=== PATIENT | male | born 1940 | race Caucasian/White ===

== ENCOUNTER → 2017-03-17 | Outpatient (CLI) | payer MEDICARE ==
[~2017-03-17] MED LIST: ALFU10TA11 PO; ASP325TEC PO; ASPI-808 PO; AVODART 0.5 MG PO; DOCU100C37 PO; FRS325T; GABA300C PO; GBPN100C PO; HYDR-3820 PO; IBP800T PO; POLY17PO23 GT; SENN-20 PO; SIMV10TA3 PO; TRAM50TA2 PO
--- NOTE | 2017-03-17 13:38 | Diagnostic Imaging Report ---
INDICATION: Right arm numbness of 2 months duration. FINDINGS: There are severe degenerative changes to the mid to lower cervical spine with profound spondylosis, most advanced at the C4-5 and C5-C6 levels, where there is central disc obliteration, bulky endplate osteophytes, and hypertrophic facet arthrosis. Less severe degenerative change involves the remaining discs. The alignment is within normal limits. The prevertebral space is unremarkable. There is no identifiable fracture. IMPRESSION: Severe mid to lower cervical spondylosis. The extent of posterior endplate osteophytes and facet arthrosis would likely result in underlying canal and/or foraminal stenoses. In the setting of right arm numbness, consider an MRI of the cervical spine as further evaluation. Dictated by: Dictated on workstation # [id number]
== END ==
LOC: RAD 11:16
PROVIDERS: ATTEND Nurse Practitioner Family
DX: M47.812 Spondylosis without myelopathy or radiculopathy, cervical region (principal)
CPT/HCPCS: 72040

== ENCOUNTER → 2017-04-27 | Outpatient (CLI) | payer MEDICARE ==
--- NOTE | 2017-04-27 17:12 | Diagnostic Imaging Report ---
PROCEDURE: MR imaging cervical spine without contrast. TECHNIQUE: Multiplanar, multisequence MR imaging of the cervical spine was performed without contrast. INDICATION: Neck pain. FINDINGS: There is slight straightening of the lordotic curvature of the cervical spine. There is mild anterior translation of C4 over C5 and minimal posterior translation of C5 over C6. This appears to be degenerative related and associated with severe disc height loss at C4/5 and C5/6. There is also moderate disc height loss at C4/5. There is disc desiccation at all levels. There is mild marrow edema around the mid cervical spine discs. No focal suspicious marrow lesion is seen. The foramen magnum and upper cervical canal are patent. C2/3: There is disc space complex with associated mild to moderate spinal canal stenosis reducing the AP dimension of the canal to 7.8 mm. No cord compression or cord signal abnormality. There is facet hypertrophy prominent on the left side associated with mild to moderate left foraminal stenosis. The right foramen is patent. C3/4: There is disc space complex associated with moderate spinal canal stenosis reducing the AP dimension of the canal to 7.4 mm. There is minimal impression upon the anterior margin of the spinal cord. No cord signal abnormality. The foramina demonstrate mild narrowing bilaterally. C4/5: There is a prominent disc spur complex associated with severe spinal canal stenosis reducing the AP dimension of the canal to 5.7 mm and associated with moderate cord compression. There is no cord signal abnormality. The foramina demonstrate bilateral moderate to severe stenosis worse on the right side. C5/6: There is a disc spur complex associated with severe spinal canal stenosis reducing the AP dimension of the canal to 5.6 mm and associated with moderate cord compression. No cord signal abnormality is seen. The foramina demonstrates severe stenosis bilaterally. C6-7: There is a spur disc complex associated with mild to moderate spinal canal stenosis reducing the AP dimension of the canal to 7.9 mm. No cord compression or cord signal abnormality. The foramina demonstrate bilateral severe stenosis. C7/T1: There is mild disc spur complex with no spinal canal stenosis. No cord compression. The foramina demonstrate moderate stenosis on the right and severe stenosis on the left. IMPRESSION: Advanced degenerative changes resulting in alignment abnormalities and multilevel severe spinal canal stenosis and cord compression as described. There is also multilevel significant foraminal stenosis. Dictated by: Dictated on workstation # [id number]
== END ==
LOC: RAD 11:11
PROVIDERS: ATTEND Nurse Practitioner Family
DX: M50.921 Unspecified cervical disc disorder at C4-C5 level (principal); M50.922 Unspecified cervical disc disorder at C5-C6 level
CPT/HCPCS: 72141

== ENCOUNTER 2017-11-26 18:45 | Observation (INO) | payer MEDICARE ==
[~2017-11-26] VITALS: Ht 182.9 cm; Wt 112.7 kg
[2017-11-26 19:10] LABS: BASOPHILS % (AUTO) 0 % (0-10); EOSINOPHILS # (AUTO) 0.2 10^3/uL (0.0-0.3); EOSINOPHILS % (AUTO) 2 % (0-10); HEMATOCRIT 41 % (40-54); HEMOGLOBIN 14.1 G/DL (13.3-17.7); LYMPHOCYTES # (AUTO) 1.9 X 10^3 (1.0-4.0); LYMPHOCYTES % (AUTO) 31 % (12-44); MEAN CORPUSCULAR HEMOGLOBIN 31 PG (25-34); MEAN CORPUSCULAR HGB CONC 34 G/DL (32-36); MEAN CORPUSCULAR VOLUME 90 FL (80-99); MEAN PLATELET VOLUME 11.6 FL (7.4-10.4); MONOCYTES # (AUTO) 0.7 X 10^3 (0.0-1.0); MONOCYTES % (AUTO) 11 % (0-12); NEUTROPHILS # (AUTO) 3.4 X 10^3 (1.8-7.8); NEUTROPHILS % (AUTO) 56 % (42-75); PLATELET COUNT 125 10^3/uL (130-400); RED BLOOD COUNT 4.57 10^6/uL (4.35-5.85); RED CELL DISTRIBUTION WIDTH 14.3 % (10.0-14.5); WHITE BLOOD COUNT 6.2 10^3/uL (4.3-11.0)
[2017-11-26 19:19] LABS: BILIRUBIN,URINE NEGATIVE (NEGATIVE); CLARITY,URINE CLEAR; COLOR,URINE YELLOW; GLUCOSE, URINE (UA) NEGATIVE (NEGATIVE); KETONES,URINE NEGATIVE (NEGATIVE); LEUKOCYTE ESTERASE ,URINE NEGATIVE (NEGATIVE); NITRITE,URINE NEGATIVE (NEGATIVE); PH,URINE 6.5 (5-9); PROTEIN,URINE NEGATIVE (NEGATIVE); UROBILINOGEN,URINE NORMAL (NORMAL)
[2017-11-26 19:27] LABS: RBC,URINE RARE /HPF; SQUAMOUS EPITHELIAL CELL,UR RARE /HPF; WBC,URINE RARE /HPF
[2017-11-26 19:27] LABS: ALANINE AMINOTRANSFERASE 17 U/L (0-55); ALBUMIN 3.8 GM/DL (3.2-4.5); ALKALINE PHOSPHATASE 61 U/L (40-136); BILIRUBIN,TOTAL 0.7 MG/DL (0.1-1.0); BUN/CREATININE RATIO 16; CALCIUM 8.8 MG/DL (8.5-10.1); CARBON DIOXIDE 23 MMOL/L (21-32); CHLORIDE 106 MMOL/L (98-107); CREATININE SERUM 1.23 MG/DL (0.60-1.30); GFR ESTIMATED 57; GLUCOSE 101 MG/DL (70-105); LIPASE 54 U/L (8-78); MAGNESIUM 2.3 MG/DL (1.8-2.4); POTASSIUM 4.2 MMOL/L (3.6-5.0); SODIUM 138 MMOL/L (135-145); TOTAL PROTEIN 7.1 GM/DL (6.4-8.2)
--- NOTE | 2017-11-26 19:33 | ED General ---
General Chief Complaint: General Problems/Pain Stated Complaint: NUMBNESS Nursing Triage Note: PT BROUGHT IN BY [facility] WITH C/O ABD PAIN WITHOUT N/V AND BILAT HAND NUMBNESS. HE DOES REPORT NECK PAIN. HE DENIES ANY INJURY. PT IS A&O X 4 UPON ARRIVAL TO ED. Nursing Sepsis Screen: No Definite Risk Source of Information: Patient Exam Limitations: No Limitations History of Present Illness Time Seen by Provider: 18:48 Initial Comments This 77 gentleman presents to the emergency room via [facility] with complaints of abdominal pain 3 days, diarrhea this morning, and generalized weakness 3 days, and numbness in the extremities. He normally walks with a walker but has not been able to ambulate today. He could not ambulate for EMS. He has had some mild cough as well. He also reports some neck discomfort. His abdomen is exquisitely tender and he guards even with placement of a stethoscope. He is afebrile and vital signs are stable. He is a patient of Sha Painter at [facility] in [place]. Allergies and Home Medications Allergies Coded Allergies: BECCAANo Known Allergies (Verified Allergy, Unknown, 10/18/16) Home Medications Alfuzosin HCl 10 Mg Tab.er.24h, 10 MG PO DAILY@1800, #30 Prescribed by: JAIRO ESPARZA on 01/09/16 0808 Aspirin 325 Mg Tablet, 325 MG PO BID, (Reported) Gabapentin 300 Mg Capsule, 300 MG PO HS, (Reported) Sennosides/Docusate Sodium 1 Each Tablet, 2 EA PO BID, #60 Prescribed by: JAIRO ESPARZA on 01/09/16 0808 Constitutional: see HPI EENTM: no symptoms reported Respiratory: see HPI Cardiovascular: no symptoms reported Gastrointestinal: see HPI Genitourinary: no symptoms reported Musculoskeletal: see HPI Skin: no symptoms reported Psychiatric/Neurological: See HPI Hematologic/Lymphatic: No Symptoms Reported Immunological/Allergic: no symptoms reported Past Zrxiftw-Ubftaa-Dsywos Hx Patient Social History Alcohol Use: Denies Use Recreational Drug Use: No Smoking Status: Former Smoker Type Used: Cigarettes 2nd Hand Smoke Exposure: No Recent Foreign Travel: No Contact w/Someone Who Travel: No Recent Infectious Disease Expo: No Recent Hopitalizations: No Immunizations Up To Date Tetanus Booster (TDap): Unknown PED Vaccines UTD: Yes Date of Pneumonia Vaccine: Aug 16, 2015 Date of Influenza Vaccine: Aug 16, 2016 Seasonal Allergies Seasonal Allergies: No Surgeries History of Surgeries: Yes Surgeries: Appendectomy, Orthopedic (right hip and left knee) Respiratory History of Respiratory Disorde: No Cardiovascular History of Cardiac Disorders: No Neurological History of Neurological Disord: Yes (restless leg syndrome, cervical spinal stenosis) Neurological Disorders: Neuropathy Reproductive System Hx Reproductive Disorders: No Genitourinary History of Genitourinary Disor: Yes Genitourinary Disorders: Benign Prostatic Hyperpl Gastrointestinal History of Gastrointestinal Di: No Musculoskeletal History of Musculoskeletal Dis: Yes (FREQ.BACK PAIN, cervical spinal stenosis) Musculoskeletal Disorders: Chronic Back Pain Endocrine History of Endocrine Disorders: No HEENT History of HEENT Disorders: No Cancer History of Cancer: No Psychosocial History of Psychiatric Problem: No Integumentary History of Skin or Integumenta: No Blood Transfusions History of Blood Disorders: No Adverse Reaction to a Blood Tr: No Family Medical History Significant Family History: No Pertinent Family Hx Family Medial History: Respiratory disorder 19 MOTHER (EMPHYZEMA) Physical Exam Vital Signs Vital Sign - Last 12Hours 11/26/17 18:57 Temp 99.2 Pulse 73 Resp 11 B/P (MAP) 128/101 (110) Pulse Ox 96 O2 Delivery Room Air Capillary Refill : Less Than 3 Seconds General Appearance: No Apparent Distress, WD/WN, Other (generalized weakness) HEENT: PERRL/EOMI, Normal ENT Inspection, Other (oropharynx somewhat dry) Neck: Normal Inspection Respiratory: Lungs Clear, Normal Breath Sounds, No Accessory Muscle Use, No Respiratory Distress Cardiovascular: Regular Rate, Rhythm, No Murmur, Other (mild to moderate pitting lower extremity edema equal bilaterally) Gastrointestinal: Soft, Abnormal Bowel Sounds (bowel sounds present but some are tympanic), Tenderness (exquisite diffuse tenderness even with auscultation) Extremity: Swelling (mild to moderate pitting edema equal bilaterally in the lower extremities) Neurologic/Psychiatric: Alert, Oriented x3, Normal Mood/Affect, patient service rep II-XII Norm as Tested, Motor Weakness (global, worse in the lower extremities), Sensory Deficit (numbness in the distal extremities throughout) Skin: Normal Color, Warm/Dry Progress/Results/Core Measures Suspected Sepsis Recent Fever Within 48 Hours: No Infection Criteria Present: None New/Unexplained Altered Menta: No Sepsis Screen: No Definite Risk Sepsis Diagnosis: SIRS Temperature:99.2 Pulse: 73 Respiratory Rate: 11 Laboratory Tests 11/26/17 19:00: White Blood Count 6.2 Blood Pressure 128 /101 Mean: 110 Laboratory Tests 11/26/17 19:00: Creatinine 1.23, Platelet Count 125L, Total Bilirubin 0.7 Results/Orders Lab Results Laboratory Tests Test 11/26/17 19:00 11/26/17 19:07 Range/Units White Blood Count 6.2 4.3-11.0 10^3/uL Red Blood Count 4.57 4.35-5.85 10^6/uL Hemoglobin 14.1 13.3-17.7 G/DL Hematocrit 41 40-54 % Mean Corpuscular Volume 90 80-99 FL Mean Corpuscular Hemoglobin 31 25-34 PG Mean Corpuscular Hemoglobin Concent 34 32-36 G/DL Red Cell Distribution Width 14.3 10.0-14.5 % Platelet Count 125 L 130-400 10^3/uL Mean Platelet Volume 11.6 H 7.4-10.4 FL Neutrophils (%) (Auto) 56 42-75 % Lymphocytes (%) (Auto) 31 12-44 % Monocytes (%) (Auto) 11 0-12 % Eosinophils (%) (Auto) 2 0-10 % Basophils (%) (Auto) 0 0-10 % Neutrophils # (Auto) 3.4 1.8-7.8 X 10^3 Lymphocytes # (Auto) 1.9 1.0-4.0 X 10^3 Monocytes # (Auto) 0.7 0.0-1.0 X 10^3 Eosinophils # (Auto) 0.2 0.0-0.3 10^3/uL Basophils # (Auto) 0.0 0.0-0.1 10^3/uL Sodium Level 138 135-145 MMOL/L Potassium Level 4.2 3.6-5.0 MMOL/L Chloride Level 106 98-107 MMOL/L Carbon Dioxide Level 23 21-32 MMOL/L Anion Gap 9 5-14 MMOL/L Blood Urea Nitrogen 20 H 7-18 MG/DL Creatinine 1.23 0.60-1.30 MG/DL Estimat Glomerular Filtration Rate 57 BUN/Creatinine Ratio 16 Glucose Level 101 70-105 MG/DL Calcium Level 8.8 8.5-10.1 MG/DL Magnesium Level 2.3 1.8-2.4 MG/DL Total Bilirubin 0.7 0.1-1.0 MG/DL Aspartate Amino Transf (AST/SGOT) 22 5-34 U/L Alanine Aminotransferase (ALT/SGPT) 17 0-55 U/L Alkaline Phosphatase 61 40-136 U/L Troponin I < 0.30 <0.30 NG/ML Total Protein 7.1 6.4-8.2 GM/DL Albumin 3.8 3.2-4.5 GM/DL Lipase 54 8-78 U/L TSH [place] Testing 1.99 0.35-4.94 UIU/ML Urine Color YELLOW Urine Clarity CLEAR Urine pH 6.5 5-9 Urine Specific [place] 1.015 L 1.016-1.022 Urine Protein NEGATIVE NEGATIVE Urine Glucose (UA) NEGATIVE NEGATIVE Urine Ketones NEGATIVE NEGATIVE Urine Nitrite NEGATIVE NEGATIVE Urine Bilirubin NEGATIVE NEGATIVE Urine Urobilinogen NORMAL NORMAL MG/DL Urine Leukocyte Esterase NEGATIVE NEGATIVE Urine RBC (Auto) NEGATIVE NEGATIVE Urine RBC RARE /HPF Urine WBC RARE /HPF Urine Squamous Epithelial Cells RARE /HPF Urine Crystals NONE /LPF Urine Bacteria NONE /HPF Urine Casts NONE /LPF Urine Mucus NEGATIVE /LPF Urine Culture Indicated NO Micro Results Microbiology 11/26/17 Influenza Types A,B Antigen (FLORA) - Final, Complete My Orders Orders - KINGSLEY LICEA MD Cbc With Automated Diff (11/26/17 18:59) Comprehensive Metabolic Panel (11/26/17 18:59) Lipase (11/26/17 18:59) Magnesium (11/26/17 18:59) Thyroid Analyzer (11/26/17 18:59) Troponin I (11/26/17 18:59) Ua Culture If Indicated (11/26/17 18:59) Influenza A And B Antigens (11/26/17 18:59) Chest 1 View, Ap/Pa Only (11/26/17 18:59) Ct Head/Cervical Spine Wo (11/26/17 18:59) Saline Lock/Iv-Start (11/26/17 18:59) Ekg Tracing (11/26/17 18:59) Monitor-Rhythm Ecg Trace Only (11/26/17 18:59) Ct Abdomen/Pelvis W (11/26/17 19:37) Ns Iv 1000 Ml (Sodium Chloride 0.9%) (11/26/17 19:37) Iohexol Injection (Omnipaque 350 Mg/Ml 1 (11/26/17 20:00) Fentanyl Injection (Sublimaze Injection (11/26/17 20:45) Gabapentin Capsule/Tablet (Neurontin Cap (11/26/17 20:45) Dexamethasone Injection (Decadron Inject (11/26/17 21:45) Medications Given in ED Current Medications Medications Dose Ordered Sig/Sussy Route Start Time Stop Time Status Last Admin Dose Admin Fentanyl Citrate 50 mcg ONCE ONCE IVP 11/26/17 20:45 11/26/17 20:46 DC 11/26/17 20:50 50 MCG Gabapentin 300 mg ONCE ONCE PO 11/26/17 20:45 11/26/17 20:46 DC 11/26/17 20:50 300 MG Iohexol 100 ml ONCE ONCE IV 11/26/17 20:00 11/26/17 20:01 DC 11/26/17 20:01 100 ML Sodium Chloride 1,000 ml @ 0 mls/hr Q0M ONCE IV 11/26/17 19:37 11/26/17 19:38 DC 11/26/17 20:23 0 MLS/HR Vital Signs/I&O Vital Sign - Last 12Hours 11/26/17 18:57 Temp 99.2 Pulse 73 Resp 11 B/P (MAP) 128/101 (110) Pulse Ox 96 O2 Delivery Room Air Capillary Refill : Less Than 3 Seconds Blood Pressure Mean: 110 Progress Note #1: Time: 19:58 Progress Note Review of labs demonstrated no major abnormalities. Patient is presently in CT for CT of the head and cervical spine. He will also receive a CT of the abdomen and pelvis with contrast for evaluation of the abdominal pain. A liter of IV normal saline will be administered after the IV contrast. Review of his chart notes and MRI of the cervical spine from April 2016 demonstrating severe cervical spine stenosis. Progress Note #2: Time: 21:[address] of the cervical spine revealed severe spinal stenosis similar to that of the findings on MRI from this past summer. In the absence of other causes of weakness, it is presumed that this is the cause of his weakness. Patient also has generalized back pain and paresthesias/numbness. He was treated with fentanyl and gabapentin in the ER. No cause of his abdominal pain could be determined in the ER. I suspect his abdominal pain is related either to obstipation or neuropathic pain. Case was reviewed with Dr. Ortega after assessment of patient's functionality. Patient was barely able to bear weight and required assistance to transfer from bed to wheelchair and back. He does not feel comfortable returning home as he has minimal support from his who is also older and in poor health. She also works during the day and will not be available in the home. Since patient cannot be safely return home, we will admit him to the hospital and start steroid therapy. A complete MRI of the spine will be performed in the morning to further assess his stenosis. Dr. Ortega then can assess him for surgical candidacy and determine best plan of action from there. Patient is agreeable to this plan as is Dr. Sandra Batres. ECG Initial ECG Impression Date: Nov 26, 2017 Initial ECG Impression Time: 19:10 Initial ECG Rate: 69 Initial ECG Rhythm: Normal Sinus Initial ECG Impression: Normal Comment Normal sinus rhythm with no ST elevation or depression. No axis deviation. Nonspecific intraventricular conduction delay per automated read. Diagnostic Imaging Diagonstic Imaging: Xray Plain Films/CT/US/NM/MRI: chest Comments Chest x-ray viewed by me and report reviewed. See report below: NAME: LAUREL HOLLEY Arline [facility] REC#: [id number] PT STATUS: REG ER : 1940 PHYSICIAN: KINGSLEY LICEA MD ADMIT DATE: 11/26/17/ER Draft Date of Exam:11/26/17 CHEST 1 VIEW, AP/PA ONLY INDICATION: Hand numbness, abdominal pain with cough. TECHNIQUE: Single view chest 7:34 PM. CORRELATION STUDY: 11/07/2016 FINDINGS: Heart size remains enlarged. Vasculature overall stable. Likely chronic change about the lung parenchyma. No suggestion for acute infiltrate. Minimal atelectasis or perhaps scarring left mid lung. IMPRESSION: 1. Stable cardiac enlargement without evidence for failure. Dictated on workstation # [id number] Dict: 11/26/171944 Trans: 11/26/171947 [place] [id number] Interpreted by: ESTRELLA FERNANDES DO Diagonstic Imaging: CT Plain Films/CT/US/NM/MRI: c-spine, head Comments CT head and cervical spine viewed by me and report reviewed. See report below: NAME: KISHANLAUREL Arline [facility] REC#: [id number] PT STATUS: REG ER : 1940 PHYSICIAN: KINGSLEY LICEA MD ADMIT DATE: 11/26/17/ER Draft Date of Exam:11/26/17 CT HEAD/CERVICAL SPINE WO PROCEDURE: CT head and CT cervical spine without contrast. TECHNIQUE: Multiple contiguous axial images were obtained through the brain and cervical spine without the use of intravenous contrast. Sagittal and coronal reformations through the cervical spine were then performed. INDICATION: Bilateral hand numbness and neck pain. No known injury. Comparison is made with a previous MRI examination from 04/27/2017. FINDINGS: CT of the head demonstrates no evidence of an acute intracranial abnormality. There is no evidence of intracranial hemorrhage. There Is no mass effect or shift. There is no hydrocephalus. There is no evidence of loss of costello-white differentiation. Basilar cisterns patent. Posterior fossa unremarkable. Mastoids appear clear. Paranasal sinuses are clear. Orbital contents unremarkable. CT cervical spine: When compared to the prior examination, there has not been evidence of interval change in alignment. There is maintenance of normal alignment of the craniocervical junction. The facets are normally aligned. There is no abnormal facet joint or disc space widening. There is a normal relationship of lateral masses of C1 and C2. Advanced multilevel cervical degenerative disc disease is again demonstrated most severe at the C4-C5 and C5-C6 levels. Vertebral body heights are maintained. There is no acute fracture. At the C2-C3 level, there is left greater than right facet arthropathy with [id number] narrowing of the left neural foramen. At C3-C4, uncovertebral spurring and facet arthropathy is present. There is moderate narrowing of both neural foramina. There appear to be mild narrowing of the central canal. At the C4-C5 level, there is posterior disc osteophyte complex that results in severe central canal stenosis. Uncovertebral spurring and facet arthropathy also result in severe bilateral neural foraminal stenosis. C5-C6 level demonstrates an additional level of severe central canal stenosis due to posterior disc osteophyte complex and additional level of severe bilateral neural foraminal stenosis. At C6-C7, there is endplate spurring with moderate narrowing of the central canal. There is severe bilateral neural foraminal stenosis. At C7-T1, there is mild narrowing of the central canal. There is moderate narrowing of both neural foramen. Lung apices are clear. Soft tissues of the neck demonstrate no acute abnormality. IMPRESSION: 1. Advanced multilevel cervical degenerative disc disease and facet arthropathy with severe canal stenosis at the C4-C5 and C5-C6 levels. There is also multiple levels of high-grade and severe bilateral neural foraminal stenosis due to facet arthropathy and uncovertebral spurring. The findings are not significantly changed from the prior MRI. Alignment appears stable. There is no acute osseous abnormality. 2. CT of the head demonstrates no evidence of an acute intracranial abnormality. Dictated on workstation # [id number] Dict: 11/26/172005 Trans: 11/26/172022 [id number] Interpreted by: ALIVIA GARAY MD Diagonstic Imaging: CT Plain Films/CT/US/NM/MRI: abdomen, pelvis Comments CT abdomen and pelvis viewed by me and report reviewed. See report below: NAME: LAUREL HOLLEY [facility] REC#: [id number] PT STATUS: REG ER : 1940 PHYSICIAN: KINGSLEY LICEA MD ADMIT DATE: 11/26/17/ER Draft Date of Exam:11/26/17 CT ABDOMEN/PELVIS W PROCEDURE: CT abdomen and pelvis with contrast. TECHNIQUE: Multiple contiguous axial images were obtained through the abdomen and pelvis after administration of intravenous contrast. INDICATION: Abdominal pain and urinary retention. Comparison is made with a prior CT study from 09/04/2014. FINDINGS: The visualized lung bases demonstrate some dependent atelectasis but no focal infiltrate or effusion. The liver demonstrates no evidence of a focal intrahepatic abnormality. The gallbladder is nondistended without radiodense gallstone or biliary dilatation. The pancreas unremarkable. There is some granulomas within the spleen. There is no adrenal mass. Lobulated atrophic appearance of the right kidney is unchanged from the previous exam. There is no significant interval change in the patient's left-sided parapelvic cysts. The kidneys appear nonobstructed. There is no hydronephrosis. There is a punctate nonobstructive stone within the right mid kidney. The ureters are normal in caliber. The urinary bladder is unremarkable. The prostate is enlarged. Small and large bowel normal in caliber without evidence of obstruction. There is moderate stool within the colon. Diverticulosis is present but there are no findings to suggest diverticulitis. There is no free air, free fluid or abscess. There are fat-containing inguinal hernias. There is no pathologic adenopathy. Aorta normal in caliber. There are multilevel degenerative endplate changes present within the spine with a levoscoliotic curvature but there is no acute or suspicious osseous abnormality demonstrated. There has been previous right hip arthroplasty. IMPRESSION: 1. No CT evidence of an acute inflammatory or obstructive process within the abdomen or pelvis. 2. Stable atrophic lobulated appearance of the right kidney. There is stable left parapelvic cyst. There is a punctate nonobstructive stone within the mid right kidney. Ureters are normal in caliber. Urinary bladder unremarkable. 3. Prostatic enlargement 4. Uncomplicated diverticulosis without diverticulitis. There is no bowel obstruction. 5. Fat-containing inguinal hernias. 6. Lumbar degenerative disc disease and facet arthropathy. Dictated on workstation # [id number] Dict: 11/26/172012 Trans: 11/26/[address] [place] [address] [id number] Interpreted by: ALIVIA GARAY MD Departure Communication (Admissions) Time/Spoke to Admitting Phy: 21:[address] Sandra Batres Time/Spoke to Consulting Phy: 21:20 Communication/Consulting Dr. Ortega Impression Impression: Primary Impression: Cervical stenosis of spinal canal Additional Impressions: Generalized weakness Abdominal pain of unknown cause Numbness of extremity Disposition: ADMITTED INPATIENT Condition: Stable Admissions Decision to Admit Reason: Admit from ER (General) Decision to Admit/Date: Nov 26, 2017 Time/Decision to Admit Time: 21:30 Departure-Patient Inst. Referrals: DAVID PAVON DO (PCP) Primary Care Physician SHA PAINTER (Family) Primary Care Physician KINGSLEY LICEA MD Nov 26, 2017 19:33
[2017-11-26] MEDS ORDERED: NS IV 1000 ML 1,000 ML IV ONE (19:37)
[2017-11-26 19:46] LABS: TSH (THYROID ANALYZER) 1.99 UIU/ML (0.35-4.94)
--- NOTE | 2017-11-26 19:48 | Diagnostic Imaging Report ---
INDICATION: Hand numbness, abdominal pain with cough. TECHNIQUE: Single view chest 7:34 PM. CORRELATION STUDY: 11/07/2016 FINDINGS: Heart size remains enlarged. Vasculature overall stable. Likely chronic change about the lung parenchyma. No suggestion for acute infiltrate. Minimal atelectasis or perhaps scarring left mid lung. IMPRESSION: 1. Stable cardiac enlargement without evidence for failure. Dictated by: Dictated on workstation # [id number]
[2017-11-26] MEDS ORDERED: IOHEXOL 350 MG/ML 100 ML (OMNIPAQUE 350) VIAL IV ONE (20:00)
--- NOTE | 2017-11-26 20:24 | Diagnostic Imaging Report ---
PROCEDURE: CT head and CT cervical spine without contrast. TECHNIQUE: Multiple contiguous axial images were obtained through the brain and cervical spine without the use of intravenous contrast. Sagittal and coronal reformations through the cervical spine were then performed. INDICATION: Bilateral hand numbness and neck pain. No known injury. Comparison is made with a previous MRI examination from 04/27/2017. FINDINGS: CT of the head demonstrates no evidence of an acute intracranial abnormality. There is no evidence of intracranial hemorrhage. There Is no mass effect or shift. There is no hydrocephalus. There is no evidence of loss of costello-white differentiation. Basilar cisterns patent. Posterior fossa unremarkable. Mastoids appear clear. Paranasal sinuses are clear. Orbital contents unremarkable. CT cervical spine: When compared to the prior examination, there has not been evidence of interval change in alignment. There is maintenance of normal alignment of the craniocervical junction. The facets are normally aligned. There is no abnormal facet joint or disc space widening. There is a normal relationship of lateral masses of C1 and C2. Advanced multilevel cervical degenerative disc disease is again demonstrated most severe at the C4-C5 and C5-C6 levels. Vertebral body heights are maintained. There is no acute fracture. At the C2-C3 level, there is left greater than right facet arthropathy with [id number] narrowing of the left neural foramen. At C3-C4, uncovertebral spurring and facet arthropathy is present. There is moderate narrowing of both neural foramina. There appear to be mild narrowing of the central canal. At the C4-C5 level, there is posterior disc osteophyte complex that results in severe central canal stenosis. Uncovertebral spurring and facet arthropathy also result in severe bilateral neural foraminal stenosis. C5-C6 level demonstrates an additional level of severe central canal stenosis due to posterior disc osteophyte complex and additional level of severe bilateral neural foraminal stenosis. At C6-C7, there is endplate spurring with moderate narrowing of the central canal. There is severe bilateral neural foraminal stenosis. At C7-T1, there is mild narrowing of the central canal. There is moderate narrowing of both neural foramen. Lung apices are clear. Soft tissues of the neck demonstrate no acute abnormality. IMPRESSION: 1. Advanced multilevel cervical degenerative disc disease and facet arthropathy with severe canal stenosis at the C4-C5 and C5-C6 levels. There is also multiple levels of high-grade and severe bilateral neural foraminal stenosis due to facet arthropathy and uncovertebral spurring. The findings are not significantly changed from the prior MRI. Alignment appears stable. There is no acute osseous abnormality. 2. CT of the head demonstrates no evidence of an acute intracranial abnormality. Dictated by: Dictated on workstation # [id number]
--- NOTE | 2017-11-26 20:31 | Diagnostic Imaging Report ---
PROCEDURE: CT abdomen and pelvis with contrast. TECHNIQUE: Multiple contiguous axial images were obtained through the abdomen and pelvis after administration of intravenous contrast. INDICATION: Abdominal pain and urinary retention. Comparison is made with a prior CT study from 09/04/2014. FINDINGS: The visualized lung bases demonstrate some dependent atelectasis but no focal infiltrate or effusion. The liver demonstrates no evidence of a focal intrahepatic abnormality. The gallbladder is nondistended without radiodense gallstone or biliary dilatation. The pancreas unremarkable. There is some granulomas within the spleen. There is no adrenal mass. Lobulated atrophic appearance of the right kidney is unchanged from the previous exam. There is no significant interval change in the patient's left-sided parapelvic cysts. The kidneys appear nonobstructed. There is no hydronephrosis. There is a punctate nonobstructive stone within the right mid kidney. The ureters are normal in caliber. The urinary bladder is unremarkable. The prostate is enlarged. Small and large bowel normal in caliber without evidence of obstruction. There is moderate stool within the colon. Diverticulosis is present but there are no findings to suggest diverticulitis. There is no free air, free fluid or abscess. There are fat-containing inguinal hernias. There is no pathologic adenopathy. Aorta normal in caliber. There are multilevel degenerative endplate changes present within the spine with a levoscoliotic curvature but there is no acute or suspicious osseous abnormality demonstrated. There has been previous right hip arthroplasty. IMPRESSION: 1. No CT evidence of an acute inflammatory or obstructive process within the abdomen or pelvis. 2. Stable atrophic lobulated appearance of the right kidney. There is stable left parapelvic cyst. There is a punctate nonobstructive stone within the mid right kidney. Ureters are normal in caliber. Urinary bladder unremarkable. 3. Prostatic enlargement 4. Uncomplicated diverticulosis without diverticulitis. There is no bowel obstruction. 5. Fat-containing inguinal hernias. 6. Lumbar degenerative disc disease and facet arthropathy. Dictated by: Dictated on workstation # [id number]
[2017-11-26] MEDS ORDERED: GABAPENTIN 300 MG (NEURONTIN) CAP PO ONE (20:45)
[2017-11-26] MEDS ORDERED: fentaNYL INJECTION 100 MCG/2 ML AMP IVP ONE (20:45)
[2017-11-26] MEDS ORDERED: DEXAMETHASONE 10 MG/ML (DECADRON) 1 ML VIAL IV ONE (21:45)
--- OUTSIDE RECORDS SUMMARY | 2017-11-26 22:13 | XMS REPORT | Clinical Summary ---
Author Author [facility] Organization [facility] Address Unknown Phone Unavailable Care Team Providers Care Digital Imaging Technician Name Role Phone PCP Unavailable Source Comments Some departments are not documenting in the electronic medical record. If you do not see the information that you expected, contact Release of Information in the Health Information Management department at [phone] for further assistance in locating additional records.[facility] Allergies No Known Allergies Current Medications Prescription Sig. Disp. Refills Start End Date Status Date gabapentin (NEURONTIN) Take 300 mg by mouth Active 300 mg capsule every 8 hours. celecoxib (CELEBREX) 200 Take 200 mg by mouth Active mg capsule daily. other medication 1 Dose. 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 Unclear whether he has been offered surgical options to treat this while following with Dr Holt. The patient is amenable to discussion of surgical treatment once imaging performed to diagnose stricture. Meatoplasty was discussed briefly. 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 Unclear if patient has previous RUG. No risk factors for urethral stricture other than catheter usage during previous orthopedic surgeries. He suffers from significant LUTS including urge incontinence. He was presented with likely diagnostic workup strategy including RUG to evaluate stricture as well as surgical options including urethroplasty and DVIU. The patient would like to wait until RUG performed before discussing surgical management options. - RUG - RTC after Social History Tobacco Use Types Packs/Day Years Used Date Former Smoker Cigarettes Smokeless Tobacco: Never Used Alcohol Use Drinks/Week oz/Week Comments No Sex Assigned at Date Recorded Not on file Last Filed Vital Signs Vital Sign Reading Time Taken Blood Pressure 157/84 02/23/2017 11:10 AM CDT Pulse 74 02/23/2017 11:10 AM CDT Temperature - - Respiratory Rate - - Oxygen Saturation - - Inhaled Oxygen - - Concentration Weight 115.2 kg (254 lb) 02/23/2017 11:10 AM CDT Height 182.9 cm (6') 02/23/2017 11:10 AM CDT Body Mass Index 34.45 02/23/2017 11:10 AM CDT Plan of Treatment Health Maintenance Due Date Last Done Comments PHYSICAL (COMPREHENSIVE) 1947 EXAM PERTUSSIS VACCINE 1953 TETANUS VACCINE 1959 COLORECTAL CANCER 1992 SCREENING SHINGLES VACCINE 2002 ABDOMINAL AORTIC ANEURYSM 2007 SCREENING PREVNAR/PNEUMOVAX (#1) 2007 INFLUENZA VACCINE 06/16/2017 Results Not on filefrom Last 3 Months
--- OUTSIDE RECORDS SUMMARY | 2017-11-26 22:13 | XMS REPORT ---
Author Author NEDA PAINTER [facility] eClinicalWorks Address Unknown Phone Unavailable Care Team Providers Care Alteration Hand Name Role Phone NEDA PAINTER CP Unavailable Allergies, Adverse Reactions, Alerts Substance Reaction Event Type N.K.D.A. Info Not Available Non Drug Allergy Problems Problem Type Condition ICD-9 Code Onset Dates Condition Status Problem Hematuria, unspecified 599.70 Active Problem Urinary tract infection, site not specified 599.0 Active Problem Acute prostatitis 601.0 Active Problem BPH (benign prostatic hyperplasia) 600.00 Active Problem Cellulitis and abscess of trunk 682.2 Active Problem Osteoarthritis (arthritis due to wear and tear of joints) 715.90 Active Problem Influenza with other respiratory manifestations 487.1 Active Problem Dysuria 788.1 Active Problem Screening for lipoid disorders V77.91 Active Problem 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 Assessment Hematuria, unspecified 599.70 Active Problem Effusion of ankle and foot joint 719.07 Active Assessment BPH (benign prostatic hyperplasia) 600.00 Active Assessment Osteoarthritis (arthritis due to wear and tear of joints) 715.90 Active Problem Unspecified inflammatory polyarthropathy 714.9 Active Problem Need for prophylactic vaccination and inoculation, Influenza V04.81 Active Problem 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 Problem Shortness of breath 786.05 Active Problem Fecal impaction 560.32 Active Problem Unspecified orchitis and epididymitis 604.90 Active Medications Medication Code System Code Instructions Start Date End Date Status Dosage Cipro [facility] [address]-55 500 MG Orally Twice a day Jun 27, 2015 Aug 15, 2015 1 tablet Gabapentin [facility] [address]-67 300 MG Orally Once a day Aug 17, 2014 take 1 capsule IBU NDC 0 800 MG Orally 3 times a day prn April 02, 2015 1 tablet Tramadol HCl [facility] [address]-54 50 MG Orally 2 times a day Jun 27, 2015 1 tablet as needed Hytrin NDC 0 1 MG Orally Once a day Jun 27, 2015 1 capsule Procedures Procedure Coding System Code Date [facility] Jul 25, 2015 [facility] VISIT ESTABLISHED PATIENT CPT-4 G0467 Jul 25, 2015 URINALYSIS, AUTO W/SCOPE CPT-4 03243 Jul 25, 2015 URINALYSIS, AUTO, W/O SCOPE CPT-4 86334 Jul 25, 2015 Office Visit, Est Pt., Level 3 CPT-4 76743 Jul 25, 2015 Vital Signs Date/Time: Jul 25, 2015 Temperature 97.5 F Weight 238.8 lbs Height 69 in BMI 35.26 Index Blood Pressure Diastolic 80 mmHg Blood Pressure Systolic 130 mmHg Cardiac Monitoring Heart Rate 84 bpm Results Name Result Date Reference Range Unit Abnormality Flag UA LONG DIP (IN HOUSE) Summary Purpose eClinicalWorks Submission
--- OUTSIDE RECORDS SUMMARY | 2017-11-26 22:13 | XMS REPORT ---
Author Author NEDA PAINTER Organization [employer] Address Unknown Phone Unavailable Care Team Providers Care Commercial Agent Name Role Phone NEDA PAINTER CP Unavailable Allergies, Adverse Reactions, Alerts Substance Reaction Event Type N.K.D.A. 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 Assessment Osteoarthritis of both knees, unspecified osteoarthritis type M17.0 Active Problem Screening for lipoid disorders V77.91 Active Problem BPH (benign prostatic hyperplasia) 600.00 Active Problem Cellulitis and abscess of trunk 682.2 Active Problem Benign prostatic hyperplasia with lower urinary tract symptoms, unspecified morphology N40.1 Active Problem Screening for lipoid disorders Z13.220 Active Problem Fecal impaction 560.32 Active Problem 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 Problem Osteoarthritis of both knees, unspecified osteoarthritis type M17.0 Active Problem Effusion of ankle and foot joint 719.07 Active Problem Effusion, unspecified ankle M25.473 Active Problem Osteoarthritis (arthritis due to wear and tear of joints) 715.90 Active Problem Hematuria R31.9 Active Problem 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 Active Problem Shortness of breath 786.05 Active Problem Unspecified orchitis and epididymitis 604.90 Active Problem Unspecified inflammatory polyarthropathy 714.9 Active Problem Need for prophylactic vaccination and inoculation, Influenza V04.81 Active Problem Urinary tract infection, site not specified 599.0 Active Problem Dysuria 788.1 Active Problem Hematuria, unspecified 599.70 Active Problem Acute prostatitis 601.0 Active Medications Medication Code System Code Instructions Start Date End Date Status Dosage Gabapentin [facility] [address]-69 300 MG Orally twice a day Aug 17, 2014 take 1 capsule Celebrex [facility] [address]-68 200 mg Orally Once a day Aug 28, 2016 1 capsule Hytrin NDC 0 1 MG Orally Once a day Jun 27, 2015 1 capsule Procedures Procedure Coding System Code Date Office Visit, Est Pt., Level 3 CPT-4 94568 Aug 28, 2016 [facility] VISIT ESTABLISHED PATIENT CPT-4 G0467 Aug 28, 2016 Vital Signs Date/Time: Aug 28, 2016 Cardiac Monitoring Heart Rate 77 bpm Weight 237 lbs Height 69 in BMI 34.99 Index Blood Pressure Diastolic 70 mmHg Blood Pressure Systolic 112 mmHg Results No Known Results Summary Purpose eClinicalWorks Submission
--- OUTSIDE RECORDS SUMMARY | 2017-11-26 22:13 | XMS REPORT ---
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 781289353 Problem Cervical stenosis of spinal canal M48.02 Active 55214016 Problem Cervical disc disease M50.90 Active 781720198 Problem Osteoarthritis of both knees, unspecified osteoarthritis type M17.0 Active 691213355 Problem Benign prostatic hyperplasia with lower urinary tract symptoms, unspecified morphology N40.1 Active 425668123 Problem Bilateral carpal tunnel syndrome G56.03 Active 35041776 Problem Cervicalgia M54.2 Active 50046067 ALLERGIES No Known Allergies SOCIAL HISTORY Never Assessed PLAN OF CARE Activity Details Follow Up 4 Weeks Reason:carpal tunnel VITAL SIGNS Height 69 in 2017-03-11 Weight 249.8 lbs 2017-03-11 Temperature 97.1 degrees Fahrenheit 2017-03-11 Heart Rate 72 bpm 2017-03-11 Respiratory Rate 18 2017-03-11 BMI 36.88 kg/m2 2017-03-11 Blood pressure systolic 120 mmHg 2017-03-11 Blood pressure diastolic 68 mmHg 2017-03-11 MEDICATIONS Medication Instructions Dosage Frequency Start Date End Date Duration Status Hytrin 1 MG Orally Once a day 1 capsule 24h Jun, Active Celebrex 200 mg Orally Once a day 1 capsule 24h 30 Active Gabapentin 300 MG Orally Three times a day take 1 capsule 8h Aug, 30 Active RESULTS Name Result Date Reference Range Xray : Spine, Cervical 2017-03-17 PROCEDURES Procedure Date Ordered Result Body Site [facility] VISIT ESTABLISHED PATIENT March 11, 2017 IMMUNIZATIONS No Known Immunizations MEDICAL (GENERAL) HISTORY Type Description Date Medical History Arthritis Medical History hypertension Medical History BPH (benign prostatic hyperplasia) Medical History Osteoarthritis of both knees, unspecified osteoarthritis type Medical History Bilateral carpal tunnel syndrome Medical History Cervical disc disease Medical History Cervical disc disease Surgical History tonsillectomy and adenoidectomy childhood Surgical History right hip replacement 2005 Surgical History left knee replacement by Dr. Crespo 12/25/15 Hospitalization History surgeries
--- OUTSIDE RECORDS SUMMARY | 2017-11-26 22:14 | XMS REPORT ---
Author Author NEDA PAINTER Organization [employer] Address Unknown Phone Unavailable Care Team Providers Care Light Rail Train Operator Name Role Phone NEDA PAINTER CP Unavailable Allergies, Adverse Reactions, Alerts Substance Reaction Event Type N.K.D.A. 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 Active Problem Effusion of ankle and foot joint 719.07 Active Assessment Screening for lipoid disorders Z13.220 Active Problem Screening for lipoid disorders Z13.220 Active Assessment Hematuria R31.9 Active Problem BPH (benign prostatic hyperplasia) 600.00 Active Problem Cellulitis and abscess of trunk 682.2 Active Problem Effusion, unspecified ankle M25.473 Active Problem Osteoarthritis (arthritis due to wear and tear of joints) 715.90 Active Problem Unspecified inflammatory polyarthropathy 714.9 Active Problem Need for prophylactic vaccination and inoculation, Influenza V04.81 Active Problem 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 Problem Fecal impaction 560.32 Active Problem Hematuria, unspecified 599.70 Active Problem Acute prostatitis 601.0 Active Problem Shortness of breath 786.05 Active Problem Unspecified orchitis and epididymitis 604.90 Active Medications Medication Code System Code Instructions Start Date End Date Status Dosage IBU NDC 0 800 MG Orally 3 times a day prn April 02, 2015 1 tablet Gabapentin [facility] [address]-39 300 MG Orally Once a day Aug 17, 2014 take 1 capsule Lasix [facility] [address]-24 20 MG Orally Once a day Aug 21, 2015 1 tablet Hytrin NDC 0 1 MG Orally Once a day Jun 27, 2015 1 capsule Tramadol HCl [facility] [address]-98 50 MG Orally 2 times a day Jun 27, 2015 1 tablet as needed Procedures Procedure Coding System Code Date Office Visit, Est Pt., Level 3 CPT-4 20520 Sep 18, 2015 [facility] Sep 18, 2015 [facility] VISIT ESTABLISHED PATIENT CPT-4 G0467 Sep 18, 2015 SINGLE IMMUNIZATION ADMIN CPT-4 00344 Sep 18, 2015 URINALYSIS, AUTO, W/O SCOPE CPT-4 27963 Sep 18, 2015 ASSAY OF PSA, TOTAL CPT-4 61750 Sep 18, 2015 PCV 13 CPT-4 24632 Sep 18, 2015 VENIPUNCT, ROUTINE* CPT-4 74426 Sep 18, 2015 Vital Signs Date/Time: Sep 18, 2015 Temperature 97 F Weight 244 lbs Height 69 in BMI 36.03 Index Blood Pressure Diastolic 70 mmHg Blood Pressure Systolic 130 mmHg Cardiac Monitoring Heart Rate 84 bpm Results Name Result Date Reference Range Unit Abnormality Flag ROUTINE VENIPUNCTURE UA W/ MICROSCOPY Immunizations Vaccine Administration Date PCV 13 Sep 18, 2015 Summary Purpose eClinicalWorks Submission
--- OUTSIDE RECORDS SUMMARY | 2017-11-26 22:14 | XMS REPORT ---
Author Author NEDA PAINTER Organization [employer] Address Unknown Phone Unavailable Care Team Providers Care Top Cager Name Role Phone NEDA PAINTER CP Unavailable Allergies No Known Allergies Problems Problem Type Condition Code Onset Dates Condition Status Problem Screening for lipoid disorders V77.91 Active Problem BPH (benign prostatic hyperplasia) 600.00 Active Problem Cellulitis and abscess of trunk 682.2 Active Problem Benign prostatic hyperplasia with lower urinary tract symptoms, unspecified morphology N40.1 Active Problem Fecal impaction 560.32 Active Problem Screening for lipoid disorders Z13.220 Active Problem 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 Problem Effusion of ankle and foot joint 719.07 Active Problem Osteoarthritis of both knees, unspecified osteoarthritis type M17.0 Active Problem Effusion, unspecified ankle M25.473 Active [...] Active Problem Hematuria, unspecified 599.70 Active Problem Influenza with other respiratory manifestations 487.1 Active Problem Acute prostatitis 601.0 Active Problem 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
--- OUTSIDE RECORDS SUMMARY | 2017-11-26 22:14 | XMS REPORT ---
Author Author NEDA PAINTER [facility] eClinicalWorks Address Unknown Phone Unavailable Care Team Providers Care Manager Of Construction Name Role Phone NEDA PAINTER CP Unavailable Allergies, Adverse Reactions, Alerts Substance Reaction Event Type N.K.D.A. 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 [address]-73 20 MG Orally Once a day Aug 21, 2015 1 tablet Gabapentin [facility] [address]-62 300 MG Orally Once a day Aug 17, 2014 take 1 capsule Tramadol HCl [facility] [address]-24 50 MG Orally 2 times a day Jun 27, 2015 1 tablet as needed IBU NDC 0 800 MG Orally 3 times a day prn April 02, 2015 1 tablet Hytrin NDC 0 1 MG Orally Once a day Jun 27, 2015 1 capsule Procedures Procedure Coding System Code Date Office Visit, Est Pt., Level 3 CPT-4 82784 Oct 18, 2015 [facility] VISIT ESTABLISHED PATIENT CPT-4 G0467 Oct 18, 2015 Vital Signs Date/Time: Oct 18, 2015 Temperature 97.2 F Weight 232.4 lbs Height 69 in BMI 34.32 Index Blood Pressure Diastolic 68 mmHg Blood Pressure Systolic 120 mmHg Cardiac Monitoring Heart Rate 80 bpm Results No Known Results Summary Purpose eClinicalWorks Submission
--- OUTSIDE RECORDS SUMMARY | 2017-11-26 22:14 | XMS REPORT ---
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 Active Assessment Hematuria R31.9 Active Problem Screening for lipoid disorders Z13.220 [...] Start Date End Date Status Dosage Lasix [facility] [address]-91 20 MG Orally Once a day Aug 21, 2015 1 tablet Hytrin NDC 0 1 MG Orally Once a day Jun 27, 2015 1 capsule IBU NDC 0 800 MG Orally 3 times a day prn April 02, 2015 1 tablet Tramadol HCl [facility] [address]-32 50 MG Orally 2 times a day Jun 27, 2015 1 tablet as needed Gabapentin [facility] [address]-09 300 MG Orally Once a day Aug 17, 2014 take 1 capsule Procedures Procedure Coding System Code Date Office Visit, Est Pt., Level 3 CPT-4 20509 Nov 19, 2015 URINALYSIS, AUTO, W/O SCOPE CPT-4 06189 Nov 19, 2015 [facility] VISIT ESTABLISHED PATIENT CPT-4 G0467 Nov 19, 2015 Vital Signs Date/Time: Nov 19, 2015 Temperature 98.1 F Weight 247 lbs Height 69 in BMI 36.47 Index Blood Pressure Diastolic 80 mmHg Blood Pressure Systolic 130 mmHg Cardiac Monitoring Heart Rate 65 bpm Results Name Result Date Reference Range Unit Abnormality Flag UA LONG DIP (IN HOUSE) ----SILVER neg 20151119 ----NIT neg 20151119 ----SG 1.025 20151119 ----KET neg [id number] ----VIVIANA neg 20151119 ----GLU neg 20151119 ----Odor no 20151119 ----pH 6.5 20151119 ----BLO trace 20151119 ----URO 0.2 20151119 ----Protein neg 20151119 ----Lot # [id number] ----Exp date [id number] ----Clarity clear [id number] ----Color yellow [id number] Summary Purpose [employer] Submission
--- OUTSIDE RECORDS SUMMARY | 2017-11-26 22:14 | XMS REPORT ---
Author Author NEDA PAINTER Organization [employer] Address Unknown Phone Unavailable Care Team Providers Care Cloth Finishing Range Operator Name Role Phone NEDA PAINTER CP Unavailable Allergies, Adverse Reactions, Alerts Substance Reaction Event Type N.K.D.A. Info Not Available Non Drug Allergy Problems Problem Type Condition Code Onset Dates Condition Status Assessment Benign prostatic hyperplasia with lower urinary tract symptoms, unspecified morphology N40.1 Active Problem Influenza with other respiratory manifestations [...] Start Date End Date Status Dosage Gabapentin NDC [address]-96 300 MG Orally Once a day Aug 17, 2014 take 1 capsule Hytrin NDC 0 1 MG Orally Once a day Jun 27, 2015 1 capsule Procedures Procedure Coding System Code Date Office Visit, Est Pt., Level 3 CPT-4 80592 February 21, 2016 [facility] VISIT ESTABLISHED PATIENT CPT-4 G0467 February 21, 2016 Vital Signs Date/Time: February 21, 2016 Temperature 98.1 F Weight 238.0 lbs Height 69 in BMI 35.14 Index Blood Pressure Diastolic 70 mmHg Blood Pressure Systolic 110 mmHg Cardiac Monitoring Heart Rate 80 bpm Results No Known Results Summary Purpose [employer] Submission
--- OUTSIDE RECORDS SUMMARY | 2017-11-26 22:15 | XMS REPORT ---
Author Author NEDA PAINTER Organization [employer] Address Unknown Phone Unavailable Care Team Providers Care Commission Agent Livestock Name Role Phone NEDA PAINTER CP Unavailable Allergies, Adverse Reactions, Alerts Substance Reaction Event Type N.K.D.A. 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 Assessment Benign prostatic hyperplasia with lower urinary tract symptoms, unspecified morphology N40.1 Active Problem Screening for lipoid disorders V77.91 [...] Date End Date Status Dosage Gabapentin NDC [address]-07 300 MG Orally Once a day Aug 17, 2014 take 1 capsule Hytrin NDC 0 1 MG Orally Once a day Jun 27, 2015 1 capsule Procedures Procedure Coding System Code Date Office Visit, Est Pt., Level 3 CPT-4 13456 May 22, 2016 [facility] VISIT ESTABLISHED PATIENT CPT-4 G0467 May 22, 2016 Vital Signs Date/Time: May 22, 2016 Cardiac Monitoring Heart Rate 72 bpm Weight 223.6 lbs Height 69 in Blood Pressure Diastolic 70 mmHg Blood Pressure Systolic 110 mmHg Results No Known Results Summary Purpose [employer] Submission
--- OUTSIDE RECORDS SUMMARY | 2017-11-26 22:15 | XMS REPORT ---
Author Author NEDA PAINTER [facility] [employer] Address Unknown Phone Unavailable Care Team Providers Care Service Delivery Management Consultant Name Role Phone NEDA PAINTER CP Unavailable Allergies, Adverse Reactions, Alerts Substance Reaction Event Type N.K.D.A. 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 Problem Influenza with other respiratory manifestations 487.1 Active Problem Cellulitis and abscess of trunk 682.2 Active Problem Screening for lipoid disorders V77.91 Active Problem Effusion of ankle and foot joint 719.07 Active Problem 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 Assessment Dysuria R30.0 Active Assessment Effusion, unspecified ankle M25.473 Active Problem Need for prophylactic vaccination and inoculation, Influenza V04.81 Active Problem Shortness of breath 786.05 Active Problem Fecal impaction 560.32 Active Problem Unspecified orchitis and epididymitis 604.90 Active Problem Unspecified inflammatory polyarthropathy 714.9 Active Problem Hematuria, unspecified 599.70 Active Medications Medication Code System Code Instructions Start Date End Date Status Dosage IBU NDC 0 800 MG Orally 3 times a day prn April 02, 2015 1 tablet Tramadol HCl [facility] [address]-54 50 MG Orally 2 times a day Jun 27, 2015 1 tablet as needed Hytrin NDC 0 1 MG Orally Once a day Jun 27, 2015 1 capsule Gabapentin [facility] [address]-06 300 MG Orally Once a day Aug 17, 2014 take 1 capsule Lasix [facility] [address]-25 20 MG Orally Once a day Aug 21, 2015 1 tablet Procedures Procedure Coding System Code Date Office Visit, Est Pt., Level 3 CPT-4 67887 Aug 21, 2015 URINALYSIS, AUTO, W/O SCOPE CPT-4 02557 Aug 21, 2015 [facility] VISIT ESTABLISHED PATIENT CPT-4 G0467 Aug 21, 2015 SINGLE IMMUNIZATION ADMIN CPT-4 83197 Aug 21, 2015 FLUARIX QUAD (3 & UP)-GSK-2014 CPT-4 53619 Aug 21, 2015 Vital Signs Date/Time: Aug 21, 2015 Temperature 96.9 F Weight 247 lbs Height 69 in BMI 36.47 Index Blood Pressure Diastolic 82 mmHg Blood Pressure Systolic 140 mmHg Cardiac Monitoring Heart Rate 91 bpm Results Name Result Date Reference Range Unit Abnormality Flag UA LONG DIP (IN HOUSE) Immunizations Vaccine Administration Date FLUARIX QUAD (3 & UP)-GSK-2014Aug 21, 2015 Summary Purpose [employer]Works Submission
--- OUTSIDE RECORDS SUMMARY | 2017-11-26 22:15 | XMS REPORT ---
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
--- OUTSIDE RECORDS SUMMARY | 2017-11-26 22:16 | XMS REPORT | Continuity of Care Document ---
Author Author [facility] Ctr of [facility] of [facility] Address Unknown Phone Unavailable Allergies Active Description Code Type Severity Reaction Onset Reported/Identified Relationship to Patient Clinical Status Yes NKANo Known Allergies NKA Miscellaneous Allergy Unknown N/A 10/18/2016 Medications There is no data. Problems Date Dx Coded Attending Type Code Diagnosis Diagnosed By 10/31/2010 Ot 356.9 10/31/2010 Ot 600.00 10/31/2010 Ot 786.59 10/31/2010 Ot 790.29 10/31/2010 Ot V58.66 10/31/2010 Ot V58.69 02/13/2011 Ot 276.51 02/13/2011 Ot 599.0 02/13/2011 Ot 780.2 02/13/2011 Ot 780.79 02/13/2011 Ot V15.81 02/13/2011 Ot V58.69 10/06/2011 333.94 RESTLESS LEGS SYNDROME (RLS) 10/06/2011 357.9 NEUROPATHY UNSP 10/06/2011 333.94 RESTLESS LEGS SYNDROME (RLS) 10/06/2011 357.9 NEUROPATHY UNSP 10/06/2011 NEDA PAINTER APRN 333.94 RESTLESS LEGS SYNDROME (RLS) 10/06/2011 NEDA PAINTER APRN 357.9 NEUROPATHY UNSP 10/06/2011 NEDA PAINTER APRN 333.94 RESTLESS LEGS SYNDROME (RLS) 10/06/2011 NEDA PAINTER APRN 357.9 NEUROPATHY UNSP 10/06/2011 333.94 RESTLESS LEGS SYNDROME (RLS) 10/06/2011 357.9 NEUROPATHY UNSP 10/06/2011 333.94 RESTLESS LEGS SYNDROME (RLS) 10/06/2011 357.9 NEUROPATHY UNSP 10/06/2011 333.94 RESTLESS LEGS SYNDROME (RLS) 10/06/2011 357.9 NEUROPATHY UNSP 10/06/2011 333.94 RESTLESS LEGS SYNDROME (RLS) 10/06/2011 357.9 NEUROPATHY UNSP 10/06/2011 PAVON DO, DAVID K 333.94 RESTLESS LEGS SYNDROME (RLS) 10/06/2011 PAVON DO, DAVID K 357.9 NEUROPATHY UNSP 10/06/2011 PAVON DO, DAVID K 333.94 RESTLESS LEGS SYNDROME (RLS) 10/06/2011 PAVON DO, DAVID K 357.9 NEUROPATHY UNSP 10/06/2011 PAVON DO, DAVID K 333.94 RESTLESS LEGS SYNDROME (RLS) 10/06/2011 PAVON DO, DAVID K 357.9 NEUROPATHY UNSP 10/06/2011 NEDA PAINTER APRN 333.94 RESTLESS LEGS SYNDROME (RLS) 10/06/2011 NEDA PAINTER APRN 357.9 NEUROPATHY UNSP 10/06/2011 PAVON DO, DAVID K 333.94 RESTLESS LEGS SYNDROME (RLS) 10/06/2011 APVON DO, DAVID K 357.9 NEUROPATHY UNSP 10/06/2011 PAVON DO, DAVID K 333.94 RESTLESS LEGS SYNDROME (RLS) 10/06/2011 PAVON DO, DAVID K 357.9 NEUROPATHY UNSP 10/06/2011 PAVON DO, DAVID K 333.94 RESTLESS LEGS SYNDROME (RLS) 10/06/2011 PAVON DO, DAVID K 357.9 NEUROPATHY UNSP 12/19/2011 682.2 CELLULITIS AND ABSCESS OF TRUNK 12/19/2011 V46.2 DEPENDENCE ON SUPPLEMENTAL OXYGEN 12/19/2011 682.2 CELLULITIS AND ABSCESS OF TRUNK 12/19/2011 V46.2 DEPENDENCE ON SUPPLEMENTAL OXYGEN 12/19/2011 NEDA PAINTER APRN 682.2 CELLULITIS AND ABSCESS OF TRUNK 12/19/2011 NEDA PAINTER APRN V46.2 DEPENDENCE ON SUPPLEMENTAL OXYGEN 12/19/2011 NEDA PAINTER APRN 682.2 CELLULITIS AND ABSCESS OF TRUNK 12/19/2011 NEDA PAINTER APRN V46.2 DEPENDENCE ON SUPPLEMENTAL OXYGEN 12/19/2011 682.2 CELLULITIS AND ABSCESS OF TRUNK 12/19/2011 V46.2 DEPENDENCE ON SUPPLEMENTAL OXYGEN 12/19/2011 682.2 CELLULITIS AND ABSCESS OF TRUNK 12/19/2011 V46.2 DEPENDENCE ON SUPPLEMENTAL OXYGEN 12/19/2011 682.2 CELLULITIS AND ABSCESS OF TRUNK 12/19/2011 V46.2 DEPENDENCE ON SUPPLEMENTAL OXYGEN 12/19/2011 682.2 CELLULITIS AND ABSCESS OF TRUNK 12/19/2011 V46.2 DEPENDENCE ON SUPPLEMENTAL OXYGEN 12/19/2011 PAVON DO, DAVID K 682.2 CELLULITIS AND ABSCESS OF TRUNK 12/19/2011 PAVON DO, DAVID K V46.2 DEPENDENCE ON SUPPLEMENTAL OXYGEN 12/19/2011 PAVON DO, DAVID K 682.2 CELLULITIS AND ABSCESS OF TRUNK 12/19/2011 PAVON DO, DAVID K V46.2 DEPENDENCE ON SUPPLEMENTAL OXYGEN 12/19/2011 PAVON DO, DAVID K 682.2 CELLULITIS AND ABSCESS OF TRUNK 12/19/2011 PAVON DO, DAVID K V46.2 DEPENDENCE ON SUPPLEMENTAL OXYGEN 12/19/2011 NEDA PAINTER APRN 682.2 CELLULITIS AND ABSCESS OF TRUNK 12/19/2011 NEDA PAINTER APRN V46.2 DEPENDENCE ON SUPPLEMENTAL OXYGEN 12/19/2011 PAVON DO, DAVID Basurto 682.2 CELLULITIS AND ABSCESS OF TRUNK 12/19/2011 PAVON DO, DAVID K V46.2 DEPENDENCE ON SUPPLEMENTAL OXYGEN 12/19/2011 PAVON DO, DAVID K 682.2 CELLULITIS AND ABSCESS OF TRUNK 12/19/2011 PAVON DO, DAVID K 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.2 DEPENDENCE ON SUPPLEMENTAL OXYGEN 12/19/2011 PAVON DO, DAVID K 682.2 CELLULITIS AND ABSCESS OF TRUNK 12/19/2011 PAVON DO, DAVID K V46.2 DEPENDENCE ON SUPPLEMENTAL OXYGEN 02/23/2012 V77.91 SCREENING FOR LIPOID DISORDERS 02/23/2012 V77.91 SCREENING FOR LIPOID DISORDERS 02/23/2012 NEDA PAINTER APRN V77.91 SCREENING FOR LIPOID DISORDERS 02/23/2012 NEDA PAINTER APRN V77.91 SCREENING FOR LIPOID DISORDERS 02/23/2012 V77.91 SCREENING FOR LIPOID DISORDERS 02/23/2012 V77.91 SCREENING FOR LIPOID DISORDERS 02/23/2012 V77.91 SCREENING FOR LIPOID DISORDERS 02/23/2012 V77.91 SCREENING FOR LIPOID DISORDERS 02/23/2012 DAVID PAVON DO V77.91 SCREENING FOR LIPOID DISORDERS 02/23/2012 DAVID PAVON DO V77.91 SCREENING FOR LIPOID DISORDERS 02/23/2012 DAVID PAVON DO V77.91 SCREENING FOR LIPOID DISORDERS 02/23/2012 NEDA PAINTER APRN V77.91 SCREENING FOR LIPOID DISORDERS 02/23/2012 DAVID PAVON DO V77.91 SCREENING FOR LIPOID DISORDERS 02/23/2012 DAVID PAVON DO V77.91 SCREENING FOR LIPOID DISORDERS 02/23/2012 DAVID PAVON DO V77.91 SCREENING FOR LIPOID DISORDERS 03/11/2012 560.32 FECAL IMPACTION 03/11/2012 560.32 FECAL IMPACTION 03/11/2012 NEDA PAINTER APRN 560.32 FECAL IMPACTION 03/11/2012 NEDA PAINTER APRN 560.32 FECAL IMPACTION 03/11/2012 560.32 FECAL IMPACTION 03/11/2012 560.32 FECAL IMPACTION 03/11/2012 560.32 FECAL IMPACTION 03/11/2012 560.32 FECAL IMPACTION 03/11/2012 DAVID PAVON DO 560.32 FECAL IMPACTION 03/11/2012 DAVID PAVON DO 560.32 FECAL IMPACTION 03/11/2012 DAVID PAVON DO 560.32 FECAL IMPACTION 03/11/2012 NEDA PAINTER APRN 560.32 FECAL IMPACTION 03/11/2012 DAVID PAVON DO 560.32 FECAL IMPACTION 03/11/2012 DAVID PAVON DO 560.32 FECAL IMPACTION 03/11/2012 DAVID PAVON DO 560.32 FECAL IMPACTION 03/11/2012 Ot 560.32 FECAL IMPACTION 05/10/2012 714.9 UNSPECIFIED INFLAMMATORY POLYARTHROPATHY 05/10/2012 714.9 UNSPECIFIED INFLAMMATORY POLYARTHROPATHY 05/10/2012 NEDA PAINTER APRN 714.9 UNSPECIFIED INFLAMMATORY POLYARTHROPATHY 05/10/2012 NEDA PAINTER APRN 714.9 UNSPECIFIED INFLAMMATORY POLYARTHROPATHY 05/10/2012 714.9 UNSPECIFIED INFLAMMATORY POLYARTHROPATHY 05/10/2012 714.9 UNSPECIFIED INFLAMMATORY POLYARTHROPATHY 05/10/2012 714.9 UNSPECIFIED INFLAMMATORY POLYARTHROPATHY 05/10/2012 714.9 UNSPECIFIED INFLAMMATORY POLYARTHROPATHY 05/10/2012 DAVID PAVON DO 714.9 UNSPECIFIED INFLAMMATORY POLYARTHROPATHY 05/10/2012 DVAID PAVON DO 714.9 UNSPECIFIED INFLAMMATORY POLYARTHROPATHY 05/10/2012 DAVID PAVON DO 714.9 UNSPECIFIED INFLAMMATORY POLYARTHROPATHY 05/10/2012 NEDA PAINTER APRN 714.9 UNSPECIFIED INFLAMMATORY POLYARTHROPATHY 05/10/2012 DAVID PAVON DO K 714.9 UNSPECIFIED INFLAMMATORY POLYARTHROPATHY 05/10/2012 DAVID PAVON DO K 714.9 UNSPECIFIED INFLAMMATORY POLYARTHROPATHY 05/10/2012 DAVID PAVON DO K 714.9 UNSPECIFIED INFLAMMATORY POLYARTHROPATHY 11/05/2012 604.90 ORCHITIS AND EPIDIDYMITIS UNSPECIFIED 11/05/2012 NEDA PAINTER APRN 604.90 ORCHITIS AND EPIDIDYMITIS UNSPECIFIED 11/05/2012 NEDA PAINTER APRN 604.90 ORCHITIS AND EPIDIDYMITIS UNSPECIFIED 11/05/2012 604.90 ORCHITIS AND EPIDIDYMITIS UNSPECIFIED 11/05/2012 604.90 ORCHITIS AND EPIDIDYMITIS UNSPECIFIED 11/05/2012 604.90 ORCHITIS AND EPIDIDYMITIS UNSPECIFIED 11/05/2012 604.90 ORCHITIS AND EPIDIDYMITIS UNSPECIFIED 11/05/2012 DAVID PAVON DO K 604.90 ORCHITIS AND EPIDIDYMITIS UNSPECIFIED 11/05/2012 DAVID PAVON DO K 604.90 ORCHITIS AND EPIDIDYMITIS UNSPECIFIED 11/05/2012 DAVID PAVON DO K 604.90 ORCHITIS AND EPIDIDYMITIS UNSPECIFIED 11/05/2012 NEDA PAINTER APRN 604.90 ORCHITIS AND EPIDIDYMITIS UNSPECIFIED 11/05/2012 DAVID PAVON DO K 604.90 ORCHITIS AND EPIDIDYMITIS UNSPECIFIED 11/05/2012 BENNIE PAVON DOA K 604.90 ORCHITIS AND EPIDIDYMITIS UNSPECIFIED 11/05/2012 BENNIE PAVON DOA K 604.90 ORCHITIS AND EPIDIDYMITIS UNSPECIFIED 11/24/2012 NEDA PAINTER APRN 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 11/24/2012 NEDA PAINTER APRN 487.1 INFLUENZA 11/24/2012 NEDA PAINTER APRN 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 11/24/2012 NEDA PAINTER APRN 487.1 INFLUENZA 11/24/2012 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 11/24/2012 487.1 INFLUENZA 11/24/2012 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 11/24/2012 487.1 INFLUENZA 11/24/2012 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 11/24/2012 487.1 INFLUENZA 11/24/2012 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 11/24/2012 487.1 INFLUENZA 11/24/2012 PAVON DO, DAVID K 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 11/24/2012 PAVON DO, DAVID K 487.1 INFLUENZA 11/24/2012 PAVON DO, DAVID K 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0 URINARY TRACT INFECTION 12/29/2012 599.0 URINARY TRACT INFECTION 12/29/2012 599.0 URINARY TRACT INFECTION 12/29/2012 599.0 URINARY TRACT INFECTION 12/29/2012 PAVON DO, DAVID K 599.0 URINARY TRACT INFECTION 12/29/2012 PAVON DO, DAVID K 599.0 URINARY TRACT INFECTION 12/29/2012 PAVON DO, DAVID K 599.0 URINARY TRACT INFECTION 12/29/2012 NEDA PAINTER APRN 599.0 URINARY TRACT INFECTION 12/29/2012 PAVON DO, DAVID K 599.0 URINARY TRACT INFECTION 12/29/2012 PAVON DO, DVAID K 599.0 URINARY TRACT INFECTION 12/29/2012 PAVON DO, DAVID K 599.0 URINARY TRACT INFECTION 04/29/2013 601.0 ACUTE PROSTATITIS 04/29/2013 601.0 ACUTE PROSTATITIS 04/29/2013 PAVON DO, DAVID K 601.0 ACUTE PROSTATITIS 04/29/2013 PAVON DO, DAVID K 601.0 ACUTE PROSTATITIS 04/29/2013 PAVON DO, DAVID K 601.0 ACUTE PROSTATITIS 04/29/2013 NEDA PAINTER APRN R 601.0 ACUTE PROSTATITIS 04/29/2013 PAVON DO, DAVID K 601.0 ACUTE PROSTATITIS 04/29/2013 PAVON DO, DAVID K 601.0 ACUTE PROSTATITIS 04/29/2013 PAVON DO, DAVID K 601.0 ACUTE PROSTATITIS 05/11/2013 596.51 OVERACTIVE BLADDER 05/11/2013 PAVON DO, DAVID K 596.51 OVERACTIVE BLADDER 05/11/2013 PAVON DO, DAVID K 596.51 OVERACTIVE BLADDER 05/11/2013 PAVON DO, DAVID K 596.51 OVERACTIVE BLADDER 05/11/2013 NEDA PAINTER APRN 596.51 OVERACTIVE BLADDER 05/11/2013 PAVON DO, DAVID K 596.51 OVERACTIVE BLADDER 05/11/2013 PAVON DO, DAVID K 596.51 OVERACTIVE BLADDER 05/11/2013 PAVON DO, DAVID K 596.51 OVERACTIVE BLADDER 05/25/2013 PAVON DO, DAVID K 788.1 DYSURIA 05/25/2013 PAVON DO, DAVID K 788.1 DYSURIA 05/25/2013 PAVON DO, DAVID K 788.1 DYSURIA 05/25/2013 NEDA PAINTER APRN R 788.1 DYSURIA 05/25/2013 PAVON DO, DAVID K 788.1 DYSURIA 05/25/2013 PAVON DO, DAVID K 788.1 DYSURIA 05/25/2013 PAVON DO, DAVID K 788.1 DYSURIA 09/06/2013 PAVON DO, DAVID K 786.05 SHORTNESS OF BREATH 09/06/2013 PAVON DO, DAVID K V04.81 FLU SHOT 09/06/2013 PAVON DO, DAVID K 786.05 SHORTNESS OF BREATH 09/06/2013 PAVON DO, DAVID K V04.81 FLU SHOT 09/06/2013 PAVON DO, DAVID K 786.05 SHORTNESS OF BREATH 09/06/2013 PAVON DO, DAVID K V04.81 FLU SHOT 09/06/2013 MADINA BRARNEDA R 786.05 SHORTNESS OF BREATH 09/06/2013 MADINA BRARNEDA V04.81 FLU SHOT 09/06/2013 PAVON DO, DAVID K 786.05 SHORTNESS OF BREATH 09/06/2013 PAVON DO, DAVID K V04.81 FLU SHOT 09/06/2013 PAVON DO, DAVID K 786.05 SHORTNESS OF BREATH 09/06/2013 PAVON DO, DAVID K V04.81 FLU SHOT 09/06/2013 PAVON DO, DAVID K 786.05 SHORTNESS OF BREATH 09/06/2013 PAVON DO, DAVID K V04.81 FLU SHOT 04/13/2014 MADINA BRARNEDA R 719.07 EDEMA FOOT 04/13/2014 PAVON DO, DAVID K 719.07 EDEMA FOOT 04/13/2014 PAVON DO, DAVID K 719.07 EDEMA FOOT 04/13/2014 PAVON DO, DAVID K 719.07 EDEMA FOOT 08/29/2014 PAVON DO, DAVID K 599.70 HEMATURIA 09/28/2014 JOHNNY VENTURA, LAWSON Gustafson Ot 599.70 10/11/2014 JOHNNY VENTURA, LAWSON A Ot 593.2 10/11/2014 JOHNNY VENTURA, LAWSON Gustafson Ot 598.9 12/27/2015 Ot 608.86 12/27/2015 Ot 715.96 12/27/2015 JOHNNY VENTURA, LAWSON A Ot 599.70 12/27/2015 JOHNNY VENTURA, LAWSON A Ot 593.2 12/27/2015 JOHNNY VENTURA, LAWSON A Ot 598.9 01/01/2016 Ot 608.86 01/01/2016 Ot 715.96 01/01/2016 JOHNNY VENTURA, LAWSON A Ot 599.70 01/01/2016 JOHNNY VENTURA, LAWSON Gustafson Ot 593.2 01/01/2016 JOHNNY VENTURA, LAWSON Gustafson Ot 598.9 01/03/2016 VILMA VENTURA, JAIRO E Ot G25.81 01/03/2016 VILMA VENTURA, JAIRO Bean Ot G62.9 01/03/2016 VILMA VENTURA, JAIRO E Ot M17.11 01/03/2016 VILMA VENTURA, JAIRO E Ot N35.9 01/03/2016 VILMA VENTURA, JAIRO E Ot N40.1 01/03/2016 VILMA VENTURA, JAIRO E Ot R33.8 01/03/2016 VILMA VENTURA, JAIRO E Ot Z47.1 01/03/2016 VILMA VENTURA, JAIRO E Ot Z96.652 01/03/2016 VILMA VENTURA, JAIRO E Ot G25.81 01/03/2016 VILMA VENTURA, JAIRO E Ot G62.9 01/03/2016 VILMA VENTURA, JAIRO E Ot M17.11 01/03/2016 VILMA VENTURA, JAIRO E Ot N35.9 01/03/2016 VILMA VENTURA, JAIRO E Ot N40.1 01/03/2016 VILMA VENTURA, JAIRO E Ot R33.8 01/03/2016 VILMA VENTURA, JAIRO E Ot Z47.1 01/03/2016 VILMA VENTURA, JAIRO E Ot Z96.652 01/07/2016 VILMA VENTURA, JAIRO E Ot G25.81 01/07/2016 VILMA VENTURA, JAIRO E Ot G62.9 01/07/2016 VILMA VENTURA, JAIRO E Ot M17.11 01/07/2016 VILMA VENTURA, JAIRO E Ot N35.9 01/07/2016 VILMA VENTURA, JAIRO E Ot N40.1 01/07/2016 VILMA VENTURA, JAIRO E Ot R33.8 01/07/2016 VILMA VENTURA, JAIRO E Ot Z47.1 01/07/2016 VILMA VENTURA, JAIRO E Ot Z96.652 01/09/2016 VILMA VENTURA, JAIRO E Ot D64.9 ANEMIA, UNSPECIFIED 01/09/2016 VILMA VENTURA, JAIRO E Ot E83.51 HYPOCALCEMIA 01/09/2016 VILMA VENTURA, JAIRO E Ot G25.81 RESTLESS LEGS SYNDROME 01/09/2016 VILMA VENTURA, JAIRO E Ot G62.9 POLYNEUROPATHY, UNSPECIFIED 01/09/2016 VILMA VENTURA, JAIRO E Ot M17.11 UNILATERAL PRIMARY OSTEOARTHRITIS, RIGHT 01/09/2016 VILMA VENTURA, JAIRO E Ot N35.9 URETHRAL STRICTURE, UNSPECIFIED 01/09/2016 VILMA VENTURA JAIRO E Ot N40.1 ENLARGED PROSTATE WITH LOWER URINARY TRA 01/09/2016 VILMA VENTURA, JAIRO E Ot R33.8 OTHER RETENTION OF URINE 01/09/2016 VILMA VENTURA, JAIRO E Ot 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 01/09/2016 VILMA VENTURA, JAIRO E Ot Z96.652 PRESENCE OF LEFT ARTIFICIAL KNEE JOINT 02/22/2016 REJI KAMALJIT E MANAGER ADVANCED Ot Z47.1 02/22/2016 REJI KAMALJIT E MANAGER ADVANCED Ot Z96.652 03/07/2016 REJI KAMALJIT E MANAGER ADVANCED Ot 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 03/07/2016 REJI KAMALJIT E MANAGER ADVANCED Ot Z96.652 PRESENCE OF LEFT ARTIFICIAL KNEE JOINT 04/04/2016 REJI KAMLAJIT E MANAGER ADVANCED Ot 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 04/04/2016 REJI KAMALJIT E MANAGER ADVANCED Ot Z96.652 PRESENCE OF LEFT ARTIFICIAL KNEE JOINT 10/18/2016 Ot 608.86 EDEMA, MALE GENITAL ORGN 10/18/2016 Ot 715.96 OSTEOARTHROS NOS-L/LEG 10/18/2016 JOHNNY VENTURA, LAWSON Gustafson Ot 599.70 HEMATURIA, UNSPECIFIED 10/18/2016 JOHNNY VENTURA, LAWSON Gustafson Ot 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, ACQUIRED 10/18/2016 LAWSON TURNER MD Ot 598.9 URETHRAL STRICTURE NOS 10/18/2016 KIKE PERKINS APRN Ot M19.021 PRIMARY OSTEOARTHRITIS, RIGHT ELBOW 10/18/2016 KIKE PERKINS APRN Ot R20.2 PARESTHESIA OF SKIN 10/18/2016 KIKE PERKINS APRN Ot S50.01XA CONTUSION OF RIGHT ELBOW, INITIAL ENCOUN 10/18/2016 KIKE PERKINS APRN Ot S59.901A UNSPECIFIED INJURY OF RIGHT ELBOW, INITI 10/18/2016 KIKE PERKINS APRN Ot W01.0XXA FALL SAME LEV FROM SLIP/TRIP W/O STRIKE 10/18/2016 KIKE PERKINS APRN Ot Y92.[address] [facility] [address] IN [facility] (PRIVATE 10/18/2016 KIKE PERKINS APRN Ot Y93.89 ACTIVITY, OTHER SPECIFIED 10/18/2016 KIKE PERKINS APRN Ot Y99.8 OTHER EXTERNAL CAUSE STATUS 10/18/2016 KIKE PERKINS APRN Ot Z79.82 [facility] (CURRENT) USE OF ASPIRIN 10/18/2016 KIKE PERKINS APRN Ot Z79.899 OTHER [facility] (CURRENT) DRUG THERAPY 11/07/2016 KIZZY HERNÁNDEZ MD Ot R06.00 DYSPNEA, UNSPECIFIED 11/07/2016 KIZZY HERNÁNDEZ MD Ot R06.02 SHORTNESS OF BREATH 11/07/2016 KIZZY HERNÁNDEZ MD Ot R20.2 PARESTHESIA OF SKIN 11/07/2016 KIZZY HERNÁNDEZ MD Ot R61 GENERALIZED HYPERHIDROSIS 11/07/2016 Ot 608.86 EDEMA, MALE GENITAL ORGN 11/07/2016 Ot 715.96 OSTEOARTHROS NOS-L/LEG 11/07/2016 LAWSON TURNER MD Ot 599.70 HEMATURIA, UNSPECIFIED 11/07/2016 LAWSON TURNER MD Ot 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, ACQUIRED 11/07/2016 LAWSON TURNER MD Ot 598.9 URETHRAL STRICTURE NOS 11/07/2016 KIZZY HERNÁNDEZ MD Ot R06.00 DYSPNEA, UNSPECIFIED 11/07/2016 KIZZY HERNÁNDEZ MD Ot R06.02 SHORTNESS OF BREATH 11/07/2016 KIZZY HERNÁNDEZ MD Ot R20.2 PARESTHESIA OF SKIN 11/07/2016 KIZZY HERNÁNDEZ MD Ot R61 GENERALIZED HYPERHIDROSIS 11/13/2016 KIZZY HERNÁNDEZ MD Ot R06.00 DYSPNEA, UNSPECIFIED 11/13/2016 KIZZY HERNÁNDEZ MD Ot R06.02 SHORTNESS OF BREATH 11/13/2016 KIZZY HERNÁNDEZ MD Ot R20.2 PARESTHESIA OF SKIN 11/13/2016 KIZZY HERNÁNDEZ MD Ot R61 GENERALIZED HYPERHIDROSIS 04/08/2017 NEDA PAINTER Ot M47.812 SPONDYLOSIS W/O MYELOPATHY OR RADICULOPA 05/21/2017 NEDA PAINTER Ot M50.921 UNSPECIFIED CERVICAL DISC DISORDER AT C4 05/21/2017 NEDA PAINTER Ot M50.922 UNSPECIFIED CERVICAL DISC DISORDER AT C5 Procedures Code [place] [address] UA LONG DIP 11/05/2012 32743 XRAY KNEE RIGHT 1 OR 2 VIEWS 11/05/2012 51072 US SCROTUM ULTRASOUND 11/05/2012 97019 UA W/MICROSCOPY 11/06/2012 36845 INFLUENZA A & B (IN-HOUSE) 11/24/2012 74190 STREP A (IN-HOUSE) 11/24/2012 37918 HEMOCCULT 11/24/2012 37229 ROUTINE VENIPUNCTURE 12/29/2012 Urology Lawson Turner 12/29/2012 56087 UA LONG DIP 12/29/2012 46671 PSA TOTAL 12/29/2012 01672 CULTURE URINE 12/31/2012 12918 UA LONG DIP 01/19/2013 46875 UA W/MICROSCOPY 01/19/2013 55857 UA LONG DIP 04/20/2013 80515 ROUTINE VENIPUNCTURE 04/29/2013 09112 UA LONG DIP 04/29/2013 63589 PSA FREE AND TOTAL 05/02/2013 31337 UA LONG DIP 05/11/2013 80501 UA W/MICROSCOPY 05/12/2013 23127 UA LONG DIP 08/03/2014 G0008 FLU ADMINISTRATION ( MEDICARE ONLY) 08/17/2014 82726 UA LONG DIP 08/17/2014 12526 UA W/MICROSCOPY 08/17/2014 38766 CULTURE URINE 08/18/2014 98617 UA LONG DIP 08/29/2014 Results Test Result Range Complete blood count (CBC) with automated white blood cell (WBC) differential - 11/07/16 03:10 Blood leukocytes automated count (number/volume) 6.1 10*3/uL 4.3-11.0 Blood erythrocytes automated count (number/volume) 4.24 10*6/uL 4.35-5.85 Venous blood hemoglobin measurement (mass/volume) 13.0 g/dL 13.3-17.7 Blood hematocrit (volume fraction) 40 % 40-54 Automated erythrocyte mean corpuscular volume 93 [foz_us] 80-99 Automated erythrocyte mean corpuscular hemoglobin (mass per erythrocyte) 31 pg 25-34 Automated erythrocyte mean corpuscular hemoglobin concentration measurement ( mass/volume) 33 g/dL 32-36 Automated erythrocyte distribution width ratio 14.7 % 10.0-14.5 Automated blood platelet count (count/volume) 135 10*3/uL 130-400 Automated blood platelet mean volume measurement 11.4 [foz_us] 7.4-10.4 Automated blood neutrophils/100 leukocytes 56 % 42-75 Automated blood lymphocytes/100 leukocytes 30 % 12-44 Blood monocytes/100 leukocytes 12 % 0-12 Automated blood eosinophils/100 leukocytes 2 % 0-10 Automated blood basophils/100 leukocytes 1 % 0-10 Blood neutrophils automated count (number/volume) 3.5 10*3 1.8-7.8 Blood lymphocytes automated count (number/volume) 1.8 10*3 1.0-4.0 Blood monocytes automated count (number/volume) 0.7 10*3 0.0-1.0 Automated eosinophil count 0.1 10*3/uL 0.0-0.3 Automated blood basophil count (count/volume) 0.0 10*3/uL 0.0-0.1 PT panel in platelet poor plasma by coagulation assay - 11/07/16 03:10 Prothrombin time (PT) in platelet poor plasma by coagulation assay 13.3 s 12.2-14.7 INR in platelet poor plasma or blood by coagulation assay 1.0 0.8-1.4 Activated partial thromboplastin time (aPTT) in platelet poor plasma bycoagulation assay - 11/07/16 03:10 Activated partial thromboplastin time (aPTT) in platelet poor plasma bycoagulation assay 27 s 24-35 Comprehensive metabolic panel - 11/07/16 03:10 Serum or plasma sodium measurement (moles/volume) 140 mmol/L 135-145 Serum or plasma potassium measurement (moles/volume) 4.1 mmol/L 3.6-5.0 Serum or plasma chloride measurement (moles/volume) 110 mmol/L 98-107 Carbon dioxide 23 mmol/L 21-32 Serum or plasma anion gap determination (moles/volume) 7 mmol/L 5-14 Serum or plasma urea nitrogen measurement (mass/volume) 22 mg/dL 7-18 Serum or plasma creatinine measurement (mass/volume) 1.03 mg/dL 0.60-1.30 Serum or plasma urea nitrogen/creatinine mass ratio 21 NRG Serum or plasma creatinine measurement with calculation of estimated glomerular filtration rate > NRG Serum or plasma glucose measurement (mass/volume) 121 mg/dL 70-105 Serum or plasma calcium measurement (mass/volume) 8.0 mg/dL 8.5-10.1 Serum or plasma total bilirubin measurement (mass/volume) 0.4 mg/dL 0.1-1.0 Serum or plasma alkaline phosphatase measurement (enzymatic activity/volume) 58 U/L 40-136 Serum or plasma aspartate aminotransferase measurement (enzymatic activity/ volume) 19 U/L 5-34 Serum or plasma alanine aminotransferase measurement (enzymatic activity/volume ) 13 U/L 0-55 Serum or plasma protein measurement (mass/volume) 6.3 g/dL 6.4-8.2 Serum or plasma albumin measurement (mass/volume) 3.5 g/dL 3.2-4.5 Magnesium - 11/07/16 03:10 Magnesium 2.5 mg/dL 1.8-2.4 Serum or plasma troponin i.cardiac measurement (mass/volume) - 11/07/16 03:10 Serum or plasma troponin i.cardiac measurement (mass/volume) < ng/ mL <0.30 Serum or plasma lithium measurement (moles/volume) - 11/07/16 03:10 BNP level 96.7 pg/mL <100.0 Myoglobin, serum - 11/07/16 03:10 Myoglobin, serum 43.5 ng/mL 10.0-92.0 Lipase - 11/07/16 03:10 Lipase 42 U/L 8-78 Fibrin D-dimer FEU measurement in platelet poor plasma (mass/volume) - 03:10 Fibrin D-dimer FEU measurement in platelet poor plasma (mass/volume) 0.64 ug/mL 0.00-0.49 Serum or plasma troponin i.cardiac measurement (mass/volume) - 11/07/16 06:23 Serum or plasma troponin i.cardiac measurement (mass/volume) < ng/ mL <0.30 Complete blood count (CBC) with automated white blood cell (WBC) differential - 11/26/17 19:00 Blood leukocytes automated count (number/volume) 6.2 10*3/uL 4.3-11.0 Blood erythrocytes automated count (number/volume) 4.57 10*6/uL 4.35-5.85 Venous blood hemoglobin measurement (mass/volume) 14.1 g/dL 13.3-17.7 Blood hematocrit (volume fraction) 41 % 40-54 Automated erythrocyte mean corpuscular volume 90 [foz_us] 80-99 Automated erythrocyte mean corpuscular hemoglobin (mass per erythrocyte) 31 pg 25-34 Automated erythrocyte mean corpuscular hemoglobin concentration measurement ( mass/volume) 34 g/dL 32-36 Automated erythrocyte distribution width ratio 14.3 % 10.0-14.5 Automated blood platelet count (count/volume) 125 10*3/uL 130-400 Automated blood platelet mean volume measurement 11.6 [foz_us] 7.4-10.4 Automated blood neutrophils/100 leukocytes 56 % 42-75 Automated blood lymphocytes/100 leukocytes 31 % 12-44 Blood monocytes/100 leukocytes 11 % 0-12 Automated blood eosinophils/100 leukocytes 2 % 0-10 Automated blood basophils/100 leukocytes 0 % 0-10 Blood neutrophils automated count (number/volume) 3.4 10*3 1.8-7.8 Blood lymphocytes automated count (number/volume) 1.9 10*3 1.0-4.0 Blood monocytes automated count (number/volume) 0.7 10*3 0.0-1.0 Automated eosinophil count 0.2 10*3/uL 0.0-0.3 Automated blood basophil count (count/volume) 0.0 10*3/uL 0.0-0.1 Comprehensive metabolic panel - 11/26/17 19:00 Serum or plasma sodium measurement (moles/volume) 138 mmol/L 135-145 Serum or plasma potassium measurement (moles/volume) 4.2 mmol/L 3.6-5.0 Serum or plasma chloride measurement (moles/volume) 106 mmol/L 98-107 Carbon dioxide 23 mmol/L 21-32 Serum or plasma anion gap determination (moles/volume) 9 mmol/L 5-14 Serum or plasma urea nitrogen measurement (mass/volume) 20 mg/dL 7-18 Serum or plasma creatinine measurement (mass/volume) 1.23 mg/dL 0.60-1.30 Serum or plasma urea nitrogen/creatinine mass ratio 16 NRG Serum or plasma creatinine measurement with calculation of estimated glomerular filtration rate 57 NRG Serum or plasma glucose measurement (mass/volume) 101 mg/dL 70-105 Serum or plasma calcium measurement (mass/volume) 8.8 mg/dL 8.5-10.1 Serum or plasma total bilirubin measurement (mass/volume) 0.7 mg/dL 0.1-1.0 Serum or plasma alkaline phosphatase measurement (enzymatic activity/volume) 61 U/L 40-136 Serum or plasma aspartate aminotransferase measurement (enzymatic activity/ volume) 22 U/L 5-34 Serum or plasma alanine aminotransferase measurement (enzymatic activity/volume ) 17 U/L 0-55 Serum or plasma protein measurement (mass/volume) 7.1 g/dL 6.4-8.2 Serum or plasma albumin measurement (mass/volume) 3.8 g/dL 3.2-4.5 Magnesium - 11/26/17 19:00 Magnesium 2.3 mg/dL 1.8-2.4 Lipase - 11/26/17 19:00 Lipase 54 U/L 8-78 Serum or plasma troponin i.cardiac measurement (mass/volume) - 11/26/17 19:00 Serum or plasma troponin i.cardiac measurement (mass/volume) < ng/ mL <0.30 Serum or plasma thyrotropin measurement by detection limit <=0.05 miu/l (units/ volume) - 11/26/17 19:00 Serum or plasma thyrotropin measurement by detection limit <=0.05 miu/l (units/ volume) 1.99 u[iU]/mL 0.35-4.94 Lipase - 11/26/17 19:00 Lipase 54 U/L 8-78 Serum or plasma thyrotropin measurement by detection limit <=0.05 miu/l (units/ volume) - 11/26/17 19:00 Serum or plasma thyrotropin measurement by detection limit <=0.05 miu/l (units/ volume) 1.99 u[iU]/mL 0.35-4.94 Complete urinalysis with reflex to culture - 11/26/17 19:07 Urine color determination YELLOW NRG Urine clarity determination CLEAR NRG Urine pH measurement by test strip 6.5 5-9 Specific gravity of urine by test strip 1.015 1.016- 1.022 Urine protein assay by test strip, semi-quantitative NEGATIVE NEGATIVE Urine glucose detection by automated test strip NEGATIVE NEGATIVE Erythrocytes detection in urine sediment by light microscopy NEGATIVE NEGATIVE Urine ketones detection by automated test strip NEGATIVE NEGATIVE Urine nitrite detection by test strip NEGATIVE NEGATIVE Urine total bilirubin detection by test strip NEGATIVE NEGATIVE Urine urobilinogen measurement by automated test strip (mass/volume) NORMAL NORMAL Urine leukocyte esterase detection by dipstick NEGATIVE NEGATIVE Automated urine sediment erythrocyte count by microscopy (number/high power field) RARE NRG Automated urine sediment leukocyte count by microscopy (number/high power field ) RARE NRG Bacteria detection in urine sediment by light microscopy NONE NRG Squamous epithelial cells detection in urine sediment by light microscopy RARE NRG Crystals detection in urine sediment by light microscopy NONE NRG Casts detection in urine sediment by light microscopy NONE NRG Mucus detection in urine sediment by light microscopy NEGATIVE NRG Complete urinalysis with reflex to culture NO NRG Influenza virus A and B antigen detection - 11/26/17 19:07 FLU RESULT NEGATIVE FOR INFLUENZA A AND B ANTIGENS BY IA NRG Encounters ACCT No. Visit Date/Time Discharge Status Pt. Type Provider Facility Loc./Unit Complaint [id number] 08/29/2014 09:02:00 08/29/2014 23:59:59 CLS Outpatient DAVID PAVON DO Sb [id number] 08/17/2014 09:28:00 08/17/2014 23:59:59 CLS Outpatient BENNIE PAVON DOSj Basurto [id number] 04/27/2014 09:22:00 04/27/2014 23:59:59 CLS Outpatient DAVID PAVON DO Sb [id number] 04/13/2014 08:50:00 04/13/2014 23:59:59 CLS Outpatient NEDA PAINTER APRN [id number] 01/10/2014 08:18:00 01/10/2014 23:59:59 CLS Outpatient DAVID PAVON DO Sb [id number] 10/10/2013 10:06:00 10/10/2013 23:59:59 CLS Outpatient BENNIE PAVON DOSj Basurto [id number] 09/06/2013 09:53:00 09/06/2013 23:59:59 CLS Outpatient DAVID PAVON DO [id number] 01/19/2013 09:16:00 01/19/2013 23:59:59 CLS Outpatient [id number] 12/29/2012 11:35:00 12/29/2012 23:59:59 CLS Outpatient [id number] 12/29/2012 11:35:00 12/29/2012 23:59:59 CLS Outpatient NEDA PAINTER APRN [id number] 12/01/2012 09:09:00 12/01/2012 23:59:59 CLS Outpatient NEDA PAINTER APRN [id number] 11/05/2012 08:50:00 11/05/2012 23:59:59 CLS Outpatient [id number] 05/10/2012 09:24:00 05/10/2012 23:59:59 CLS Outpatient [id number] 04/29/2013 08:10:00 Document Registration [id number] 04/29/2013 08:10:00 Document Registration [id number] 04/27/2017 11:11:00 04/27/2017 23:59:59 CLS Outpatient NEDA PAINTER CFNP [facility] RAD M50.90 CERVICAL DISC DISEASE [id number] 03/17/2017 11:16:00 03/17/2017 23:59:59 CLS Outpatient NEDA PAINTER CFNP [facility] RAD M54.2 [id number] 11/07/2016 02:55:00 11/07/2016 07:08:00 DIS Emergency KIZZY HERNÁNDEZ MD [facility] ER SOB,SEATING,ISAAC HANDS [id number] 10/18/2016 17:44:00 10/18/2016 18:34:00 DIS Emergency KIKE PERKINS MANAGER ADVANCED [facility] ER FALL/R ARM PAIN [id number] 03/19/2016 08:24:00 04/04/2016 11:50:00 DIS Outpatient KAMALJIT MENDOZA MANAGER ADVANCED [facility] REHAB S/P L TKA [id number] 12/27/2015 14:45:00 01/09/2016 13:00:00 DIS Inpatient JAIRO ESPARZA MD [facility] IRF LEFT TOTAL KNEE REPLACEMENT [id number] 09/11/2014 08:45:00 09/11/2014 23:59:59 CLS Outpatient LAWSON TURNER MD [facility] RAD STRICTURE,RENAL MASSES [id number] 09/04/2014 07:54:00 09/04/2014 23:59:59 CLS Outpatient LAWSON TURNER MD [facility] RAD HEMATURIA [id number] 11/26/2017 19:14:00 Document Registration [id number] 11/15/2012 11:39:00 Document Registration [id number] 03/11/2012 16:06:00 Document Registration [id number] 02/13/2011 15:37:00 Document Registration [id number] 10/29/2010 23:49:00 Document Registration
--- OUTSIDE RECORDS SUMMARY | 2017-11-26 23:19 | XMS REPORT | Clinical Summary ---
Author Author [facility] Organization [facility] Address Unknown Phone Unavailable Care Team Providers Care Welt Insole Channeler Name Role Phone PCP Unavailable Source Comments Some departments are not documenting in the electronic medical record. If you do not see the information that you expected, contact Release of Information in the Health Information Management department at [phone] for further assistance in locating additional records.[facility] Allergies No Known Allergies Current Medications Prescription [...]
--- OUTSIDE RECORDS SUMMARY | 2017-11-26 23:21 | XMS REPORT | Continuity of Care Document ---
Author Author [facility] Address Unknown Phone Unavailable Allergies [...] K V46.2 DEPENDENCE ON SUPPLEMENTAL OXYGEN 12/19/2011 APVON DO, DAVID K 682.2 CELLULITIS AND ABSCESS [...] VENTURA, LAWSON Gustafson Ot 593.2 01/01/2016 JOHNNY VENUTRA, LAWSON Gustafson Ot 598.9 01/03/2016 VILMA VENTURA, [...] ARTIFICIAL KNEE JOINT 02/22/2016 REJI KAMALJIT E MAID CLEANING COOKING Ot Z47.1 02/22/2016 REJI KAMALJIT E MAID CLEANING COOKING Ot Z96.652 03/07/2016 REJI KAMALJIT E MAID CLEANING COOKING Ot 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 03/07/2016 REJI KAMALJIT E MAID CLEANING COOKING Ot Z96.652 PRESENCE OF LEFT ARTIFICIAL KNEE JOINT 04/04/2016 REJI KAMALJIT E MAID CLEANING COOKING Ot 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 04/04/2016 REJI KAMALJIT E MAID CLEANING COOKING Ot Z96.652 PRESENCE OF LEFT ARTIFICIAL KNEE [...] CENTER PL[facility] IN [facility] 10/18/2016 KIKE PERKINS APRN Ot Y93.89 ACTIVITY, OTHER SPECIFIED 10/18/2016 KIKE PERKINS APRN Ot Y99.8 OTHER EXTERNAL CAUSE STATUS 10/18/2016 KIKE PERKINS APRN Ot Z79.82 JAIL (CURRENT) USE OF ASPIRIN 10/18/2016 KIKE PERKINS APRN Ot Z79.899 OTHER JAIL (CURRENT) DRUG THERAPY 11/07/2016 KIZZY HERNÁNDEZ MD [...] Procedures Code [place] [address] UA LONG DIP 11/05/2012 43337 XRAY KNEE RIGHT 1 OR 2 VIEWS 11/05/2012 60209 US SCROTUM ULTRASOUND 11/05/2012 39394 UA W/MICROSCOPY 11/06/2012 12774 INFLUENZA A & B (IN-HOUSE) 11/24/2012 23452 STREP A (IN-HOUSE) 11/24/2012 08827 HEMOCCULT 11/24/2012 65645 ROUTINE VENIPUNCTURE 12/29/2012 Urology Lawson Turner 12/29/2012 99034 UA LONG DIP 12/29/2012 94665 PSA TOTAL 12/29/2012 23470 CULTURE URINE 12/31/2012 87658 UA LONG DIP 01/19/2013 28042 UA W/MICROSCOPY 01/19/2013 20589 UA LONG DIP 04/20/2013 10889 ROUTINE VENIPUNCTURE 04/29/2013 47465 UA LONG DIP 04/29/2013 50383 PSA FREE AND TOTAL 05/02/2013 34494 UA LONG DIP 05/11/2013 14085 UA W/MICROSCOPY 05/12/2013 58437 UA LONG DIP 08/03/2014 G0008 FLU ADMINISTRATION ( MEDICARE ONLY) 08/17/2014 39111 UA LONG DIP 08/17/2014 07493 UA W/MICROSCOPY 08/17/2014 09029 CULTURE URINE 08/18/2014 46359 UA LONG DIP 08/29/2014 Results Test Result [...] Status Pt. Type Provider Facility Loc./Unit Complaint [id number] 08/29/2014 09:02:00 08/29/2014 23:59:59 CLS Outpatient DAVID PAVON DO Sb [id number] 08/17/2014 09:28:00 08/17/2014 23:59:59 CLS Outpatient BENNIE PAVON DOSj Basurto [id number] 04/27/2014 09:22:00 04/27/2014 23:59:59 CLS Outpatient DAVID PAVON DO Sb [id number] 04/13/2014 08:50:00 04/13/2014 23:59:59 CLS Outpatient NEDA PAINTER APRN [id number] 01/10/2014 08:18:00 01/10/2014 23:59:59 CLS Outpatient DAVID PAVON DO Sb [id number] 10/10/2013 10:06:00 10/10/2013 23:59:59 CLS Outpatient BENNIE PAVON DOSj Basurto [id number] 09/06/2013 09:53:00 09/06/2013 23:59:59 CLS Outpatient DAVID PAVON DO [id number] 01/19/2013 09:16:00 01/19/2013 23:59:59 CLS Outpatient [id number] 12/29/2012 11:35:00 12/29/2012 23:59:59 CLS Outpatient [id number] 12/29/2012 11:35:00 12/29/2012 23:59:59 CLS Outpatient NEDA PAINTER APRN [id number] 12/01/2012 09:09:00 12/01/2012 23:59:59 CLS Outpatient NEDA PAINTER APRN [id number] 11/05/2012 08:50:00 11/05/2012 23:59:59 CLS Outpatient [id number] 05/10/2012 09:24:00 05/10/2012 23:59:59 CLS Outpatient [id number] 04/29/2013 08:10:00 Document Registration [id number] 04/29/2013 08:10:00 Document Registration [id number] 04/27/2017 11:11:00 04/27/2017 23:59:59 CLS Outpatient NEDA PAINTER CFNP [facility] RAD M50.90 CERVICAL DISC DISEASE [id number] 03/17/2017 11:16:00 03/17/2017 23:59:59 CLS Outpatient NEDA PAINTER CFNP [facility] RAD M54.2 [id number] 11/07/2016 02:55:00 11/07/2016 07:08:00 DIS Emergency KIZZY HERNÁNDEZ MD [facility] ER SOB,SEATING,ISAAC HANDS [id number] 10/18/2016 17:44:00 10/18/2016 18:34:00 DIS Emergency KIKE PERKINS MAID CLEANING COOKING [facility] ER FALL/R ARM PAIN [id number] 03/19/2016 08:24:00 04/04/2016 11:50:00 DIS Outpatient KAMALJIT MENDOZA MAID CLEANING COOKING [facility] REHAB S/P L TKA [id number] 12/27/2015 14:45:00 01/09/2016 13:00:00 DIS Inpatient JAIRO ESPARZA MD [facility] IRF LEFT TOTAL KNEE REPLACEMENT [id number] 09/11/2014 08:45:00 09/11/2014 23:59:59 CLS Outpatient LAWSON TURNER MD [facility] RAD STRICTURE,RENAL MASSES [id number] 09/04/2014 07:54:00 09/04/2014 23:59:59 CLS Outpatient LAWSON TURNER MD [facility] RAD HEMATURIA [id number] 11/26/2017 19:14:00 Document Registration [id number] 11/15/2012 11:39:00 Document Registration [id number] 03/11/2012 16:06:00 Document Registration [id number] 02/13/2011 15:37:00 Document Registration [id number] 10/29/2010 23:49:00 Document Registration
[2017-11-27 00:28] VITALS: BP 134/79
[2017-11-27] MEDS ORDERED: DEXAMETHASONE 10 MG/ML (DECADRON) 1 ML VIAL IV SCH (00:30)
[2017-11-27] MEDS ORDERED: fentaNYL INJECTION 100 MCG/2 ML AMP IV PRN (00:30)
[2017-11-27] MEDS: HYDROcodone/APAP 5 MG/325 MG (LORTAB) TAB PO PRN ×2 (03:46→08:23)
[2017-11-27] MEDS: DEXAMETHASONE 10 MG/ML (DECADRON) 1 ML VIAL IV SCH ×2 (03:48→10:06)
[2017-11-27 04:15] VITALS: BP 123/64
[2017-11-27] MEDS: GABAPENTIN 300 MG (NEURONTIN) CAP PO SCH ×2 (08:12→13:27)
[2017-11-27] MEDS ORDERED: CELE-63 PO (08:27)
[2017-11-27] MEDS ORDERED: OXYB5TAB9 PO (08:27)
[2017-11-27] MEDS ORDERED: TERA1CAP3 PO (08:27)
[2017-11-27] MEDS ORDERED: GABA-488 PO (08:27)
[2017-11-27] MEDS ORDERED: DOCUSATE SODIUM 100 MG (COLACE) CAP PO SCH (09:00)
--- NOTE | 2017-11-27 09:30 | Physical Therapy Evaluation ---
PT Evaluation-General Medical Diagnosis Admission Date Nov 26, 2017 at 22:15 Medical Diagnosis: severe cervical spine stenosis Onset Date: Nov 23, 2017 Therapy Diagnosis Therapy Diagnosis: generalized weakness/debility Height/Weight Height (Feet): 6 Height (Inches): 0.00 Weight (Pounds): 248 Weight (Ounces): 8.0 Precautions Precautions/Isolations: Fall Prevention, Standard Precautions Weight Bear Status Right Lower Extremity: Right Full Weight Bearing Left Lower Extremity: Left Full Weight Bearing Referral Physician: Medardo Reason for Referral: Evaluation/Treatment Medical History Pertinent Medical History: Neuropathy, OA, Smoking Current History EMS with abdominal pain x 3 days, diarrhea, weakness Reviewed History: Yes Social History Home: Single Level Current Living Status: Spouse Prior/Core FIM Prior Level of Function Functional Beatrice Measure 0=Not Assessed/NA 4=Minimal Assistance 1=Total Assistance 5=Supervision or Setup 2=Maximal Assistance 6=Modified Beatrice 3=Moderate Assistance 7=Complete Beatrice Bed Mobility: 6 Transfers (B,C,W/C) (FIM): 6 Gait: 6 ambulates short distances with FWW PLOF PT Evaluation-Current Subjective Patient agrees to PT. Pain Numeric Pain Scale: 0-No Pain Location: No Pain Reported Objective Patient Orientation: Normal For Age Problem Solving: Fair ROM/Strength ROM Lower Extremities bilateral LE WNL Strength Lower Extremities right knee flexion/extension 4-/5; hip flexion 3+/5; DF/PF 4/5 left knee flexion/extension 4-/5; hip flexion 3+/5; DF/PF 4/5 Integumentary/Posture Integumentary refer to nursing notes Bowel Incontinence: No Bladder Incontinence: No Posture flexed knee and trunk posture Neuromuscular (Tone, Coordination, Reflexes) diminished coordination due to inactivity PLOF Sensory Vision: Functional Hearing: Functional Sensation Right Lower Extremit: Impaired Sensation Left Lower Extremity: Impaired Transfers Functional Beatrice Measure 0=Not Assessed/NA 4=Minimal Assistance 1=Total Assistance 5=Supervision or Setup 2=Maximal Assistance 6=Modified Beatrice 3=Moderate Assistance 7=Complete Beatrice Transfers (B, C, W/C) (FIM): 4 Scootin Rollin Supine to/from Sit: 4 Sit to/from Stand: 4 minimal assist for safety Gait Mode of Locomotion: Walk Anticipated Mode of Locomotion: Walk Gait (FIM): 4 Distance (FIM): 3=150 ft Distance: 150' Gait Level of Assist: 4 Gait Persons Needed: 1 Gait Assistive Device: FWW Comments/Gait Description flexed knee posture with shuffle gait sequence Balance Sitting Static: Normal Sitting Dynamic: Normal Standing Static: Fair Standing Dynamic: Fair Assessment/Needs 77 y.o. male, will benefit from short term skilled PT to address functional strength and mobility to improve current LOF and to safely return to home with spouse at maximum LOF. Rehab Potential: Fair Post Rehab Potential-Barriers: cervical stenosis PT Expeller Worker Goals Expeller Worker Goals PT Expeller Worker Goals Time Frame: Dec 04, 2017 Transfers (B,C,W/C) (FIM): 6 Gait (FIM): 6 Gait distance (FIM): 3=150 ft Distance: 150' Gait Level of Assist: 6 Gait Assistive Device: FWW PT Plan Problem List Problem List: Activity Tolerance, Gait, Transfer, Bed Mobility Treatment/Plan Treatment Plan: Continue Plan of Care Treatment Plan: Bed Mobility, Education, Functional Activity Naman, Functional Strength, Gait, Safety, Therapeutic Exercise, Transfers Treatment Duration: Dec 04, 2017 Frequency: 6 times per week Estimated Hrs Per Day: .25 hour per day Patient and/or Family Agrees t: Yes Safety Risks/Education Patient Education: Gait Training, Transfer Techniques Teaching Recipient: Patient Teaching Methods: Demonstration, Discussion Response to Teaching: Verbalize Understanding, Return Demonstration Discharge Recommendations Therapy D/C Recommendations: Home w/ Family Support Time/GCodes Time In: 850 Time Out: 906 Total Billed Treatment Time: 16 Total Billed Treatment 1 visit EVModC 16 min G Codes Necessary: Yes PT/OT Therapy GCodes Therapy Functional Limitation: Physical Therapy Test(s)/Tool used to determine: Level of Assistance Scale Functional Limitation-Current Charge Code: MOBCUR Modifier: CK Functional Limitation-Goal Charge Code: MOBGOAL Modifier: KIESHA COMER PT Nov 27, 2017 09:30
--- NOTE | 2017-11-27 11:53 | Consultation ---
History of Present Illness History of Present Illness Patient Consulted On(levy/time) 11/27/17 11:46 Date Seen by Provider: Nov 27, 2017 Time Seen by Provider: 11:00 History of Present Illness Mr. Dietrich is a very pleasant 77 y/o male that presents with weakness of his lower extremities and difficulty with ambulation. Pt states that he has had a gradual progression of LE weakness likely secondary to known cervical stenosis, diagnosed back in April. Pt denies other neuromuscular/musculoskeletal complaints. He denies constitutional symptoms. Orthopedics was consulted to evaluate. Allergies and Home Medications Allergies Coded Allergies: NKANo Known Allergies (Verified Allergy, Unknown, 10/18/16) Home Medications Celecoxib 200 Mg Capsule, 200 MG PO HS, (Reported) Gabapentin 300 Mg Capsule, 300 MG PO TID, (Reported) Oxybutynin Chloride 5 Mg Tablet, 5 MG PO BID, (Reported) Terazosin HCl 1 Mg Capsule, 1 MG PO HS, (Reported) Past Plqklgm-Hgkcvm-Wokgjz Hx Patient Social History Alcohol Use: Denies Use Recreational Drug Use: No Smoking Status: Former Smoker Type Used: Cigarettes 2nd Hand Smoke Exposure: No Recent Foreign Travel: No Contact w/Someone Who Travel: No Recent Infectious Disease Expo: No Recent Hopitalizations: No Immunizations Up To Date Tetanus Booster (TDap): Unknown PED Vaccines UTD: Yes Date of Pneumonia Vaccine: Aug 16, 2017 Date of Influenza Vaccine: Aug 16, 2017 Seasonal Allergies Seasonal Allergies: No Surgeries History of Surgeries: Yes (Left knee replacement, right hip steel plates placed ) Surgeries: Appendectomy, Orthopedic (right hip and left knee) Respiratory History of Respiratory Disorde: No Currently Using CPAP: No Currently Using BIPAP: No Cardiovascular History of Cardiac Disorders: No Neurological History of Neurological Disord: Yes (restless leg syndrome, cervical spinal stenosis) Neurological Disorders: Neuropathy Reproductive System Hx Reproductive Disorders: No Sexually Transmitted Disease: No HIV/AIDS: No Genitourinary History of Genitourinary Disor: Yes Genitourinary Disorders: Benign Prostatic Hyperpl Gastrointestinal History of Gastrointestinal Di: No Musculoskeletal History of Musculoskeletal Dis: Yes (FREQ.BACK PAIN, cervical spinal stenosis) Musculoskeletal Disorders: Chronic Back Pain Endocrine History of Endocrine Disorders: No HEENT History of HEENT Disorders: No Loss of Vision: Denies Hearing Impairment: Denies Cancer History of Cancer: No Psychosocial History of Psychiatric Problem: No Integumentary History of Skin or Integumenta: No Blood Transfusions History of Blood Disorders: No Adverse Reaction to a Blood Tr: No Family Medical History Significant Family History: No Pertinent Family Hx Family Medial History: Cardiovascular disease 19 FATHER FHx: cancer 19 MOTHER (unknown what kind of cancer) Respiratory disorder 19 MOTHER (EMPHYZEMA) Review of Systems-General Constitutional: no symptoms reported EENTM: no symptoms reported Respiratory: no symptoms reported Cardiovascular: no symptoms reported Gastrointestinal: no symptoms reported Genitourinary: other (urinary retention secondary to prostate hypertrophy) Musculoskeletal: muscle weakness Skin: no symptoms reported Psychiatric/Neurological: No Symptoms Reported Physical Exam-General Problems Physical Exam Vital Signs Vital Sign - Last 12Hours 11/26/17 18:57 Temp 99.2 Pulse 73 Resp 11 B/P (MAP) 128/101 (110) Pulse Ox 96 O2 Delivery Room Air Capillary Refill : Less Than 3 Seconds General Appearance: WD/WN, no apparent distress Eyes: Bilateral Eye PERRL, Bilateral Eye EOMI HEENT: PERRL/EOMI, normal ENT inspection Neck: non-tender, full range of motion, supple, normal inspection Respiratory: no respiratory distress, no accessory muscle use Cardiovascular: normal peripheral pulses, regular rate, rhythm Peripheral Pulses: 2+ Dorsalis Pedis (R), 2+ Left Dors-Pedis (L), 2+ Radial Pulses (R), 2+ Radial Pulses (L) Gastrointestinal: non tender, soft Back: normal inspection, no vertebral tenderness Extremities: normal range of motion, normal inspection, no calf tenderness Neurologic/Psychiatric: building attendant II-XII nml as tested, alert, normal mood/affect, oriented x 3, other (Bilateral UE/LE with 4-5/5 motor function per exam, sensation globally intact to light touch, hyperreflexia b/l UE/LE, positive Byrd's reflex bilaterally, no clonus or babinski) Reflexes: 4+ Bicep (R), 4+ Bicep (L), 4+ Tricep (R), 4+ Tricep (L), 4+ Knee (R) , 4+ Knee (L), 4+ Ankle (R), 4+ Ankle (L) Skin: normal color, warm/dry Lymphatic: no adenopathy Assessment/Plan Assessment/Plan Admission Diagnosis/Plan 77 y/o male with months of progressive weakness of his LEs and gait instability. MRI of the C-spine completed in April 2017 demonstrates severe multilevel central stenosis and compression of the cord, also with evidence of myelomalacia. 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 Pt would benefit from surgical decompression. Agree with proceeding with updated MRIs of his C, T, and L spine today I have recommended surgery to the patient. Due to the complexity of the patient's diagnosis and need for complex surgery I have recommended that the procedure be performed at [facility]. Pt agreed with this plan I will see him in the office as an outpatient on Thursday12/01/2017 All of his questions were answered Instructions given. Clinical Quality Measures DVT/VTE Risk/Contraindication: Risk Factor Score Per Nursin RFS Level Per Nursing on Admit: 4+=Very High KAMI EAGLE DO Nov 27, 2017 11:53
--- NOTE | 2017-11-27 12:26 | D/C HH Face to Face Order ---
D/C Face to Face Orders Instructions for Patient Patient Instructions/FollowUp: DECEMBER 03 AT 9AM WITH KANDY PAINTER Physician to follow Patient: BARNIDGE Discharge Diet for Home: No Restrictions Patient Problems: CERVICAL STENOSIS GENERALIZED WEAKNESS GAIT INSTABILITY WITH FREQUENT FALLS Goals for Patient: INCREASED ABILITY TO PERFORM ADLS ABILITY TO STAY AT HOME Patient Data-Allergies,Ht & Wt Patient Allergies: Coded Allergies: NKANo Known Allergies (Verified Allergy, Unknown, 10/18/16) Height (Feet): 6 Height (Inches): 0.00 Weight (Pounds): 248 Weight (Ounces): 8.0 Home Health Need/Face to Face Date of Face to Face: Nov 27, 2017 Clinical Findings: Generalized weakness and fatigue, Muscle weakness, Pain with ambulation, Unsteady gait I have seen Pt [id number]: Yes Discharged To: Home Diagnosis/Conditions: SEE ABOVE Problems/Diagnosis/Condition: Patient is Homebound due to: Reyna fall risk due to instabilty, Muscle weakness , Pain w/ambulation Homebound Status Due to the above stated illness, injury or surgical procedure (medical condition or diagnosis) and associated clinical findings, the patient is homebound because of his/her inability to leave home except with aid of a supportive device and/or person AND leaving the home requires a considerable and taxing effort or is medically contraindicated. Pt req the following assistanc: Walker Home Health Nursing Orders Home Health Services Order: Nursing Services, Tie Puller-Evaluate & Treat, Physical Therapy-Evaluate & Treat Home Health Infusion Therapy Line Start Date: Nov 26, 2017 Line Start Time: 1954 Line Type: Saline Lock Site Location: Hand Therapy Orders Therapy Orders: OT (must have SN or PT order), Physical Therapy Therapy Specific Orders: Eval assistive deivces, Teach enviro modifications/ safety, Gait training, Increase strength/endurance, Restore ROM Certify Stmt I certify that this patient is under my care and that I, a nurse practitioner or a physician; a clothing sales assistant working with me, had a face to face encounter that - meets the physician face to face encounter requirements with this patient as dated. Copy Copies To 1: BHUPINDER MOYA APRN, MD Nov 27, 2017 12:26
--- NOTE | 2017-11-27 12:27 | Short Stay Summary ---
History of Present Illness History of Present Illness Date of Admission Nov 26, 2017 at 22:15 Date of Discharge Attending Physician Bhupinder Art MD Admitting Physician Darcie Alcala DO Consult Allergies and Home Medications Allergies Coded Allergies: NKANo Known Allergies (Verified Allergy, Unknown, 10/18/16) Home Medications Celecoxib 200 Mg Capsule, 200 MG PO HS, (Reported) Gabapentin 300 Mg Capsule, 300 MG PO TID, (Reported) Oxybutynin Chloride 5 Mg Tablet, 5 MG PO BID, (Reported) Terazosin HCl 1 Mg Capsule, 1 MG PO HS, (Reported) Past Cwqadqi-Qkpbra-Ptkzfs Hx Patient Social History Alcohol Use: Denies Use Recreational Drug Use: No Smoking Status: Former Smoker Type Used: Cigarettes 2nd Hand Smoke Exposure: No Physical Abuse Screen: No Sexual Abuse: No Recent Foreign Travel: No Contact w/other who traveled: No Recent Hopitalizations: No Recent Infectious Disease Expo: No Immunizations Up To Date Tetanus Booster (TDap): Unknown Pediatric: Yes Date of Pneumonia Vaccine: Aug 16, 2017 Date of Influenza Vaccine: Aug 16, 2017 Seasonal Allergies Seasonal Allergies: No Surgeries Yes (Left knee replacement, right hip steel plates placed ) Appendectomy, Orthopedic (right hip and left knee) Respiratory No Currently Using CPAP: No Currently Using BIPAP: No Cardiovascular No Neurological Yes (restless leg syndrome, cervical spinal stenosis) Neuropathy Reproductive System Hx Reproductive Disorders: No Sexually Transmitted Disease: No HIV/AIDS: No Genitourinary Yes Benign Prostatic Hyperpl Gastrointestinal No Musculoskeletal Yes (FREQ.BACK PAIN, cervical spinal stenosis) Chronic Back Pain Endocrine History of Endocrine Disorders: No HEENT History of HEENT Disorders: No Loss of Vision: Denies Hearing Impairment: Denies Cancer No Psychosocial History of Psychiatric Problem: No Integumentary History of Skin or Integumenta: No Blood Transfusions History of Blood Disorders: No Adverse Reaction to a Blood Tr: No Family Medical History Significant Family History: No Pertinent Family Hx Family Hx: Cardiovascular disease 19 FATHER FHx: cancer 19 MOTHER (unknown what kind of cancer) Respiratory disorder 19 MOTHER (EMPHYZEMA) Physical Exam Vital Signs Vital Sign - Last 12Hours 11/26/17 18:57 Temp 99.2 Pulse 73 Resp 11 B/P (MAP) 128/101 (110) Pulse Ox 96 O2 Delivery Room Air Capillary Refill : Less Than 3 Seconds Clinical Quality Measures DVT/VTE Risk/Contraindication: Risk Factor Score Per Nursin RFS Level Per Nursing on Admit: 4+=Very High Short Stay Diagnosis Discharge Diagnosis-Short Stay Final Discharge Diagnosis: SEE ABOVE Conclusion Labs Laboratory Tests 11/26/17 19:00: White Blood Count 6.2, Red Blood Count 4.57, Hemoglobin 14.1, Hematocrit 41, Mean Corpuscular Volume 90, Mean Corpuscular Hemoglobin 31, Mean Corpuscular Hemoglobin Concent 34, Red Cell Distribution Width 14.3, Platelet Count 125L, Mean Platelet Volume 11.6H, Neutrophils (%) (Auto) 56, Lymphocytes (%) (Auto) 31 , Monocytes (%) (Auto) 11, Eosinophils (%) (Auto) 2, Basophils (%) (Auto) 0, Neutrophils # (Auto) 3.4, Lymphocytes # (Auto) 1.9, Monocytes # (Auto) 0.7, Eosinophils # (Auto) 0.2, Basophils # (Auto) 0.0, Sodium Level 138, Potassium Level 4.2, Chloride Level 106, Carbon Dioxide Level 23, Anion Gap 9, Blood Urea Nitrogen 20H, Creatinine 1.23, Estimat Glomerular Filtration Rate 57, BUN/ Creatinine Ratio 16, Glucose Level 101, Calcium Level 8.8, Magnesium Level 2.3, Total Bilirubin 0.7, Aspartate Amino Transf (AST/SGOT) 22, Alanine Aminotransferase (ALT/SGPT) 17, Alkaline Phosphatase 61, Troponin I < 0.30, Total Protein 7.1, Albumin 3.8, Lipase 54, TSH Christine Testing 1.99 11/26/17 19:07: Urine Color YELLOW, Urine Clarity CLEAR, Urine pH 6.5, Urine Specific [place] 1.015L, Urine Protein NEGATIVE, Urine Glucose (UA) NEGATIVE, Urine Ketones NEGATIVE, Urine Nitrite NEGATIVE, Urine Bilirubin NEGATIVE, Urine Urobilinogen NORMAL, Urine Leukocyte Esterase NEGATIVE, Urine RBC (Auto) NEGATIVE, Urine RBC RARE, Urine WBC RARE, Urine Squamous Epithelial Cells RARE, Urine Crystals NONE , Urine Bacteria NONE, Urine Casts NONE, Urine Mucus NEGATIVE, Urine Culture Indicated NO Microbiology 11/26/17 Influenza Types A,B Antigen (FLORA) - Final, Complete BHUPINDER ART MD Nov 27, 2017 12:27
--- NOTE | 2017-11-27 15:10 | Diagnostic Imaging Report ---
PROCEDURE: MR imaging cervical spine without contrast. TECHNIQUE: Multiplanar, multisequence MR imaging of the cervical spine was performed without contrast. INDICATION: Fall. Neck and back pain. Bilateral upper and lower extremity numbness, greatest in the right upper extremity. COMPARISON: CT cervical spine from 11/26/2017. MRI cervical spine without contrast from 04/27/2017. FINDINGS: Minimal retrolisthesis of C3 on C4 is stable. Alignment is otherwise unremarkable. Advanced degenerative endplate changes at C3 through C7. Modic type II changes at these levels. Bone marrow signal is otherwise unremarkable. The visualized paravertebral soft tissues are unremarkable. The cervical carotid and vertebral artery flow voids are preserved. C2-C3: No spinal canal or neuroforaminal narrowing. C3-C4: Posterior disc osteophyte complex results in moderate spinal canal narrowing. Uncovertebral facet arthropathy result in moderate right and mild left neuroforaminal narrowing. C4-C5: Posterior disc osteophyte complex results in advanced spinal canal narrowing. Advanced bilateral neuroforaminal narrowing. C5-C6: Posterior disc osteophyte complex and ligamentous hypertrophy result in advanced spinal canal narrowing. There is abnormal T2 signal within the cord at this level, similar to the prior exam. Advanced bilateral neuroforaminal narrowing. C6-C7: Posterior disc osteophyte complex and ligamentous hypertrophy result in advanced spinal canal narrowing. Advanced bilateral neuroforaminal narrowing. C7-T1: No substantial spinal canal or neuroforaminal narrowing. IMPRESSION: 1. Spondylotic changes result in multilevel czxcvkuj-gv-vjfdhghg spinal canal narrowing at C3 through C7. This is greatest at C5-C6 where there is abnormal signal within the cervical spinal cord. 2. Diffuse moderate and advanced neuroforaminal narrowing, detailed above. 3. No acute osseous findings. Dictated by: Dictated on workstation # [id number]
--- NOTE | 2017-11-27 15:11 | Diagnostic Imaging Report ---
EXAM: MRI THORACIC SPINE W/O CON INDICATION: Fall. Neck and back pain. Bilateral upper and lower extremity numbness, greatest in the right upper extremity. COMPARISON: Cervical and lumbar spine MRI was also performed today. FINDINGS: Normal alignment. Vertebral body heights are preserved. There are moderate diffuse degenerative endplate changes. Bone marrow signal is otherwise unremarkable. Small disc osteophyte complexes result in no substantial spinal canal narrowing. No neural foraminal narrowing. The visualized paravertebral soft tissues are unremarkable. IMPRESSION: Moderate spondylotic changes result in no neural impingement. No acute osseous findings. No abnormal signal in the thoracic spinal cord. Dictated by: Dictated on workstation # [id number]
--- NOTE | 2017-11-27 15:33 | Diagnostic Imaging Report ---
PROCEDURE: MRI lumbar spine. TECHNIQUE: Multiplanar, multisequence MRI of the lumbar spine was performed without contrast. INDICATION: Fall. Neck and back pain. Bilateral upper and lower extremity numbness, greatest in the right upper extremity. COMPARISON: MRI thoracic spine also performed today. FINDINGS: There is incomplete segmentation in the lumbar spine. When counting from the skull base, this would correlate to incomplete segmentation of L5 and what is being referred to as L6 for the purposes of this report. There is a normal intervertebral disc and facet joints at the designated L6-S1 level. Moderate to advanced left apex lumbar curvature centered at L3. There is mild rightward listhesis of L2 on L3. Moderate leftward listhesis of L4 on L5. Mild retrolisthesis of L2 on L3. There are Modic type II degenerative endplate changes at L3-L4. Bone marrow signal is otherwise unremarkable. No abnormal signal in the conus which terminates at L4-L5. Normal morphology of the cauda equina without evidence of tethering. Atrophic right kidney. The visualized abdominal and pelvic contents are otherwise unremarkable. L1-L2: No spinal canal, lateral recess or neuroforaminal narrowing. L2-L3: The retrolisthesis combines with posterior disc osteophyte complex, ligamentous hypertrophy and facet arthropathy to result in moderate spinal canal narrowing. Advanced bilateral neuroforaminal narrowing. L3-L4: Posterior disc osteophyte complex, ligamentous hypertrophy, facet arthropathy in the lumbar curvature result in advanced right lateral recess narrowing. There is mild spinal canal narrowing. No substantial left lateral recess narrowing. Advanced right neuroforaminal narrowing. No left neuroforaminal narrowing. L4-L5: Posterior disc osteophyte complex, ligamentous hypertrophy and facet arthropathy all result in moderate spinal canal and bilateral lateral recess narrowing. There is advanced bilateral neuroforaminal narrowing. L5-L6: This level is preserved by the incomplete segmentation with no neural impingement. L6-S1: No spinal canal or right lateral recess narrowing. Posterior disc osteophyte complex results in mild left neuroforaminal narrowing. Disc space height loss and facet arthropathy result in advanced bilateral neuroforaminal narrowing. IMPRESSION: 1. Transitional segment anatomy with incomplete segmentation. Please see the above discussion for explanation of numbering. This numbering may differ from prior radiology and surgical reports. 2. Low-lying conus at the level of L4-L5. The cauda equina is normal morphology without evidence of tethering. No abnormal signal in the conus. 3. Spondylotic changes result in multilevel spinal canal narrowing which is greatest at L2-L3 and L4-L5 where it is moderate. 4. Diffuse moderate and advanced neuroforaminal narrowing detailed above. Dictated by: Dictated on workstation # [id number]
== END 2017-11-27 12:23 | disposition home health service (06) ==
LOC: EDUNIT# 18:45 → ER 18:47 → UNDOADMOB 22:15 → 4TH 22:15 → UNDODISOB 11-27 15:29
PROVIDERS: ADMIT Pediatrics; ATTEND Pediatrics
DX: M48.02 Spinal stenosis, cervical region (principal); M47.12 Other spondylosis with myelopathy, cervical region; N40.0 Benign prostatic hyperplasia without lower urinary tract symptoms; G47.61 Periodic limb movement disorder; G62.9 Polyneuropathy, unspecified; Z96.652 Presence of left artificial knee joint; Z87.891 Personal history of nicotine dependence; Z79.899 Other long term (current) drug therapy
CPT/HCPCS: 36415; 70450; 71045; 72125; 72141; 72146; 72148; 74177; 80053; 81000; 83690; 83735; 84443; 84484; 85025; 87804; 93005; 93041; 96361; 96374; 96375; G0378

== ENCOUNTER 2017-12-10 15:27 | Inpatient (IN) | payer MEDICARE ==
[~2017-12-10] VITALS: Ht 182.9 cm; Wt 108.4 kg
[~2017-12-10 15:27] MED LIST changes: +CELE-63 PO; +GABA-488 PO; +OXYB5TAB9 PO; +TERA1CAP3 PO
[2017-12-10] MEDS ORDERED: MILK OF MAGNESIA 400 MG/5 ML 30 ML UDC PO PRN (16:00)
[2017-12-10] MEDS ORDERED: BACLOFEN 10 MG (LIORESAL) TAB PO PRN (16:00)
[2017-12-10] MEDS ORDERED: BISACODYL 5 MG (DULCOLAX) TABLET PO PRN (16:00)
[2017-12-10 17:58] VITALS: BP 134/84
--- NOTE | 2017-12-10 18:29 | PM&R Post Admission Assessment ---
Post Admission Physician Asses The preadmission screen agrees with the post admission assessment that the patient is a good candidate for inpatient rehabilitation. The patient will have a comprehensive program of inpatient rehabilitation with a goal of maximizing level of functional independence prior to discharge home with spouse. The patient will have PT/OT ninety minutes per day, each discipline, five days a week for gait, strengthening, conditioning, balance, ADLs, any patient/family/caregiver training as necessary. Speech therapy to do cognitive assessment and treat as indicated. Rehabilitation nursing to assist with bowel, bladder, skin, wound care, medication administration, pain management. Dye Colorist Dyer to assist with discharge planning, community reentry. SCD's for DVT prophylaxis. He appears to be well motivated to participate in three hours of therapy a day. He should be able to tolerate three hours of therapy a day from a medical and surgical standpoint. He should benefit from the three hours of therapy a day. He has a reasonable discharge plan, reasonable discharge rehabilitation goals and a supportive family. He has various comorbidities that need to be closely monitored with medications and treatments adjusted on a daily basis as needed. These include: Polyneuropathy BPH OA Barriers to discharge for this patient who had been independent prior to this are for him to be modified independent to supervision for ADLs and mobility skills prior to discharge home with spouse, so as to lessen the burden of the caregivers. Risks for this patient include: 1. Fall 2. Fracture 3. DVT 4. Pulmonary embolism 5. Wound infection 6. Skin breakdown 7. Contractures 8. Poorly controlled pain 9. Urinary retention 10. UTI 11. Respiratory infection 12. Aspiration Estimated Length of Stay: 14 days Prognosis: Rehab prognosis appears good for goal of discharge home with spouse modified independent to supervision for ADLs and mobility skills. JAIRO ESPARZA MD Dec 10, 2017 18:29
--- NOTE | 2017-12-10 19:18 | HISTORY AND PHYSICAL ---
DATE OF SERVICE: 12/10/2017 CHIEF COMPLAINT: Difficulty with walking. HISTORY OF PRESENT ILLNESS: The patient is a 77-year-old male who was admitted to [facility] for decompressive surgery of cervical spondylosis with myelopathy with weakness and tingling in his limbs. The patient had been modified independent with a walker prior to surgery. He is now referred to inpatient rehabilitation [facility] unit for ongoing care and therapies. He was followed by Dr. Morrison while at [facility] in lieu of Dr. Lacy from [facility]. His surgeon was Dr. Ortega ortho-spine.Currently he is mod assist for bed mobility and transfers.Min assist for gait with walker PAST MEDICAL HISTORY: Neck pain,Chronic back pain, arthritis.BPH Neuropathy PAST SURGICAL HISTORY: Left total knee replacement 12/2015 with rehab here Prior rt hip surgery ALLERGIES: No known medication allergies. FAMILY HISTORY: Diabetes mellitus. SOCIAL HISTORY: No tobacco, no alcohol. He lives with his in [place], [place]. REVIEW OF SYSTEMS: Ten point review of systems significant for neck, back pain with some tingling, improving postoperatively that have tingling in arms. MEDICATIONS: Gabapentin 300 mg p.o. t.i.d., Hytrin 1 mg p.o. at bedtime, Ditropan 5 mg p.o. b.i.d., Percocet generic 5/325 one tablet p.o. q.4 hours moderate pain, baclofen 10 mg p.o. t.i.d. p.r.n. spasms. PHYSICAL EXAMINATION: GENERAL: Significant for a pleasant male lying in bed, appearing his stated age, in no acute distress. VITAL SIGNS: He is afebrile, pulse is 76, respirations 18, blood pressure 134/84, O2 sat 97% on room air. HEENT: Vision, speech and hearing are grossly intact. No oral lesion is noted. NECK: He has a rigid cervical collar on. CARDIOVASCULAR: Regular rhythm. CHEST: Clear. ABDOMEN: Soft, nontender. Bowel sounds present. EXTREMITIES: No leg edema. No calf tenderness. MUSCULOSKELETAL: He has functional active range of motion in all 4 extremities with some guarding BUES due to recent surgery and C collar. NEUROLOGIC: Sensation is grossly intact to touch. He does report some intermittent numbness in his left arm. Cognition appears grossly intact. Strength in lower extremities 4/5, upper limbs functional with some guarding. IMPRESSION: 1. Ambulatory dysfunction secondary to cervical spine stenosis with associated myelopathy, status post C3-C7 laminectomy and fusion C3 through T2.[facility] Dr. Ortega. 2. BPH on meds. 3. Polyneuropathy on gabapentin. 4. Osteoarthritis, status post left total knee replacement. 4. Chronic back pain. 5. DVT Prophylaxis-SCDS PLAN: The patient will have a comprehensive program of inpatient rehabilitation with goal of maximizing level of functional independence prior to discharge home with spouse. The patient will have PT, OT 90 minutes per day each discipline, 5 days a week for gait, strengthening, conditioning, balance, ADLs, any patient family caregiver training necessary, adaptive equipment training necessary. Speech therapy to assess cognition and treat as indicated. Rehabilitation nursing to assist with bowel, bladder, skin, wound care, medication administration, pain management. counseling services manager to assist with discharge planning, community reentry. Follow up with a [facility] physician or Dr. English as well as Dr. Ortega ortho spine p.r.n. ESTIMATED LENGTH OF STAY: 2 weeks. PROGNOSIS: Rehab prognosis appears good for goal of discharge home with spouse, modified independent to supervision for ADLs, mobility skills. DIET: Regular. CODE STATUS: Full code. Job ID: [id number] DocumentID: [id number] Dictated Date: 12/10/2017 18:22:40 Television Newscast Director Date: 12/10/2017 19:17:04 Dictated By: JAIRO ESPARZA MD MTDD
[2017-12-10] MEDS: OXYBUTYNIN (DITROPAN) 5 MG TAB PO SCH (20:36)
[2017-12-10] MEDS: TERAZOSIN 1 MG CAP (HYTRIN) PO SCH (20:36)
[2017-12-10] MEDS: GABAPENTIN 300 MG (NEURONTIN) CAP PO SCH (20:36)
[2017-12-10] MEDS: SENNA W/DOCUSATE (SENOKOT S) TABLET PO SCH (21:25)
[2017-12-11 06:00] VITALS: BP 118/72
[2017-12-11] MEDS: GABAPENTIN 300 MG (NEURONTIN) CAP PO SCH ×3 (08:26→20:37)
[2017-12-11] MEDS: SENNA W/DOCUSATE (SENOKOT S) TABLET PO SCH ×2 (08:26→20:38)
[2017-12-11] MEDS: OXYBUTYNIN (DITROPAN) 5 MG TAB PO SCH ×2 (08:26→20:35)
--- NOTE | 2017-12-11 08:59 | Physical Therapy Evaluation ---
PT Evaluation-General Medical Diagnosis Admission Date Dec 10, 2017 at 17:40 Medical Diagnosis: s/p C3-C7 laminectomy and fusion of C3-T2 Onset Date: Dec 07, 2017 Therapy Diagnosis Therapy Diagnosis: Poor functional mobility, activity tolerance, and weakness in the UE and LE Height/Weight Height (Feet): 6 Height (Inches): 0.00 Weight (Pounds): 255 Weight (Ounces): 0.0 Precautions Precautions/Isolations: Fall Prevention, Standard Precautions Wear neck brace for 6-7 weeks per doctor orders Weight Bear Status Right Lower Extremity: Right Full Weight Bearing Left Lower Extremity: Left Full Weight Bearing Referral Physician: Omid Cuevas MD Reason for Referral: Evaluation/Treatment Medical History Pertinent Medical History: Neuropathy, OA, Smoking Additional Medical History L TKA, R RONNY, BPH, Chronic back pain, polyneuropathy, OA Current History s/p laminectomy and spinal fusion secondary to cervical spondylosis with myelopathy Reviewed History: Yes Social History Home: Single Level Current Living Status: Spouse Entry Into Home: Stairs With Railing (Both sides) PT Steps Into Home: 4 PT Steps Inside Home: 0 Pt reported 200 yard walk to mailbox and is at home independently for 16 hours per day. Prior/Core FIM Prior Level of Function Functional Conrad Measure 0=Not Assessed/NA 4=Minimal Assistance 1=Total Assistance 5=Supervision or Setup 2=Maximal Assistance 6=Modified Conrad 3=Moderate Assistance 7=Complete Conrad Bed Mobility: 7 Transfers (B,C,W/C) (FIM): 6 Gait: 6 Locomotion: 6 Pt used FWW in the home and a SPC in the community. PT Evaluation-Current Subjective Pt is sitting in recliner pre tx with neck brace on and c/o numbness in the LUE. Pt agrees to PT. Pain Numeric Pain Scale: 0-No Pain Pt/Family Goals Conrad at home Objective Patient Orientation: Normal For Age Neck brace ROM/Strength ROM Upper Extremities NT due to pain with movement ROM Lower Extremities Pt has tightness in hip IR, ankle DF, and knee extension lopez. The rest is grossly WNL. Strength Upper Extremities NT due to pain with movement Strenght Lower Extremities RLE: Grossly 4/5 LLE: Grossly 4/5 Integumentary/Posture Bowel Incontinence: No Neuromuscular (Tone, Coordination, Reflexes) Biceps reflex 2+ bilaterally Sensory Hearing: Functional Sensation Right Lower Extremit: Intact Sensation Left Lower Extremity: Impaired Sensation Lower Extremities Pt c/o intermittent numbness at beginning of tx at C7 dermatome. Transfers Functional Conrad Measure 0=Not Assessed/NA 4=Minimal Assistance 1=Total Assistance 5=Supervision or Setup 2=Maximal Assistance 6=Modified Conrad 3=Moderate Assistance 7=Complete IndependenceIRFPAI Quality Coding Scale 6 Independent with activity with or without an assistive device 5 Patient requires set up or clean up by helper. Patient completes activity by themselves 4 Supervision or touching assist (CGA). Lacrosse provide cues , steadying assist 3 The helper provides less than half the effort to complete the activity 2 The helper provides more than half the effort to complete the activity 1 Dependent. The helper does all the effort to complete an activity 7 Patient refused to complete or attempt activity 9 The patient did not perform the activity before the current illness or injury 88 Not attempted due to Medical conditions or safety concerns Transfers (B, C, W/C) (FIM): 3 Scootin Rollin Roll Left to Right (QC): 2 Supine to/from Sit: 3 Sit to/from Stand: 3 Sit to Lying (QC): 2 Lying to Sitting/Side of Bed(Q: 2 Sit to Stand (QC): 2 Chair/Sub-in-Ndwpk Xfer(QC): 2 Car Transfer (QC): 88 Patient performs bed mobility and transfers with mod assist. Gait Does the Patient Walk?: Yes Mode of Locomotion: Walk Anticipated Mode of Locomotion: Walk Gait (FIM): 4 Distance (FIM): 3=150 ft Walk 10 feet (QC): 4 Walk 50 ft with 2 Turns(QC): 4 Walk 150 ft (QC): 4 Walking 10ft/uneven surface-QC: 4 Distance: 150 feet Gait Level of Assist: 4 Gait Persons Needed: 1 Gait Assistive Device: FWW Comments/Gait Description Pt ambulates with diminished stance phase on the RLE with no report of pain or weakness. Pt has a minimal shuffling in his gait. Pt ambulates in hip and knee flexion with BLE. He can ambulate 150' with a rolling walker with CGA including 10' over an uneven surface and 50' with at least 2 turns of 90 degrees. Wheelchair Training Does the Pt Use a Wheelchair?: No Stairs Stairs (FIM): 0 1 Step (curb) (QC): 88 4 Steps (QC): 88 12 Steps (QC): 88 If not tested on admit;explain Patient is not able to negotiate one step safely. Balance Sitting Static: Good Sitting Dynamic: Good Standing Static: Good Standing Dynamic: Good Picking up an Object (QC): 88 Special Test Comments NT due to safety concerns Treatment Pt performed bed mobility, gait training, strength, sensation, and PROM. Assessment/Needs Pt requires mod A with most transfers. Pt reports numbness in the LUE intermittently and gross weakness in BLE. Pt demonstrates tightness bilaterally in hip IR. knee extension, and ankle DF. Pt is able to ambulate 150 feet with FWW with some gait abnormalities. Rehab Potential: Fair Post Rehab Potential-Barriers: Neck brace PT Short Term Goals Short Term Goals Time Frame: Dec 18, 2017 Transfers (B,C,W/C) (FIM): 4 Gait (FIM): 4 Distance (FIM): 3=150 ft Gait Distance Comment: 200 feet Gait Level of Assist: 4 Gait Assistive Device: FWW PT Intermediate Goals Electronics Inspector Goals PT Electronics Inspector Goals Time Frame: Jan 01, 2018 Transfers (B,C,W/C) (FIM): 5 Sit to Lying (QC): 4 Lying-Sitting on Side/Bed(QC): 4 Sit to Stand (QC): 4 Rollin Roll Left to Right (QC): 4 Chair/Vku-vr-Cwjxd Xfer(QC): 4 Car Transfer (QC): 4 Does the Patient Walk: Yes Gait (FIM): 5 Distance: 300 feet Walk 10 feet (QC): 4 Walk 10ft-Uneven Surface(QC): 4 Walk 50ft with 2 Turns (QC): 4 Walk 150 ft (QC): 4 Gait Level of Assist: 5 Gait Assistive Device: FWW Does the Pt use WC or Scooter?: No Stairs (FIM): 2 # of Steps: 4 1 Step (curb) (QC): 4 4 Steps (QC): 4 Stairs Level Of Assist: 4 PT Plan Problem List Problem List: Activity Tolerance, Functional Strength, Safety, Balance, Gait, Transfer, Bed Mobility, ROM Treatment/Plan Treatment Plan: Continue Plan of Care Treatment Plan: Bed Mobility, Education, Functional Activity Naman, Functional Strength, Group Therapy, Gait, Safety, Therapeutic Exercise, Transfers Treatment Duration: Jan 01, 2018 Frequency: At least 5 of 7 days/Wk (IRF) Estimated Hrs Per Day: 1.5 hours per day Patient and/or Family Agrees t: Yes Safety Risks/Education Patient Education: Gait Training, Transfer Techniques, Correct Positioning, Reviewed Don/Doff Brace, Safety Issues Teaching Recipient: Patient Teaching Methods: Demonstration, Discussion Response to Teaching: Reinforcement Needed Discharge Recommendations Therapy D/C Recommendations: Home w/ Family Support Time/GCodes Time In: 800 Time Out: 900 Total Billed Treatment Time: 60 Total Billed Treatment 1 visit 30 min EVM 15' GT 15' FA ARMANDO GOMEZ PT Dec 11, 2017 08:59
--- NOTE | 2017-12-11 10:06 | ST Cognitive Linguistic Eval ---
Speech Evaluation-General Medical Diagnosis s/p C3-C7 laminectomy and fusion of C3-T2 Onset Date: Dec 07, 2017 Therapy Diagnosis Therapy Diagnosis: Cognitive Linguistic Skills WNl Precautions Precautions/Isolations: Fall Prevention, Standard Precautions Referral Referring Physician: Dr. Omid Cuevas Reason for Referral: Evaluation/Treatment Cognitive Impairment Medical History Pertinent Medical History: Neuropathy, OA, Smoking Current History The patient was recently admitted to [facility] following a C3-C7 laminectomy. Reviewed History: Yes Social History Current Living Status: Spouse Speech PLF-Current Status Prior Level of Function The patient denied any prior challenges with speech, language, or cognition. Subjective The patient was laying in bed upon entrance. The patient greeted the clinician and was agreeable to participation in the cognitive evaluation. The patient's was present at bedside. Language Eval: Auditory Comprehends Simple Yes/No Ques: Functional Indent/Objects Multiple Zee: Functional Ident/Pics in Multiple Zee: Functional Follows 1-Step Commands: Functional Follows Complex Directions: Functional Follows General Conversations: Functional Language Eval: Verbal Language Completes Spontaneous Greeting: Functional Produces Auto, Serial Info: Functional Imitates Simple Words/Phrases: Functional Word Finding: Functional Requests Basic Needs: Functional States Basic Personal Info: Functional Expresses Complex Ideas: Functional Cognitive Patient Orientation The patient was independently oriented to self, location, city, month, day of week, and year. Objective Cognitive Domain Attention: WNL Memory: WNL Problem Solving: Functional Objective Impression The patient demonstrated cognitive linguistic skills WNL and appropriate for completion of ADL's. Communication/Social Cognition Comprehension: 6 Expression: 6 Social Interaction: 6 Problem Solvin Memory: 6 Speech Patient Assess Expression of Ideas/Wants: Exhibits (3) Understanding Vebal Content: Usually Understands (3) Brief Interview-Mental Status: Yes Repetition of Three Words: Three (3) Temporal Orientation: Year: Correct (3) Temporal Orientation: Month: Accurate within 5 days(2) Temporal Orientation: Day: Correct (1) Recall : Wear to say "Sock": Yes, no cue required (2) Recall : Color: Yes, no cue required (2) Recall : Bed: Yes, no cue required (2) Speech-Plan Treatment Plan Speech Therapy Treatment Plan: Discontinue ST Evaluation, only. Frequency: Modified Program (IRF) Estimated Hrs Per Day: Other Rehab Potential: Fair Safety Risks/Education Teaching Recipient: Patient Teaching Methods: Discussion Response to Teaching: Verbalize Understanding Education Topics Provided: Results, Recommendations, Plan of Care Time Speech Therapy Time In: 09:30 Speech Therapy Time Out: 09:45 Total Billed Time: 15 Billed Treatment Time 1, MIKE CONN Dec 11, 2017 10:06
--- NOTE | 2017-12-11 12:02 | Consultation (CHS) ---
HPI History of Present Illness: 77 year old male admitted to inpatient rehab after cervical decompression at [facility] on 12/07/17. Prior to surgery he was able to independently ambulate with a walker. He is currently in a rigid cervical collar. He has no complaints this morning, and is preparing for a bath when seen. Source: patient, old records Exam Limitations: no limitations Date seen by provider: Dec 11, 2017 Time Seen by Provider: 11:30 Attending Physician Omid Cuevas MD PCP Watson QUINTANILLA Consult Date of Admission Dec 10, 2017 at 17:40 Home Medications Home Medications Reviewed patient Home Medication Reconciliation Form Allergies Coded Allergies: NKANo Known Allergies (Verified Allergy, Unknown, 10/18/16) [id number] Hx Patient Social History Marrital Status: Living Status: Lives at home with in [place], [place] Employed/Student: retired Alcohol Use: Denies Use Recreational Drug Use: No Smoking Status: Former Smoker Type Used: Cigarettes 2nd Hand Smoke Exposure: No Recent Foreign Travel: No Contact w/other who traveled: No Recent Hopitalizations: Yes (surgery at [facility] 12/07/17) Recent Infectious Disease Expo: No Physical Abuse Screen: No Sexual Abuse: No Immunizations Up To Date Tetanus Booster (TDap): Unknown Date of Pneumonia Vaccine: Oct 09, 2017 Date of Influenza Vaccine: Oct 09, 2017 Past Medical History Osteoarthritis of bilateral knees Cervicalgia BPH Bladder Hypertonicity Carpal Tunnel Syndrome, bilateral Family Medical History Family History: Cardiovascular disease 19 FATHER FHx: cancer 19 MOTHER (unknown what kind of cancer) Respiratory disorder 19 MOTHER (EMPHYZEMA) Review of Systems ([facility]) Constitutional: no symptoms reported EENTM: no symptoms reported Respiratory: no symptoms reported Cardiovascular: no symptoms reported Gastrointestinal: no symptoms reported Genitourinary: no symptoms reported Musculoskeletal: see HPI Skin: no symptoms reported Psychiatric/Neurological: No Symptoms Reported Physical Exam-([facility]) Physical Exam Vital Signs VS - Last 72 Hours, by Label 12/10/17 12/10/17 12/11/17 12/11/17 17:33 17:58 06:00 18:19 Temp 97.7 99.0 98.3 Pulse 76 87 82 Resp 18 16 18 B/P (MAP) 134/84 (101) 118/72 (87) 124/77 (93) Pulse Ox 97 96 98 O2 Delivery Room Air Room Air Room Air Room Air Capillary Refill : General Appearance: WD/WN, no apparent distress Eyes: Bilateral Eye Normal Inspection HEENT: PERRL/EOMI, normal ENT inspection, No scleral icterus (R), No scleral icterus (L), No photophobia Neck: supple, limited range of motion Respiratory: chest non-tender, lungs clear, normal breath sounds, no respiratory distress, no accessory muscle use, No rales, No rhonchi, No wheezing Cardiovascular: normal peripheral pulses, regular rate, rhythm, no edema, no gallop, no JVD, no murmur Peripheral Pulses: 2+ Radial Pulses (R), 2+ Radial Pulses (L) Gastrointestinal: normal bowel sounds, non tender, soft, no organomegaly, no pulsatile mass Extremities: normal range of motion, non-tender, normal inspection, no pedal edema, no calf tenderness, normal capillary refill 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 He is on minimal medications. He is likely to do very well in inpatient rehab to rebuild his strength. His PCP is Watson QUINTANILLA. Given his minimal medical issues, we will sign off, but are available if any acute issues arise. Thank you for your consultation. Clinical Quality Measures DVT/VTE Risk/Contraindication: Risk Factor Score Per Nursin RFS Level Per Nursing on Admit: 4+=Very High Copy Copies To 1: [facility]/RADHA MORENO DO Dec 11, 2017 12:02
--- NOTE | 2017-12-11 12:05 | PM & R (SOAP) Progress Note ---
Subjective Time Seen by Provider: 07:55 Subjective/Events-last exam Patient was seen in his room this AM.Adjusting well to unit Patient mod assist for transfers Min assist for gait with Walker. Review of Systems Musculoskeletal: neck pain Objective Exam Last Set of Vital Signs Vital Signs Date Time Temp Pulse Resp B/P (MAP) Pulse Ox O2 Delivery O2 Flow Rate FiO2 12/11/17 06:00 99.0 87 16 118/72 (87) 96 Room Air Capillary Refill : I&O Intake and Output 12/11/17 00:00 Intake Total 480 ml Output Total 300 ml Balance 180 ml Intake Oral 480 ml Output Urine Total 300 ml # Bowel Movements 1 Daily Weight Change No General: Alert, Oriented X3, Cooperative, No Acute Distress HEENT: Atraumatic, PERRLA, EOMI, Mucous Memb Moist/[place] Neck: Other (Rigid C collar in place) Lungs: Clear to Auscultation Heart: Regular Rate Abdomen: Normal Bowel Sounds, Soft Extremities: No Edema Neuro: Other (strength Les 4/5 Functional UEs with some guarding due to pain C/ O intermittent numbness in hands Cognition intact) Assessment/Plan Assessment Cervical spondylosis with myelopathy s/p decomprssion and fusion PSI DR Ortega Chronic back pain BPH RLS UTI treated S/P LTKR for OA 2 2915 S/P Rt Hip surgery Plan Continue PT/OT ST has assessed and signed off F/U with [facility] or DR Morrison F/U with DR Ortega orthospine PRN Continue meds for BPH SCDS for DVT prophylaxis JAIRO ESPARZA MD Dec 11, 2017 12:05
--- NOTE | 2017-12-11 14:12 | Physical Therapy Daily Note ---
PT Daily Note-Current Subjective Pt is sitting in bed pre tx with no complaints of pain or numbness and agrees to PT. Pain Numeric Pain Scale: 0-No Pain Appearance Pt is laying in bed post tx with phone, nurse call, and tray within reach. Mental Status Patient Orientation: Normal For Age Transfers Functional [place] Measure 0=Not Assessed/NA 4=Minimal Assistance 1=Total Assistance 5=Supervision or Setup 2=Maximal Assistance 6=Modified [place] 3=Moderate Assistance 7=Complete IndependenceIRFPAI Quality Coding Scale 6 Independent with activity with or without an assistive device 5 Patient requires set up or clean up by helper. Patient completes activity by themselves 4 Supervision or touching assist (CGA). [place] provide cues , steadying assist 3 The helper provides less than half the effort to complete the activity 2 The helper provides more than half the effort to complete the activity 1 Dependent. The helper does all the effort to complete an activity 7 Patient refused to complete or attempt activity 9 The patient did not perform the activity before the current illness or injury 88 Not attempted due to Medical conditions or safety concerns Transfers (B, C, W/C) (FIM): 3 Scootin Rollin Supine to/from Sit: 3 Sit to/from Stand: 3 Bed to/from Chair: 3 Car Transfer (QC): 2 Pt needs cues for safety and hand placement, performed a car transfer with mod assist. Weight Bearing Right Lower Extremity: Right Full Weight Bearing Left Lower Extremity: Left Full Weight Bearing Gait Training Does the Patient Walk?: Yes Gait (FIM): 4 Distance: 300 feet x1 Gait Level of Assist: 4 Gait Assistive Device: FWW Pt demonstrates diminished stance phase on the RLE and excessively relies on the FWW to ambulate. CGA Wheelchair Training Does the Pt Use a Wheelchair?: No Treatments Pt performed bed mobility and gait training. Assessment Current Status: Fair Progress Pt is making good progress towards goal as he is walking for 300 feet with a FWW before needing a sitting break. PT Short Term Goals Short Term Goals Time Frame: Dec 18, 2017 Transfers (B,C,W/C) (FIM): 4 Gait (FIM): 4 Distance (FIM): 3=150 ft Gait Distance Comment: 200 feet Gait Level of Assist: 4 Gait Assistive Device: FWW PT Detention Goals Detention Goals PT Braille Duplicating Machine Operator Goals Time Frame: Jan 01, 2018 Transfers (B,C,W/C) (FIM): 5 Sit to Lying (QC): 4 Lying-Sitting on Side/Bed(QC): 4 Sit to Stand (QC): 4 Rollin Roll Left to Right (QC): 4 Chair/Bow-nb-Wihuz Xfer(QC): 4 Car Transfer (QC): 4 Does the Patient Walk: Yes Gait (FIM): 5 Distance: 300 feet Walk 10 feet (QC): 4 Walk 10ft-Uneven Surface(QC): 4 Walk 50ft with 2 Turns (QC): 4 Walk 150 ft (QC): 4 Gait Level of Assist: 5 Gait Assistive Device: FWW Does the Pt use WC or Scooter?: No Stairs (FIM): 2 # of Steps: 4 1 Step (curb) (QC): 4 4 Steps (QC): 4 Stairs Level Of Assist: 4 PT Plan Problem List Problem List: Activity Tolerance, Functional Strength, Safety, Balance, Gait, Transfer, Bed Mobility, ROM Treatment/Plan Treatment Plan: Continue Plan of Care Treatment Plan: Bed Mobility, Education, Functional Activity Naman, Functional Strength, Group Therapy, Gait, Safety, Therapeutic Exercise, Transfers Treatment Duration: Jan 01, 2018 Frequency: At least 5 of 7 days/Wk (IRF) Estimated Hrs Per Day: 1.5 hours per day Patient and/or Family Agrees t: Yes Safety Risks/Education Patient Education: Gait Training, Transfer Techniques, Correct Positioning, Safety Issues Teaching Recipient: Patient Teaching Methods: Demonstration, Discussion Response to Teaching: Reinforcement Needed Time/GCodes Time In: 1300 Time Out: 1320 Total Billed Treatment Time: 20 Total Billed Treatment 1 visit 20 min GT ARMANDO GOMEZ PT Dec 11, 2017 14:12
--- NOTE | 2017-12-11 14:14 | Occupational Therapy Eval ---
OT Evaluation-General/PLF Medical Diagnosis Admission Date Dec 10, 2017 at 17:40 Medical Diagnosis: s/p C3-C7 laminectomy and fusion of C3-T2 Onset Date: Dec 07, 2017 Therapy Diagnosis Therapy Diagnosis: Weakness, Decreased ADL skills Height/Weight Height (Feet): 6 Height (Inches): 0.00 Weight (Pounds): 255 Weight (Ounces): 0.0 Precautions Precautions/Isolations: Fall Prevention, Standard Precautions Safety Interventions: None Comments Neck brace to be on at all times. Spinal precautions. Weight Bear Status Weight Bearing Restriction: Weight Bearing/Tolerated Referral Physician: Omid Cuevas MD Referral Reason: Activity Tolerance, Self Care, Evaluation/Treatment, Strengthening/ROM Medical History Pertinent Medical History: Arthritis, Neuropathy, OA, Smoking Additional Medical History Left TKR, chronic back pain. Reviewed History: Yes Social History Home: Single Level Current Living Status: Spouse Entry Into Home: Stairs With Railing (Both sides) Steps Into Home: 4 Steps Inside Home: 0 ADL-Prior Level of Function ADL PLOF Comments Pt. states that prior to this surgery, pt. was independent with all ADLs with use of walker. States that his works a lot outside of the home. DME/Equipment: Shower, Tub/Shower DME/Equipment Comments Pt. has a walker, cane, and wheelchair. Drive Self: Yes OT Current Status Subjective Pt. reports being "sore" in left UE. No other pain reported. Appearance Pt. is in bed. Agrees to work with OT. Mental Status/Objective Patient Orientation: Person, Place Current Hand Dominance: Right Upper Extremity ROM Pt. is able to flex right UE WFL. Is only able to flex left UE to approximately 45 degrees. Limited due to surgery. States that the physician told him it was due to the position of his arm during surgery. Pt. also feels "numbness" in left UE and has significant swelling in left UE. Upper Extremity Coordination Decreased coordination in left UE. Upper Extremity Sensation Numbness noted in left UE. However, pt. seems to have light touch sensation. ADL-Treatment Functional [place] Measure 0=Not Assessed/NA 4=Minimal Assistance 1=Total Assistance 5=Supervision or Setup 2=Maximal Assistance 6=Modified [place] 3=Moderate Assistance 7=Complete IndependenceIRFPAI Quality Coding Scale 6 Independent with activity with or without an assistive device 5 Patient requires set up or clean up by helper. Patient completes activity by themselves 4 Supervision or touching assist (CGA). [place] provide cues , steadying assist 3 The helper provides less than half the effort to complete the activity 2 The helper provides more than half the effort to complete the activity 1 Dependent. The helper does all the effort to complete an activity 7 Patient refused to complete or attempt activity 9 The patient did not perform the activity before the current illness or injury 88 Not attempted due to Medical conditions or safety concerns Eating (FIM): 5 (Lunch comes and pt. requires assist for set up of packages.) Eating (QC): 5 Bathing (FIM): 2 (Pt. requires assist in stance to wash rear nathan area. Pt. also requires assist to wash feet and LE. Requires assist to wash under neck brace and right UE.) Shower/Bathe Self (QC): 2 Upper Body Dressing (FIM): 3 (Pt. is able to fasten and unfasten snaps on his shirt but has difficulty getting shirt off his shoulders and back on.) Upper Body Dressing (QC): 2 Lower Body Dressing (FIM): 2 Lower Body Dressing (QC): 2 On/Off Footwear (QC): 1 (Pt. is unable to get his feet up to him, or bend over to get down to his feet.) Toileting (FIM): 4 (Pt. is continent and asks for urinal. However, has urgency. Is able to hold the urinal and manage on his own with assist to empty and slightly pull down pants.) Toileting Hygiene (QC): 4 Transfers (B, C, W/C) (FIM): 3 (Mod assist for supine-sit, and sit-stand. Min assist to transfer to chair.) Other Treatments Pt. completed series of fine motor coordination and strengthening tasks at end of treatment. OT also completed gentle retrograde massage to left UE to decrease swelling. Pt. tolerated this well. All needs met in room. Education OT Patient Education: Correct positioning, Exercise program, Modified ADL techniques, Progress toward Goal/Update tx plan, Purpose of tx/functional activities, Reviewed precautions, Rehab process, Transfer techniques Teaching Recipient: Patient Teaching Methods: Demonstration, Discussion Response to Teaching: Verbalize Understanding, Return Demonstration OT Short Term Goals Short Term Goals Time Frame: Dec 18, 2017 Eating(FIM): 5 Grooming(FIM): 5 Bathing(FIM): 4 Upper Body Dressing(FIM): 4 Lower Body Dressing(FIM): 4 Toileting(FIM): 4 Transfers (B,C,W/C) (FIM): 4 Toilet/Commode Transfer(FIM): 4 Shower Transfer(FIM): 4 Additional Short Term Goals: 1-Demonstrate ADL Tasks, 2-Verbalize Understanding , 3-ImproveStrength/[place] 1=Demonstrate adherence to instructed precautions during ADL tasks. 2=Patient will verbalize/demonstrate understanding of assistive devices/ modifications for ADL. 3=Patient will improve strength/tolerance for activity to enable patient to perform ADL's. OT Penitentiary Goals Molder Inflated Ball Goals Time Frame: Dec 25, 2017 Eating (FIM): 6 Eating (QC): 6 Groomin Oral Hygiene (QC): 5 Bathing(FIM): 5 Shower/Bathe Self (QC): 5 Upper Body Dressing(FIM): 5 Upper Body Dressing (QC): 5 Lower Body Dressing(FIM): 5 Lower Body Dressing (QC): 5 On/Off Footwear (QC): 5 Toileting(FIM): 6 Toileting Hygiene (QC): 6 Transfers (B,C,W/C) (FIM): 6 Toilet/Commode Transfer(FIM): 6 Toilet/Commode Transfer (QC): 6 Shower Transfer(FIM): 5 Additional Goals: 1-Demonstrate ADL Tasks, 2-Verbalize Understanding, 3- ImproveStrength/Naman 1=Demonstrate adherence to instructed precautions during ADL tasks. 2=Patient will verbalize/demonstrate understanding of assistive devices/ modifications for ADL. 3=Patient will improve strength/tolerance for activity to enable patient to perform ADL's. OT Education/Plan Problem List/Assessment Assessment: Decreased Activ Tolerance, Decreased UE Strength, Dependent Transfers, Impaired Bed Mobility, Impaired Coordination, Impaired Funct Balance , Impaired I ADL's, Impaired Self-Care Skills, Restricted Funct UE ROM Discharge Recommendations Plan/Recommendations: Continue POC Therapy D/C Recommendations: Home w/ Family Support, Occupational Therapy Home Care Equpiment Recommendations-D/C: Extended Bath Bench, Hip Kit Treatment Plan/Plan of Care Treatment,Training & Education: Yes Patient would benefit from OT for education, treatment and training to promote independence in ADL's, mobility, safety and/or upper extremity function for ADL' s. Plan of Care: ADL Retraining, Caregiver Training, Functional Mobility, UE Funct Exercise/Act Treatment Duration: Dec 25, 2017 Frequency: At least 5 of 7 days/Wk (IRF) Estimated Hrs Per Day: 1.5 hours per day Agreement: Yes Rehab Potential: Fair Time/GCodes Start Time: 11:30 Stop Time: 13:00 Total Time Billed (hr/min): 90 Billed Treatment Time 1, EVM x 15minutes, ADL x 60minutes, FA x 15minutes EDELMIRA DURANT OT Dec 11, 2017 14:14
[2017-12-11 18:19] VITALS: BP 124/77
[2017-12-11] MEDS: TERAZOSIN 1 MG CAP (HYTRIN) PO SCH (20:35)
[2017-12-12 05:06] VITALS: BP 111/71
[2017-12-12] MEDS: GABAPENTIN 300 MG (NEURONTIN) CAP PO SCH ×3 (08:10→20:05)
[2017-12-12] MEDS: OXYBUTYNIN (DITROPAN) 5 MG TAB PO SCH ×2 (08:10→20:05)
[2017-12-12] MEDS: SENNA W/DOCUSATE (SENOKOT S) TABLET PO SCH ×2 (08:10→20:06)
--- NOTE | 2017-12-12 08:51 | Physical Therapy Daily Note ---
PT Daily Note-Current Subjective Patient is in bed and agrees to PT. Pain Numeric Pain Scale: 5-Moderate Pain Location: Left Location Body Site: Arm Pain Description: Ache Mental Status Patient Orientation: Normal For Age Transfers Functional [place] Measure 0=Not Assessed/NA 4=Minimal Assistance 1=Total Assistance 5=Supervision or Setup 2=Maximal Assistance 6=Modified [place] 3=Moderate Assistance 7=Complete IndependenceIRFPAI Quality Coding Scale 6 Independent with activity with or without an assistive device 5 Patient requires set up or clean up by helper. Patient completes activity by themselves 4 Supervision or touching assist (CGA). [place] provide cues , steadying assist 3 The helper provides less than half the effort to complete the activity 2 The helper provides more than half the effort to complete the activity 1 Dependent. The helper does all the effort to complete an activity 7 Patient refused to complete or attempt activity 9 The patient did not perform the activity before the current illness or injury 88 Not attempted due to Medical conditions or safety concerns Transfers (B, C, W/C) (FIM): 4 Scootin Rollin Roll Left to Right (QC): 4 Supine to/from Sit: 4 Sit to/from Stand: 4 Sit to Lying (QC): 4 Sit to Stand (QC): 4 Chair/Dlj-bm-Svcbl Xfer(QC): 4 Bed to/from Chair: 4 Car Transfer (QC): 3 Weight Bearing Right Lower Extremity: Right Full Weight Bearing Left Lower Extremity: Left Full Weight Bearing Gait Training Does the Patient Walk?: Yes Gait (FIM): 4 Distance (FIM): 3=150 ft Distance: 150' x 5 Walk 10 feet (QC): 4 Walk 50 ft with 2 Turns(QC): 4 Walk 150 ft (QC): 4 Gait Level of Assist: 4 Gait Assistive Device: FWW flexed knee posture, shuffle gait sequence; patient required recovery periods due to fatigue Exercises Supine Ex: Ankle pumps, Quad Set, Heel Slides Supine Reps: 15 (2 sets AAROM with HS) Seated Therapy Exercises: Ankle pumps, Long arc quads, Hip flexion Seated Reps: 15 (2 sets) NuStep Minutes: 20 NuStep Workload: 3 (to increase strength and mobility) Assessment Patient is very fatigued today, however, is improving with treatment plan. Patient returned to room and up in recliner with needs met. PT Short Term Goals Short Term Goals Time Frame: Dec 18, 2017 Transfers (B,C,W/C) (FIM): 4 Gait (FIM): 4 Distance (FIM): 3=150 ft Gait Distance Comment: 200 feet Gait Level of Assist: 4 Gait Assistive Device: FWW PT Environmental Health Safety Engineer Goals Environmental Health Safety Engineer Goals PT Environmental Health Safety Engineer Goals Time Frame: Jan 01, 2018 Transfers (B,C,W/C) (FIM): 5 Sit to Lying (QC): 4 Lying-Sitting on Side/Bed(QC): 4 Sit to Stand (QC): 4 Rollin Roll Left to Right (QC): 4 Chair/Jta-zd-Ulzca Xfer(QC): 4 Car Transfer (QC): 4 Does the Patient Walk: Yes Gait (FIM): 5 Distance: 300 feet Walk 10 feet (QC): 4 Walk 10ft-Uneven Surface(QC): 4 Walk 50ft with 2 Turns (QC): 4 Walk 150 ft (QC): 4 Gait Level of Assist: 5 Gait Assistive Device: FWW Does the Pt use WC or Scooter?: No Stairs (FIM): 2 # of Steps: 4 1 Step (curb) (QC): 4 4 Steps (QC): 4 Stairs Level Of Assist: 4 PT Plan Treatment/Plan Treatment Plan: Continue Plan of Care Treatment Plan: Bed Mobility, Education, Functional Activity [place], Functional Strength, Group Therapy, Gait, Safety, Therapeutic Exercise, Transfers Treatment Duration: Jan 01, 2018 Frequency: At least 5 of 7 days/Wk (IRF) Estimated Hrs Per Day: 1.5 hours per day Patient and/or Family Agrees t: Yes Time/GCodes Time In: 700 Time Out: 830 Total Billed Treatment Time: 90 Total Billed Treatment 1 visit GT x 3 48 min Ex x 3 42 min KIESHA ERWIN PT Dec 12, 2017 08:51
[2017-12-12] MEDS: oxyCODONE/APAP 5/325MG (PERCOCET 5) TABLET PO PRN ×2 (09:14→23:44)
--- NOTE | 2017-12-12 10:41 | Occupational Ther Daily Note ---
OT Current Status-Daily Note Subjective Pt seen in room, up in bed, agreeable to OT. Pt reported neck discomfort but not rated or described. Appearance Alert, cooperative Mental Status/Objective Functional [place] Measure 0=Not Assessed/NA 4=Minimal Assistance 1=Total Assistance 5=Supervision or Setup 2=Maximal Assistance 6=Modified [place] 3=Moderate Assistance 7=Complete [place] ADL-Treatment Min assist to get up out of bed, helping with pushing up trunk. Min assist sit to stand and walked CGA, FWW to bathroom. Nursing reported toilet transfer mod assist off tall toilet, using grab bar. Pt stood at sink with SBA, FWW to clean dentures and put them in. His hair is very short and there is none to comb. Washed face and hands. Functional [place] Measure 0=Not Assessed/NA 4=Minimal Assistance 1=Total Assistance 5=Supervision or Setup 2=Maximal Assistance 6=Modified [place] 3=Moderate Assistance 7=Complete IndependenceIRFPAI Quality Coding Scale 6 Independent with activity with or without an assistive device 5 Patient requires set up or clean up by helper. Patient completes activity by themselves 4 Supervision or touching assist (CGA). [place] provide cues , steadying assist 3 The helper provides less than half the effort to complete the activity 2 The helper provides more than half the effort to complete the activity 1 Dependent. The helper does all the effort to complete an activity 7 Patient refused to complete or attempt activity 9 The patient did not perform the activity before the current illness or injury 88 Not attempted due to Medical conditions or safety concerns Grooming (FIM): 5 Oral Hygiene (QC): 4 (SBA, FWW) Toilet/Commode Transfer (FIM): 3 (regan Rankin RN. Tall toilet and grab bar) Toilet Transfer (QC): 3 Other Treatment Pt walked to gym with CGA, FWW, very slow and shuffling gait. Once there, he did 12 minutes bilat UE exercise with arm bike, set at 20W resistance, with one recovery break where he described burning in L shoulder. Warm blanket applied while he recovered a minute or so. He also did arc activity, 2 sets with short extension and one with medium extension, as well as nuts and bolts. To strengthen arms to help with transfers and ADLs and to decrease edema. No additional resistance applied to hands and he reported arms feel heavy. Edema observed in L UD. pt educ on ways to decrease edema including elevation and active movement.At end of tx, wrinkles were observed in L forearm near elbow. Pt needed min assist to get up out of chair with arms. He walked with CGA/SBA and FWW to room (at least 50') and needed a little help to get into bed ( lifting L leg). He also needed help to pull up in bed, although he assisted. Pt left up in bed, 4 rails up, all needs met. Education OT Patient Education: Modified ADL techniques, Progress toward Goal/Update tx plan, Purpose of tx/functional activities, Transfer techniques (hand placement) Teaching Recipient: Patient Teaching Methods: Discussion Response to Teaching: Verbalize Understanding, Return Demonstration, Reinforcement Needed OT Short Term Goals Short Term Goals Time Frame: Dec 18, 2017 Eating(FIM): 5 Grooming(FIM): 5 Bathing(FIM): 4 Upper Body Dressing(FIM): 4 Lower Body Dressing(FIM): 4 Toileting(FIM): 4 Transfers (B,C,W/C) (FIM): 4 Toilet/Commode Transfer(FIM): 4 Shower Transfer(FIM): 4 Additional Short Term Goals: 1-Demonstrate ADL Tasks, 2-Verbalize Understanding , 3-ImproveStrength/[place] 1=Demonstrate adherence to instructed precautions during ADL tasks. 2=Patient will verbalize/demonstrate understanding of assistive devices/ modifications for ADL. 3=Patient will improve strength/tolerance for activity to enable patient to perform ADL's. OT Bark Tanner Goals Bark Tanner Goals Time Frame: Dec 25, 2017 Eating (FIM): 6 Eating (QC): 6 Groomin Oral Hygiene (QC): 5 Bathing(FIM): 5 Shower/Bathe Self (QC): 5 Upper Body Dressing(FIM): 5 Upper Body Dressing (QC): 5 Lower Body Dressing(FIM): 5 Lower Body Dressing (QC): 5 On/Off Footwear (QC): 5 Toileting(FIM): 6 Toileting Hygiene (QC): 6 Transfers (B,C,W/C) (FIM): 6 Toilet/Commode Transfer(FIM): 6 Toilet/Commode Transfer (QC): 6 Shower Transfer(FIM): 5 Additional Goals: 1-Demonstrate ADL Tasks, 2-Verbalize Understanding, 3- ImproveStrength/Naman 1=Demonstrate adherence to instructed precautions during ADL tasks. 2=Patient will verbalize/demonstrate understanding of assistive devices/ modifications for ADL. 3=Patient will improve strength/tolerance for activity to enable patient to perform ADL's. OT Education/Plan Discharge Recommendations Plan/Recommendations: Continue POC Treatment Plan/Plan of Care Patient would benefit from OT for education, treatment and training to promote independence in ADL's, mobility, safety and/or upper extremity function for ADL' s. Plan of Care: ADL Retraining, Caregiver Training, Functional Mobility, UE Funct Exercise/Act Treatment Duration: Dec 25, 2017 Frequency: At least 5 of 7 days/Wk (IRF) Estimated Hrs Per Day: 1.5 hours per day Agreement: Yes Rehab Potential: Fair Time/GCodes Start Time: 09:08 Stop Time: 10:13 Total Time Billed (hr/min): 65 Billed Treatment Time visit, ADL 10 minutes, functional activity 20 minutes, exercise 35 minutes CHARY BRUNSON OT Dec 12, 2017 10:41
--- NOTE | 2017-12-12 11:39 | Occupational Ther Daily Note ---
OT Current Status-Daily Note Subjective Pt seen in room, up in bed, agreeable to OT. No pain mentioned. Appearance Alert, cooperative Mental Status/Objective Functional [place] Measure 0=Not Assessed/NA 4=Minimal Assistance 1=Total Assistance 5=Supervision or Setup 2=Maximal Assistance 6=Modified [place] 3=Moderate Assistance 7=Complete [place] ADL-Treatment Functional [place] Measure 0=Not Assessed/NA 4=Minimal Assistance 1=Total Assistance 5=Supervision or Setup 2=Maximal Assistance 6=Modified [place] 3=Moderate Assistance 7=Complete IndependenceIRFPAI Quality Coding Scale 6 Independent with activity with or without an assistive device 5 Patient requires set up or clean up by helper. Patient completes activity by themselves 4 Supervision or touching assist (CGA). [place] provide cues , steadying assist 3 The helper provides less than half the effort to complete the activity 2 The helper provides more than half the effort to complete the activity 1 Dependent. The helper does all the effort to complete an activity 7 Patient refused to complete or attempt activity 9 The patient did not perform the activity before the current illness or injury 88 Not attempted due to Medical conditions or safety concerns Other Treatment Pt education on bilat UE exercises to strengthen arms to help with transfers and ADLs, to increase activity to mobilize edema and to increase comfortable AROM at shoulders and elbows. Pt did 10 reps shoulder and elbow ex with 1# exercise bar and also did similar ex with hands together. pt educ that he can do these in his room on his own and was encouraged to do (pt verbalized understanding and agreement). pt educ on exercise with yellow theraband (gentle resistance) and he did 10-15 reps bilat ex, recalling some that he had done before and learning a couple others. Pt encouraged to do these in his room as well. Pt left up in bed, 4 rails up, all needs met. OT Short Term Goals Short Term Goals Time Frame: Dec 18, 2017 Eating(FIM): 5 Grooming(FIM): 5 Bathing(FIM): 4 Upper Body Dressing(FIM): 4 Lower Body Dressing(FIM): 4 Toileting(FIM): 4 Transfers (B,C,W/C) (FIM): 4 Toilet/Commode Transfer(FIM): 4 Shower Transfer(FIM): 4 Additional Short Term Goals: 1-Demonstrate ADL Tasks, 2-Verbalize Understanding , 3-ImproveStrength/[place] 1=Demonstrate adherence to instructed precautions during ADL tasks. 2=Patient will verbalize/demonstrate understanding of assistive devices/ modifications for ADL. 3=Patient will improve strength/tolerance for activity to enable patient to perform ADL's. OT Detention Goals Legal Adviser Goals Time Frame: Dec 25, 2017 Eating (FIM): 6 Eating (QC): 6 Groomin Oral Hygiene (QC): 5 Bathing(FIM): 5 Shower/Bathe Self (QC): 5 Upper Body Dressing(FIM): 5 Upper Body Dressing (QC): 5 Lower Body Dressing(FIM): 5 Lower Body Dressing (QC): 5 On/Off Footwear (QC): 5 Toileting(FIM): 6 Toileting Hygiene (QC): 6 Transfers (B,C,W/C) (FIM): 6 Toilet/Commode Transfer(FIM): 6 Toilet/Commode Transfer (QC): 6 Shower Transfer(FIM): 5 Additional Goals: 1-Demonstrate ADL Tasks, 2-Verbalize Understanding, 3- ImproveStrength/[place] 1=Demonstrate adherence to instructed precautions during ADL tasks. 2=Patient will verbalize/demonstrate understanding of assistive devices/ modifications for ADL. 3=Patient will improve strength/tolerance for activity to enable patient to perform ADL's. OT Education/Plan Discharge Recommendations Plan/Recommendations: Continue POC Treatment Plan/Plan of Care Patient would benefit from OT for education, treatment and training to promote independence in ADL's, mobility, safety and/or upper extremity function for ADL' s. Plan of Care: ADL Retraining, Caregiver Training, Functional Mobility, UE Funct Exercise/Act Treatment Duration: Dec 25, 2017 Frequency: At least 5 of 7 days/Wk (IRF) Estimated Hrs Per Day: 1.5 hours per day Agreement: Yes Rehab Potential: Fair Time/GCodes Start Time: 11:00 Stop Time: 11:25 Total Time Billed (hr/min): 25 Billed Treatment Time visit, 25 minutes exercise CHARY BRUNSON OT Dec 12, 2017 11:39
[2017-12-12 17:39] VITALS: BP 120/73
[2017-12-12] MEDS: TERAZOSIN 1 MG CAP (HYTRIN) PO SCH (20:05)
[2017-12-13 06:00] VITALS: BP 116/69
[2017-12-13] MEDS: SENNA W/DOCUSATE (SENOKOT S) TABLET PO SCH ×2 (08:12→20:35)
[2017-12-13] MEDS: OXYBUTYNIN (DITROPAN) 5 MG TAB PO SCH ×2 (08:12→20:34)
[2017-12-13] MEDS: GABAPENTIN 300 MG (NEURONTIN) CAP PO SCH ×3 (08:12→20:34)
[2017-12-13 18:09] VITALS: BP 122/81
[2017-12-13] MEDS: MELATONIN 3 MG TABLET PO SCH (20:34)
[2017-12-13] MEDS: guaiFENesin (MUCINEX) 600 MG TAB PO SCH (20:34)
[2017-12-13] MEDS: TERAZOSIN 1 MG CAP (HYTRIN) PO SCH (20:35)
[2017-12-14 04:06] VITALS: BP 100/60
[2017-12-14 08:13] VITALS: BP 118/77
[2017-12-14] MEDS: guaiFENesin (MUCINEX) 600 MG TAB PO SCH ×2 (08:18→20:07)
[2017-12-14] MEDS: OXYBUTYNIN (DITROPAN) 5 MG TAB PO SCH ×2 (08:18→20:07)
[2017-12-14] MEDS: GABAPENTIN 300 MG (NEURONTIN) CAP PO SCH ×3 (08:18→20:07)
[2017-12-14] MEDS: SENNA W/DOCUSATE (SENOKOT S) TABLET PO SCH ×2 (08:19→20:07)
--- NOTE | 2017-12-14 10:03 | Physical Therapy Daily Note ---
PT Daily Note-Current Subjective Pt. states " I know you, you saw me for this total knee here" pointing to his knee. Agrees to Rx, states he does really have pain just fatigue Pain Numeric Pain Scale: 3 Location: Medial Location Body Site: Neck Mental Status Patient Orientation: Normal For Age Attachments: Other-See Comments (neck brace) Transfers Functional [place] Measure 0=Not Assessed/NA 4=Minimal Assistance 1=Total Assistance 5=Supervision or Setup 2=Maximal Assistance 6=Modified [place] 3=Moderate Assistance 7=Complete IndependenceIRFPAI Quality Coding Scale 6 Independent with activity with or without an assistive device 5 Patient requires set up or clean up by helper. Patient completes activity by themselves 4 Supervision or touching assist (CGA). [place] provide cues , steadying assist 3 The helper provides less than half the effort to complete the activity 2 The helper provides more than half the effort to complete the activity 1 Dependent. The helper does all the effort to complete an activity 7 Patient refused to complete or attempt activity 9 The patient did not perform the activity before the current illness or injury 88 Not attempted due to Medical conditions or safety concerns Transfers (B, C, W/C) (FIM): 4 Scootin Rollin Supine to/from Sit: 4 Sit to/from Stand: 5 Weight Bearing Right Lower Extremity: Right Full Weight Bearing Left Lower Extremity: Left Full Weight Bearing Gait Training Does the Patient Walk?: Yes Gait (FIM): 4 Distance (FIM): 3=150 ft (150,100x2) Gait Level of Assist: 4 Gait Persons Needed: 1 Gait Assistive Device: FWW Exercises Supine Ex: Ankle pumps, Quad Set, Rolling, Glut sets, Heel Slides, Short Arc Quads, Scooting, Straight leg raise (assist), Hip abd/add Supine Reps: 12 Assessment Current Status: Good Progress gives full effort PT Short Term Goals Short Term Goals Time Frame: Dec 18, 2017 Transfers (B,C,W/C) (FIM): 4 Gait (FIM): 4 Distance (FIM): 3=150 ft Gait Distance Comment: 200 feet Gait Level of Assist: 4 Gait Assistive Device: FWW PT Fci Goals Fci Goals PT Smoke Eater Goals Time Frame: Jan 01, 2018 Transfers (B,C,W/C) (FIM): 5 Sit to Lying (QC): 4 Lying-Sitting on Side/Bed(QC): 4 Sit to Stand (QC): 4 Rollin Roll Left to Right (QC): 4 Chair/Qgs-nq-Kceqo Xfer(QC): 4 Car Transfer (QC): 4 Does the Patient Walk: Yes Gait (FIM): 5 Distance: 300 feet Walk 10 feet (QC): 4 Walk 10ft-Uneven Surface(QC): 4 Walk 50ft with 2 Turns (QC): 4 Walk 150 ft (QC): 4 Gait Level of Assist: 5 Gait Assistive Device: FWW Does the Pt use WC or Scooter?: No Stairs (FIM): 2 # of Steps: 4 1 Step (curb) (QC): 4 4 Steps (QC): 4 Stairs Level Of Assist: 4 PT Plan Treatment/Plan Treatment Plan: Continue Plan of Care Treatment Plan: Bed Mobility, Education, Functional Activity [place], Functional Strength, Group Therapy, Gait, Safety, Therapeutic Exercise, Transfers Treatment Duration: Jan 01, 2018 Frequency: At least 5 of 7 days/Wk (IRF) Estimated Hrs Per Day: 1.5 hours per day Patient and/or Family Agrees t: Yes Safety Risks/Education Patient Education: Gait Training, Transfer Techniques, Correct Positioning, Safety Issues Teaching Recipient: Patient Teaching Methods: Demonstration, Discussion Response to Teaching: Verbalize Understanding, Return Demonstration, Reinforcement Needed Time/GCodes Time In: 900 Time Out: 1000 Total Billed Treatment Time: 60 Total Billed Treatment 1,FA30m,GT20m,EX10m G Codes Necessary: AUGUSTO Goodson PHYSICAL EDUCATION PROFESSOR Dec 14, 2017 10:03
--- NOTE | 2017-12-14 11:55 | Physical Therapy Daily Note ---
PT Daily Note-Current Subjective Pt. agrees to gait and stairs training. Pain Numeric Pain Scale: 0-No Pain Transfers Functional [place] Measure 0=Not Assessed/NA 4=Minimal Assistance 1=Total Assistance 5=Supervision or Setup 2=Maximal Assistance 6=Modified [place] 3=Moderate Assistance 7=Complete IndependenceIRFPAI Quality Coding Scale 6 Independent with activity with or without an assistive device 5 Patient requires set up or clean up by helper. Patient completes activity by themselves 4 Supervision or touching assist (CGA). [place] provide cues , steadying assist 3 The helper provides less than half the effort to complete the activity 2 The helper provides more than half the effort to complete the activity 1 Dependent. The helper does all the effort to complete an activity 7 Patient refused to complete or attempt activity 9 The patient did not perform the activity before the current illness or injury 88 Not attempted due to Medical conditions or safety concerns in out lift recline chair min to CGA Weight Bearing Right Lower Extremity: Right Full Weight Bearing Left Lower Extremity: Left Full Weight Bearing Gait Training Gait Assistive Device: FWW 150 ft x 2 SBA to CGA, gait shuffled small uneven step length Stair Training Stair Training: Handrails/: 2 handrails Stairs (FIM): 2 #of Steps: 4 Stairs: Pattern: Step to Level of Assist: 4 Assessment Current Status: Good Progress PT Short Term Goals Short Term Goals Time Frame: Dec 18, 2017 Transfers (B,C,W/C) (FIM): 4 Gait (FIM): 4 Distance (FIM): 3=150 ft Gait Distance Comment: 200 feet Gait Level of Assist: 4 Gait Assistive Device: FWW PT Street Engineer Goals Penitentiary Goals PT Penitentiary Goals Time Frame: Jan 01, 2018 Transfers (B,C,W/C) (FIM): 5 Sit to Lying (QC): 4 Lying-Sitting on Side/Bed(QC): 4 Sit to Stand (QC): 4 Rollin Roll Left to Right (QC): 4 Chair/Gss-gk-[place] Xfer(QC): 4 Car Transfer (QC): 4 Does the Patient Walk: Yes Gait (FIM): 5 Distance: 300 feet Walk 10 feet (QC): 4 Walk 10ft-Uneven Surface(QC): 4 Walk 50ft with 2 Turns (QC): 4 Walk 150 ft (QC): 4 Gait Level of Assist: 5 Gait Assistive Device: FWW Does the Pt use WC or Scooter?: No Stairs (FIM): 2 # of Steps: 4 1 Step (curb) (QC): 4 4 Steps (QC): 4 Stairs Level Of Assist: 4 PT Plan Treatment/Plan Treatment Plan: Continue Plan of Care Treatment Plan: Bed Mobility, Education, Functional Activity [place], Functional Strength, Group Therapy, Gait, Safety, Therapeutic Exercise, Transfers Treatment Duration: Jan 01, 2018 Frequency: At least 5 of 7 days/Wk (IRF) Estimated Hrs Per Day: 1.5 hours per day Patient and/or Family Agrees t: Yes Safety Risks/Education Patient Education: Gait Training, Transfer Techniques, Steps, Correct Positioning, Disease Process, Safety Issues Teaching Recipient: Patient Teaching Methods: Demonstration, Discussion Response to Teaching: Verbalize Understanding, Return Demonstration, Reinforcement Needed Time/GCodes Time In: 1115 Time Out: 1145 Total Billed Treatment Time: 30 Total Billed Treatment 1,GT15,FA15 G Codes Necessary: AUGUSTO Goodson SUPERVISING PRODUCER Dec 14, 2017 11:55
--- NOTE | 2017-12-14 14:56 | Occupational Ther Daily Note ---
OT Current Status-Daily Note Subjective Pt seen in room, up in bed, agreeable to OT. No pain mentioned. Appearance Alert, cooperative Mental Status/Objective Functional [place] Measure 0=Not Assessed/NA 4=Minimal Assistance 1=Total Assistance 5=Supervision or Setup 2=Maximal Assistance 6=Modified [place] 3=Moderate Assistance 7=Complete [place] ADL-Treatment incision on posterior neck was covered and also neck brace covered with plastic. pt took brace off long enough to shave and then it was reapplied. Head was steady during that time. Functional [place] Measure 0=Not Assessed/NA 4=Minimal Assistance 1=Total Assistance 5=Supervision or Setup 2=Maximal Assistance 6=Modified [place] 3=Moderate Assistance 7=Complete IndependenceIRFPAI Quality Coding Scale 6 Independent with activity with or without an assistive device 5 Patient requires set up or clean up by helper. Patient completes activity by themselves 4 Supervision or touching assist (CGA). [place] provide cues , steadying assist 3 The helper provides less than half the effort to complete the activity 2 The helper provides more than half the effort to complete the activity 1 Dependent. The helper does all the effort to complete an activity 7 Patient refused to complete or attempt activity 9 The patient did not perform the activity before the current illness or injury 88 Not attempted due to Medical conditions or safety concerns Grooming (FIM): 5 (Setup to shave with electric razor. ) Bathing (FIM): 4 (Washed and dried all parts except back and bottom. Hand held shower, shower bench, grab bars, FWW) Upper Body (FIM): 5 (setup. Able to do snaps on shirt) Lower Body Dressing (FIM): 3 (Needed a little help getting R shoe on. Pt educ use of dressing stick to take shoes and socks off and to help with putting pants on. Needed a little help to stand to pull pants up and steadying help, FWW) Transfers (B, C, W/C) (FIM): 3 (A little help to get up from recliner, cues for hand placement) Shower Transfer(FIM): 3 (Mod help to get up off shower bench, using grab bars. Min help getting in and out of shower. FWW) All ADLs took longer than usual. Pt was able to walk to and from bathroom with CGA to SBA, FWW. Pt was left up in recliner, all needs met. Education OT Patient Education: Modified ADL techniques, Purpose of tx/functional activities, Reviewed precautions, Transfer techniques Teaching Recipient: Patient Teaching Methods: Demonstration, Discussion Response to Teaching: Verbalize Understanding, Return Demonstration, Reinforcement Needed OT Short Term Goals Short Term Goals Time Frame: Dec 18, 2017 Eating(FIM): 5 Grooming(FIM): 5 Bathing(FIM): 4 Upper Body Dressing(FIM): 4 Lower Body Dressing(FIM): 4 Toileting(FIM): 4 Transfers (B,C,W/C) (FIM): 4 Toilet/Commode Transfer(FIM): 4 Shower Transfer(FIM): 4 Additional Short Term Goals: 1-Demonstrate ADL Tasks, 2-Verbalize Understanding , 3-ImproveStrength/[place] 1=Demonstrate adherence to instructed precautions during ADL tasks. 2=Patient will verbalize/demonstrate understanding of assistive devices/ modifications for ADL. 3=Patient will improve strength/tolerance for activity to enable patient to perform ADL's. OT Latexer Goals Halfway Goals Time Frame: Dec 25, 2017 Eating (FIM): 6 Eating (QC): 6 Groomin Oral Hygiene (QC): 5 Bathing(FIM): 5 Shower/Bathe Self (QC): 5 Upper Body Dressing(FIM): 5 Upper Body Dressing (QC): 5 Lower Body Dressing(FIM): 5 Lower Body Dressing (QC): 5 On/Off Footwear (QC): 5 Toileting(FIM): 6 Toileting Hygiene (QC): 6 Transfers (B,C,W/C) (FIM): 6 Toilet/Commode Transfer(FIM): 6 Toilet/Commode Transfer (QC): 6 Shower Transfer(FIM): 5 Additional Goals: 1-Demonstrate ADL Tasks, 2-Verbalize Understanding, 3- ImproveStrength/[place] 1=Demonstrate adherence to instructed precautions during ADL tasks. 2=Patient will verbalize/demonstrate understanding of assistive devices/ modifications for ADL. 3=Patient will improve strength/tolerance for activity to enable patient to perform ADL's. OT Education/Plan Discharge Recommendations Plan/Recommendations: Continue POC Treatment Plan/Plan of Care Patient would benefit from OT for education, treatment and training to promote independence in ADL's, mobility, safety and/or upper extremity function for ADL' s. Plan of Care: ADL Retraining, Caregiver Training, Functional Mobility, UE Funct Exercise/Act Treatment Duration: Dec 25, 2017 Frequency: At least 5 of 7 days/Wk (IRF) Estimated Hrs Per Day: 1.5 hours per day Agreement: Yes Rehab Potential: Fair Time/GCodes Start Time: 10:00 Stop Time: 11:00 Total Time Billed (hr/min): 60 Billed Treatment Time visit, 60 minutes ADL CHARY BRUNSON OT Dec 14, 2017 14:56
--- NOTE | 2017-12-14 15:42 | Occupational Ther Daily Note ---
OT Current Status-Daily Note Subjective Pt seen in room, up in bed, agreeable to OT. No pain mentioned except toward end of tx, when pt indicated neck was getting tired Appearance Alert, cooperative Mental Status/Objective Functional [place] Measure 0=Not Assessed/NA 4=Minimal Assistance 1=Total Assistance 5=Supervision or Setup 2=Maximal Assistance 6=Modified [place] 3=Moderate Assistance 7=Complete [place] ADL-Treatment Functional [place] Measure 0=Not Assessed/NA 4=Minimal Assistance 1=Total Assistance 5=Supervision or Setup 2=Maximal Assistance 6=Modified [place] 3=Moderate Assistance 7=Complete IndependenceIRFPAI Quality Coding Scale 6 Independent with activity with or without an assistive device 5 Patient requires set up or clean up by helper. Patient completes activity by themselves 4 Supervision or touching assist (CGA). [place] provide cues , steadying assist 3 The helper provides less than half the effort to complete the activity 2 The helper provides more than half the effort to complete the activity 1 Dependent. The helper does all the effort to complete an activity 7 Patient refused to complete or attempt activity 9 The patient did not perform the activity before the current illness or injury 88 Not attempted due to Medical conditions or safety concerns Other Treatment Pt was able to move from supine to sit EOB by himself but he struggled and had HOB elevated. He needed min assist to get up out of bed and walked CGA-SBA with FWW to gym, about 40-50 feet. Once in the gym, he did 12 minutes bilat UE exercise with arm bike set at 15-20W resistance (increased time), taking just one brief recovery break at midpoint. He needed min assist to get up out of chair with arms and walked slowly back to his room, WWW, CGA-SBA. He needed just a little help getting shoes on at the start of tx but was able to get them off by himself. He struggled but was able to get both legs into bed and lie down , HOB elevated. Pt left up in bed, 4 rails up, all needs met. Education OT Patient Education: Exercise program, Progress toward Goal/Update tx plan, Purpose of tx/functional activities Teaching Recipient: Patient Teaching Methods: Discussion Response to Teaching: Verbalize Understanding OT Short Term Goals Short Term Goals Time Frame: Dec 18, 2017 Eating(FIM): 5 Grooming(FIM): 5 Bathing(FIM): 4 Upper Body Dressing(FIM): 4 Lower Body Dressing(FIM): 4 Toileting(FIM): 4 Transfers (B,C,W/C) (FIM): 4 Toilet/Commode Transfer(FIM): 4 Shower Transfer(FIM): 4 Additional Short Term Goals: 1-Demonstrate ADL Tasks, 2-Verbalize Understanding , 3-ImproveStrength/Naman 1=Demonstrate adherence to instructed precautions during ADL tasks. 2=Patient will verbalize/demonstrate understanding of assistive devices/ modifications for ADL. 3=Patient will improve strength/tolerance for activity to enable patient to perform ADL's. OT Dry Mill Worker Goals Dry Mill Worker Goals Time Frame: Dec 25, 2017 Eating (FIM): 6 Eating (QC): 6 Groomin Oral Hygiene (QC): 5 Bathing(FIM): 5 Shower/Bathe Self (QC): 5 Upper Body Dressing(FIM): 5 Upper Body Dressing (QC): 5 Lower Body Dressing(FIM): 5 Lower Body Dressing (QC): 5 On/Off Footwear (QC): 5 Toileting(FIM): 6 Toileting Hygiene (QC): 6 Transfers (B,C,W/C) (FIM): 6 Toilet/Commode Transfer(FIM): 6 Toilet/Commode Transfer (QC): 6 Shower Transfer(FIM): 5 Additional Goals: 1-Demonstrate ADL Tasks, 2-Verbalize Understanding, 3- ImproveStrength/Naman 1=Demonstrate adherence to instructed precautions during ADL tasks. 2=Patient will verbalize/demonstrate understanding of assistive devices/ modifications for ADL. 3=Patient will improve strength/tolerance for activity to enable patient to perform ADL's. OT Education/Plan Discharge Recommendations Plan/Recommendations: Continue POC Treatment Plan/Plan of Care Patient would benefit from OT for education, treatment and training to promote independence in ADL's, mobility, safety and/or upper extremity function for ADL' s. Plan of Care: ADL Retraining, Caregiver Training, Functional Mobility, UE Funct Exercise/Act Treatment Duration: Dec 25, 2017 Frequency: At least 5 of 7 days/Wk (IRF) Estimated Hrs Per Day: 1.5 hours per day Agreement: Yes Rehab Potential: Fair Time/GCodes Start Time: 13:15 Stop Time: 13:45 Total Time Billed (hr/min): 30 Billed Treatment Time visit, 30 minutes exercise CHARY BRUNSON OT Dec 14, 2017 15:42
[2017-12-14 18:15] VITALS: BP 121/76
--- NOTE | 2017-12-14 18:33 | PM & R (SOAP) Progress Note ---
Subjective Time Seen by Provider: 18:30 Subjective/Events-last exam Patient was seen in his room this AM Eating and sleeping OK Having BMS Patient CGA for gait and transfers Objective Exam Last Set of Vital Signs Vital Signs Date Time Temp Pulse Resp B/P (MAP) Pulse Ox O2 Delivery O2 Flow Rate FiO2 12/14/17 08:13 97.9 84 18 118/77 (91) 97 Room Air Capillary Refill : I&O Intake and Output 12/14/17 00:00 Intake Total 2000 ml Output Total 1650 ml Balance 350 ml Intake Oral 2000 ml Output Urine Total 1650 ml # Bowel Movements 1 General: Alert, Oriented X3, Cooperative, No Acute Distress HEENT: Atraumatic, PERRLA, EOMI, Mucous Memb Moist/[place] Neck: Other (Rigid C collar in place) Lungs: Clear to Auscultation Heart: Regular Rate Abdomen: Normal Bowel Sounds, Soft Extremities: No Edema Neuro: Other (strength Les 4/5 Functional UEs with some guarding due to pain C/ O intermittent numbness in hands Cognition intact) Assessment/Plan Assessment Cervical spondylosis with myelopathy s/p decomprssion and fusion PSI DR Ortega Chronic back pain BPH RLS UTI treated S/P LTKR for OA 2 2916 S/P Rt Hip surgery Plan Continue PT/OT ST has assessed and signed off F/U with [facility] Appreciate her note F/U with DR Ortega orthospine PRN Continue meds for BPH SCDS for DVT prophylaxis JAIRO ESPARZA MD Dec 14, 2017 18:33
--- NOTE | 2017-12-14 18:45 | Individualized Plan of Care ---
Individualized Plan of Care Rehab Nursing IPOC Order Admission Date Dec 10, 2017 at 17:40 Current Orders Orders Admission-Acute Rehab Unit (12/10/17 15:46) Vital Signs: Routine 08,16,00 (12/10/17 15:46) Sequential Compression Device 08,20 (12/10/17 15:46) Renewals Manager-Inpt Rehab (12/10/17 15:46) Rehab Nursing Orders-Ipoc (12/10/17 15:46) Physical Therapy Rehab Orders (12/10/17 15:46) Occupational Therapy Rehab Ord (12/10/17 15:46) Speech Therapy Rehab Orders (12/10/17 15:46) General/Regular (12/10/17 Dinner) Turn And Reposition Q2HR (12/10/17 15:46) Intake & Output 06,14,22 (12/10/17 15:46) Weekly Weight (Lbs) WEEK (12/10/17 15:46) Consult Physician (12/10/17 15:50) Oxycodone/Apap 5/325mg Tablet (Percocet (12/10/17 16:00) Gabapentin Capsule/Tablet (Neurontin Cap (12/10/17 21:00) Terazosin Capsule (Hytrin Capsule) (12/10/17 21:00) Oxybutynin Tablet (Ditropan Tablet) (12/10/17 21:00) Baclofen Tablet (Lioresal Tablet) (12/10/17 16:00) Senna S Tablet (Senokot S Tablet) (12/10/17 21:00) Magnesium Hydroxide Oral Susp (Mom Oral (12/10/17 16:00) Bisacodyl Tablet (Dulcolax Tablet) (12/10/17 16:00) Nursing Communication (Patient (12/10/17 19:24) Patient Visit (12/11/17 ) Speech Sound Lang Comp (12/11/17 ) Patient Visit (12/11/17 ) Pt Eval Moderate Complexity (12/11/17 ) Gait Training, Ea 15 Min (12/11/17 ) Functional Activities, Ea 15 (12/11/17 ) Patient Visit (12/12/17 ) Gait Training, Ea 15 Min (12/12/17 ) Exercise Therap, Ea 15 Min (12/12/17 ) Guaifenesin Tablet (Mucinex Tablet) (12/13/17 21:00) Melatonin Tablet (Melatonin Tablet) (12/13/17 21:00) Patient Visit (12/14/17 ) Functional Activities, Ea 15 (12/14/17 ) Gait Training, Ea 15 Min (12/14/17 ) Exercise Therap, Ea 15 Min (12/14/17 ) Rehab Nursing Orders: Diseage Management, Edu in Press Rel Techn, Hydration Management, Nutrition Management, Pain Management Other Nursing Orders: Monitor for postop urinary retention and constipation PT IPOC Problem List: Activity Tolerance, Functional Strength, Safety, Balance, Gait, Transfer, Bed Mobility, ROM Treatment Plan: Continue Plan of Care Bed Mobility, Education, Functional Activity Naman, Functional Strength, Group Therapy, Gait, Safety, Therapeutic Exercise, Transfers Treatment Duration: Jan 01, 2018 Frequency: At least 5 of 7 days/Wk (IRF) Estimated Hrs Per Day: 1.5 hours per day OT IPOC Problems: Decreased Activ Tolerance, Decreased UE Strength, Dependent Transfers , Impaired Bed Mobility, Impaired Coordination, Impaired Funct Balance, Impaired I ADL's, Impaired Self-Care Skills, Restricted Funct UE ROM OT Treatment, Training and Edu: Yes Plan of Care: ADL Retraining, Caregiver Training, Functional Mobility, UE Funct Exercise/Act Treatment Duration: Dec 25, 2017 Frequency: At least 5 of 7 days/Wk (IRF) Estimated Hrs Per Day: 1.[address] IPOC Speech Therapy Treatment Plan: Discontinue ST Treatment Duration: Dec 14, 2017 Frequency: Modified Program (IRF) Estimated Hrs Per Day: Other Renewals Manager/Case Mgmt Renewals Manager/Case Managemen: Discharge Planning, Patient/Family Counseling Physician IPOC Medical Issues being managed closely and that require the 24 hour availability of a physician: BPH Pain management Medical Issues: Bowel/Bladder Function, DVT Prophylaxis, Falls Precautions, Fluid/Electrolyte/Nutrition Balance, Infection Protection, Pain Management, Wound Care, Other (List) (as per above) Brief Synthesis of Preadmission Screen, Post-Admission Evaluation, and Therapy Evaluations: 77 yo male s/p decompressive surgery for Cervical spondylosis with myelopathy who had been Modified Independent with a walker prior to this referred from OSH for ongoing care and therapies prior to discharge home with family and C.PMH Neuropathy and BPH on meds Medical Prognosis: Good Anticipated Length of Stay: 12-25-17 Rehab Goals Modified Independent to supervision for adls and mobility skills Anticipated discharge destinat: Home with C and Family JAIRO ESPARZA MD Dec 14, 2017 18:45
[2017-12-14] MEDS: TERAZOSIN 1 MG CAP (HYTRIN) PO SCH (20:07)
[2017-12-14] MEDS: MELATONIN 3 MG TABLET PO SCH (20:07)
[2017-12-15 05:02] VITALS: BP 113/74
--- NOTE | 2017-12-15 08:10 | PM & R (SOAP) Progress Note ---
Subjective Time Seen by Provider: 07:35 Subjective/Events-last exam Patient was seen in his room this AM Patient min assist for transfers Objective Exam Last Set of Vital Signs Vital Signs Date Time Temp Pulse Resp B/P (MAP) Pulse Ox O2 Delivery O2 Flow Rate FiO2 12/15/17 05:02 99.7 82 17 113/74 (87) 96 Room Air Capillary Refill : I&O Intake and Output 12/15/17 00:00 Intake Total 1430 ml Output Total 2300 ml Balance -870 ml Intake Oral 1430 ml Output Urine Total 2300 ml # Bowel Movements 1 General: Alert, Oriented X3, Cooperative, No Acute Distress HEENT: Atraumatic, PERRLA, EOMI, Mucous Memb Moist/[place] Neck: Other (Rigid C collar in place) Lungs: Clear to Auscultation Heart: Regular Rate Abdomen: Normal Bowel Sounds, Soft Extremities: No Edema Neuro: Other (strength Les 4/5 Functional UEs with some guarding due to pain C/ O intermittent numbness in hands Cognition intact) Assessment/Plan Assessment Cervical spondylosis with myelopathy s/p decomprssion and fusion PSI DR Ortega Chronic back pain BPH RLS UTI treated S/P LTKR for OA 2 1096 S/P Rt Hip surgery Plan Continue PT/OT ST has assessed and signed off F/U with [facility] Appreciate her note F/U with DR Ortega orthospine PRN Continue meds for BPH SCDS for DVT prophylaxis TEam Conference tomorrow 12-16-17 JAIRO ESPARZA MD Dec 15, 2017 08:10
[2017-12-15] MEDS: OXYBUTYNIN (DITROPAN) 5 MG TAB PO SCH ×2 (09:14→20:58)
[2017-12-15] MEDS: GABAPENTIN 300 MG (NEURONTIN) CAP PO SCH ×3 (09:14→20:58)
[2017-12-15] MEDS: guaiFENesin (MUCINEX) 600 MG TAB PO SCH ×2 (09:14→20:58)
[2017-12-15] MEDS: SENNA W/DOCUSATE (SENOKOT S) TABLET PO SCH ×2 (09:15→20:58)
--- NOTE | 2017-12-15 09:19 | Physical Therapy Daily Note ---
PT Daily Note-Current Subjective Pt sitting up in bed upon arrival. Pt agrees to PT. Pain Location: No Pain Reported Mental Status Patient Orientation: Person, Place, Time, Situation Attachments: Other-See Comments (Cervical Collar) Transfers Functional [place] Measure 0=Not Assessed/NA 4=Minimal Assistance 1=Total Assistance 5=Supervision or Setup 2=Maximal Assistance 6=Modified [place] 3=Moderate Assistance 7=Complete IndependenceIRFPAI Quality Coding Scale 6 Independent with activity with or without an assistive device 5 Patient requires set up or clean up by helper. Patient completes activity by themselves 4 Supervision or touching assist ([facility]). [place] provide cues , steadying assist 3 The helper provides less than half the effort to complete the activity 2 The helper provides more than half the effort to complete the activity 1 Dependent. The helper does all the effort to complete an activity 7 Patient refused to complete or attempt activity 9 The patient did not perform the activity before the current illness or injury 88 Not attempted due to Medical conditions or safety concerns Scootin Rollin Roll Left to Right (QC): 4 Supine to/from Sit: 4 Sit to/from Stand: 4 Sit to Lying (QC): 5 Sit to Stand (QC): 4 Weight Bearing Right Lower Extremity: Right Full Weight Bearing Left Lower Extremity: Left Full Weight Bearing Gait Training Does the Patient Walk?: Yes Distance (FIM): 3=150 ft Distance: 200', 150' Walk 10 feet (QC): 5 Walk 50 ft with 2 Turns(QC): 5 Walk 150 ft (QC): 5 Gait Level of Assist: 5 Gait Persons Needed: 1 Gait Assistive Device: FWW Pt shuffles/drags his feet when advancing during ambulation. Pt reports this has been ongoing for years. Pt's earnestine is very slow but steady, no LOB. Wheelchair Training Does the Pt Use a Wheelchair?: No Exercises Supine Ex: Ankle pumps, Quad Set, Heel Slides, Straight leg raise, Hip abd/add Supine Reps: 15 Seated Therapy Exercises: Long arc quads, Hip flexion, Kicking activity Seated Reps: 15 Treatments Pt uses urinal before leaving room for tx. Pt transfers from Supine to EOB and EOB to Standing at [facility] with HOB raised to assist pt. Pt ambulates in hallway using FWW at [facility]. Pt transfers from Standing to EOM to Supine at A on Therapy Mat for Supine Ex. Pt takes several rest breaks and MEDICAL AFFAIRS SPECIALIST assists with stretching tight hamstrings. Pt transfers to EOM for Seated EX. Pt ambulates in hallway using FWW at SBA back to pt's room. Pt transfers to sitting recliner at end of tx with all needs met. Assessment Current Status: Good Progress Pt reports no pain during tx. Pt's gait continues to remain slow but reports "has always been this way". Pt exhibits a lot of tightness in hamstrings during tx. PT Short Term Goals Short Term Goals Time Frame: Dec 18, 2017 Transfers (B,C,W/C) (FIM): 4 Gait (FIM): 4 Distance (FIM): 3=150 ft Gait Distance Comment: 200 feet Gait Level of Assist: 4 Gait Assistive Device: FWW PT Skilled Nursing Goals Skilled Nursing Goals PT Facilities Maintenance Worker Goals Time Frame: Jan 01, 2018 Transfers (B,C,W/C) (FIM): 5 Sit to Lying (QC): 4 Lying-Sitting on Side/Bed(QC): 4 Sit to Stand (QC): 4 Rollin Roll Left to Right (QC): 4 Chair/Jfb-ey-Evyah Xfer(QC): 4 Car Transfer (QC): 4 Does the Patient Walk: Yes Gait (FIM): 5 Distance: 300 feet Walk 10 feet (QC): 4 Walk 10ft-Uneven Surface(QC): 4 Walk 50ft with 2 Turns (QC): 4 Walk 150 ft (QC): 4 Gait Level of Assist: 5 Gait Assistive Device: FWW Does the Pt use WC or Scooter?: No Stairs (FIM): 2 # of Steps: 4 1 Step (curb) (QC): 4 4 Steps (QC): 4 Stairs Level Of Assist: 4 PT Plan Problem List Problem List: Activity Tolerance, Functional Strength, Safety, Balance, Gait, Transfer Treatment/Plan Treatment Plan: Continue Plan of Care Treatment Plan: Bed Mobility, Education, Functional Activity Naman, Functional Strength, Group Therapy, Gait, Safety, Therapeutic Exercise, Transfers Treatment Duration: Jan 01, 2018 Frequency: At least 5 of 7 days/Wk (IRF) Estimated Hrs Per Day: 1.5 hours per day Patient and/or Family Agrees t: Yes Safety Risks/Education Patient Education: Gait Training, Transfer Techniques, Correct Positioning, Safety Issues Teaching Recipient: Patient Teaching Methods: Discussion Response to Teaching: Verbalize Understanding Time/GCodes Time In: 820 Time Out: 920 Total Billed Treatment Time: 60 Total Billed Treatment 1, GT x2 (30m) & EX x2 (30m) SUKHWINDER MOSQUERA MEDICAL AFFAIRS SPECIALIST Dec 15, 2017 09:19
--- NOTE | 2017-12-15 11:12 | Occupational Ther Daily Note ---
OT Current Status-Daily Note Subjective Pt was fatigued after finishing PT and requested a break. OT rescheduled to allow break. No pain mentioned but c/o burning in L scapular region with exercise Appearance Alert, cooperative Mental Status/Objective Functional [place] Measure 0=Not Assessed/NA 4=Minimal Assistance 1=Total Assistance 5=Supervision or Setup 2=Maximal Assistance 6=Modified [place] 3=Moderate Assistance 7=Complete [place] ADL-Treatment Pt did not want to do any ADLs but did need to toilet at end of tx. Pt transferred on to tall toilet with CGA, FWW, grab bar and was able to manage clothing. He was left up in toilet, call light present, nursing notified Functional [place] Measure 0=Not Assessed/NA 4=Minimal Assistance 1=Total Assistance 5=Supervision or Setup 2=Maximal Assistance 6=Modified [place] 3=Moderate Assistance 7=Complete IndependenceIRFPAI Quality Coding Scale 6 Independent with activity with or without an assistive device 5 Patient requires set up or clean up by helper. Patient completes activity by themselves 4 Supervision or touching assist (CGA). [place] provide cues , steadying assist 3 The helper provides less than half the effort to complete the activity 2 The helper provides more than half the effort to complete the activity 1 Dependent. The helper does all the effort to complete an activity 7 Patient refused to complete or attempt activity 9 The patient did not perform the activity before the current illness or injury 88 Not attempted due to Medical conditions or safety concerns Other Treatment Pt needed head of bed up to be able to get out of bed (struggled). Min assist sit to stand, then walked with SBA, FWW to gym, slow shuffling gait. Recalled to reach backwards for arms on chair. Pt did bilat UE activities to strengthen arms to help with transfers and ADLs. !# weight on each arm. Activities included graded clothespins, arc activity, arm bike for 12 minutes set at 15- 20W resistance (with one brief recovery period). Pt needed brief recovery periods throughout when he felt muscle burning in L scapular area. Pt walked back to room and was left up in bed, all needs met. Education OT Patient Education: Exercise program, Progress toward Goal/Update tx plan, Purpose of tx/functional activities Teaching Recipient: Patient Teaching Methods: Demonstration, Discussion Response to Teaching: Return Demonstration OT Short Term Goals Short Term Goals Time Frame: Dec 18, 2017 Eating(FIM): 5 Grooming(FIM): 5 Bathing(FIM): 4 Upper Body Dressing(FIM): 4 Lower Body Dressing(FIM): 4 Toileting(FIM): 4 Transfers (B,C,W/C) (FIM): 4 Toilet/Commode Transfer(FIM): 4 Shower Transfer(FIM): 4 Additional Short Term Goals: 1-Demonstrate ADL Tasks, 2-Verbalize Understanding , 3-ImproveStrength/Naman 1=Demonstrate adherence to instructed precautions during ADL tasks. 2=Patient will verbalize/demonstrate understanding of assistive devices/ modifications for ADL. 3=Patient will improve strength/tolerance for activity to enable patient to perform ADL's. OT Patient Care Secretary Goals Patient Care Secretary Goals Time Frame: Dec 25, 2017 Eating (FIM): 6 Eating (QC): 6 Groomin Oral Hygiene (QC): 5 Bathing(FIM): 5 Shower/Bathe Self (QC): 5 Upper Body Dressing(FIM): 5 Upper Body Dressing (QC): 5 Lower Body Dressing(FIM): 5 Lower Body Dressing (QC): 5 On/Off Footwear (QC): 5 Toileting(FIM): 6 Toileting Hygiene (QC): 6 Transfers (B,C,W/C) (FIM): 6 Toilet/Commode Transfer(FIM): 6 Toilet/Commode Transfer (QC): 6 Shower Transfer(FIM): 5 Additional Goals: 1-Demonstrate ADL Tasks, 2-Verbalize Understanding, 3- ImproveStrength/Naman 1=Demonstrate adherence to instructed precautions during ADL tasks. 2=Patient will verbalize/demonstrate understanding of assistive devices/ modifications for ADL. 3=Patient will improve strength/tolerance for activity to enable patient to perform ADL's. OT Education/Plan Discharge Recommendations Plan/Recommendations: Continue POC Treatment Plan/Plan of Care Patient would benefit from OT for education, treatment and training to promote independence in ADL's, mobility, safety and/or upper extremity function for ADL' s. Plan of Care: ADL Retraining, Caregiver Training, Functional Mobility, UE Funct Exercise/Act Treatment Duration: Dec 25, 2017 Frequency: At least 5 of 7 days/Wk (IRF) Estimated Hrs Per Day: 1.5 hours per day Agreement: Yes Rehab Potential: Fair Time/GCodes Start Time: 09:30 Stop Time: 10:15 Total Time Billed (hr/min): 45 Billed Treatment Time visit, 45 minutes exercise CHARY BRUNSON OT Dec 15, 2017 11:12
--- NOTE | 2017-12-15 14:51 | Occupational Ther Daily Note ---
OT Current Status-Daily Note Subjective Pt seen in room, up in bed, agreeable to OT. No pain mentioned except burning in L scapular area. Appearance Alert, cooperative Mental Status/Objective Functional [place] Measure 0=Not Assessed/NA 4=Minimal Assistance 1=Total Assistance 5=Supervision or Setup 2=Maximal Assistance 6=Modified [place] 3=Moderate Assistance 7=Complete [place] ADL-Treatment Functional [place] Measure 0=Not Assessed/NA 4=Minimal Assistance 1=Total Assistance 5=Supervision or Setup 2=Maximal Assistance 6=Modified [place] 3=Moderate Assistance 7=Complete IndependenceIRFPAI Quality Coding Scale 6 Independent with activity with or without an assistive device 5 Patient requires set up or clean up by helper. Patient completes activity by themselves 4 Supervision or touching assist (CGA). [place] provide cues , steadying assist 3 The helper provides less than half the effort to complete the activity 2 The helper provides more than half the effort to complete the activity 1 Dependent. The helper does all the effort to complete an activity 7 Patient refused to complete or attempt activity 9 The patient did not perform the activity before the current illness or injury 88 Not attempted due to Medical conditions or safety concerns Other Treatment Pt needed head of bed elevated to sit to EOB. Min assist sit to stand, then walked SBA, FWW to gym. Once in gym, pt did bilat UE exercise with 1.5# exercise bar, then peg activity and graded clothespins with 1# weight on each arm. All to strengthen arms to help with transfers and ADLs. Pt needed min assist sit to stand then walked SBA, FWW with slow shuffling gait to room, Pt did not need cues to reach back to sit in recliner. Pt left up in recliner, legs elevated, all needs met. Education OT Patient Education: Exercise program, Progress toward Goal/Update tx plan, Purpose of tx/functional activities Teaching Recipient: Patient Teaching Methods: Discussion Response to Teaching: Verbalize Understanding, Return Demonstration OT Short Term Goals Short Term Goals Time Frame: Dec 18, 2017 Eating(FIM): 5 Grooming(FIM): 5 Bathing(FIM): 4 Upper Body Dressing(FIM): 4 Lower Body Dressing(FIM): 4 Toileting(FIM): 4 Transfers (B,C,W/C) (FIM): 4 Toilet/Commode Transfer(FIM): 4 Shower Transfer(FIM): 4 Additional Short Term Goals: 1-Demonstrate ADL Tasks, 2-Verbalize Understanding , 3-ImproveStrength/Naman 1=Demonstrate adherence to instructed precautions during ADL tasks. 2=Patient will verbalize/demonstrate understanding of assistive devices/ modifications for ADL. 3=Patient will improve strength/tolerance for activity to enable patient to perform ADL's. OT Halfway Goals Halfway Goals Time Frame: Dec 25, 2017 Eating (FIM): 6 Eating (QC): 6 Groomin Oral Hygiene (QC): 5 Bathing(FIM): 5 Shower/Bathe Self (QC): 5 Upper Body Dressing(FIM): 5 Upper Body Dressing (QC): 5 Lower Body Dressing(FIM): 5 Lower Body Dressing (QC): 5 On/Off Footwear (QC): 5 Toileting(FIM): 6 Toileting Hygiene (QC): 6 Transfers (B,C,W/C) (FIM): 6 Toilet/Commode Transfer(FIM): 6 Toilet/Commode Transfer (QC): 6 Shower Transfer(FIM): 5 Additional Goals: 1-Demonstrate ADL Tasks, 2-Verbalize Understanding, 3- ImproveStrength/Naman 1=Demonstrate adherence to instructed precautions during ADL tasks. 2=Patient will verbalize/demonstrate understanding of assistive devices/ modifications for ADL. 3=Patient will improve strength/tolerance for activity to enable patient to perform ADL's. OT Education/Plan Discharge Recommendations Plan/Recommendations: Continue POC Treatment Plan/Plan of Care Patient would benefit from OT for education, treatment and training to promote independence in ADL's, mobility, safety and/or upper extremity function for ADL' s. Plan of Care: ADL Retraining, Caregiver Training, Functional Mobility, UE Funct Exercise/Act Treatment Duration: Dec 25, 2017 Frequency: At least 5 of 7 days/Wk (IRF) Estimated Hrs Per Day: 1.5 hours per day Agreement: Yes Rehab Potential: Fair Time/GCodes Start Time: 13:00 Stop Time: 13:45 Total Time Billed (hr/min): 45 Billed Treatment Time visit, 45 minutes exercise CHARY BRUNSON OT Dec 15, 2017 14:51
--- NOTE | 2017-12-15 15:05 | Physical Therapy Daily Note ---
PT Daily Note-Current Subjective Pt sitting in recliner upon arrival. Pt agrees to PT. Pain Location: No Pain Reported Mental Status Patient Orientation: Person, Place, Time, Situation Attachments: Other-See Comments (Cervical Collar) Transfers Functional [place] Measure 0=Not Assessed/NA 4=Minimal Assistance 1=Total Assistance 5=Supervision or Setup 2=Maximal Assistance 6=Modified [place] 3=Moderate Assistance 7=Complete IndependenceIRFPAI Quality Coding Scale 6 Independent with activity with or without an assistive device 5 Patient requires set up or clean up by helper. Patient completes activity by themselves 4 Supervision or touching assist ([facility]). [place] provide cues , steadying assist 3 The helper provides less than half the effort to complete the activity 2 The helper provides more than half the effort to complete the activity 1 Dependent. The helper does all the effort to complete an activity 7 Patient refused to complete or attempt activity 9 The patient did not perform the activity before the current illness or injury 88 Not attempted due to Medical conditions or safety concerns Scootin Supine to/from Sit: 5 Sit to/from Stand: 4 Sit to Lying (QC): 5 Sit to Stand (QC): 4 Weight Bearing Right Lower Extremity: Right Full Weight Bearing Left Lower Extremity: Left Full Weight Bearing Gait Training Does the Patient Walk?: Yes Distance (FIM): 3=150 ft Distance: 150' Walk 10 feet (QC): 5 Walk 50 ft with 2 Turns(QC): 5 Walk 150 ft (QC): 5 Gait Level of Assist: 5 Gait Persons Needed: 1 Gait Assistive Device: FWW Pt's earnestine is slow but steady, no LOB. Pt continues to shuffle/drag feet as he walks. Wheelchair Training Does the Pt Use a Wheelchair?: No Exercises Seated Therapy Exercises: Ankle pumps, Long arc quads, Hip flexion, Kicking activity Seated Reps: 15 NuStep Minutes: 10 NuStep Workload: 4 Treatments Pt transfers from recliner to standing using FWW at [facility]. Pt ambulates in hallway using FWW at [facility] before transferring to [facility]. Pt uses NuStep for 10m at Workload 4. Pt completes Seated Ex then ambulates back to room to rest. Pt transfers at SBA to supine in bed to rest with all needs met at end of tx. Assessment Current Status: Good Progress Pt fatigues easy and demonstrates weakness especially with ambulation. PT Short Term Goals Short Term Goals Time Frame: Dec 18, 2017 Transfers (B,C,W/C) (FIM): 4 Gait (FIM): 4 Distance (FIM): 3=150 ft Gait Distance Comment: 200 feet Gait Level of Assist: 4 Gait Assistive Device: FWW PT Command And Control Officer Goals Command And Control Officer Goals PT Half-Way Goals Time Frame: Jan 01, 2018 Transfers (B,C,W/C) (FIM): 5 Sit to Lying (QC): 4 Lying-Sitting on Side/Bed(QC): 4 Sit to Stand (QC): 4 Rollin Roll Left to Right (QC): 4 Chair/Hhl-xb-Vzbgw Xfer(QC): 4 Car Transfer (QC): 4 Does the Patient Walk: Yes Gait (FIM): 5 Distance: 300 feet Walk 10 feet (QC): 4 Walk 10ft-Uneven Surface(QC): 4 Walk 50ft with 2 Turns (QC): 4 Walk 150 ft (QC): 4 Gait Level of Assist: 5 Gait Assistive Device: FWW Does the Pt use WC or Scooter?: No Stairs (FIM): 2 # of Steps: 4 1 Step (curb) (QC): 4 4 Steps (QC): 4 Stairs Level Of Assist: 4 PT Plan Problem List Problem List: Activity Tolerance, Functional Strength, Safety, Balance, Gait, Transfer Treatment/Plan Treatment Plan: Continue Plan of Care Treatment Plan: Bed Mobility, Education, Functional Activity Naman, Functional Strength, Group Therapy, Gait, Safety, Therapeutic Exercise, Transfers Treatment Duration: Jan 01, 2018 Frequency: At least 5 of 7 days/Wk (IRF) Estimated Hrs Per Day: 1.5 hours per day Patient and/or Family Agrees t: Yes Safety Risks/Education Patient Education: Gait Training, Transfer Techniques, Correct Positioning, Safety Issues Teaching Recipient: Patient Teaching Methods: Discussion Response to Teaching: Verbalize Understanding Time/GCodes Time In: 1400 Time Out: 1430 Total Billed Treatment Time: 30 Total Billed Treatment 1, EX (20m) & GT (10m) SUKHWINDER MOSQUERA NEWSSTAND VENDOR Dec 15, 2017 15:05
[2017-12-15 16:58] VITALS: BP 123/78
[2017-12-15] MEDS: TERAZOSIN 1 MG CAP (HYTRIN) PO SCH (20:58)
[2017-12-15] MEDS: MELATONIN 3 MG TABLET PO SCH (20:58)
[2017-12-16 05:36] VITALS: BP 117/71
[2017-12-16] MEDS: guaiFENesin (MUCINEX) 600 MG TAB PO SCH ×2 (07:44→20:11)
[2017-12-16] MEDS: OXYBUTYNIN (DITROPAN) 5 MG TAB PO SCH ×2 (07:44→20:11)
[2017-12-16] MEDS: SENNA W/DOCUSATE (SENOKOT S) TABLET PO SCH ×2 (07:44→20:11)
[2017-12-16] MEDS: GABAPENTIN 300 MG (NEURONTIN) CAP PO SCH ×3 (07:44→20:11)
--- NOTE | 2017-12-16 07:47 | PM & R (SOAP) Progress Note ---
Subjective Time Seen by Provider: 07:20 Subjective/Events-last exam Patient was seen in his room this AM Patient min assist for transfers. Objective Exam Last Set of Vital Signs Vital Signs Date Time Temp Pulse Resp B/P (MAP) Pulse Ox O2 Delivery O2 Flow Rate FiO2 12/16/17 05:36 98.3 75 18 117/71 (86) 96 Room Air Capillary Refill : I&O Intake and Output 12/16/17 00:00 Intake Total 1250 ml Output Total 1400 ml Balance -150 ml Intake Oral 1250 ml Output Urine Total 1400 ml # Voids 1 # Bowel Movements 1 General: Alert, Oriented X3, Cooperative, No Acute Distress HEENT: Atraumatic, PERRLA, EOMI, Mucous Memb Moist/[place] Neck: Other (Rigid C collar in place) Lungs: Clear to Auscultation Heart: Regular Rate Abdomen: Normal Bowel Sounds, Soft Extremities: No Edema Neuro: Other (strength Les 4/5 Functional UEs with some guarding due to pain C/ O intermittent numbness in hands Cognition intact) Assessment/Plan Assessment Cervical spondylosis with myelopathy s/p decomprssion and fusion PSI DR Ortega Chronic back pain BPH RLS UTI treated S/P LTKR for OA 2 2916 S/P Rt Hip surgery Plan Continue PT/OT ST has assessed and signed off F/U with [facility] Appreciate her note F/U with DR Ortega orthospine PRN Continue meds for BPH SCDS for DVT prophylaxis TEam Conference later today-See report for full functional update and POC and JAIRO THOMPSON MD Dec 16, 2017 07:47
--- NOTE | 2017-12-16 09:30 | Physical Therapy Daily Note ---
PT Daily Note-Current Subjective Pt. up in chair upon arrival eating breakfast. Agrees to Rx. Initially speaks that he really wants to go home but later agrees that he should stay longer to be indep. Pain Numeric Pain Scale: 0-No Pain Mental Status Patient Orientation: Normal For Age Transfers Functional [place] Measure 0=Not Assessed/NA 4=Minimal Assistance 1=Total Assistance 5=Supervision or Setup 2=Maximal Assistance 6=Modified [place] 3=Moderate Assistance 7=Complete IndependenceIRFPAI Quality Coding Scale 6 Independent with activity with or without an assistive device 5 Patient requires set up or clean up by helper. Patient completes activity by themselves 4 Supervision or touching assist (CGA). [place] provide cues , steadying assist 3 The helper provides less than half the effort to complete the activity 2 The helper provides more than half the effort to complete the activity 1 Dependent. The helper does all the effort to complete an activity 7 Patient refused to complete or attempt activity 9 The patient did not perform the activity before the current illness or injury 88 Not attempted due to Medical conditions or safety concerns Transfers (B, C, W/C) (FIM): 5 Scootin Rollin Roll Left to Right (QC): 6 Supine to/from Sit: 5 (much effort , most easily from pts right to exit bed, may need to trade sides of bed) Sit to/from Stand: 6 Sit to Lying (QC): 5 Sit to Stand (QC): 5 Chair/Yhc-aa-Xozrw Xfer(QC): 5 Bed to/from Chair: 5 Car Transfer (QC): 4 needs assist for car TRF and sup to sit requires much time and effort. Weight Bearing Right Lower Extremity: Right Full Weight Bearing Left Lower Extremity: Left Full Weight Bearing Gait Training Does the Patient Walk?: Yes Gait (FIM): 5 Distance (FIM): 3=150 ft (x3) Walk 10 feet (QC): 5 Walk 50 ft with 2 Turns(QC): 5 Walk 150 ft (QC): 5 Walking 10ft/uneven surface-QC: 4 Gait Level of Assist: 5 Gait Persons Needed: 1 Gait Assistive Device: FWW much difficulty clearing toes, shuffles Stair Training Stair Training: Handrails/: 2 handrails Stairs (FIM): 5 #of Steps: 4 1 Step (curb) (QC): 5 4 Steps (QC): 5 Stairs: Pattern: Step to Level of Assist: 5 has rails both sides at home Balance Special Test Comments unsafe to try Exercises Supine Ex: Ankle pumps, Quad Set, Rolling, Glut sets, Heel Slides, Short Arc Quads, Scooting, Hip abd/add Supine Reps: 12 Seated Therapy Exercises: Ankle pumps, Sit to stand, Long arc quads, Hip abd/ add Seated Reps: 12 Assessment Current Status: Good Progress Pt. gives full effort, states stiffness is his greatest challenge, is frustrated being in hospital but after todays rx and visit with his ( present) pt. states he realizes he needs to stay to be indep as he will be alone for long periods PT Short Term Goals Short Term Goals Time Frame: Dec 18, 2017 Transfers (B,C,W/C) (FIM): 4 Gait (FIM): 4 Distance (FIM): 3=150 ft Gait Distance Comment: 200 feet Gait Level of Assist: 4 Gait Assistive Device: FWW PT Mechanical Piping Designer Goals Correction Goals PT Mechanical Piping Designer Goals Time Frame: Jan 01, 2018 Transfers (B,C,W/C) (FIM): 5 Sit to Lying (QC): 4 Lying-Sitting on Side/Bed(QC): 4 Sit to Stand (QC): 4 Rollin Roll Left to Right (QC): 4 Chair/Jez-gh-Kterg Xfer(QC): 4 Car Transfer (QC): 4 Does the Patient Walk: Yes Gait (FIM): 5 Distance: 300 feet Walk 10 feet (QC): 4 Walk 10ft-Uneven Surface(QC): 4 Walk 50ft with 2 Turns (QC): 4 Walk 150 ft (QC): 4 Gait Level of Assist: 5 Gait Assistive Device: FWW Does the Pt use WC or Scooter?: No Stairs (FIM): 2 # of Steps: 4 1 Step (curb) (QC): 4 4 Steps (QC): 4 Stairs Level Of Assist: 4 PT Plan Treatment/Plan Treatment Plan: Continue Plan of Care Treatment Plan: Bed Mobility, Education, Functional Activity Naman, Functional Strength, Group Therapy, Gait, Safety, Therapeutic Exercise, Transfers Treatment Duration: Jan 01, 2018 Frequency: At least 5 of 7 days/Wk (IRF) Estimated Hrs Per Day: 1.5 hours per day Patient and/or Family Agrees t: Yes Safety Risks/Education Patient Education: Gait Training, Transfer Techniques, Steps, Correct Positioning, Disease Process, Safety Issues Teaching Recipient: Patient Teaching Methods: Demonstration, Discussion Response to Teaching: Verbalize Understanding, Return Demonstration, Reinforcement Needed Time/GCodes Time In: 800 Time Out: 845 Total Billed Treatment Time: 45 Total Billed Treatment 1,FA20m,EX10m,GT15m G Codes Necessary: No AUGUSTO BROWN CHECK AND TRANSFER BEADER Dec 16, 2017 09:30
--- NOTE | 2017-12-16 12:04 | Occupational Ther Daily Note ---
OT Current Status-Daily Note Subjective Pt seen in room, up in recliner, agreeable to OT. Appearance Alert, cooperative Mental Status/Objective Functional [place] Measure 0=Not Assessed/NA 4=Minimal Assistance 1=Total Assistance 5=Supervision or Setup 2=Maximal Assistance 6=Modified [place] 3=Moderate Assistance 7=Complete [place] ADL-Treatment Pt's was present and we talked about what he might need at home. A grab bar is suggested by his toilet and he may benefit from a hand held shower. His walk-in shower has two chairs but they are low and there is not room for an additional one. Hewould liek to be able to get upa nd down a little better before going home and be able to take himself to the bathroom. He suggested Thursday as a discharge date. Pt reclined toileting Functional [place] Measure 0=Not Assessed/NA 4=Minimal Assistance 1=Total Assistance 5=Supervision or Setup 2=Maximal Assistance 6=Modified [place] 3=Moderate Assistance 7=Complete IndependenceIRFPAI Quality Coding Scale 6 Independent with activity with or without an assistive device 5 Patient requires set up or clean up by helper. Patient completes activity by themselves 4 Supervision or touching assist (CGA). [place] provide cues , steadying assist 3 The helper provides less than half the effort to complete the activity 2 The helper provides more than half the effort to complete the activity 1 Dependent. The helper does all the effort to complete an activity 7 Patient refused to complete or attempt activity 9 The patient did not perform the activity before the current illness or injury 88 Not attempted due to Medical conditions or safety concerns Eating (FIM): 5 (Sometimes needs help to open milk cartons but other gerardo can feed himslef) Eating (QC): 5 Grooming (FIM): 5 (Washed face and hands during shower. he declined to clean his teeth but said that he usually rinses them off well.) Oral Hygiene (QC): 5 Bathing (FIM): 5 (SBA when standing to wash bottom. Was able to wash and dry all parts except back. Shower bench, grab bars,hand held shower, long handled sponge) Shower/Bathe Self (QC): 4 Upper Body (FIM): 5 (setup. Sometimes has trouble getting shirt around cervical collar) Upper Body Dressing (QC): 5 Lower Body Dressing (FIM): 4 (Needs a little help getting R shoe on, even with long handled shoe horn. Pt educ modified technoque to dress weaker leg first. Dressing stick, sock aid. Able to get pants up and down over hips. Struggles a little to stand up but able to do it with SBA, FWW. ) Lower Body Dressing (QC): 4 On/Off Footwear (QC): 4 Shower Transfer(FIM): 5 (Close SBA. Struggles a little to pull himself up, using grab bars. Additional height added to shower bench to raise it up.) Edema in L UE is decreased but not totally gone. Pt left up in recliner, all needs met. Education OT Patient Education: Modified ADL techniques, Progress toward Goal/Update tx plan, Purpose of tx/functional activities, Safety issues, Use of adapted equipment Teaching Recipient: Patient Teaching Methods: Discussion Response to Teaching: Verbalize Understanding, Return Demonstration OT Short Term Goals Short Term Goals Time Frame: Dec 18, 2017 Eating(FIM): 5 Grooming(FIM): 5 Bathing(FIM): 4 Upper Body Dressing(FIM): 4 Lower Body Dressing(FIM): 4 Toileting(FIM): 4 Transfers (B,C,W/C) (FIM): 4 Toilet/Commode Transfer(FIM): 4 Shower Transfer(FIM): 4 Additional Short Term Goals: 1-Demonstrate ADL Tasks, 2-Verbalize Understanding , 3-ImproveStrength/Naman 1=Demonstrate adherence to instructed precautions during ADL tasks. 2=Patient will verbalize/demonstrate understanding of assistive devices/ modifications for ADL. 3=Patient will improve strength/tolerance for activity to enable patient to perform ADL's. OT Polishing Wheel Repairer Goals Skilled Nursing Goals Time Frame: Dec 25, 2017 Eating (FIM): 6 Eating (QC): 6 Groomin Oral Hygiene (QC): 5 Bathing(FIM): 5 Shower/Bathe Self (QC): 5 Upper Body Dressing(FIM): 5 Upper Body Dressing (QC): 5 Lower Body Dressing(FIM): 5 Lower Body Dressing (QC): 5 On/Off Footwear (QC): 5 Toileting(FIM): 6 Toileting Hygiene (QC): 6 Transfers (B,C,W/C) (FIM): 6 Toilet/Commode Transfer(FIM): 6 Toilet/Commode Transfer (QC): 6 Shower Transfer(FIM): 5 Additional Goals: 1-Demonstrate ADL Tasks, 2-Verbalize Understanding, 3- ImproveStrength/Naman 1=Demonstrate adherence to instructed precautions during ADL tasks. 2=Patient will verbalize/demonstrate understanding of assistive devices/ modifications for ADL. 3=Patient will improve strength/tolerance for activity to enable patient to perform ADL's. OT Education/Plan Discharge Recommendations Plan/Recommendations: Continue POC Treatment Plan/Plan of Care Patient would benefit from OT for education, treatment and training to promote independence in ADL's, mobility, safety and/or upper extremity function for ADL' s. Plan of Care: ADL Retraining, Caregiver Training, Functional Mobility, UE Funct Exercise/Act Treatment Duration: Dec 25, 2017 Frequency: At least 5 of 7 days/Wk (IRF) Estimated Hrs Per Day: 1.5 hours per day Agreement: Yes Rehab Potential: Fair Time/GCodes Start Time: 09:00 Stop Time: 10:10 Total Time Billed (hr/min): 70 Billed Treatment Time visit, 70 minutes ADL CHARY BRUNSON OT Dec 16, 2017 12:04
--- NOTE | 2017-12-16 15:04 | Therapy Group Daily Note ---
Therapy Daily Group Note Patient Education Topic Other List Below (Rehab unit description and expectations, relaxation strategies ) Exercises LE Seated Exercise, UE Exercise Other/Notes Pt. attended group PT OT session. Pt. ambulated to and from [facility] with FWW. . Pt. seemed to enjoy group and participated well. Pts. introduced themselves to others and shared their favorite way to relax. This pt. states he enjoys fishing whether he catches anything or not. Pt. participated in group seated U& L extremity exercise as he could given limitations of cervical spine. Exercise was pt. lead as pts. read and directed other using written illustrated guide card to demonstrate exercise to others. Pt. to room after group . call loyd at hand Start Time: 13:00 Stop Time: 14:30 Total Billed Treatment Time: 90 Total Billed Treatment 1,GRP AUGUSTO BROWN TELECOMMUNICATIONS ENGINEER Dec 16, 2017 15:04
[2017-12-16 18:29] VITALS: BP 121/70
[2017-12-16] MEDS: TERAZOSIN 1 MG CAP (HYTRIN) PO SCH (20:11)
[2017-12-16] MEDS: MELATONIN 3 MG TABLET PO SCH (20:11)
[2017-12-17 02:00] VITALS: BP 124/68
[2017-12-17] MEDS: SENNA W/DOCUSATE (SENOKOT S) TABLET PO SCH ×2 (08:13→20:45)
[2017-12-17] MEDS: GABAPENTIN 300 MG (NEURONTIN) CAP PO SCH ×3 (08:13→20:45)
[2017-12-17] MEDS: OXYBUTYNIN (DITROPAN) 5 MG TAB PO SCH ×2 (08:14→20:45)
[2017-12-17] MEDS: guaiFENesin (MUCINEX) 600 MG TAB PO SCH ×2 (08:14→20:45)
--- NOTE | 2017-12-17 08:39 | PM & R (SOAP) Progress Note ---
Subjective Time Seen by Provider: 07:45 Subjective/Events-last exam Patient was seen in his room this AM Patient SBA for transfers Objective Exam Last Set of Vital Signs Vital Signs Date Time Temp Pulse Resp B/P (MAP) Pulse Ox O2 Delivery O2 Flow Rate FiO2 12/17/17 02:00 98.6 83 16 124/68 (86) 96 Room Air Capillary Refill : I&O Intake and Output 12/17/17 00:00 Intake Total 1440 ml Output Total 1325 ml Balance 115 ml Intake Oral 1440 ml Output Urine Total 1325 ml General: Alert, Oriented X3, Cooperative, No Acute Distress HEENT: Atraumatic, PERRLA, EOMI, Mucous Memb Moist/[place]ck: Other (Rigid C collar in place) Lungs: Clear to Auscultation Heart: Regular Rate Abdomen: Normal Bowel Sounds, Soft Extremities: No Edema Neuro: Other (strength Les 4/5 Functional UEs with some guarding due to pain C/ O intermittent numbness in hands Cognition intact) Assessment/Plan Assessment Cervical spondylosis with myelopathy s/p decomprssion and fusion PSI DR Ortega Chronic back pain BPH RLS UTI treated S/P LTKR for OA 2 2916 S/P Rt Hip surgery Plan Continue PT/OT ST has assessed and signed off F/U with [facility] Appreciate her note F/U with DR Ortega orthospine PRN Continue meds for BPH SCDS for DVT prophylaxis TEam Conference held yesterday-See report for full functional update and POC and JAIRO THOMPSON MD Dec 17, 2017 08:39
--- NOTE | 2017-12-17 09:00 | Physical Therapy Daily Note ---
PT Daily Note-Current Subjective Pt laying Supine in bed upon arrival. Pt reports needing to stretch out a little due to tight hamstrings. Pt agrees to PT. Pain Location: No Pain Reported Mental Status Patient Orientation: Person, Place, Time, Situation Attachments: Other-See Comments (Cervical Collar) Transfers Functional [place] Measure 0=Not Assessed/NA 4=Minimal Assistance 1=Total Assistance 5=Supervision or Setup 2=Maximal Assistance 6=Modified [place] 3=Moderate Assistance 7=Complete IndependenceIRFPAI Quality Coding Scale 6 Independent with activity with or without an assistive device 5 Patient requires set up or clean up by helper. Patient completes activity by themselves 4 Supervision or touching assist (CGA). [place] provide cues , steadying assist 3 The helper provides less than half the effort to complete the activity 2 The helper provides more than half the effort to complete the activity 1 Dependent. The helper does all the effort to complete an activity 7 Patient refused to complete or attempt activity 9 The patient did not perform the activity before the current illness or injury 88 Not attempted due to Medical conditions or safety concerns Scootin Rollin Supine to/from Sit: 5 Sit to/from Stand: 4 Sit to Stand (QC): 4 Weight Bearing Right Lower Extremity: Right Full Weight Bearing Left Lower Extremity: Left Full Weight Bearing Gait Training Does the Patient Walk?: Yes Distance (FIM): 3=150 ft Distance: 200' Walk 10 feet (QC): 5 Walk 50 ft with 2 Turns(QC): 5 Walk 150 ft (QC): 5 Gait Level of Assist: 5 Gait Persons Needed: 1 Gait Assistive Device: FWW Pt's gait is slow and pt shuffles his feet due to weakness. Pt is steady though , no LOB. Pt fatigues easy. Wheelchair Training Does the Pt Use a Wheelchair?: No Exercises Seated Therapy Exercises: Ankle pumps, Long arc quads, Hip flexion, Kicking activity Seated Reps: 15 NuStep Minutes: 10 NuStep Workload: 4 Treatments Pt transfers from Supine to EOB to Standing at SBA using FWW. Pt ambulates in hallway using FWW at SBA. Pt uses NuStep for 10m at Workload 4 followed by Seated Ex in chair. Pt rests shortly before walking back to room to rest. Pt transfers back to Supine in bed at SBA. Pt rests at end of tx with all needs met. Assessment Current Status: Good Progress Pt reports feeling a little stuffy with his breathing during tx. PT Short Term Goals Short Term Goals Time Frame: Dec 18, 2017 Transfers (B,C,W/C) (FIM): 4 Gait (FIM): 4 Distance (FIM): 3=150 ft Gait Distance Comment: 200 feet Gait Level of Assist: 4 Gait Assistive Device: FWW PT Assisted Goals Assisted Goals PT Land Mobile Radio Technician Goals Time Frame: Jan 01, 2018 Transfers (B,C,W/C) (FIM): 5 Sit to Lying (QC): 4 Lying-Sitting on Side/Bed(QC): 4 Sit to Stand (QC): 4 Rollin Roll Left to Right (QC): 4 Chair/Tti-sc-Wmmkt Xfer(QC): 4 Car Transfer (QC): 4 Does the Patient Walk: Yes Gait (FIM): 5 Distance: 300 feet Walk 10 feet (QC): 4 Walk 10ft-Uneven Surface(QC): 4 Walk 50ft with 2 Turns (QC): 4 Walk 150 ft (QC): 4 Gait Level of Assist: 5 Gait Assistive Device: FWW Does the Pt use WC or Scooter?: No Stairs (FIM): 2 # of Steps: 4 1 Step (curb) (QC): 4 4 Steps (QC): 4 Stairs Level Of Assist: 4 PT Plan Problem List Problem List: Activity Tolerance, Functional Strength, Safety, Balance, Gait, Transfer Treatment/Plan Treatment Plan: Continue Plan of Care Treatment Plan: Bed Mobility, Education, Functional Activity Naman, Functional Strength, Group Therapy, Gait, Safety, Therapeutic Exercise, Transfers Treatment Duration: Jan 01, 2018 Frequency: At least 5 of 7 days/Wk (IRF) Estimated Hrs Per Day: 1.5 hours per day Patient and/or Family Agrees t: Yes Safety Risks/Education Patient Education: Gait Training, Transfer Techniques, Correct Positioning, Safety Issues Teaching Recipient: Patient Teaching Methods: Discussion Response to Teaching: Verbalize Understanding Time/GCodes Time In: 800 Time Out: 900 Total Billed Treatment Time: 60 Total Billed Treatment 1, EX x2 (30m), FA (15m) & GT (15m) SUKHWINDER MOSQUERA AUTOMOTIVE PAINTER HELPER Dec 17, 2017 09:00
--- NOTE | 2017-12-17 12:55 | Occupational Ther Daily Note ---
OT Current Status-Daily Note Subjective Pt seen in room, up in bed, agreeable to OT. No pain mentioned but he reported that he was tired. Appearance Alert, cooperative Mental Status/Objective Functional [place] Measure 0=Not Assessed/NA 4=Minimal Assistance 1=Total Assistance 5=Supervision or Setup 2=Maximal Assistance 6=Modified [place] 3=Moderate Assistance 7=Complete [place] ADL-Treatment pt declined ADLs but did use the urinal by himself but required help with emptying it. He was able to put his slippers on with setup, using long handled sock aide. Functional [place] Measure 0=Not Assessed/NA 4=Minimal Assistance 1=Total Assistance 5=Supervision or Setup 2=Maximal Assistance 6=Modified [place] 3=Moderate Assistance 7=Complete IndependenceIRFPAI Quality Coding Scale 6 Independent with activity with or without an assistive device 5 Patient requires set up or clean up by helper. Patient completes activity by themselves 4 Supervision or touching assist (CGA). [place] provide cues , steadying assist 3 The helper provides less than half the effort to complete the activity 2 The helper provides more than half the effort to complete the activity 1 Dependent. The helper does all the effort to complete an activity 7 Patient refused to complete or attempt activity 9 The patient did not perform the activity before the current illness or injury 88 Not attempted due to Medical conditions or safety concerns Toileting (FIM): 5 Other Treatment Pt walked to "stretch out" his legs in bed so agreed to do UE ex in bed. He did 16 reps bilat UE ex with 1# exercise bar, doing several different exercises that worked on shoulder range and strength as well as elbow extension to help with transfers. He also did 16 reps bilat UE ex with theraband and recalled several of the exercises on his own. Pt was then able to move from supine to sitting EOB but struggled and had HOB elevated. He got up out of bed but it took a couple trials. Once up, he walked with SBSj FWW to gym. he got in and out of chair with arms with no cues but struggled. He did 15 minutes bilat UE ex with arm bike set at 15W resistance and took a couple brief recovery breaks, especially when he had burning in muscles in shoulders. He did graded clothespins with 1# weight on each arm and had more difficulty doing them with his L hand versus R hand. He walked back to his room with SBA, FWW and got into bed without assistance. He had a little trouble getting R leg into bed but was able to complete task. pt left up in bed, 4 rails up, all needs met. Education OT Patient Education: Exercise program, Progress toward Goal/Update tx plan, Purpose of tx/functional activities Teaching Recipient: Patient Teaching Methods: Demonstration, Discussion Response to Teaching: Verbalize Understanding, Return Demonstration OT Short Term Goals Short Term Goals Time Frame: Dec 18, 2017 Eating(FIM): 5 Grooming(FIM): 5 Bathing(FIM): 4 Upper Body Dressing(FIM): 4 Lower Body Dressing(FIM): 4 Toileting(FIM): 4 Transfers (B,C,W/C) (FIM): 4 Toilet/Commode Transfer(FIM): 4 Shower Transfer(FIM): 4 Additional Short Term Goals: 1-Demonstrate ADL Tasks, 2-Verbalize Understanding , 3-ImproveStrength/[place] 1=Demonstrate adherence to instructed precautions during ADL tasks. 2=Patient will verbalize/demonstrate understanding of assistive devices/ modifications for ADL. 3=Patient will improve strength/tolerance for activity to enable patient to perform ADL's. OT Prison Goals Assistant Front End Manager Goals Time Frame: Dec 25, 2017 Eating (FIM): 6 Eating (QC): 6 Groomin Oral Hygiene (QC): 5 Bathing(FIM): 5 Shower/Bathe Self (QC): 5 Upper Body Dressing(FIM): 5 Upper Body Dressing (QC): 5 Lower Body Dressing(FIM): 5 Lower Body Dressing (QC): 5 On/Off Footwear (QC): 5 Toileting(FIM): 6 Toileting Hygiene (QC): 6 Transfers (B,C,W/C) (FIM): 6 Toilet/Commode Transfer(FIM): 6 Toilet/Commode Transfer (QC): 6 Shower Transfer(FIM): 5 Additional Goals: 1-Demonstrate ADL Tasks, 2-Verbalize Understanding, 3- ImproveStrength/[place] 1=Demonstrate adherence to instructed precautions during ADL tasks. 2=Patient will verbalize/demonstrate understanding of assistive devices/ modifications for ADL. 3=Patient will improve strength/tolerance for activity to enable patient to perform ADL's. OT Education/Plan Discharge Recommendations Plan/Recommendations: Continue POC Treatment Plan/Plan of Care Patient would benefit from OT for education, treatment and training to promote independence in ADL's, mobility, safety and/or upper extremity function for ADL' s. Plan of Care: ADL Retraining, Caregiver Training, Functional Mobility, UE Funct Exercise/Act Treatment Duration: Dec 25, 2017 Frequency: At least 5 of 7 days/Wk (IRF) Estimated Hrs Per Day: 1.5 hours per day Agreement: Yes Rehab Potential: Fair Time/GCodes Start Time: 09:00 Stop Time: 10:00 Total Time Billed (hr/min): 60 Billed Treatment Time visit, 60 minutes exercise CHARY BRUNSON OT Dec 17, 2017 12:55
--- NOTE | 2017-12-17 14:18 | Occupational Ther Daily Note ---
OT Current Status-Daily Note Subjective Pt seen in room, up in bed, agreeable to OT. No pain reported. pt said that he is going home on Thursday, not next Thursday. Appearance Alert, cooperative Mental Status/Objective Functional [place] Measure 0=Not Assessed/NA 4=Minimal Assistance 1=Total Assistance 5=Supervision or Setup 2=Maximal Assistance 6=Modified [place] 3=Moderate Assistance 7=Complete [place] ADL-Treatment Functional [place] Measure 0=Not Assessed/NA 4=Minimal Assistance 1=Total Assistance 5=Supervision or Setup 2=Maximal Assistance 6=Modified [place] 3=Moderate Assistance 7=Complete IndependenceIRFPAI Quality Coding Scale 6 Independent with activity with or without an assistive device 5 Patient requires set up or clean up by helper. Patient completes activity by themselves 4 Supervision or touching assist (CGA). [place] provide cues , steadying assist 3 The helper provides less than half the effort to complete the activity 2 The helper provides more than half the effort to complete the activity 1 Dependent. The helper does all the effort to complete an activity 7 Patient refused to complete or attempt activity 9 The patient did not perform the activity before the current illness or injury 88 Not attempted due to Medical conditions or safety concerns Other Treatment Pt was able to sit up to side of bed with SBA, but struggling and with HOB elevated. He got up to standing with SBA and a couple of trials. Pt walked SBA, FWW to gym and sat in chair with arms with SBA, FWW. Standardized tests of UE strength and coordination completed: Technical Operations Specialist R: 40, 38, 36 lb. Average 38# L: 30, 30, 29 lb. Average 30# Pinch lbs R L Lateral 12 10 3 jaw jeet 10 7 Tip 9 6 Gross motor: Box and Blocks R 44 blocks L 36 blocks Fine motor: 9 Hole Peg R 28.42 L 35.40 Measurable decreases in L hand strength and coordination, more than would be expected normally.Pt education on test results. Pt walked back to room with SBA, FWW and got on toilet with SBA, grab bar, FWW, all needs met. Nursing notified Education OT Patient Education: Purpose of tx/functional activities, Other (test results) Teaching Recipient: Patient Teaching Methods: Discussion Response to Teaching: Verbalize Understanding OT Short Term Goals Short Term Goals Time Frame: Dec 18, 2017 Eating(FIM): 5 Grooming(FIM): 5 Bathing(FIM): 4 Upper Body Dressing(FIM): 4 Lower Body Dressing(FIM): 4 Toileting(FIM): 4 Transfers (B,C,W/C) (FIM): 4 Toilet/Commode Transfer(FIM): 4 Shower Transfer(FIM): 4 Additional Short Term Goals: 1-Demonstrate ADL Tasks, 2-Verbalize Understanding , 3-ImproveStrength/[place] 1=Demonstrate adherence to instructed precautions during ADL tasks. 2=Patient will verbalize/demonstrate understanding of assistive devices/ modifications for ADL. 3=Patient will improve strength/tolerance for activity to enable patient to perform ADL's. OT Information And Data Architect Analyst Goals Information And Data Architect Analyst Goals Time Frame: Dec 25, 2017 Eating (FIM): 6 Eating (QC): 6 Groomin Oral Hygiene (QC): 5 Bathing(FIM): 5 Shower/Bathe Self (QC): 5 Upper Body Dressing(FIM): 5 Upper Body Dressing (QC): 5 Lower Body Dressing(FIM): 5 Lower Body Dressing (QC): 5 On/Off Footwear (QC): 5 Toileting(FIM): 6 Toileting Hygiene (QC): 6 Transfers (B,C,W/C) (FIM): 6 Toilet/Commode Transfer(FIM): 6 Toilet/Commode Transfer (QC): 6 Shower Transfer(FIM): 5 Additional Goals: 1-Demonstrate ADL Tasks, 2-Verbalize Understanding, 3- ImproveStrength/[place] 1=Demonstrate adherence to instructed precautions during ADL tasks. 2=Patient will verbalize/demonstrate understanding of assistive devices/ modifications for ADL. 3=Patient will improve strength/tolerance for activity to enable patient to perform ADL's. OT Education/Plan Discharge Recommendations Plan/Recommendations: Continue POC Treatment Plan/Plan of Care Patient would benefit from OT for education, treatment and training to promote independence in ADL's, mobility, safety and/or upper extremity function for ADL' s. Plan of Care: ADL Retraining, Caregiver Training, Functional Mobility, UE Funct Exercise/Act Treatment Duration: Dec 25, 2017 Frequency: At least 5 of 7 days/Wk (IRF) Estimated Hrs Per Day: 1.5 hours per day Agreement: Yes Rehab Potential: Fair Time/GCodes Start Time: 13:30 Stop Time: 14:00 Total Time Billed (hr/min): 30 Billed Treatment Time visit, 30 minutes neuromotor CHARY BRUNSON OT Dec 17, 2017 14:17
--- NOTE | 2017-12-17 15:04 | Physical Therapy Daily Note ---
PT Daily Note-Current Subjective Pt laying Supine in bed upon arrival. Nursing had taken Strep and Influenza A & B test but both had come back negative this morning. Pt agrees to PT and reports feeling a little better. Pain Location: No Pain Reported Mental Status Patient Orientation: Person, Place, Time, Situation Attachments: Other-See Comments (Cervical Collar) Transfers Functional [place] Measure 0=Not Assessed/NA 4=Minimal Assistance 1=Total Assistance 5=Supervision or Setup 2=Maximal Assistance 6=Modified [place] 3=Moderate Assistance 7=Complete IndependenceIRFPAI Quality Coding Scale 6 Independent with activity with or without an assistive device 5 Patient requires set up or clean up by helper. Patient completes activity by themselves 4 Supervision or touching assist (CGA). [place] provide cues , steadying assist 3 The helper provides less than half the effort to complete the activity 2 The helper provides more than half the effort to complete the activity 1 Dependent. The helper does all the effort to complete an activity 7 Patient refused to complete or attempt activity 9 The patient did not perform the activity before the current illness or injury 88 Not attempted due to Medical conditions or safety concerns Weight Bearing Right Lower Extremity: Right Full Weight Bearing Left Lower Extremity: Left Full Weight Bearing Wheelchair Training Does the Pt Use a Wheelchair?: No Exercises Supine Ex: Ankle pumps, Quad Set, Heel Slides, Straight leg raise, Hip abd/add Supine Reps: 20 Treatments Pt completes Supine Ex in bed with a couple of short rest breaks. Assessment Current Status: Good Progress Pt is a little more tired this afternoon although feeling better than late morning. PT Short Term Goals Short Term Goals Time Frame: Dec 18, 2017 Transfers (B,C,W/C) (FIM): 4 Gait (FIM): 4 Distance (FIM): 3=150 ft Gait Distance Comment: 200 feet Gait Level of Assist: 4 Gait Assistive Device: FWW PT Derrick Barge Operator Goals Retirement Goals PT Derrick Barge Operator Goals Time Frame: Jan 01, 2018 Transfers (B,C,W/C) (FIM): 5 Sit to Lying (QC): 4 Lying-Sitting on Side/Bed(QC): 4 Sit to Stand (QC): 4 Rollin Roll Left to Right (QC): 4 Chair/Tis-pv-Dzymz Xfer(QC): 4 Car Transfer (QC): 4 Does the Patient Walk: Yes Gait (FIM): 5 Distance: 300 feet Walk 10 feet (QC): 4 Walk 10ft-Uneven Surface(QC): 4 Walk 50ft with 2 Turns (QC): 4 Walk 150 ft (QC): 4 Gait Level of Assist: 5 Gait Assistive Device: FWW Does the Pt use WC or Scooter?: No Stairs (FIM): 2 # of Steps: 4 1 Step (curb) (QC): 4 4 Steps (QC): 4 Stairs Level Of Assist: 4 PT Plan Problem List Problem List: Activity Tolerance, Functional Strength, Safety, Balance, Gait Treatment/Plan Treatment Plan: Continue Plan of Care Treatment Plan: Bed Mobility, Education, Functional Activity Naman, Functional Strength, Group Therapy, Gait, Safety, Therapeutic Exercise, Transfers Treatment Duration: Jan 01, 2018 Frequency: At least 5 of 7 days/Wk (IRF) Estimated Hrs Per Day: 1.5 hours per day Patient and/or Family Agrees t: Yes Safety Risks/Education Patient Education: Transfer Techniques, Correct Positioning, Safety Issues Teaching Recipient: Patient Teaching Methods: Discussion Response to Teaching: Verbalize Understanding Time/GCodes Time In: 1300 Time Out: 1330 Total Billed Treatment Time: 30 Total Billed Treatment 1, EX x2 (30m) SUKHWINDER MOSQUERA PTA Dec 17, 2017 15:04
[2017-12-17 18:46] VITALS: BP 130/80
[2017-12-17] MEDS: MELATONIN 3 MG TABLET PO SCH (20:45)
[2017-12-17] MEDS: TERAZOSIN 1 MG CAP (HYTRIN) PO SCH (20:45)
[2017-12-18 06:34] VITALS: BP 102/66
--- NOTE | 2017-12-18 08:10 | PM & R (SOAP) Progress Note ---
Subjective Time Seen by Provider: 07:35 Subjective/Events-last exam Patient was seen in her room this AM Discharge set for tomorrow Patient Min assist for transfers Objective Exam Last Set of Vital Signs Vital Signs Date Time Temp Pulse Resp B/P (MAP) Pulse Ox O2 Delivery O2 Flow Rate FiO2 12/18/17 06:34 97.6 68 17 102/66 (78) 95 Room Air Capillary Refill : I&O Intake and Output 12/17/17 23:59 Intake Total 1320 ml Output Total 1700 ml Balance -380 ml Intake Oral 1320 ml Output Urine Total 1700 ml General: Alert, Oriented X3, Cooperative, No Acute Distress HEENT: Atraumatic, PERRLA, EOMI, Mucous Memb Moist/[place] Neck: Other (Rigid C collar in place) Lungs: Clear to Auscultation Heart: Regular Rate Abdomen: Normal Bowel Sounds, Soft Extremities: No Edema Neuro: Other (strength Les 4/5 Functional UEs with some guarding due to pain C/ O intermittent numbness in hands Cognition intact) Results Lab Laboratory Tests 12/17/17 11:22: Group A Streptococcus Screen NEGATIVE Microbiology 12/17/17 Influenza Types A,B Antigen (FLORA) - Final, Complete Assessment/Plan Assessment 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
[2017-12-18] MEDS ORDERED: SENN-20 PO (08:13)
[2017-12-18] MEDS: OXYBUTYNIN (DITROPAN) 5 MG TAB PO SCH ×2 (08:21→20:21)
[2017-12-18] MEDS: guaiFENesin (MUCINEX) 600 MG TAB PO SCH ×2 (08:21→20:21)
[2017-12-18] MEDS: GABAPENTIN 300 MG (NEURONTIN) CAP PO SCH ×3 (08:21→20:21)
[2017-12-18] MEDS: SENNA W/DOCUSATE (SENOKOT S) TABLET PO SCH ×2 (08:21→20:21)
--- NOTE | 2017-12-18 09:03 | D/C HH Face to Face Order ---
D/C Face to Face Orders Instructions for Patient Patient Instructions/FollowUp: Dr. Ortega ([facility]) on 2017 at 815a Physician to follow Patient: Dr. Andreas Ortega Discharge Diet for Home: No Restrictions Patient Data-Allergies,Ht & Wt Patient Allergies: Coded Allergies: NKANo Known Allergies (Verified Allergy, Unknown, 10/18/16) Height (Feet): 6 Height (Inches): 0.00 Weight (Pounds): 239 Weight (Ounces): 0.0 Home Health Need/Face to Face Date of Face to Face: Dec 19, 2017 Clinical Findings: Generalized weakness and fatigue, Unsteady gait I have seen Pt [id number]: Yes Discharged To: Home Diagnosis/Conditions: Cervical spondylosis w/myleopathy Problems/Diagnosis/Condition: Patient is Homebound due to: Reyna fall risk due to instabilty, Muscle weakness Homebound Status Due to the above stated illness, injury or surgical procedure (medical condition or diagnosis) and associated clinical findings, the patient is homebound because of his/her inability to leave home except with aid of a supportive device and/or person AND leaving the home requires a considerable and taxing effort or is medically contraindicated. Pt req the following assistanc: Cane, Walker Home Health Nursing Orders Home Health Services Order: Drafter Electronic-Evaluate & Treat, Physical Therapy-Evaluate & Treat Therapy Orders Therapy Orders: OT (must have SN or PT order), Physical Therapy Therapy Specific Orders: Eval assistive deivces, Teach enviro modifications/ safety, Gait training, Increase strength/endurance Certify [facility] I certify that this patient is under my care and that I, a nurse practitioner or a physician; a school office assistant working with me, had a face to face encounter that - meets the physician face to face encounter requirements with this patient as dated. I personally scribed for JAIRO ESPARZA MD ([facility]) on 12/18/17 at 09:03. Electronically submitted by Carolina Doss ([email or web address]). JAIRO ESPARZA MD Dec 18, 2017 09:03
--- NOTE | 2017-12-18 10:54 | Physical Therapy Daily Note ---
PT Daily Note-Current Subjective Pt. agrees to rx and feels he is much better and ready to go home. Pain Numeric Pain Scale: 0-No Pain Mental Status Patient Orientation: Normal For Age Transfers Functional [place] Measure 0=Not Assessed/NA 4=Minimal Assistance 1=Total Assistance 5=Supervision or Setup 2=Maximal Assistance 6=Modified [place] 3=Moderate Assistance 7=Complete IndependenceIRFPAI Quality Coding Scale 6 Independent with activity with or without an assistive device 5 Patient requires set up or clean up by helper. Patient completes activity by themselves 4 Supervision or touching assist (CGA). Meherrin provide cues , steadying assist 3 The helper provides less than half the effort to complete the activity 2 The helper provides more than half the effort to complete the activity 1 Dependent. The helper does all the effort to complete an activity 7 Patient refused to complete or attempt activity 9 The patient did not perform the activity before the current illness or injury 88 Not attempted due to Medical conditions or safety concerns Transfers (B, C, W/C) (FIM): 6 Scootin Rollin Roll Left to Right (QC): 6 Supine to/from Sit: 6 Sit to/from Stand: 6 Sit to Lying (QC): 6 Sit to Stand (QC): 6 Chair/Zpr-na-Avnzp Xfer(QC): 6 Bed to/from Chair: 6 Car Transfer (QC): 6 Weight Bearing Right Lower Extremity: Right Full Weight Bearing Left Lower Extremity: Left Full Weight Bearing Gait Training Does the Patient Walk?: Yes Gait (FIM): 6 Distance (FIM): 3=150 ft (150,100,30) Walk 10 feet (QC): 6 Walk 50 ft with 2 Turns(QC): 6 Walk 150 ft (QC): 6 Walking 10ft/uneven surface-QC: 6 Gait Level of Assist: 6 Gait Persons Needed: 0 Gait Assistive Device: FWW pt. is labored at 150 ft, slow, somewhat fatigued but very determined Stair Training Stair Training: Handrails/: 2 handrails Stairs (FIM): 5 #of Steps: 4 1 Step (curb) (QC): 5 4 Steps (QC): 5 Stairs: Pattern: Step to Level of Assist: 5 house hold exception Balance Special Test Comments not safe Exercises Supine Ex: Ankle pumps, Quad Set, Rolling, Glut sets, Heel Slides, Short Arc Quads, Scooting, Straight leg raise, Hip abd/add Supine Reps: 15 Seated Therapy Exercises: Ankle pumps, Sit to stand, Long arc quads, Hip flexion Seated Reps: 12 Standing: Hip Abduction, Hamstring curls, Heel/toe raises, Marching Standing Reps: 15 Treatments side steps, 360 degree turns, retro gait all with FWW no LOB Assessment Current Status: Good Progress less c/o pain and increased indep and funct mob PT Short Term Goals Short Term Goals Time Frame: Dec 18, 2017 Transfers (B,C,W/C) (FIM): 4 Gait (FIM): 4 Distance (FIM): 3=150 ft Gait Distance Comment: 200 feet Gait Level of Assist: 4 Gait Assistive Device: FWW PT Group Home Goals Group Home Goals PT Glaze Maker Goals Time Frame: Jan 01, 2018 Transfers (B,C,W/C) (FIM): 5 Sit to Lying (QC): 4 Lying-Sitting on Side/Bed(QC): 4 Sit to Stand (QC): 4 Rollin Roll Left to Right (QC): 4 Chair/Tos-gs-Tppbf Xfer(QC): 4 Car Transfer (QC): 4 Does the Patient Walk: Yes Gait (FIM): 5 Distance: 300 feet Walk 10 feet (QC): 4 Walk 10ft-Uneven Surface(QC): 4 Walk 50ft with 2 Turns (QC): 4 Walk 150 ft (QC): 4 Gait Level of Assist: 5 Gait Assistive Device: FWW Does the Pt use WC or Scooter?: No Stairs (FIM): 2 # of Steps: 4 1 Step (curb) (QC): 4 4 Steps (QC): 4 Stairs Level Of Assist: 4 PT Plan Treatment/Plan Treatment Plan: Continue Plan of Care Treatment Plan: Bed Mobility, Education, Functional Activity Naman, Functional Strength, Group Therapy, Gait, Safety, Therapeutic Exercise, Transfers Treatment Duration: Jan 01, 2018 Frequency: At least 5 of 7 days/Wk (IRF) Estimated Hrs Per Day: 1.5 hours per day Patient and/or Family Agrees t: Yes Safety Risks/Education Patient Education: Gait Training, Transfer Techniques, Steps, Correct Positioning, Disease Process, Safety Issues Teaching Recipient: Patient Teaching Methods: Demonstration, Discussion Response to Teaching: Verbalize Understanding, Return Demonstration, Reinforcement Needed Time/GCodes Time In: 1000 Time Out: 1100 Total Billed Treatment Time: 60 Total Billed Treatment 1,FA20m,GT15m,EX25m G Codes Necessary: AUGUSTO Goodson GROUP SALES COORDINATOR Dec 18, 2017 10:54
--- NOTE | 2017-12-18 11:50 | Occupational Ther Daily Note ---
OT Current Status-Daily Note Subjective Pt seen in room, agreeable to OT. No pain mentioned. Appearance Alert, cooperative Mental Status/Objective Functional [place] Measure 0=Not Assessed/NA 4=Minimal Assistance 1=Total Assistance 5=Supervision or Setup 2=Maximal Assistance 6=Modified [place] 3=Moderate Assistance 7=Complete [place] ADL-Treatment Pt's was present for part of the tx. OT showed her how she was covering up incision with plastic prior to shower. Also talked about ADL equipment (dial painter , dressing stick, sock aid, long handled shoe horn). Discussed that pt had difficulty getting off toilet and she reported son was installing grab bars. Pt educ that there are arms available to put by toilet if needed. Functional [place] Measure 0=Not Assessed/NA 4=Minimal Assistance 1=Total Assistance 5=Supervision or Setup 2=Maximal Assistance 6=Modified [place] 3=Moderate Assistance 7=Complete IndependenceIRFPAI Quality Coding Scale 6 Independent with activity with or without an assistive device 5 Patient requires set up or clean up by helper. Patient completes activity by themselves 4 Supervision or touching assist (CGA). [place] provide cues , steadying assist 3 The helper provides less than half the effort to complete the activity 2 The helper provides more than half the effort to complete the activity 1 Dependent. The helper does all the effort to complete an activity 7 Patient refused to complete or attempt activity 9 The patient did not perform the activity before the current illness or injury 88 Not attempted due to Medical conditions or safety concerns Eating (FIM): 6 (Able to cut food and feed himself without help. has dentures and there are some foods he cannot eat without them) Eating (QC): 6 Grooming (FIM): 6 (Pt stood at sink to clean dentures and put them in. Washed face and hands in shower. hair is short and doesn't need to be combed. Shaved with electric razor while seated so that neck was supported on pillow. ) Oral Hygiene (QC): 6 Bathing (FIM): 6 (Pt washed and dried all parts, turning water on and off and retrieving towels from bar. Shower bench, grab bars, hand held shower, long handled sponge. Cervical collar on during shower. ) Shower/Bathe Self (QC): 6 Upper Body (FIM): 5 (Setup to get clean clothes out and put durty ones away. Able to get shirt on and off himself but struggles with buttons ) Upper Body Dressing (QC): 5 Lower Body Dressing (FIM): 5 (Setup. Able to get pants off and on, dressing stick helps. Able to get pants on over feet, with reminder of modified technique to dress R leg first. Sit to stand without help but sometimes struggles a little. Able to get shoes on with long handled shoe horn. Also has used sock aid. FWW) Lower Body Dressing (QC): 5 On/Off Footwear (QC): 5 Toileting (FIM): 3 (Able to manage clothing and attempted to wipe bottom but was not thorough. He said he had difficulty reaching back and holding on to toilet paper. Tall toilet, grab bar, FWW) Toileting Hygiene (QC): 3 Toilet/Commode Transfer (FIM): 6 (Struggled to pull up with grab bars on R side but did it. may benefit from having handles on both sides, such as Versaframe. ) Toilet Transfer (QC): 6 Shower Transfer(FIM): 6 (Able to get on/off shower bench, using grab bars, FWW) Pt walked to and from bathroom without assistance, using FWW. No LOB observed. Other Treatment Pt walked to and from gym, using FWW, with no LOB. Able to get in/out of chair with arms by himself. Pt was given home program of activities to increase strength and coordination in hands. Included manipulating medicine cups, finding beads in yellow theraputty, sorting items from button box. Pt verbalized understanding and demonstrated many of the activities. Care transferred to PT. Education OT Patient Education: Home exercise program, Instructions to caregiver, Modified ADL techniques, Progress toward Goal/Update tx plan, Purpose of tx/ functional activities, Use of adapted equipment Teaching Recipient: Patient, Family Teaching Methods: Demonstration, Discussion Response to Teaching: Verbalize Understanding, Return Demonstration OT Short Term Goals Short Term Goals Time Frame: Dec 18, 2017 Eating(FIM): 5 Grooming(FIM): 5 Bathing(FIM): 4 Upper Body Dressing(FIM): 4 Lower Body Dressing(FIM): 4 Toileting(FIM): 4 Transfers (B,C,W/C) (FIM): 4 Toilet/Commode Transfer(FIM): 4 Shower Transfer(FIM): 4 Additional Short Term Goals: 1-Demonstrate ADL Tasks, 2-Verbalize Understanding , 3-ImproveStrength/Naman 1=Demonstrate adherence to instructed precautions during ADL tasks. 2=Patient will verbalize/demonstrate understanding of assistive devices/ modifications for ADL. 3=Patient will improve strength/tolerance for activity to enable patient to perform ADL's. OT Usp Goals Communications Strategist Goals Time Frame: Dec 25, 2017 Eating (FIM): 6 Eating (QC): 6 Groomin Oral Hygiene (QC): 5 Bathing(FIM): 5 Shower/Bathe Self (QC): 5 Upper Body Dressing(FIM): 5 Upper Body Dressing (QC): 5 Lower Body Dressing(FIM): 5 Lower Body Dressing (QC): 5 On/Off Footwear (QC): 5 Toileting(FIM): 6 Toileting Hygiene (QC): 6 Transfers (B,C,W/C) (FIM): 6 Toilet/Commode Transfer(FIM): 6 Toilet/Commode Transfer (QC): 6 Shower Transfer(FIM): 5 Additional Goals: 1-Demonstrate ADL Tasks, 2-Verbalize Understanding, 3- ImproveStrength/Naman 1=Demonstrate adherence to instructed precautions during ADL tasks. 2=Patient will verbalize/demonstrate understanding of assistive devices/ modifications for ADL. 3=Patient will improve strength/tolerance for activity to enable patient to perform ADL's. OT Education/Plan Discharge Recommendations Plan/Recommendations: Continue POC Treatment Plan/Plan of Care Patient would benefit from OT for education, treatment and training to promote independence in ADL's, mobility, safety and/or upper extremity function for ADL' s. Plan of Care: ADL Retraining, Caregiver Training, Functional Mobility, UE Funct Exercise/Act Treatment Duration: Dec 25, 2017 Frequency: At least 5 of 7 days/Wk (IRF) Estimated Hrs Per Day: 1.5 hours per day Agreement: Yes Rehab Potential: Fair Time/GCodes Start Time: 09:00 Stop Time: 10:00 Total Time Billed (hr/min): 60 Billed Treatment Time visit, ADL 40 minutes, neuromotor 20 minutes CHARY BRUNSON OT Dec 18, 2017 11:50
--- NOTE | 2017-12-18 15:00 | Therapy Group Daily Note ---
Therapy Daily Group Note Patient Education Topic Other List Below (flu prevention, FWW and wheelchair use and instruction) Exercises LE Seated Exercise, UE Exercise Other/Notes Pt. attended group PT OT session this date. Pt. ambulated to and from with FWW. Pt. was pleasant and participated well in group session. Introductions were done including name and home town as well as their favorite suggested baby name (girl and or boy). Group was educated in and demonstrations given for use and purpose of FWW and wheelchair for mobility. Pts. participated in seated U& L ext exercises that were chosen and lead by patients. Pt.s participated in VSE EVAKUATORY ROSSII game with Home safety focus incorporating bag toss in to basket etc.. Pt. to room after group with CG assist to bed. call loyd at hand. Start Time: 13:00 Stop Time: 14:30 Total Billed Treatment Time: 90 Total Billed Treatment 1,GRP AUGUSTO BROWN CHEF FRENCH Dec 18, 2017 15:00
[2017-12-18 18:00] VITALS: BP 125/72
[2017-12-18] MEDS: MELATONIN 3 MG TABLET PO SCH (20:20)
[2017-12-18] MEDS: TERAZOSIN 1 MG CAP (HYTRIN) PO SCH (20:21)
[2017-12-19 05:38] VITALS: BP 126/70
[2017-12-19] MEDS: OXYBUTYNIN (DITROPAN) 5 MG TAB PO SCH (08:52)
[2017-12-19] MEDS: guaiFENesin (MUCINEX) 600 MG TAB PO SCH (08:52)
[2017-12-19] MEDS: SENNA W/DOCUSATE (SENOKOT S) TABLET PO SCH (08:52)
[2017-12-19] MEDS: GABAPENTIN 300 MG (NEURONTIN) CAP PO SCH (08:52)
[2017-12-19 10:13] VITALS: BP 126/70
--- NOTE | 2017-12-19 11:47 | Therapy Team Discharge Summary ---
Therapy Discharge Summary Discharge Recommendations Date of Discharge Dec 19, 2017 at 09:45 Therapy D/C Recommendations: Home w/ Family Support, Occupational Therapy Home Care Occupational Therapy Pt was seen for skilled OT to increase his independence in basic self care and to decrease caregiver burden after cervical surgery (wears cervical collar). On admission he needed setup to eat, SBA for grooming at sink, min assist with toileting, mod assist with toilet transfers, upper body dressing and max assist with bathing and lower body dressing. By discharge he had progressed to modified independent with eating, grooming, bathing and toilet transfers, setup for upper and lower body dressing and mod assist with toileting (help with hygiene at times). He used FWW, long handled shoe horn, dressing stick, long handled sponge, sock aid, tall toilet, grab bars, shower bench and hand held shower. He was interested in getting a hip kit for home. Home health OT is recommended. See tx plan for goals met. DC OT Decreased Activ Tolerance, Decreased UE Strength, Dependent Transfers, Impaired Bed Mobility, Impaired Coordination, Impaired Funct Balance, Impaired I ADL's, Impaired Self-Care Skills, Restricted Funct UE ROM PT Tobacco Drummer Goals Chcf Goals PT Tobacco Drummer Goals Time Frame: Jan 01, 2018 Transfers (B,C,W/C) (FIM): 5 Roll Left to Right (QC): 4 Sit to Lying (QC): 4 Lying-Sitting on Side/Bed(QC): 4 Sit to Stand (QC): 4 Chair/Nmn-sm-Iqhik Xfer(QC): 4 Car Transfer (QC): 4 Does the Patient Walk: Yes Gait (FIM): 5 Distance: 300 feet Walk 10 feet (QC): 4 Walk 10ft-Uneven Surface(QC): 4 Walk 50ft with 2 Turns (QC): 4 Walk 150 ft (QC): 4 Gait Level of Assist: 5 Gait Assistive Device: FWW Does the Pt use WC or Scooter?: No Stairs (FIM): 2 # of Steps: 4 1 Step (curb) (QC): 4 4 Steps (QC): 4 Stairs Level Of Assist: 4 OT Chcf Goals Chcf Goals Time Frame: Dec 25, 2017 Eating (FIM): 6 (met) Eating (QC): 6 (met) Oral Hygiene (QC): 5 (met) Grooming(FIM): 5 (met) Bathing(FIM): 5 (met) Shower/Bathe Self (QC): 5 (met) Upper Body Dressing(FIM): 5 (met) Upper Body Dressing (QC): 5 (met) Lower Body Dressing(FIM): 5 (met) Lower Body Dressing (QC): 5 (met) On/Off Footwear (QC): 5 (met) Toileting(FIM): 6 (not met) Toileting Hygiene (QC): 6 (not met) Transfers (B,C,W/C) (FIM): 6 (met) Toilet/Commode Transfer(FIM): 6 (met) Toilet/Commode Transfer (QC): 6 (met) Shower Transfer(FIM): 5 (met) Additional Goals: 1-Demonstrate ADL Tasks, 2-Verbalize Understanding, 3- ImproveStrength/Naman 1=Demonstrate adherence to instructed precautions during ADL tasks. 2=Patient will verbalize/demonstrate understanding of assistive devices/ modifications for ADL. 3=Patient will improve strength/tolerance for activity to enable patient to perform ADL's. CHARY BRUNSON OT Dec 19, 2017 11:47
== END 2017-12-19 09:45 | disposition home health service (06) | DRG 561 ==
PROVIDERS: ADMIT Physical Medicine & Rehabilitation; ATTEND Physical Medicine & Rehabilitation
DX: Z47.89 Encounter for other orthopedic aftercare (principal); Z98.1 Arthrodesis status; N40.0 Benign prostatic hyperplasia without lower urinary tract symptoms; G62.9 Polyneuropathy, unspecified; M54.9 Dorsalgia, unspecified; M17.11 Unilateral primary osteoarthritis, right knee; G25.81 Restless legs syndrome; Z87.891 Personal history of nicotine dependence
CPT/HCPCS: 87430; 87804

== ENCOUNTER 2018-10-13 19:22 | Emergency (ER) | payer MEDICARE ==
[~2018-10-13] VITALS: Ht 182.9 cm; Wt 106.1 kg
[2018-10-13] MEDS ORDERED: CELE-63 (19:35)
[2018-10-13] MEDS ORDERED: FURO20TA4 (19:35)
--- NOTE | 2018-10-13 19:43 | ED Back Pain ---
General Chief Complaint: Back Problems Stated Complaint: BACK PAIN Source of Information: Patient Exam Limitations: No Limitations History of Present Illness Date Seen by Provider: Oct 13, 2018 Time Seen by Provider: 19:39 Initial Comments To ER per private vehicle from home with reports of midline low back pain that radiates down the posterior right thigh terminating at the knee. No loss of bowel or bladder control, no loss of sensation of his genitals. No fevers or chills. He does see Dr. [facility] and has had laminectomy of the upper thoracic and lower cervical spine and was admitted here to the rehabilitation unit for a couple of weeks following that procedure. He does ambulate with a walker and states that this is normal for him, he always has to use a walker. Location: Lumbar Spine Timing/Duration: 1 Week Severity: Moderate Pain/Injury Location: Back Method of Injury: Other (no injury) Associated Symptoms: lower back pain Allergies and Home Medications Allergies Coded Allergies: NKANo Known Allergies (Verified Allergy, Unknown, 10/18/16) Home Medications Oxybutynin Chloride 5 Mg Tablet, 5 MG PO BID, (Reported) Terazosin HCl 1 Mg Capsule, 1 MG PO HS, (Reported) Patient Home Medication List Home Medication List Reviewed: Yes Review of Systems Constitutional: see HPI EENTM: see HPI Respiratory: no symptoms reported Cardiovascular: no symptoms reported Genitourinary: no symptoms reported Musculoskeletal: see HPI, back pain Skin: no symptoms reported Psychiatric/Neurological: No Symptoms Reported Past Xuzneoa-Ksxolt-Dihhjo Hx Patient Social History Alcohol Use: Denies Use Recreational Drug Use: No Smoking Status: Former Smoker Type Used: Cigarettes 2nd Hand Smoke Exposure: No Recent Foreign Travel: No Contact w/Someone Who Travel: No Recent Hopitalizations: No Immunizations Up To Date Tetanus Booster (TDap): Unknown PED Vaccines UTD: Yes Date of Pneumonia Vaccine: Oct 09, 2017 Date of Influenza Vaccine: Oct 09, 2017 Seasonal Allergies Seasonal Allergies: No Past Medical History Surgeries: Yes (Left knee replacement, right hip steel plates placed, back ) Appendectomy, Orthopedic Respiratory: No Currently Using CPAP: No Currently Using BIPAP: No Cardiac: No Neurological: Yes (restless leg syndrome, cervical spinal stenosis) Neuropathy Reproductive Disorders: No Sexually Transmitted Disease: No HIV/AIDS: No Genitourinary: Yes Benign Prostatic Hyperpl Gastrointestinal: No Musculoskeletal: Yes (FREQ.BACK PAIN, cervical spinal stenosis) Chronic Back Pain Endocrine: No HEENT: No Loss of Vision: Denies Hearing Impairment: Denies Cancer: No Psychosocial: No Integumentary: No Blood Disorders: No Adverse Reaction/Blood Tranf: No Family Medical History Cardiovascular disease 19 FATHER FHx: cancer 19 MOTHER (unknown what kind of cancer) Respiratory disorder 19 MOTHER (EMPHYZEMA) Physical Exam Vital Signs Vital Signs - First Documented 10/13/18 19:30 Temp 98.2 Pulse 68 Resp 18 B/P (MAP) 135/78 (97) Pulse Ox 96 O2 Delivery Room Air Capillary Refill : Height, Weight, BMI Height: 6'0.00" Weight: 239lbs. 0.0oz. 108.070046wl; 34.6 BMI Method:Stated General Appearance: No Apparent Distress, WD/WN HEENT: PERRL/EOMI, TMs Normal Neck: Full Range of Motion, Normal Inspection Respiratory: Lungs Clear, Normal Breath Sounds, No Accessory Muscle Use, No Respiratory Distress Gastrointestinal: Normal Bowel Sounds, Non Tender, Soft Back: Vertebral Tenderness (midline lumbar vertebral tenderness to palpation. Normal inspection.) Extremity: Normal Capillary Refill, Normal Inspection Neurologic/Psychiatric: Alert, Oriented x3 Skin: Normal Color, Warm/Dry Progress/Results/Core Measures Results/Orders Lab Results Laboratory Tests Test 10/13/18 19:40 10/13/18 20:25 Range/Units White Blood Count 5.6 4.3-11.0 10^3/uL Red Blood Count 4.25 L 4.35-5.85 10^6/uL Hemoglobin 12.8 L 13.3-17.7 G/DL Hematocrit 39 L 40-54 % Mean Corpuscular Volume 93 80-99 FL Mean Corpuscular Hemoglobin 30 25-34 PG Mean Corpuscular Hemoglobin Concent 33 32-36 G/DL Red Cell Distribution Width 14.4 10.0-14.5 % Platelet Count 136 130-400 10^3/uL Mean Platelet Volume 10.7 H 7.4-10.4 FL Neutrophils (%) (Auto) 54 42-75 % Lymphocytes (%) (Auto) 35 12-44 % Monocytes (%) (Auto) 9 0-12 % Eosinophils (%) (Auto) 2 0-10 % Basophils (%) (Auto) 0 0-10 % Neutrophils # (Auto) 3.0 1.8-7.8 X 10^3 Lymphocytes # (Auto) 2.0 1.0-4.0 X 10^3 Monocytes # (Auto) 0.5 0.0-1.0 X 10^3 Eosinophils # (Auto) 0.1 0.0-0.3 10^3/uL Basophils # (Auto) 0.0 0.0-0.1 10^3/uL Sodium Level 137 135-145 MMOL/L Potassium Level 4.1 3.6-5.0 MMOL/L Chloride Level 105 98-107 MMOL/L Carbon Dioxide Level 23 21-32 MMOL/L Anion Gap 9 5-14 MMOL/L Blood Urea Nitrogen 20 H 7-18 MG/DL Creatinine 1.20 0.60-1.30 MG/DL Estimat Glomerular Filtration Rate 59 BUN/Creatinine Ratio 17 Glucose Level 112 H 70-105 MG/DL Calcium Level 8.7 8.5-10.1 MG/DL Corrected Calcium 8.9 8.5-10.1 MG/DL Total Bilirubin 0.8 0.1-1.0 MG/DL Aspartate Amino Transf (AST/SGOT) 16 5-34 U/L Alanine Aminotransferase (ALT/SGPT) 11 0-55 U/L Alkaline Phosphatase 61 40-136 U/L Total Protein 7.0 6.4-8.2 GM/DL Albumin 3.7 3.2-4.5 GM/DL Urine Color YELLOW Urine Clarity VERY CLOUDY H Urine pH 6.5 5-9 Urine Specific [place] 1.015 L 1.016-1.022 Urine Protein NEGATIVE NEGATIVE Urine Glucose (UA) NEGATIVE NEGATIVE Urine Ketones NEGATIVE NEGATIVE Urine Nitrite POSITIVE H NEGATIVE Urine Bilirubin NEGATIVE NEGATIVE Urine Urobilinogen NORMAL NORMAL MG/DL Urine Leukocyte Esterase 3+ H NEGATIVE Urine RBC (Auto) 2+ H NEGATIVE Urine RBC 5-10 H /HPF Urine WBC 50-100 H /HPF Urine Squamous Epithelial Cells 2-5 /HPF Urine Crystals NONE /LPF Urine Bacteria MODERATE H /HPF Urine Casts NONE /LPF Urine Mucus NEGATIVE /LPF Urine Culture Indicated YES My Orders Orders - KIKE PERKINS BEHAVIORAL CONSULTANT Cbc With Automated Diff (10/13/18 19:36) Comprehensive Metabolic Panel (10/13/18 19:36) Iv Heplock-Insert (Order) (10/13/18 19:36) Ct Lumbar Spine Wo (10/13/18 19:36) Ketorolac Injection (Toradol Injection) (10/13/18 19:45) Orphenadrine Injection (Norflex Injectio (10/13/18 19:45) Ua Culture If Indicated (10/13/18 19:43) Rx-Hydrocodone/Apap 5-325 Mg (Rx-Vicodin (10/13/18 20:30) Urine Culture (10/13/18 20:25) Medications Given in ED Current Medications Medications Dose Ordered Sig/Sussy Route Start Time Stop Time Status Last Admin Dose Admin Acetaminophen/ Hydrocodone Bitart 1 ea Q4H PRN PO 10/13/18 20:30 10/13/18 20:57 1 EA Ketorolac Tromethamine 15 mg ONCE ONCE IVP 10/13/18 19:45 10/13/18 19:46 DC 10/13/18 19:46 15 MG Orphenadrine Citrate 30 mg ONCE ONCE IV 10/13/18 19:45 10/13/18 19:46 DC 10/13/18 19:45 30 MG Vital Signs/I&O 10/13/18 10/13/18 19:30 19:46 Temp 98.2 98.2 Pulse 68 Resp 18 B/P (MAP) 135/78 (97) Pulse Ox 96 O2 Delivery Room Air Diagnostic Imaging Diagonstic Imaging: CT Comments NAME: [facility] REC#: [id number] PT STATUS: REG ER : 1940 PHYSICIAN: KIKE PERKINS APRN ADMIT DATE: 10/13/18/ER Draft Date of Exam:10/13/18 CT LUMBAR SPINE WO PROCEDURE: CT lumbar spine without contrast. TECHNIQUE: Multiple contiguous axial images were obtained through the lumbar spine without the use of intravenous contrast. Sagittal and coronal reformations were then performed. INDICATION: Low back pain COMPARISON: None FINDINGS: Moderate left convexity lumbar scoliosis is present. Advanced degenerative changes seen throughout the disc spaces and facet joints. There is no traumatic malalignment or fracture. No osseous lesion is seen. There is no paraspinous mass. Chronic right renal atrophy is identified. IMPRESSION: Advanced degenerative changes throughout the lumbar spine. No traumatic malalignment, fracture or osseous lesion. Dictated on workstation # [id number] Dict: 10/13/182007 Trans: 10/13/182015 [facility] [id number] Interpreted by: TELLY ARMIJO Electronically signed by: Departure Impression Primary Impression: Lumbar radiculopathy Additional Impression: Urinary tract infection Disposition: 01 HOME, SELF-CARE Condition: Improved Departure-Patient Inst. Decision time for Depature: 19:43 Referrals: DAVID PAVON DO (PCP) Primary Care Physician NEDA PAINTER (Family) Primary Care Physician Patient Instructions: Urinary Tract Infection, Adult (DC) Add. Discharge Instructions: 1. Drink plenty of fluids 2. Antibiotics as directed 3. All discharge instructions reviewed with patient and/or family. Voiced understanding. Scripts Cefdinir (Cefdinir) 300 Mg Capsule 300 MG PO BID, #14 CAP Prov: KIKE PERKINS BEHAVIORAL CONSULTANT 10/13/18 KIKE PERKINS BEHAVIORAL CONSULTANT Oct 13, 2018 19:43
[2018-10-13] MEDS ORDERED: KETOROLAC 30 MG/ML VIAL IVP ONE (19:45)
[2018-10-13] MEDS ORDERED: ORPHENADRINE 60 MG/2 ML (NORFLEX) AMP IV ONE (19:45)
[2018-10-13 19:48] LABS: BASOPHILS % (AUTO) 0 % (0-10); EOSINOPHILS # (AUTO) 0.1 10^3/uL (0.0-0.3); EOSINOPHILS % (AUTO) 2 % (0-10); HEMATOCRIT 39 % (40-54); HEMOGLOBIN 12.8 G/DL (13.3-17.7); LYMPHOCYTES % (AUTO) 35 % (12-44); MEAN CORPUSCULAR HEMOGLOBIN 30 PG (25-34); MEAN CORPUSCULAR HGB CONC 33 G/DL (32-36); MEAN CORPUSCULAR VOLUME 93 FL (80-99); MEAN PLATELET VOLUME 10.7 FL (7.4-10.4); MONOCYTES # (AUTO) 0.5 X 10^3 (0.0-1.0); MONOCYTES % (AUTO) 9 % (0-12); NEUTROPHILS % (AUTO) 54 % (42-75); PLATELET COUNT 136 10^3/uL (130-400); RED BLOOD COUNT 4.25 10^6/uL (4.35-5.85); RED CELL DISTRIBUTION WIDTH 14.4 % (10.0-14.5); WHITE BLOOD COUNT 5.6 10^3/uL (4.3-11.0)
[2018-10-13 20:06] LABS: ALBUMIN 3.7 GM/DL (3.2-4.5); BILIRUBIN,TOTAL 0.8 MG/DL (0.1-1.0); CALCIUM 8.7 MG/DL (8.5-10.1); CREATININE SERUM 1.2 MG/DL (0.60-1.30); POTASSIUM 4.1 MMOL/L (3.6-5.0)
--- NOTE | 2018-10-13 20:16 | Diagnostic Imaging Report ---
PROCEDURE: CT lumbar spine without contrast. TECHNIQUE: Multiple contiguous axial images were obtained through the lumbar spine without the use of intravenous contrast. Sagittal and coronal reformations were then performed. INDICATION: Low back pain COMPARISON: None FINDINGS: Moderate left convexity lumbar scoliosis is present. Advanced degenerative changes seen throughout the disc spaces and facet joints. There is no traumatic malalignment or fracture. No osseous lesion is seen. There is no paraspinous mass. Chronic right renal atrophy is identified. IMPRESSION: Advanced degenerative changes throughout the lumbar spine. No traumatic malalignment, fracture or osseous lesion. Dictated by: Dictated on workstation # [id number]
[2018-10-13] MEDS ORDERED: RX-HYDROCODONE/APAP 5/325 MG #4 TAB PK PO PRN (20:30)
[2018-10-13 20:38] LABS: BILIRUBIN,URINE NEGATIVE (NEGATIVE); CLARITY,URINE VERY CLOUDY; COLOR,URINE YELLOW; GLUCOSE, URINE (UA) NEGATIVE (NEGATIVE); KETONES,URINE NEGATIVE (NEGATIVE); LEUKOCYTE ESTERASE ,URINE 3+ (NEGATIVE); NITRITE,URINE POSITIVE (NEGATIVE); PH,URINE 6.5 (5-9); PROTEIN,URINE NEGATIVE (NEGATIVE); UROBILINOGEN,URINE NORMAL (NORMAL)
[2018-10-13 20:49] LABS: BACTERIA,URINE MODERATE /HPF; WBC,URINE 50-100 /HPF
[2018-10-13] MEDS ORDERED: cefTRIAXone FOR IV USE 1,000 MG in NS (IVPB) 50 ML IV ONE (21:00)
[2018-10-13] MEDS ORDERED: CEFD300C3 PO (21:01)
[2018-10-13] MEDS ORDERED: fentaNYL INJECTION 100 MCG/2 ML AMP IVP ONE (21:15)
[2018-10-13 21:18] VITALS: BP 138/86
== END 2018-10-13 21:23 | disposition home or self-care (01) ==
LOC: EDUNIT# 19:22 → ER 19:24
DX: M54.16 Radiculopathy, lumbar region (principal); N39.0 Urinary tract infection, site not specified; G25.81 Restless legs syndrome; Z98.1 Arthrodesis status; Z87.891 Personal history of nicotine dependence; Z82.49 Family history of ischemic heart disease and other diseases of the circulatory system; Z96.652 Presence of left artificial knee joint; Z96.641 Presence of right artificial hip joint; Z90.49 Acquired absence of other specified parts of digestive tract; Z87.448 Personal history of other diseases of urinary system
CPT/HCPCS: 36415; 72131; 80053; 81000; 85025; 87077; 87088; 96374; 96375

== ENCOUNTER 2019-05-21 03:42 | Observation (INO) | payer MEDICARE ==
[2019-05-21] VITALS (10 sets, daily range): BP systolic 114–158; BP diastolic 68–87
[~2019-05-21] VITALS: Ht 182.9 cm; Wt 102.5 kg
[~2019-05-21 03:42] MED LIST changes: +CEFD300C3 PO; +CELE-63; +FURO20TA4
[2019-05-21] MEDS ORDERED: ASPIRIN 81 MG CHEW (CHILDREN'S ASA) ONE (03:44)
[2019-05-21] MEDS ORDERED: NITROGLYCERIN 0.4 MG SL TABS BTL 25'S SL ONE (03:45)
--- OUTSIDE RECORDS SUMMARY | 2019-05-21 03:47 | XMS REPORT | Clinical Summary ---
Author Author [facility] Organization [facility] Address Unknown Phone Unavailable Care Team Providers Care Mandrel Press Hand Name Role Phone No Pcp, Na PCP Unavailable Source Comments Some departments are not documenting in the electronic medical record. If you d o not see the information that you expected, contact Release of Information in [facility] [employer] Information Management department at [phone] for further assistan ce in locating additional records.[facility] Allergies No Known Allergies Medications End Date Status Medication Sig Dispensed Refills Start Date Active gabapentin (NEURONTIN) Take 300 mg 0 300 mg capsule by mouth every 8 hours. Active celecoxib (CELEBREX) 200 Take 200 mg 0 mg capsule by mouth daily. Active other medication 1 Dose. 0 Medication Name & Strength: tytrin Dose(how many): 1mg Frequency(how often): [...] - RUG - RTC after Social History Date Tobacco Use Types Packs/Day Years Used Former Smoker Cigarettes Smokeless Tobacco: Never Used Drinks/Week oz/Week Comments Alcohol Use No Sex Assigned at Date Recorded Not on file Industry Job Start Date Occupation Not on file Not on file Not on file Travel End Travel History Travel Start No recent travel history available. Last Filed Vital Signs Reading Time Taken Comments Vital Sign 157/84 02/23/2017 11:10 AM CDT Blood Pressure 74 02/23/2017 11:10 AM CDT Pulse - - Temperature - - Respiratory Rate - - Oxygen Saturation - - Inhaled Oxygen Concentration 115.2 kg (254 lb) 02/23/2017 11:10 AM CDT Weight 182.9 cm (6') 02/23/2017 11:10 AM CDT Height 34.45 02/23/2017 11:10 AM CDT Body Mass Index Plan of Treatment Health Maintenance Due Date Last Done Comments PHYSICAL (COMPREHENSIVE) 1947 EXAM DTAP/TDAP VACCINES (1 - 1960 Tdap) SHINGLES RECOMBINANT 1992 VACCINE (1 of 2) PNEUMONIA (PCV13/PPSV23) 2007 VACCINES (1 of 2 - PCV13) INFLUENZA VACCINE 08/16/2019 Results Not on filefrom Last 3 Months Insurance Type Payer Benefit Subscriber ID Effective Phone Address Plan / Dates Group Medicare MEDICARE MEDICARE xxxxxxxxxx [id number] PART A AND resent B Advance Directives Patient Portfolio Management Marketing Explanation Type Date Recorded Advance 01/20/2017 12:04 PM Directive/DPOA
--- OUTSIDE RECORDS SUMMARY | 2019-05-21 03:47 | XMS REPORT ---
Author Author Migration, Doctor Organization 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 4299164 Problem Pedal edema R60.0 Active 235481736 Problem Cervicalgia M54.2 Active 24314194 Problem Bilateral carpal tunnel syndrome G56.03 Active 30713907 Problem Cervical disc disease M50.90 Active 682391569 Problem Cervical stenosis of spinal canal M48.02 Active 21502571 ALLERGIES No Information ENCOUNTERS Encounter Location Date Diagnosis [address] [id number], [place] [id number] Feb, Dystrophic nail L60.3 [id number] [place] [id number] Feb, 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 [place] [address] [id number] Nov, Osteoarthritis of both knees, unspecified osteoarthritis type M17.[address] [place] [id number] [id number] Sep, Osteoarthritis of both knees, unspecified osteoarthritis type M17.0 ; Encounter for immunization Z23 ; Benign prostatic hyperplasia with lower urinary tract symptoms, unspecified morphology N40.1 and Pedal edema R60.0 [facility] [address] 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 and Pedal edema R60.0 [facility] [id number], [place] [id number] Jan, Cervical stenosis of spinal canal M48.02 [place] [address] [facility] [id number][place] [id number] Dec, [place] [id number] [place] [id number] Dec, Cervical stenosis of spinal canal M48.02 and Impaired mobility and ADLs Z74.09 [place] [id number] [place] [address] [id number] Nov, [place] [address] [place] [id number] [place] [address] [id number] Nov, Osteoarthritis of both knees, unspecified osteoarthritis type M17.0 ; 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 ; 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 and Benign prostatic hyperplasia with lower urinary tract symptoms, unspecified morphology N40.1 [address] [id number] Sep, Cervical stenosis of spinal canal M48.02 ; Benign prostatic hyperplasia with lower urinary tract symptoms, unspecified morphology N40.1 ; Osteoarthritis of both knees, unspecified osteoarthritis type M17.0 ; 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 ; Acute cystitis with hematuria N30.01 and Encounter for immunization Z23 [facility] [id number] [place] [address] [id number] Apr, Osteoarthritis of both knees, unspecified osteoarthritis type M17.0 ; Cervical stenosis of spinal canal M48.02 and Benign prostatic hyperplasia with lower urinary tract symptoms, unspecified morphology N40.1 [facility] [address] [facility] [id number], [place] [id number] March, Osteoarthritis of both knees, unspecified osteoarthritis type M17.0 and Cervical disc disease M50.90 [facility] [id number], [place] [id number] Feb, Osteoarthritis of both knees, unspecified osteoarthritis type M17.0 ; Benign prostatic hyperplasia with lower urinary tract symptoms, unspecified morphology N40.1 ; Bilateral carpal tunnel syndrome G56.03 and Cervicalgia M54.2 [facility] [id number] [place] [address] [id number] Sep, Osteoarthritis of both knees, unspecified osteoarthritis type M17.0 ; Screening for heart disease Z13.6 and Benign prostatic hyperplasia with lower urinary tract symptoms, unspecified morphology N40.1 [facility] [id number] [place] [address] [id number] Sep, [facility] [address] [place] [id number] [place] [address] [id number] Aug, Osteoarthritis of both knees, unspecified osteoarthritis type M17.0 and 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 [facility] [address] [id number] [place] [address] [id number] May, Benign prostatic hyperplasia with lower urinary tract symptoms, unspecified morphology N40.1 ; Osteoarthritis of both knees, unspecified osteoarthritis type M17.0 and 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 [facility] [id number] [place] [address] [id number] March, Acute nasopharyngitis J00 [facility] [id number] [place] [address] [id number] Feb, Osteoarthritis of both knees, unspecified osteoarthritis type M17.0 ; 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 and Benign prostatic hyperplasia with lower urinary tract symptoms, unspecified morphology N40.1 [facility] [id number] [place] [address] [id number] Nov, Hematuria R31.9 [facility] [id number] [place] [address] Oct, [facility] [id number] [place] [address] [id number] Oct, Hematuria, unspecified 599.70 and Unspecified inflammatory polyarthropathy 714.9 [address] [place] [address] [id number] Sep, Screening for lipoid disorders Z13.220 ; Hematuria R31.9 ; 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 and Encounter for immunization Z23 [place] [id number] [place] [address] [id number] Aug, Effusion, unspecified ankle M25.473 ; Dysuria R30.0 and Flu vaccine need Z23 [address] [id number] Jul, Hematuria, unspecified 599.70 ; Osteoarthritis (arthritis due to wear and tear of joints) 715.90 and BPH (benign prostatic hyperplasia) 600.00 [place] [id number] [place] [address] [id number] Jun, Osteoarthritis (arthritis due to wear and tear of joints) 715.90 ; BPH (benign prostatic hyperplasia) 600.00 and UTI (urinary tract infection) 599.0 [place] [id number] [place] [address] [id number] May, Sinusitis 473.9 [place] [id number] [place] [address] [id number] March, Ingrowing left great toenail 703.0 [place] [id number] [place] [address] [id number] March, Unspecified inflammatory polyarthropathy 714.9 ; Ankle swelling 719.07 and Ingrowing left great toenail 703.0 [place] [id number] [place] [address] [id number] March, [facility] [address] [place] [id number] [place] [phone] Feb, [facility] [address] [address] Feb, [place] [id number] [place] [address] [id number] Aug, [facility] [address] [address] Aug, [facility] [place] [facility] [address] [facility] [id number] [place] [address] Aug, [facility] [address] [id number] [place] [id number] Aug, [facility] [place] [facility] [address] [facility] [id number] [place] [address] Aug, [facility] [place] [facility] [address] [facility] [id number] [place] [address] Jul, [facility] [address] [id number] [place] [id number] Jul, [facility] [address] [id number] [place] [id number] Apr, [facility] [place] [facility] [address] [place] [id number] [address] Apr, [facility] [place] [facility] [address]00565100[place] [address] March, [facility] [address] [facility] [id number], [place] [id number] March, [facility] [place] [facility] [address]00565100[place] [address] Dec, [facility] [address] [facility] [id number] [place] [id number] Dec, [facility] [address] [place] [id number][place] [id number] Oct, [facility] [place] [facility] [address] [facility] [id number], [place] [address] Oct, [facility] [place] [facility] [address] [facility] [id number] [address] Oct, [facility] [address] [facility] [id number], [place] [id number] Sep, [facility] [place] [facility] [address] [place] [id number] [address] Sep, [facility] [place] [facility] [address] [facility] [id number], [place] [address] Aug, [facility] [address] [facility] [id number], [place] [address] Aug, [facility] [address] [id number], [place] [id number] Aug, [facility] [address] [facility] [id number], [place] [address] Aug, [facility] [address] [id number], [place] [id number] May, [facility] [address] [facility] [id number], [place] [address] Apr, [facility] [address] [id number], [place] [id number] Apr, [facility] [place] [facility] [address]00565100[place] [address] Apr, [facility] [address] [id number][place] [id number] Apr, [facility] [address] [id number] [place] [id number] Apr, [facility] [address] [id number] [place] [id number] Jan, [facility] [address] [id number], [place] [id number] Dec, [facility] [address] [id number], [place] [id number] Dec, [facility] [place] [facility] [address]00565100[place] [address] Dec, [facility] [address] [facility] [id number], [place] [address] 14 Dec, 2012 [facility] [address] [id number], [place] [id number] Dec, [facility] [address] [id number], [place] [id number] Nov, [facility] [address] [id number] [place] [id number] Nov, [facility] [address] [id number] [place] [id number] Nov, [facility] [address] [facility] [id number] [place] [address] Oct, [facility] [address] [id number] [place] [id number] Oct, [facility] [address] [id number] [place] [id number] Sep, [facility] [address] [facility] [id number], [place] [address] Sep, [facility] [address] [id number] [place] [id number] Apr, [facility] [address]00565100[place], [place] [address] Feb, [facility] [address] [id number] [place] [id number] Feb, [facility] [address] [id number] [place] [id number] Feb, [facility] [address] [id number] [place] [id number] Dec, [facility] [address] [id number] [place] [id number] Dec, [facility] [address] [facility] [id number], [place] [address] Dec, [facility] [address] [id number] [place] [id number] Dec, [facility] [place] [facility] [address] [facility] [id number], [place] [address] Nov, [facility] [address] [facility] [id number] [place] [id number] Nov, [facility] [place] [facility] [address]65100[place], [place] [address] Oct, [facility] [address]00565100[place], [place] [address] Oct, [facility] [address] [facility] [id number] [place] [address] Sep, IMMUNIZATIONS No Known Immunizations SOCIAL HISTORY Never Assessed REASON FOR VISIT EMR-[facility] PLAN OF CARE VITAL SIGNS MEDICATIONS No Known Medications RESULTS No Results PROCEDURES No Known procedures INSTRUCTIONS MEDICATIONS ADMINISTERED No Known Medications MEDICAL (GENERAL) HISTORY Type Description Date Medical History Arthritis Medical History hypertension Medical History BPH (benign prostatic hyperplasia) Medical History Osteoarthritis of both knees, unspecified osteoarthritis type Medical History Bilateral carpal tunnel syndrome Medical History Cervical disc disease Surgical History tonsillectomy and adenoidectomy childhood Surgical History right hip replacement 2005 Surgical History left knee replacement by Dr. Crespo 12/25/[address] Ortega [id number] Cervical decompression 12/2017 Hospitalization History surgeries Hospitalization History [facility]- Severe Cervical Spinal Stenosis and Abd Pain. Discharged 11/27/17 11/26/17
--- OUTSIDE RECORDS SUMMARY | 2019-05-21 03:47 | XMS REPORT ---
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 9636984 Problem Pedal edema R60.0 Active 002788559 Problem Cervicalgia M54.2 Active 51762016 Problem Bilateral carpal tunnel syndrome G56.03 Active 06569470 Problem Cervical disc disease M50.90 Active 904151736 Problem Cervical stenosis of spinal canal M48.02 Active [id number] ALLERGIES No Information ENCOUNTERS Encounter Location Date Diagnosis [address] [id number] [id number] Feb, Dystrophic nail L60.3 [id number] [place] [id number] Feb, 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 [place] [address] [id number] Nov, Osteoarthritis of both knees, unspecified osteoarthritis type M17.[address] [id number] [id number] Sep, Osteoarthritis of both knees, unspecified osteoarthritis type M17.0 ; Encounter for immunization Z23 ; Benign prostatic hyperplasia with lower urinary tract symptoms, unspecified morphology N40.1 and Pedal edema R60.0 [facility] [address] [facility] [id number] [place] [address] [id number] May, Osteoarthritis of both knees, unspecified osteoarthritis type M17.0 ; Benign prostatic hyperplasia with lower urinary tract symptoms, unspecified morphology N40.1 ; 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 and Pedal edema R60.0 [facility] [address] [facility] [id number] [place] [id number] March, Osteoarthritis of both knees, unspecified osteoarthritis type M17.0 ; Benign prostatic hyperplasia with lower urinary tract symptoms, unspecified morphology N40.1 ; 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 and Pedal edema R60.0 [facility] [id number] [place] [id number] Jan, Cervical stenosis of spinal canal M48.02 [place] [address] [facility] [id number] [id number] Dec, [place] [id number] [place] [address] [id number] Dec, Cervical stenosis of spinal canal M48.02 and Impaired mobility and ADLs Z74.09 [place] [id number] [place] [address] [id number] Nov, [place] [address] [place] [id number] [place] [address] [id number] Nov, Osteoarthritis of both knees, unspecified osteoarthritis type M17.0 ; 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 ; 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 and Benign prostatic hyperplasia with lower urinary tract symptoms, unspecified morphology N40.1 [address]65100[place] [id number] Sep, Cervical stenosis of spinal canal M48.02 ; Benign prostatic hyperplasia with lower urinary tract symptoms, unspecified morphology N40.1 ; Osteoarthritis of both knees, unspecified osteoarthritis type M17.0 ; 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 ; Acute cystitis with hematuria N30.01 and Encounter for immunization Z23 [facility] [id number] [place] [address] [id number] Apr, Osteoarthritis of both knees, unspecified osteoarthritis type M17.0 ; Cervical stenosis of spinal canal M48.02 and Benign prostatic hyperplasia with lower urinary tract symptoms, unspecified morphology N40.1 [facility] [address] [facility] [id number] [place] [id number] March, Osteoarthritis of both knees, unspecified osteoarthritis type M17.0 and Cervical disc disease M50.90 [facility] [id number] [place] [id number] Feb, Osteoarthritis of both knees, unspecified osteoarthritis type M17.0 ; Benign prostatic hyperplasia with lower urinary tract symptoms, unspecified morphology N40.1 ; Bilateral carpal tunnel syndrome G56.03 and Cervicalgia M54.2 [facility] [id number] [place] [address] [id number] Sep, Osteoarthritis of both knees, unspecified osteoarthritis type M17.0 ; Screening for heart disease Z13.6 and Benign prostatic hyperplasia with lower urinary tract symptoms, unspecified morphology N40.1 [facility] [id number] [place] [address] [id number] Sep, [facility] [address] [place] [id number] [place] [address] [id number] Aug, Osteoarthritis of both knees, unspecified osteoarthritis type M17.0 and 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 [facility] [address] [place] [id number] [place] [address] [id number] May, Benign prostatic hyperplasia with lower urinary tract symptoms, unspecified morphology N40.1 ; Osteoarthritis of both knees, unspecified osteoarthritis type M17.0 and 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 [facility] [id number] [place] [address] [id number] March, Acute nasopharyngitis J00 [facility] [id number] [place] [address] [id number] Feb, Osteoarthritis of both knees, unspecified osteoarthritis type M17.0 ; 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 and Benign prostatic hyperplasia with lower urinary tract symptoms, unspecified morphology N40.1 [facility] [id number] [place] [address] [id number] Nov, Hematuria R31.9 [facility] [address] [place] [address] Oct, [facility] [id number] [place] [address] [id number] Oct, Hematuria, unspecified 599.70 and Unspecified inflammatory polyarthropathy 714.[address] [place] [address] [id number] Sep, Screening for lipoid disorders Z13.220 ; Hematuria R31.9 ; 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 and Encounter for immunization Z23 [place] [id number] [place] [address] [id number] Aug, Effusion, unspecified ankle M25.473 ; Dysuria R30.0 and Flu vaccine need Z23 [address] [id number] Jul, Hematuria, unspecified 599.70 ; Osteoarthritis (arthritis due to wear and tear of joints) 715.90 and BPH (benign prostatic hyperplasia) 600.00 [place] [id number] [place] [address] [id number] Jun, Osteoarthritis (arthritis due to wear and tear of joints) 715.90 ; BPH (benign prostatic hyperplasia) 600.00 and UTI (urinary tract infection) 599.0 [place] [id number] [place] [address] [id number] May, Sinusitis 473.9 [place] [id number] [place] [address] [id number] March, Ingrowing left great toenail 703.0 [place] [id number] [place] [address] [id number] March, Unspecified inflammatory polyarthropathy 714.9 ; Ankle swelling 719.07 and Ingrowing left great toenail 703.0 [place] [id number] [place] [address] [id number] March, [facility] [address] [place] [id number] [place] [address] Feb, [facility] [address] [address] Feb, [place] [id number] [place] [address] [id number] Aug, [facility] [address] [address] Aug, [facility] [place] [facility] [address] [facility] [id number] [place] [address] Aug, [facility] [address] [id number] [place] [id number] Aug, [facility] [place] [facility] [address] [facility] [id number] [place] [address] Aug, [facility] [place] [facility] [address] [facility] [id number] [place] [address] Jul, [facility] [address] [id number] [place] [id number] Jul, [facility] [address] [id number] [place] [id number] Apr, [facility] [place] [facility] [address] [place] [id number] [place] [address] Apr, [facility] [place] [facility] [address]00565100[place] [address] March, [facility] [address] [facility] [id number] [place] [id number] March, [facility] [place] [facility] [address]00565100[place] [address] Dec, [facility] [address] [facility] [id number] [place] [id number] Dec, [facility] [address] [place] [id number] [place] [id number] Oct, [facility] [place] [facility] [address] [facility] [id number] [address] Oct, [facility] [place] [facility] [address] [facility] [id number] [address] Oct, [facility] [address] [facility] [id number] [place] [id number] Sep, [facility] [place] [facility] [address] [place] [address] [id number] [place] [address] Sep, [facility] [place] [facility] [address] [facility] [facility] [id number] [address] Aug, [facility] [place] [address] [facility] [id number][place] [address] Aug, [facility] [address] [id number] [place] [id number] Aug, [facility] [address] [facility] [id number][place] [address] Aug, [facility] [address] [id number] [place] [id number] May, [facility] [address] [facility] [id number][place] [address] Apr, [facility] [address] [id number] [place] [id number] Apr, [facility] [place] [facility] [address]65100[place] [address] Apr, [facility] [address] [id number] [place] [id number] Apr, [facility] [address] [id number] [place] [id number] Apr, [facility] [address] [id number] [place] [id number] Jan, [facility] [address] [id number] [place] [id number] Dec, [facility] [address] [id number] [place] [id number] Dec, [facility] [place] [facility] [address]00565100[place] [address] Dec, [facility] [address] [facility] [id number] [address] 14 Dec, 2012 [facility] [address] [id number] [place] [id number] Dec, [facility] [address] [id number] [place] [id number] Nov, [facility] [address] [id number] [place] [id number] Nov, [facility] [address] [id number] [place] [id number] Nov, [facility] [address] [facility] [id number] [place] [address] Oct, [facility] [address] [id number] [place] [id number] Oct, [facility] [address] [id number] [place] [id number] Sep, [facility] [address] [facility] [id number][place] [address] Sep, [facility] [address] [id number] [place] [id number] Apr, [facility] [address]00565100[place] [address] Feb, [facility] [address] [id number] [place] [id number] Feb, [facility] [address] [id number] [place] [id number] Feb, [facility] [address] [id number] [place] [id number] Dec, [facility] [address] [id number] [place] [id number] Dec, [facility] [address] [facility] [id number][place] [address] Dec, [facility] [address] [id number] [place] [id number] Dec, [facility] [place] [facility] [address] [facility] [id number][place] [address] Nov, [facility] [address] [facility] [id number] [place] [id number] Nov, [facility] [place] [facility] [address]00565100[place] [address] Oct, [facility] [address]00565100[place] [address] Oct, [facility] [address] [facility] [id number] [place] [address] Sep, IMMUNIZATIONS No Known Immunizations SOCIAL HISTORY Never Assessed REASON FOR VISIT EMR-[facility] PLAN OF CARE VITAL SIGNS MEDICATIONS No [...] Dr. Crespo 12/25/[address] Ortega [id number] Cervical decompression 12/2017 Hospitalization History surgeries Hospitalization History [facility]- Severe Cervical Spinal Stenosis and Abd Pain. Discharged 11/27/17 11/26/17
--- OUTSIDE RECORDS SUMMARY | 2019-05-21 03:48 | XMS REPORT ---
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 Active 670458493 Problem Osteoarthritis of both knees, unspecified osteoarthritis type M17.0 Active 034557402 Problem Benign prostatic hyperplasia with lower urinary tract symptoms, unspecified morphology N40.1 Active 835698390 Problem 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 8793239 Problem 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 766891596 Problem Pedal edema R60.0 Active 975417057 Problem Bilateral carpal tunnel syndrome G56.03 Active 49302317 Problem Cervicalgia M54.2 Active 66587526 Problem Cervical disc disease M50.90 Active 671245668 Problem Cervical stenosis of spinal canal M48.02 Active 63290855 ALLERGIES No Information ENCOUNTERS Encounter Location Date Diagnosis [id number] [place] [address] [id number] Feb, [id number] [place] [address] [id number] Nov, Osteoarthritis of both knees, unspecified osteoarthritis type M17.[address] [id number] [place] [id number] Sep, Osteoarthritis of both knees, unspecified osteoarthritis type M17.0 ; Encounter for immunization Z23 ; Benign prostatic hyperplasia with lower urinary tract symptoms, unspecified morphology N40.1 and Pedal edema R60.[id number] [place] [address] [id number] May, Osteoarthritis of both knees, unspecified osteoarthritis type M17.0 ; Benign prostatic hyperplasia with lower urinary tract symptoms, unspecified morphology N40.1 ; 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 and Pedal edema R60.0 [address] [place] [address] [id number] March, Osteoarthritis of both knees, unspecified osteoarthritis type M17.0 ; Benign prostatic hyperplasia with lower urinary tract symptoms, unspecified morphology N40.1 ; 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 and Pedal edema R60.0 [address] [id number] Jan, Cervical stenosis of spinal canal M48.[address] [id number] [place] [id number] Dec, [address] [place] [address] [id number] Dec, Cervical stenosis of spinal canal M48.02 and Impaired mobility and ADLs Z74.09 [address] [place] [address] [id number] Nov, [address] [place] [address] [id number] Nov, Osteoarthritis of both knees, unspecified osteoarthritis type M17.0 ; 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 ; 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 and Benign prostatic hyperplasia with lower urinary tract symptoms, unspecified morphology N40.1 [address] [place] [address] [id number] Sep, Cervical stenosis of spinal canal M48.02 ; Benign prostatic hyperplasia with lower urinary tract symptoms, unspecified morphology N40.1 ; Osteoarthritis of both knees, unspecified osteoarthritis type M17.0 ; 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 ; Acute cystitis with hematuria N30.01 and Encounter for immunization Z23 [address] [place] [address] [id number] Apr, Osteoarthritis of both knees, unspecified osteoarthritis type M17.0 ; Cervical stenosis of spinal canal M48.02 and Benign prostatic hyperplasia with lower urinary tract symptoms, unspecified morphology N40.1 [address] [place] [address] [id number] March, Osteoarthritis of both knees, unspecified osteoarthritis type M17.0 and Cervical disc disease M50.90 [address] [place] [address] [id number] Feb, Osteoarthritis of both knees, unspecified osteoarthritis type M17.0 ; Benign prostatic hyperplasia with lower urinary tract symptoms, unspecified morphology N40.1 ; Bilateral carpal tunnel syndrome G56.03 and Cervicalgia M54.2 [facility] [id number] [place] [address] [id number] Sep, Osteoarthritis of both knees, unspecified osteoarthritis type M17.0 ; Screening for heart disease Z13.6 and Benign prostatic hyperplasia with lower urinary tract symptoms, unspecified morphology N40.1 [facility] [id number] [place] [address] [id number] Sep, [place] [id number] [place] [address] [id number] Aug, Osteoarthritis of both knees, unspecified osteoarthritis type M17.0 and 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 [place] [id number] [place] [address] [id number] May, Benign prostatic hyperplasia with lower urinary tract symptoms, unspecified morphology N40.1 ; Osteoarthritis of both knees, unspecified osteoarthritis type M17.0 and 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 [address] [place] [address] [id number] March, Acute nasopharyngitis J00 [address] [place] [address] [id number] Feb, Osteoarthritis of both knees, unspecified osteoarthritis type M17.0 ; 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 and Benign prostatic hyperplasia with lower urinary tract symptoms, unspecified morphology N40.1 [facility] [id number] [place] [address] [id number] Nov, Hematuria R31.9 [facility] [address] [address] Oct, [place] [id number] [place] [address] [id number] Oct, Hematuria, unspecified 599.70 and Unspecified inflammatory polyarthropathy 714.9 [place] [id number] [place] [address] [id number] Sep, Screening for lipoid disorders Z13.220 ; Hematuria R31.9 ; 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 and Encounter for immunization Z23 [place] [id number] [place] [address] [id number] Aug, Effusion, unspecified ankle M25.473 ; Dysuria R30.0 and Flu vaccine need Z23 [place] [id number] [place] [address] [id number] Jul, Hematuria, unspecified 599.70 ; Osteoarthritis (arthritis due to wear and tear of joints) 715.90 and BPH (benign prostatic hyperplasia) 600.[address] [id number] Jun, Osteoarthritis (arthritis due to wear and tear of joints) 715.90 ; BPH (benign prostatic hyperplasia) 600.00 and UTI (urinary tract infection) 599.0 [place] [id number] [place] [address] [id number] May, Sinusitis 473.9 [place] [id number] [place] [address] [id number] March, Ingrowing left great toenail 703.[address] [id number] March, Unspecified inflammatory polyarthropathy 714.9 ; Ankle swelling 719.07 and Ingrowing left great toenail 703.0 [place] [id number] [place] [address] [id number] March, [facility] [address] [address] Feb, [facility] [address] [address] Feb, [address] [id number] Aug, [facility] [address] [address] Aug, [facility] [address] [address] Aug, [facility] [address] [facility] [id number] [place] [id number] Aug, [facility] [place] [facility] [address] [facility] [id number] [place] [address] Aug, [facility] [place] [facility] [address] [facility] [id number] [place] [address] Jul, [facility] [address] [id number] [place] [id number] Jul, [facility] [address] [id number] [place] [id number] Apr, [facility] [place] [facility] [address] [facility] [id number] [place] [address] Apr, [facility] [place] [facility] [id number] [place] [address] March, [facility] [address] [facility] [id number] [place] [id number] March, [facility] [place] [facility] [address] [facility] [id number], [place] [address] Dec, [facility] [address] [facility] [id number] [place] [id number] Dec, [facility] [address] [facility] [id number] [place] [id number] Oct, [facility] [place] [facility] [address] [address] Oct, [facility] [place] [facility] [address] [facility] [id number][place] [address] Oct, [facility] [address] [facility] [id number][place] [id number] Sep, [facility] [place] [facility] [address] [facility] [id number][place] [address] Sep, [facility] [place] [facility] [id number] [address] Aug, [facility] [place] [facility] [address] [facility] [id number], [place] [address] Aug, [facility] [address] [facility] [id number] [place] [id number] Aug, [facility] [address] [facility] [id number][place] [address] Aug, [facility] [address] [facility] [id number][place] [id number] May, [facility] [address] [facility] [id number], [place] [address] Apr, [facility] [address] [id number] [place] [id number] Apr, [facility] [address] [address] Apr, [facility] [address] [id number] [place] [id number] Apr, [facility] [address] [id number][place] [id number] Apr, [facility] [address] [id number] [place] [id number] Jan, [facility] [address] [id number] [place] [id number] Dec, [facility] [address] [id number], [place] [id number] Dec, [facility] [address] [address] 15 Dec, 2012 [facility] [address] [facility] [id number], [place] [address] 14 Dec, 2012 [facility] [address] [id number] [place] [id number] Dec, [facility] [address] [id number][place] [id number] Nov, [facility] [address] [id number][place] [id number] Nov, [facility] [address] [id number][place] [id number] Nov, [facility] [address] [facility] [id number], [place] [address] Oct, [facility] [address] [id number] [place] [id number] Oct, [facility] [address] [facility] [id number] [place] [id number] Sep, [facility] [place] [facility] [address], [place] [address] Sep, [facility] [address] [id number] [place] [id number] Apr, [facility] [place] [facility] [address] [address] Feb, [facility] [address] [id number][place] [id number] Feb, [facility] [address] [id number] [place] [id number] Feb, [facility] [address] [id number], [place] [id number] Dec, [facility] [address] [id number] [place] [id number] Dec, [facility] [address], [place] [address] Dec, [facility] [address] [id number][place] [id number] Dec, [facility] [place] [facility] [address] [address] Nov, [facility] [address] [facility] [id number], [place] [id number] Nov, [facility] [address], [place] [address] Oct, [facility] [place] [facility] [address], [place] [address] Oct, [facility] [place] [facility] [address], [place] [address] Sep, IMMUNIZATIONS No Known Immunizations SOCIAL HISTORY Never Assessed REASON FOR VISIT [place] [place] VITAL SIGNS MEDICATIONS Unknown Medications RESULTS No Results PROCEDURES No Known [...] Dr. Crespo 12/25/[address] Ortega [id number] Cervical decompression 12/2017 Hospitalization History surgeries Hospitalization History [facility]- Severe Cervical Spinal Stenosis and Abd Pain. Discharged 11/27/17 11/26/17
--- OUTSIDE RECORDS SUMMARY | 2019-05-21 03:48 | XMS REPORT ---
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 Active 254602641 Problem Benign prostatic hyperplasia with lower urinary tract symptoms, unspecified morphology N40.1 Active 271465241 Problem Osteoarthritis of both knees, unspecified osteoarthritis type M17.0 Active 967184685 Problem 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 5494598 Problem Pedal edema R60.0 Active 161422307 Problem Cervicalgia M54.2 Active 81966880 Problem Bilateral carpal tunnel syndrome G56.03 Active 52911316 Problem Cervical disc disease M50.90 Active 096593382 Problem Cervical stenosis of spinal canal M48.02 Active 48707972 ALLERGIES No Information ENCOUNTERS Encounter Location Date Diagnosis [address] [id number][place] [id number] Feb, Dystrophic nail L60.[id number] [place] [address] [id number] Feb, 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 [place] [address] [id number] Nov, Osteoarthritis of both knees, unspecified osteoarthritis type M17.[address] [id number] [id number] Sep, Osteoarthritis of both knees, unspecified osteoarthritis type M17.0 ; Encounter for immunization Z23 ; Benign prostatic hyperplasia with lower urinary tract symptoms, unspecified morphology N40.1 and Pedal edema R60.0 [facility] [address] 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 and Benign prostatic hyperplasia with lower urinary tract symptoms, unspecified morphology N40.1 [address] [id number] Sep, Cervical stenosis of spinal canal M48.02 ; Benign prostatic hyperplasia with lower urinary tract symptoms, unspecified morphology N40.1 ; Osteoarthritis of both knees, unspecified osteoarthritis type M17.0 ; 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 ; Acute cystitis with hematuria N30.01 and Encounter for immunization Z23 [facility] [id number] [place] [address] [id number] Apr, Osteoarthritis of both knees, unspecified osteoarthritis type M17.0 ; Cervical stenosis of spinal canal M48.02 and Benign prostatic hyperplasia with lower urinary tract symptoms, unspecified morphology N40.1 [facility] [address] [facility] [id number][place] [id number] March, Osteoarthritis of both knees, unspecified osteoarthritis type M17.0 and Cervical disc disease M50.90 [facility] [id number][place] [id number] Feb, Osteoarthritis of both knees, unspecified osteoarthritis type M17.0 ; Benign prostatic hyperplasia with lower urinary tract symptoms, unspecified morphology N40.1 ; Bilateral carpal tunnel syndrome G56.03 and Cervicalgia M54.2 [facility] [id number] [place] [address] [id number] Sep, Osteoarthritis of both knees, unspecified osteoarthritis type M17.0 ; Screening for heart disease Z13.6 and Benign prostatic hyperplasia with lower urinary tract symptoms, unspecified morphology N40.1 [facility] [id number] [place] [address] [id number] Sep, [facility] [id number] [place] [address] [id number] Aug, Osteoarthritis of both knees, unspecified osteoarthritis type M17.0 and 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 [facility] [id number] [place] [address] [id number] May, Benign prostatic hyperplasia with lower urinary tract symptoms, unspecified morphology N40.1 ; Osteoarthritis of both knees, unspecified osteoarthritis type M17.0 and 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 [facility] [id number] [place] [address] [id number] March, Acute nasopharyngitis J00 [facility] [id number] [place] [address] [id number] Feb, Osteoarthritis of both knees, unspecified osteoarthritis type M17.0 ; 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 and Benign prostatic hyperplasia with lower urinary tract symptoms, unspecified morphology N40.1 [facility] [id number] [place] [address] [id number] Nov, Hematuria R31.9 [facility] [address] [place] [phone] Oct, [facility] [id number] [place] [address] [id number] Oct, Hematuria, unspecified 599.70 and Unspecified inflammatory polyarthropathy 714.[address] [place] [address] [id number] Sep, Screening for lipoid disorders Z13.220 ; Hematuria R31.9 ; 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 and Encounter for immunization Z23 [place] [id number] [place] [address] [id number] Aug, Effusion, unspecified ankle M25.473 ; Dysuria R30.0 and Flu vaccine need Z23 [address] [id number] Jul, Hematuria, unspecified 599.70 ; Osteoarthritis (arthritis due to wear and tear of joints) 715.90 and BPH (benign prostatic hyperplasia) 600.00 [place] [id number] [place] [address] [id number] Jun, Osteoarthritis (arthritis due to wear and tear of joints) 715.90 ; BPH (benign prostatic hyperplasia) 600.00 and UTI (urinary tract infection) 599.0 [place] [id number] [place] [address] [id number] May, Sinusitis 473.9 [place] [id number] [place] [address] [id number] March, Ingrowing left great toenail 703.0 [place] [id number] [place] [address] [id number] March, Unspecified inflammatory polyarthropathy 714.9 ; Ankle swelling 719.07 and Ingrowing left great toenail 703.0 [place] [id number] [place] [address] [id number] March, [facility] [id number] [place] [phone] Feb, [facility] [address] [address] Feb, [place] [id number] [place] [address] [id number] Aug, [facility] [address] [address] Aug, [facility] [place] [facility] [address] [facility] [id number] [place] [address] Aug, [facility] [address] [id number] [place] [id number] Aug, [facility] [place] [facility] [address] [facility] [id number] [place] [address] Aug, [facility] [place] [facility] [address] [facility] [id number] [place] [address] Jul, [facility] [address] [id number] [place] [id number] Jul, [facility] [address] [id number] [place] [id number] Apr, [facility] [place] [facility] [address] [place] [id number] [place] [address] Apr, [facility] [place] [facility] [address] [address] March, [facility] [address] [facility] [id number][place] [id number] March, [facility] [place] [facility] [address] [address] Dec, [facility] [address] [facility] [id number] [place] [id number] Dec, [facility] [address] [address] [id number] [id number] Oct, [facility] [place] [facility] [address] [facility] [id number], [place] [address] Oct, [facility] [place] [facility] [address] [facility] [id number], [place] [address] Oct, [facility] [address] [facility] [id number][place] [id number] Sep, [facility] [place] [facility] [address] [id number] [place] [address] Sep, [facility] [place] [facility] [address] [facility] [id number], [place] [address] Aug, [facility] [address] [facility] [id number], [place] [address] Aug, [facility] [address] [id number][place] [id number] Aug, [facility] [address] [facility] [id number], [place] [address] Aug, [facility] [address] [id number], [place] [id number] May, [facility] [address] [facility] [id number], [place] [address] Apr, [facility] [address] [id number], [place] [id number] Apr, [facility] [place] [facility] [address], [place] [address] Apr, [facility] [address] [id number], [place] [id number] Apr, [facility] [address] [id number] [place] [id number] Apr, [facility] [address] [id number] [place] [id number] Jan, [facility] [address] [id number][place] [id number] Dec, [facility] [address] [id number], [place] [id number] Dec, [facility] [place] [facility] [address], [place] [address] Dec, [facility] [address] [facility] [id number], [place] [address] 14 Dec, 2012 [facility] [address] [id number][place] [id number] Dec, [facility] [address] [id number], [place] [id number] Nov, [facility] [address] [id number] [place] [id number] Nov, [facility] [address] [id number] [place] [address] Nov, [facility] [address] [facility] [id number] [place] [address] Oct, [facility] [address] [id number] [place] [id number] Oct, [facility] [address] [id number] [place] [id number] Sep, [facility] [address] [facility] [id number], [place] [address] Sep, [facility] [address] [id number] [place] [id number] Apr, [facility] [address], [place] [address] Feb, [facility] [address] [id number] [place] [id number] Feb, [facility] [address] [id number] [place] [id number] Feb, [facility] [address] [id number] [place] [id number] Dec, [facility] [address] [id number] [place] [id number] Dec, [facility] [address] [facility] [id number], [place] [address] Dec, [facility] [address] [id number] [place] [id number] Dec, [facility] [place] [facility] [address] [facility] [id number], [place] [address] Nov, [facility] [address] [facility] [id number] [place] [id number] Nov, [facility] [place] [facility] [address]65[address], [place] [address] Oct, [facility] [address]65[address], [place] [address] Oct, [facility] [address] [facility] [id number] [place] [address] Sep, IMMUNIZATIONS No Known Immunizations SOCIAL HISTORY Never Assessed REASON FOR VISIT EMR-[facility] [place] PLAN OF CARE VITAL SIGNS MEDICATIONS No [...] Surgical History left knee replacement by Dr. Cerspo 12/25/[address] Ortega [id number] Cervical decompression 12/2017 Hospitalization History surgeries Hospitalization History [facility]- Severe Cervical Spinal Stenosis and Abd Pain. Discharged 11/27/17 11/26/17
--- OUTSIDE RECORDS SUMMARY | 2019-05-21 03:48 | XMS REPORT ---
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 8548434 Problem Pedal edema R60.0 Active 266814126 Problem Cervicalgia M54.2 Active 81591842 Problem Bilateral carpal tunnel syndrome G56.03 Active 36504545 Problem Cervical disc disease M50.90 Active 714830278 Problem Cervical stenosis of spinal canal M48.02 Active 18624355 ALLERGIES No Information ENCOUNTERS Encounter Location Date Diagnosis [id number] [place] [address] [id number] Feb, [place] [id number] [place] [address] [id number] Nov, Osteoarthritis of both knees, unspecified osteoarthritis type M17.0 [place] [id number] [facility] [address] [id number] [id number] Sep, Osteoarthritis of both knees, unspecified osteoarthritis type M17.0 ; Encounter for immunization Z23 ; Benign prostatic hyperplasia with lower urinary tract symptoms, unspecified morphology N40.1 and Pedal edema R60.[id number] [place] [address] [id number] May, Osteoarthritis of both knees, unspecified osteoarthritis type M17.0 ; Benign prostatic hyperplasia with lower urinary tract symptoms, unspecified morphology N40.1 ; 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 and Pedal edema R60.[id number] [place] [address] [id number] March, Osteoarthritis of both knees, unspecified osteoarthritis type M17.0 ; Benign prostatic hyperplasia with lower urinary tract symptoms, unspecified morphology N40.1 ; 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 and Pedal edema R60.0 [address] [place] [address] [id number] Jan, Cervical stenosis of spinal canal M48.[address] [id number] [id number] Dec, [place] [id number] [place] [address] [id number] Dec, Cervical stenosis of spinal canal M48.02 and Impaired mobility and ADLs Z74.09 [place] [id number] [place] [address] [id number] Nov, [place] [id number] [place] [address] [id number] Nov, Osteoarthritis of both knees, unspecified osteoarthritis type M17.0 ; 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 ; 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 and Benign prostatic hyperplasia with lower urinary tract symptoms, unspecified morphology N40.1 [address] [place] [address] [id number] Sep, Cervical stenosis of spinal canal M48.02 ; Benign prostatic hyperplasia with lower urinary tract symptoms, unspecified morphology N40.1 ; Osteoarthritis of both knees, unspecified osteoarthritis type M17.0 ; 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 ; Acute cystitis with hematuria N30.01 and Encounter for immunization Z23 [address] [place] [address] [id number] Apr, Osteoarthritis of both knees, unspecified osteoarthritis type M17.0 ; Cervical stenosis of spinal canal M48.02 and Benign prostatic hyperplasia with lower urinary tract symptoms, unspecified morphology N40.[address] [place] [address] [id number] March, Osteoarthritis of both knees, unspecified osteoarthritis type M17.0 and Cervical disc disease M50.90 [address] [place] [address] [id number] Feb, Osteoarthritis of both knees, unspecified osteoarthritis type M17.0 ; Benign prostatic hyperplasia with lower urinary tract symptoms, unspecified morphology N40.1 ; Bilateral carpal tunnel syndrome G56.03 and Cervicalgia M54.2 [facility] [id number] [place] [address] [id number] Sep, Osteoarthritis of both knees, unspecified osteoarthritis type M17.0 ; Screening for heart disease Z13.6 and Benign prostatic hyperplasia with lower urinary tract symptoms, unspecified morphology N40.1 [facility] [id number] [place] [address] [id number] Sep, [place] [id number] [place] [address] [id number] Aug, Osteoarthritis of both knees, unspecified osteoarthritis type M17.0 and 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 [place] [id number] [place] [address] [id number] May, Benign prostatic hyperplasia with lower urinary tract symptoms, unspecified morphology N40.1 ; Osteoarthritis of both knees, unspecified osteoarthritis type M17.0 and 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00 and UTI (urinary tract infection) 599.0 [place] [id number] [place] [address] [id number] May, Sinusitis 473.9 [place] [id number] [place] [address] [id number] March, Ingrowing left great toenail 703.0 [place] [id number] [place] [address] [id number] March, Unspecified inflammatory polyarthropathy 714.9 ; Ankle swelling 719.07 and Ingrowing left great toenail 703.[address] [place] [address] [id number] March, [facility] [id number] [place] [phone] Feb, [facility] [address] [id number] [place] [phone] Feb, [place] [id number] [place] [address] [id number] Aug, [facility] [address] [id number] [place] [id number] Aug, [facility] [address] [id number] [place] [phone] Aug, [address] [id number] [id number] Aug, [facility] [address] [address] Aug, [facility] [address] [place] [id number] [address] Jul, [facility] [address] [facility] [id number] [id number] Jul, [facility] [address] [facility] [id number][place] [id number] Apr, [facility] [address] [address] Apr, [facility] [address] [address] March, [facility] [id number] [id number] March, [facility] [address] [address] Dec, [facility] [address] [facility] [id number][place] [id number] Dec, [facility] [address] [id number] [id number] Oct, [facility] [address] [address] Oct, [facility] [address] [address] Oct, [facility] [address] [facility] [id number][place] [id number] Sep, [facility] [address] [address] Sep, [facility] [address] [place] [id number] [address] Aug, [facility] [address] [address] Aug, [facility] [address] [id number] [place] [id number] Aug, [facility] [address] [facility] [id number] [address] Aug, [facility] [address] [id number] [place] [id number] May, [facility] [address] [address] Apr, [facility] [address] [id number] [place] [id number] Apr, [facility] [address] [facility] [id number] [address] Apr, [facility] [address] [id number] [place] [id number] Apr, [facility] [address] [id number] [place] [id number] Apr, [facility] [address] [id number][place] [id number] Jan, [facility] [address] [id number] [place] [id number] Dec, [facility] [address] [id number][place] [id number] Dec, [facility] [address] [address] Dec, [facility] [address] [facility] [id number] [address] 14 Dec, 2012 [facility] [address] [id number] [place] [id number] Dec, [facility] [address] [id number], [place] [id number] Nov, [facility] [address] [id number][place] [id number] Nov, [facility] [address] [id number][place] [id number] Nov, [facility] [address] [facility] [id number] [address] Oct, [facility] [address] [id number] [place] [id number] Oct, [facility] [address] [id number] [place] [id number] Sep, [facility] [address] [facility] [id number] [address] Sep, [facility] [address] [id number] [place] [id number] Apr, [facility] [address] [facility] [id number] [place] [address] Feb, [facility] [address] [id number] [place] [id number] Feb, [facility] [address] [id number] [place] [id number] Feb, [facility] [address] [id number] [place] [id number] Dec, [facility] [address] [id number] [place] [id number] Dec, [facility] [address] [address] Dec, [facility] [address] [facility] [id number] [place] [id number] Dec, [facility] [address] [address] Nov, [facility] [address] [facility] [id number][place] [id number] Nov, [facility] [address] [address] Oct, [facility] [address] [address] Oct, [facility] [address] [address] Sep, IMMUNIZATIONS No Known Immunizations SOCIAL HISTORY Never Assessed REASON FOR VISIT E[facility] PLAN OF CARE VITAL SIGNS MEDICATIONS Medication Instructions Dosage Frequency Start Date End Date Duration Status Bactrim DS 800-160 mg 1 tablet by Oral route 2 times per day for 10 day(s) Dec, Active Tamiflu 75 mg 1 capsule by Oral route 2 times per day for 5 day(s) Nov, Active Walker don 99 dx 716.99 356.9 w wheels and seat Apr, Active Furosemide 20 mg 1 tablet by Oral route 1 time per day PRN water pill for puffy legs/feet- take in am Aug, Active Promethazine-Codeine 6.25-10 mg/5 mL 5 mL by Oral route every 4 hours for 5 day(s) Nov, Active Gabapentin 300 mg take 1 capsule by Oral route 1 time per day at bedtime Aug, Active Ibuprofen 800 mg 1 tablet by Oral route 3 times per day PRN Apr, Active Cipro 500 mg 1 tablet by Oral route every 12 hours for 14 day(s) Apr, Active RESULTS No Results PROCEDURES No Known procedures [...] Dr. Crespo 12/25/[address] Ortega [email or web address] Cervical decompression 12/2017 Hospitalization History surgeries Hospitalization History [facility]- Severe Cervical Spinal Stenosis and Abd Pain. Discharged 11/27/17 11/26/17
--- OUTSIDE RECORDS SUMMARY | 2019-05-21 03:48 | XMS REPORT ---
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 0057494 Problem 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 250920204 Problem Pedal edema R60.0 Active 752853771 Problem Bilateral carpal tunnel syndrome G56.03 Active 60886873 Problem Cervicalgia M54.2 Active 78987306 Problem Cervical disc disease M50.90 Active 657737649 Problem Cervical stenosis of spinal canal M48.02 Active 39395699 ALLERGIES No Information ENCOUNTERS Encounter Location Date Diagnosis [id number] [place] [address] [id number] Feb, [address] [place] [address] [id number] Nov, Osteoarthritis of both knees, unspecified osteoarthritis type M17.[address] [id number] [id number] Sep, Osteoarthritis of both knees, unspecified osteoarthritis type M17.0 ; Encounter for immunization Z23 ; Benign prostatic hyperplasia with lower urinary tract symptoms, unspecified morphology N40.1 and Pedal edema R60.[id number] [place] [address] [id number] May, Osteoarthritis of both knees, unspecified osteoarthritis type M17.0 ; Benign prostatic hyperplasia with lower urinary tract symptoms, unspecified morphology N40.1 ; 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 and Pedal edema R60.0 [address] [place] [address] [id number] March, Osteoarthritis of both knees, unspecified osteoarthritis type M17.0 ; Benign prostatic hyperplasia with lower urinary tract symptoms, unspecified morphology N40.1 ; 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 and Pedal edema R60.0 [address] [id number] Jan, Cervical stenosis of spinal canal M48.[address] [id number] [place] [id number] Dec, [address] [place] [address] [id number] Dec, Cervical stenosis of spinal canal M48.02 and Impaired mobility and ADLs Z74.[address] [place] [address] [id number] Nov, [address] [place] [address] [id number] Nov, Osteoarthritis of both knees, unspecified osteoarthritis type M17.0 ; 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 ; 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 and Benign prostatic hyperplasia with lower urinary tract symptoms, unspecified morphology N40.1 [address] [place] [address] [id number] Sep, Cervical stenosis of spinal canal M48.02 ; Benign prostatic hyperplasia with lower urinary tract symptoms, unspecified morphology N40.1 ; Osteoarthritis of both knees, unspecified osteoarthritis type M17.0 ; 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 ; Acute cystitis with hematuria N30.01 and Encounter for immunization Z23 [address] [place] [address] [id number] Apr, Osteoarthritis of both knees, unspecified osteoarthritis type M17.0 ; Cervical stenosis of spinal canal M48.02 and Benign prostatic hyperplasia with lower urinary tract symptoms, unspecified morphology N40.1 [address] [place] [address] [id number] March, Osteoarthritis of both knees, unspecified osteoarthritis type M17.0 and Cervical disc disease M50.90 [address] [place] [address] [id number] Feb, Osteoarthritis of both knees, unspecified osteoarthritis type M17.0 ; Benign prostatic hyperplasia with lower urinary tract symptoms, unspecified morphology N40.1 ; Bilateral carpal tunnel syndrome G56.03 and Cervicalgia M54.2 [facility] [id number] [place] [address] [id number] Sep, Osteoarthritis of both knees, unspecified osteoarthritis type M17.0 ; Screening for heart disease Z13.6 and Benign prostatic hyperplasia with lower urinary tract symptoms, unspecified morphology N40.1 [facility] [id number] [place] [address] [id number] Sep, [place] [id number] [place] [address] [id number] Aug, Osteoarthritis of both knees, unspecified osteoarthritis type M17.0 and 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 [place] [id number] [place] [address] [id number] May, Benign prostatic hyperplasia with lower urinary tract symptoms, unspecified morphology N40.1 ; Osteoarthritis of both knees, unspecified osteoarthritis type M17.0 and 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 [address] [place] [address] [id number] March, Acute nasopharyngitis J00 [address] [place] [address] [id number] Feb, Osteoarthritis of both knees, unspecified osteoarthritis type M17.0 ; 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 and Benign prostatic hyperplasia with lower urinary tract symptoms, unspecified morphology N40.1 [facility] [id number] [place] [address] [id number] Nov, Hematuria R31.9 [facility] [address]00565100[place] [address] Oct, [place] [id number] [place] [address] [id number] Oct, Hematuria, unspecified 599.70 and Unspecified inflammatory polyarthropathy 714.9 [place] [id number] [place] [address] [id number] Sep, Screening for lipoid disorders Z13.220 ; Hematuria R31.9 ; 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 and Encounter for immunization Z23 [place] [id number] [place] [address] [id number] Aug, Effusion, unspecified ankle M25.473 ; Dysuria R30.0 and Flu vaccine need Z23 [place] [id number] [place] [address] [id number] Jul, Hematuria, unspecified 599.70 ; Osteoarthritis (arthritis due to wear and tear of joints) 715.90 and BPH (benign prostatic hyperplasia) 600.[address] [id number] Jun, Osteoarthritis (arthritis due to wear and tear of joints) 715.90 ; BPH (benign prostatic hyperplasia) 600.00 and UTI (urinary tract infection) 599.0 [place] [id number] [place] [address] [id number] May, Sinusitis 473.9 [place] [id number] [place] [address] [id number] March, Ingrowing left great toenail 703.[address] [id number] March, Unspecified inflammatory polyarthropathy 714.9 ; Ankle swelling 719.07 and Ingrowing left great toenail 703.0 [place] [id number] [place] [address] [id number] March, [facility] [address] [address] Feb, [facility] [address] [address] Feb, [address] [id number] Aug, [facility] [address] [address] Aug, [facility] [address] [address] Aug, [facility] [address] [facility] [id number] [place] [id number] Aug, [facility] [place] [facility] [address] [facility] [id number] [place] [address] Aug, [facility] [place] [facility] [address] [facility] [id number] [place] [address] Jul, [facility] [address] [id number] [place] [id number] Jul, [facility] [address] [id number] [place] [id number] Apr, [facility] [place] [facility] [address] [facility] [id number] [place] [address] Apr, [facility] [place] [facility] [address] [address] March, [facility] [address] [facility] [id number] [place] [id number] March, [facility] [place] [facility] [address] [facility] [id number], [place] [address] Dec, [facility] [address] [facility] [id number] [place] [id number] Dec, [facility] [address] [facility] [id number] [place] [id number] Oct, [facility] [place] [facility] [address] [address] Oct, [facility] [place] [facility] [address] [facility] [id number], [place] [address] Oct, [facility] [address] [facility] [id number] [place] [id number] Sep, [facility] [place] [facility] [address] [facility] [id number], [place] [address] Sep, [facility] [place] [facility] [address] [id number] [address] Aug, [facility] [place] [facility] [address] [facility] [id number][place] [address] Aug, [facility] [address] [facility] [id number] [place] [id number] Aug, [facility] [address] [facility] [id number], [place] [address] Aug, [facility] [address] [facility] [id number] [place] [id number] May, [facility] [address] [facility] [id number][place] [address] Apr, [facility] [address] [id number] [place] [id number] Apr, [facility] [address], [place] [address] Apr, [facility] [address] [id number] [place] [id number] Apr, [facility] [address] [id number] [place] [id number] Apr, [facility] [address] [id number] [place] [id number] Jan, [facility] [address] [id number] [place] [id number] Dec, [facility] [address] [id number] [place] [id number] Dec, [facility] [address], [place] [address] 15 Dec, 2012 [facility] [address] [facility] [id number][place] [address] 14 Dec, 2012 [facility] [address] [id number] [place] [id number] Dec, [facility] [address] [id number] [place] [id number] Nov, [facility] [address] [id number] [place] [id number] Nov, [facility] [address] [id number] [place] [id number] Nov, [facility] [address] [facility] [id number], [place] [address] Oct, [facility] [address] [id number] [place] [id number] Oct, [facility] [address] [facility] [id number] [place] [id number] Sep, [facility] [place] [facility] [address], [place] [address] Sep, [facility] [address] [id number] [place] [id number] Apr, [facility] [place] [facility] [address], [place] [address] Feb, [facility] [address] [id number] [place] [id number] Feb, [facility] [address] [id number] [place] [id number] Feb, [facility] [address] [id number] [place] [id number] Dec, [facility] [address] [id number] [place] [id number] Dec, [facility] [place] [address], [place] [address] Dec, [facility] [address] [place] [id number] [place] [id number] Dec, [facility] [place] [facility] [address], [place] [address] Nov, [facility] [address] [facility] [id number] [place] [id number] Nov, [facility] [place] [address], [place] [address] Oct, [facility] [place] [facility] [address], [place] [address] Oct, [facility] [place] [facility] [address], [place] [address] Sep, IMMUNIZATIONS No Known Immunizations SOCIAL HISTORY Never Assessed REASON FOR VISIT EMR-[facility] PLAN OF CARE VITAL SIGNS MEDICATIONS Unknown [...] Dr. Crespo 12/25/[address] Ortega [id number] Cervical decompression 12/2017 Hospitalization History surgeries Hospitalization History [facility]- Severe Cervical Spinal Stenosis and Abd Pain. Discharged 11/27/17 11/26/17
--- OUTSIDE RECORDS SUMMARY | 2019-05-21 03:49 | XMS REPORT ---
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 1824126 Problem 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 455171677 Problem Pedal edema R60.0 Active 465269605 Problem Bilateral carpal tunnel syndrome G56.03 Active 54299364 Problem Cervicalgia M54.2 Active 44849106 Problem Cervical disc disease M50.90 Active 677254949 Problem Cervical stenosis of spinal canal M48.02 Active 30740626 ALLERGIES No Information ENCOUNTERS Encounter Location Date Diagnosis [id number] [place] [address] [id number] Feb, [address] [place] [address] [id number] Nov, Osteoarthritis of both knees, unspecified osteoarthritis type M17.[address] [id number] [id number] Sep, Osteoarthritis of both knees, unspecified osteoarthritis type M17.0 ; Encounter for immunization Z23 ; Benign prostatic hyperplasia with lower urinary tract symptoms, unspecified morphology N40.1 and Pedal edema R60.[id number] [place] [address] [id number] May, Osteoarthritis of both knees, unspecified osteoarthritis type M17.0 ; Benign prostatic hyperplasia with lower urinary tract symptoms, unspecified morphology N40.1 ; 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 and Pedal edema R60.0 [address] [place] [address] [id number] March, Osteoarthritis of both knees, unspecified osteoarthritis type M17.0 ; Benign prostatic hyperplasia with lower urinary tract symptoms, unspecified morphology N40.1 ; 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 and Pedal edema R60.0 [address] [id number] Jan, Cervical stenosis of spinal canal M48.[address] [id number] [place] [id number] Dec, [address] [place] [address] [id number] Dec, Cervical stenosis of spinal canal M48.02 and Impaired mobility and ADLs Z74.09 [address] [place] [address] [id number] Nov, [address] [place] [address] [id number] Nov, Osteoarthritis of both knees, unspecified osteoarthritis type M17.0 ; 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 ; 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 and Benign prostatic hyperplasia with lower urinary tract symptoms, unspecified morphology N40.1 [address] [place] [address] [id number] Sep, Cervical stenosis of spinal canal M48.02 ; Benign prostatic hyperplasia with lower urinary tract symptoms, unspecified morphology N40.1 ; Osteoarthritis of both knees, unspecified osteoarthritis type M17.0 ; 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 ; Acute cystitis with hematuria N30.01 and Encounter for immunization Z23 [address] [place] [address] [id number] Apr, Osteoarthritis of both knees, unspecified osteoarthritis type M17.0 ; Cervical stenosis of spinal canal M48.02 and Benign prostatic hyperplasia with lower urinary tract symptoms, unspecified morphology N40.1 [address] [place] [address] [id number] March, Osteoarthritis of both knees, unspecified osteoarthritis type M17.0 and Cervical disc disease M50.90 [address] [place] [address] [id number] Feb, Osteoarthritis of both knees, unspecified osteoarthritis type M17.0 ; Benign prostatic hyperplasia with lower urinary tract symptoms, unspecified morphology N40.1 ; Bilateral carpal tunnel syndrome G56.03 and Cervicalgia M54.2 [facility] [id number] [place] [address] [id number] Sep, Osteoarthritis of both knees, unspecified osteoarthritis type M17.0 ; Screening for heart disease Z13.6 and Benign prostatic hyperplasia with lower urinary tract symptoms, unspecified morphology N40.1 [facility] [address] [id number] [place] [address] [id number] Sep, [place] [id number] [place] [address] [id number] Aug, Osteoarthritis of both knees, unspecified osteoarthritis type M17.0 and 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 [place] [id number] [place] [address] [id number] May, Benign prostatic hyperplasia with lower urinary tract symptoms, unspecified morphology N40.1 ; Osteoarthritis of both knees, unspecified osteoarthritis type M17.0 and 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 [address] [place] [address] [id number] March, Acute nasopharyngitis J00 [address] [place] [address] [id number] Feb, Osteoarthritis of both knees, unspecified osteoarthritis type M17.0 ; 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 and Benign prostatic hyperplasia with lower urinary tract symptoms, unspecified morphology N40.1 [facility] [id number] [place] [address] [id number] Nov, Hematuria R31.9 [facility] [address]005[address], [place] [address] Oct, [place] [id number] [place] [address] [id number] Oct, Hematuria, unspecified 599.70 and Unspecified inflammatory polyarthropathy 714.9 [place] [id number] [place] [address] [id number] Sep, Screening for lipoid disorders Z13.220 ; Hematuria R31.9 ; 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 and Encounter for immunization Z23 [place] [id number] [place] [address] [id number] Aug, Effusion, unspecified ankle M25.473 ; Dysuria R30.0 and Flu vaccine need Z23 [place] [id number] [place] [address] [id number] Jul, Hematuria, unspecified 599.70 ; Osteoarthritis (arthritis due to wear and tear of joints) 715.90 and BPH (benign prostatic hyperplasia) 600.[address] [id number] Jun, Osteoarthritis (arthritis due to wear and tear of joints) 715.90 ; BPH (benign prostatic hyperplasia) 600.00 and UTI (urinary tract infection) 599.0 [place] [address] [place] [address] [id number] May, Sinusitis 473.9 [place] [address] [place] [address] [id number] March, Ingrowing left great toenail 703.[address] [id number] March, Unspecified inflammatory polyarthropathy 714.9 ; Ankle swelling 719.07 and Ingrowing left great toenail 703.0 [place] [address] [place] [address] [id number] March, [facility] [address] [address] Feb, [facility] [address] [address] Feb, [address] [id number] Aug, [facility] [address] [address] Aug, [facility] [address] [address] Aug, [facility] [address] [facility] [id number] [place] [id number] Aug, [facility] [place] [facility] [address] [facility] [id number] [place] [address] Aug, [facility] [place] [facility] [address] [facility] [id number] [place] [address] Jul, [facility] [address] [id number] [place] [id number] Jul, [facility] [address] [id number] [place] [id number] Apr, [facility] [place] [facility] [address] [facility] [id number] [place] [address] Apr, [facility] [place] [facility] [address] [address] March, [facility] [address] [facility] [id number] [place] [id number] March, [facility] [place] [facility] [address] [facility] [id number], [place] [address] Dec, [facility] [address] [facility] [id number] [place] [id number] Dec, [facility] [address] [facility] [id number] [place] [id number] Oct, [facility] [place] [facility] [address], [place] [address] Oct, [facility] [place] [facility] [address] [facility] [id number], [place] [address] Oct, [facility] [address] [facility] [id number][place] [id number] Sep, [facility] [place] [facility] [address] [facility] [id number], [place] [address] Sep, [facility] [place] [facility] [address] [id number] [address] Aug, [facility] [place] [facility] [address] [facility] [id number], [place] [address] Aug, [facility] [address] [facility] [id number] [place] [id number] Aug, [facility] [address] [facility] [id number], [place] [address] Aug, [facility] [address] [facility] [id number][place] [id number] May, [facility] [address] [facility] [id number], [place] [address] Apr, [facility] [address] [id number] [place] [id number] Apr, [facility] [address], [place] [address] Apr, [facility] [address] [id number] [place] [id number] Apr, [facility] [address] [id number], [place] [id number] Apr, [facility] [address] [id number] [place] [id number] Jan, [facility] [address] [id number] [place] [id number] Dec, [facility] [address] [id number][place] [id number] Dec, [facility] [address], [place] [address] 15 Dec, 2012 [facility] [address] [facility] [id number], [place] [address] 14 Dec, 2012 [facility] [address] [id number] [place] [id number] Dec, [facility] [address] [id number][place] [id number] Nov, [facility] [address] [id number], [place] [id number] Nov, [facility] [address] [id number][place] [id number] Nov, [facility] [address] [facility] [id number], [place] [address] Oct, [facility] [address] [id number] [place] [id number] Oct, [facility] [address] [facility] [id number] [place] [id number] Sep, [facility] [place] [facility] [address], [place] [address] Sep, [facility] [address] [id number] [place] [id number] Apr, [facility] [place] [facility] [address]65[address], [place] [address] Feb, [facility] [address] [id number], [place] [id number] Feb, [facility] [address] [id number] [place] [id number] Feb, [facility] [address] [id number], [place] [id number] Dec, [facility] [address] [id number] [place] [id number] Dec, [facility] [address], [place] [address] Dec, [facility] [address] [id number] [id number] Dec, [facility] [id number], [place] [address] Nov, [facility] [address] [facility] [id number] [id number] Nov, [facility] [id number], [place] [address] Oct, [facility] [id number], [place] [address] Oct, [facility] [id number], [place] [address] Sep, IMMUNIZATIONS No Known Immunizations SOCIAL HISTORY Never Assessed REASON FOR VISIT EMR-[facility] [place] PLAN OF CARE VITAL SIGNS MEDICATIONS Unknown [...] Dr. Crespo 12/25/[address] Ortega [id number] Cervical decompression 12/2017 Hospitalization History surgeries Hospitalization History [facility]- Severe Cervical Spinal Stenosis and Abd Pain. Discharged 11/27/17 11/26/17
--- OUTSIDE RECORDS SUMMARY | 2019-05-21 03:49 | XMS REPORT ---
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 656000983 Problem Pedal edema R60.0 Active 916919224 Problem 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 1832246 Problem Cervicalgia M54.2 Active 18171541 Problem Bilateral carpal tunnel syndrome G56.03 Active 41805384 Problem Cervical stenosis of spinal canal M48.02 Active 22797747 Problem Cervical disc disease M50.90 Active 027950866 ALLERGIES No Known Allergies ENCOUNTERS Encounter Location Date Diagnosis [id number] [place] [address] [id number] May, Osteoarthritis of both knees, unspecified osteoarthritis type M17.0 ; Benign prostatic hyperplasia with lower urinary tract symptoms, unspecified morphology N40.1 ; 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 and Pedal edema R60.[address] [id number] [id number] March, Osteoarthritis of both knees, unspecified osteoarthritis type M17.0 ; Benign prostatic hyperplasia with lower urinary tract symptoms, unspecified morphology N40.1 ; 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 and Pedal edema R60.[id number] [place] [address] [id number] Jan, Cervical stenosis of spinal canal M48.[address] [id number] [id number] Dec, [address] [id number] Dec, Cervical stenosis of spinal canal M48.02 and Impaired mobility and ADLs Z74.[address] [place] [address] [id number] Nov, [place] [id number] [place] [address] [id number] Nov, Osteoarthritis of both knees, unspecified osteoarthritis type M17.0 ; 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 ; 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 and Benign prostatic hyperplasia with lower urinary tract symptoms, unspecified morphology N40.1 [place] [id number] [place] [address] [id number] Sep, Cervical stenosis of spinal canal M48.02 ; Benign prostatic hyperplasia with lower urinary tract symptoms, unspecified morphology N40.1 ; Osteoarthritis of both knees, unspecified osteoarthritis type M17.0 ; 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 ; Acute cystitis with hematuria N30.01 and Encounter for immunization Z23 [place] [id number] [place] [address] [id number] Apr, Osteoarthritis of both knees, unspecified osteoarthritis type M17.0 ; Cervical stenosis of spinal canal M48.02 and Benign prostatic hyperplasia with lower urinary tract symptoms, unspecified morphology N40.[address] [place] [address] [id number] March, Osteoarthritis of both knees, unspecified osteoarthritis type M17.0 and Cervical disc disease M50.90 [address] [place] [address] [id number] Feb, Osteoarthritis of both knees, unspecified osteoarthritis type M17.0 ; Benign prostatic hyperplasia with lower urinary tract symptoms, unspecified morphology N40.1 ; Bilateral carpal tunnel syndrome G56.03 and Cervicalgia M54.2 [place] [id number] [place] [address] [id number] Sep, Osteoarthritis of both knees, unspecified osteoarthritis type M17.0 ; Screening for heart disease Z13.6 and Benign prostatic hyperplasia with lower urinary tract symptoms, unspecified morphology N40.[address] [place] [address] [id number] Sep, [address] [id number] Aug, Osteoarthritis of both knees, unspecified osteoarthritis type M17.0 and 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 [place] [id number] [place] [address] [id number] May, Benign prostatic hyperplasia with lower urinary tract symptoms, unspecified morphology N40.1 ; Osteoarthritis of both knees, unspecified osteoarthritis type M17.0 and 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 [place] [id number] [place] [address] [id number] March, Acute nasopharyngitis J00 [place] [id number] [place] [address] [id number] Feb, Osteoarthritis of both knees, unspecified osteoarthritis type M17.0 ; 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 and Benign prostatic hyperplasia with lower urinary tract symptoms, unspecified morphology N40.[address] [place] [address] [id number] Nov, Hematuria R31.9 [facility] [id number] [place] [phone] Oct, [place] [id number] [place] [address] [id number] Oct, Hematuria, unspecified 599.70 and Unspecified inflammatory polyarthropathy 714.9 [place] [id number] [place] [address] [id number] Sep, Screening for lipoid disorders Z13.220 ; Hematuria R31.9 ; 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 and Encounter for immunization Z23 [place] [id number] [place] [address] [id number] Aug, Effusion, unspecified ankle M25.473 ; Dysuria R30.0 and Flu vaccine need Z23 [place] [id number] [place] [address] [id number] Jul, Hematuria, unspecified 599.70 ; Osteoarthritis (arthritis due to wear and tear of joints) 715.90 and BPH (benign prostatic hyperplasia) 600.00 [facility] [id number] [place] [address] [id number] Jun, Osteoarthritis (arthritis due to wear and tear of joints) 715.90 ; BPH (benign prostatic hyperplasia) 600.00 and UTI (urinary tract infection) 599.0 [facility] [id number] [place] [address] [id number] May, Sinusitis 473.9 [place] [id number] [place] [address] [id number] March, Ingrowing left great toenail 703.0 [place] [id number] [place] [address] [id number] March, Unspecified inflammatory polyarthropathy 714.9 ; Ankle swelling 719.07 and Ingrowing left great toenail 703.0 [place] [id number] [place] [address] [id number] March, [facility] [id number] [place] [phone] Feb, [facility] [id number] [place] [phone] Feb, [facility] [id number] [place] [address] [id number] Aug, [facility] [id number] [place] [phone] Aug, [facility] [id number] [place] [phone] Aug, [facility] [id number] [place] [address] [id number] Aug, [facility] [id number] [place] [phone] Aug, [facility] [id number] [place] [phone] Jul, [facility] [id number] [place] [address] [id number] Jul, [facility] [address] [facility] [id number] [place] [id number] Apr, [facility] [place] [facility] [address] [facility] [id number] [place] [address] Apr, [facility] [place] [facility] [address] [facility] [id number] [place] [address] March, [facility] [address] [facility] [id number] [place] [id number] March, [facility] [place] [facility] [address] [facility] [id number] [place] [address] Dec, [facility] [address] [facility] [id number] [place] [id number] Dec, [facility] [address] [facility] [id number] [place] [id number] Oct, [facility] [place] [facility] [address] [place] [address] Oct, [facility] [place] [facility] [address] [facility] [id number], [place] [address] Oct, [facility] [id number] [id number] Sep, [facility] [place] [facility] [address], [place] [address] Sep, [facility] [place] [facility] [address], [place] [address] Aug, [facility] [place] [facility] [address] [facility] [id number], [place] [address] Aug, [facility] [address] [facility] [id number] [id number] Aug, [facility] [place] [facility] [address] [facility] [id number] [place] [address] Aug, [facility] [address] [facility] [id number] [id number] May, [facility] [place] [facility] [id number], [place] [address] Apr, [facility] [address] [id number] [place] [id number] Apr, [facility] [place] [facility] [address] [facility] [id number], [place] [address] Apr, [facility] [address] [id number] [place] [id number] Apr, [facility] [address] [id number] [place] [id number] Apr, [facility] [address] [id number] [place] [id number] Jan, [facility] [address] [id number] [place] [id number] Dec, [facility] [address] [id number] [place] [id number] Dec, [facility] [place] [facility] [id number] [place] [phone] Dec, [facility] [place] [facility] [address], [place] [address] Dec, [facility] [address] [id number] [place] [id number] Dec, [facility] [address] [id number] [place] [id number] Nov, [facility] [address] [id number] [place] [id number] Nov, [facility] [address] [id number] [place] [id number] Nov, [facility] [place] [facility] [address] [facility] [id number], [place] [address] Oct, [facility] [address] [id number] [place] [id number] Oct, [facility] [address] [id number] [place] [id number] Sep, [facility] [id number] [place] [phone] Sep, [facility] [id number] [id number] Apr, [facility] [id number] [place] [phone] Feb, [facility] [id number] [id number] Feb, [facility] [id number] [place] [address] [id number] Feb, [facility] [id number] [place] [address] [id number] Dec, [facility] [id number] [place] [address] [id number] Dec, [facility] [id number] [place] [phone] Dec, [facility] [id number] [place] [address] [id number] Dec, [facility] [id number] [place] [phone] Nov, [facility] [id number] [place] [address] [id number] Nov, [facility] [id number] [place] [phone] Oct, [facility] [id number] [place] [phone] Oct, [facility] [id number] [place] [phone] Sep, IMMUNIZATIONS No Known Immunizations SOCIAL HISTORY Never Assessed REASON FOR VISIT 3 mo [facility] follow up--MARCY Wing, Feels like ankle edema somewhat improved, al most out of furosemide PLAN OF CARE Activity Details Follow Up 3 Months Reason:arthritis VITAL SIGNS Height 69 in 2018-06-15 Weight 232.2 lbs 2018-06-15 Temperature 98.6 degrees Fahrenheit 2018-06-15 Heart Rate 76 bpm 2018-06-15 Respiratory Rate 18 2018-06-15 BMI 34.29 kg/m2 2018-06-15 Blood pressure systolic 122 mmHg 2018-06-15 Blood pressure diastolic 72 mmHg 2018-06-15 MEDICATIONS Medication Instructions Dosage Frequency Start Date End Date Duration Status Oxybutynin Chloride 5 mg Orally Twice a day 1 tablet 12h Sep, Active Celebrex 200 mg Orally Once a day 1 capsule 24h Active Gabapentin 300 MG Orally Three times a day take 1 capsule 8h Aug, Not-Taking Furosemide 20 mg Orally Once a day as needed for ankle swelling 1 tablet March, Active Terazosin HCl 1MG TAKE ONE CAPSULE BY MOUTH ONCE DAILY Active RESULTS No Results PROCEDURES No Known [...] Dr. Crespo 12/25/[address] Ortega [id number] Cervical decompression 12/2017 Hospitalization History surgeries Hospitalization History [facility]- Severe Cervical Spinal Stenosis and Abd Pain. Discharged 11/27/17 11/26/17
--- OUTSIDE RECORDS SUMMARY | 2019-05-21 03:49 | XMS REPORT ---
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 272072955 Problem Pedal edema R60.0 Active 977732935 Problem 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 4025431 Problem Cervicalgia M54.2 Active 76752503 Problem Bilateral carpal tunnel syndrome G56.03 Active 16048603 Problem Cervical stenosis of spinal canal M48.02 Active 16447198 Problem Cervical disc disease M50.90 Active 913354861 ALLERGIES No Known Allergies ENCOUNTERS Encounter Location Date Diagnosis [id number] [place] [address] [id number] May, Osteoarthritis of both knees, unspecified osteoarthritis type M17.0 ; Benign prostatic hyperplasia with lower urinary tract symptoms, unspecified morphology N40.1 ; 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 and Pedal edema R60.[address] [id number] [id number] March, Osteoarthritis of both knees, unspecified osteoarthritis type M17.0 ; Benign prostatic hyperplasia with lower urinary tract symptoms, unspecified morphology N40.1 ; 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 and Pedal edema R60.[id number] [place] [address] [id number] Jan, Cervical stenosis of spinal canal M48.[address] [id number] [id number] Dec, [address] [id number] Dec, Cervical stenosis of spinal canal M48.02 and Impaired mobility and ADLs Z74.[id number] [place] [address] [id number] Nov, [place] [id number] [place] [address] [id number] Nov, Osteoarthritis of both knees, unspecified osteoarthritis type M17.0 ; 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 ; 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 and Benign prostatic hyperplasia with lower urinary tract symptoms, unspecified morphology N40.1 [place] [id number] [place] [address] [id number] Sep, Cervical stenosis of spinal canal M48.02 ; Benign prostatic hyperplasia with lower urinary tract symptoms, unspecified morphology N40.1 ; Osteoarthritis of both knees, unspecified osteoarthritis type M17.0 ; 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 ; Acute cystitis with hematuria N30.01 and Encounter for immunization Z23 [place] [id number] [place] [address] [id number] Apr, Osteoarthritis of both knees, unspecified osteoarthritis type M17.0 ; Cervical stenosis of spinal canal M48.02 and Benign prostatic hyperplasia with lower urinary tract symptoms, unspecified morphology N40.[id number] [place] [address] [id number] March, Osteoarthritis of both knees, unspecified osteoarthritis type M17.0 and Cervical disc disease M50.90 [address] [place] [address] [id number] Feb, Osteoarthritis of both knees, unspecified osteoarthritis type M17.0 ; Benign prostatic hyperplasia with lower urinary tract symptoms, unspecified morphology N40.1 ; Bilateral carpal tunnel syndrome G56.03 and Cervicalgia M54.2 [place] [id number] [place] [address] [id number] Sep, Osteoarthritis of both knees, unspecified osteoarthritis type M17.0 ; Screening for heart disease Z13.6 and Benign prostatic hyperplasia with lower urinary tract symptoms, unspecified morphology N40.[address] [place] [address] [id number] Sep, [address] [id number] Aug, Osteoarthritis of both knees, unspecified osteoarthritis type M17.0 and 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 [place] [id number] [place] [address] [id number] May, Benign prostatic hyperplasia with lower urinary tract symptoms, unspecified morphology N40.1 ; Osteoarthritis of both knees, unspecified osteoarthritis type M17.0 and 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 and Encounter for immunization Z23 [place] [id number] [place] [address] [id number] Aug, Effusion, unspecified ankle M25.473 ; Dysuria R30.0 and Flu vaccine need Z23 [place] [id number] [place] [address] [id number] Jul, Hematuria, unspecified 599.70 ; Osteoarthritis (arthritis due to wear and tear of joints) 715.90 and BPH (benign prostatic hyperplasia) 600.00 [facility] [id number] [place] [address] [id number] Jun, Osteoarthritis (arthritis due to wear and tear of joints) 715.90 ; BPH (benign prostatic hyperplasia) 600.00 and UTI (urinary tract infection) 599.0 [facility] [id number] [place] [address] [id number] May, Sinusitis 473.9 [place] [id number] [place] [address] [id number] March, Ingrowing left great toenail 703.0 [place] [id number] [place] [address] [id number] March, Unspecified inflammatory polyarthropathy 714.9 ; Ankle swelling 719.07 and Ingrowing left great toenail 703.0 [place] [id number] [place] [address] [id number] March, [facility] [id number] [place] [phone] Feb, [facility] [id number] [place] [phone] Feb, [facility] [id number] [place] [address] [id number] Aug, [facility] [id number] [place] [phone] Aug, [facility] [id number] [place] [phone] Aug, [facility] [id number] [place] [id number] Aug, [facility] [id number] [place] [phone] Aug, [facility] [id number] [place] [phone] Jul, [facility] [id number] [place] [address] [id number] Jul, [facility] [address] [facility] [id number] [place] [id number] Apr, [facility] [place] [facility] [address] [facility] [id number] [place] [address] Apr, [facility] [place] [facility] [address] [facility] [id number] [place] [address] March, [facility] [address] [facility] [id number] [place] [id number] March, [facility] [place] [facility] [address] [facility] [id number] [place] [address] Dec, [facility] [address] [facility] [id number] [place] [id number] Dec, [facility] [address] [facility] [id number] [place] [id number] Oct, [facility] [place] [facility] [id number] [place] [address] Oct, [facility] [place] [facility] [address] [facility] [id number] [address] Oct, [facility] [id number] [id number] Sep, [facility] [place] [facility] [id number] [address] Sep, [facility] [place] [facility] [id number] [address] Aug, [facility] [place] [facility] [address] [facility] [id number], [place] [address] Aug, [facility] [address] [facility] [id number] [id number] Aug, [facility] [place] [facility] [address] [facility] [id number] [place] [address] Aug, [facility] [address] [facility] [id number] [id number] May, [facility] [place] [facility] [address] [id number] [address] Apr, [facility] [address] [id number] [place] [id number] Apr, [facility] [place] [facility] [address] [facility] [id number] [address] Apr, [facility] [address] [id number] [place] [id number] Apr, [facility] [address] [id number] [place] [id number] Apr, [facility] [address] [id number] [place] [id number] Jan, [facility] [address] [id number] [place] [id number] Dec, [facility] [address] [id number] [place] [id number] Dec, [facility] [place] [facility] [id number] [place] [address] Dec, [facility] [place] [facility] [address], [place] [address] Dec, [facility] [address] [id number] [place] [id number] Dec, [facility] [address] [id number] [place] [id number] Nov, [facility] [address] [id number] [place] [id number] Nov, [facility] [address] [id number] [place] [id number] Nov, [facility] [place] [facility] [address] [facility] [id number], [place] [address] Oct, [facility] [address] [id number][place] [id number] Oct, [facility] [address] [id number] [place] [id number] Sep, [facility] [id number] [place] [address] Sep, [facility] [address] [id number] [id number] Apr, [facility] [address] [address] Feb, [facility] [id number] [id number] Feb, [facility] [id number] [place] [id number] Feb, [facility] [id number], [place] [id number] Dec, [facility] [id number][place] [id number] Dec, [facility] [id number] [place] [address] Dec, [facility] [id number], [place] [id number] Dec, [facility] [id number] [place] [address] Nov, [facility] [id number] [place] [address] [id number] Nov, [facility] [id number] [place] [address] Oct, [facility] [id number] [place] [phone] Oct, [facility] [id number] [place] [address] Sep, IMMUNIZATIONS No Known Immunizations SOCIAL HISTORY Never Assessed REASON FOR VISIT Arthritis f/u Marisa RUFFIN PLAN OF CARE Activity Details Follow Up 3 Months Reason: VITAL SIGNS Height 69 in 2018-03-30 Weight 235 lbs 2018-03-30 Temperature 97.2 degrees Fahrenheit 2018-03-30 Heart Rate 68 bpm 2018-03-30 Respiratory Rate 16 2018-03-30 BMI 34.70 kg/m2 2018-03-30 Blood pressure systolic 128 mmHg 2018-03-30 Blood pressure diastolic 80 mmHg 2018-03-30 MEDICATIONS Medication Instructions Dosage Frequency Start Date End Date Duration Status Furosemide 20 mg Orally Once a day as needed for ankle swelling 1 tablet March, Active Gabapentin 300 MG Orally Three times a day take 1 capsule 8h Aug, Not-Taking Oxybutynin Chloride 5 mg Orally Twice a day 1 tablet 12h Sep, Active Celebrex 200 mg Orally Once a day 1 capsule 24h Active Terazosin HCl 1MG TAKE ONE CAPSULE [...] Dr. Crespo 12/25/[address] Ortega [id number] Cervical decompression 12/2017 Hospitalization History surgeries Hospitalization History [facility]- Severe Cervical Spinal Stenosis and Abd Pain. Discharged 11/27/17 11/26/17
--- OUTSIDE RECORDS SUMMARY | 2019-05-21 03:49 | XMS REPORT ---
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 351335742 Problem Pedal edema R60.0 Active 174778272 Problem 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 3578357 Problem Cervicalgia M54.2 Active 47227093 Problem Bilateral carpal tunnel syndrome G56.03 Active 50348543 Problem Cervical stenosis of spinal canal M48.02 Active 72819961 Problem Cervical disc disease M50.90 Active 935364015 ALLERGIES No Information ENCOUNTERS Encounter Location Date Diagnosis [id number] [place] [address] [id number] March, Osteoarthritis of both knees, unspecified osteoarthritis type M17.0 ; Benign prostatic hyperplasia with lower urinary tract symptoms, unspecified morphology N40.1 ; 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 and Pedal edema R60.[id number] [place] [address] [id number] Jan, Cervical stenosis of spinal canal M48.[address] [id number] [id number] Dec, [id number] [place] [address] [id number] Dec, Cervical stenosis of spinal canal M48.02 and Impaired mobility and ADLs Z74.[id number] [place] [address] [id number] Nov, [id number] [id number] Nov, Osteoarthritis of both knees, unspecified osteoarthritis type M17.0 ; 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 ; 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 and Benign prostatic hyperplasia with lower urinary tract symptoms, unspecified morphology N40.1 [address] [id number] Sep, Cervical stenosis of spinal canal M48.02 ; Benign prostatic hyperplasia with lower urinary tract symptoms, unspecified morphology N40.1 ; Osteoarthritis of both knees, unspecified osteoarthritis type M17.0 ; 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 ; Acute cystitis with hematuria N30.01 and Encounter for immunization Z23 [address] [id number] Apr, Osteoarthritis of both knees, unspecified osteoarthritis type M17.0 ; Cervical stenosis of spinal canal M48.02 and Benign prostatic hyperplasia with lower urinary tract symptoms, unspecified morphology N40.1 [address] [id number] March, Osteoarthritis of both knees, unspecified osteoarthritis type M17.0 and Cervical disc disease M50.90 [address] [place] [address] [id number] Feb, Osteoarthritis of both knees, unspecified osteoarthritis type M17.0 ; Benign prostatic hyperplasia with lower urinary tract symptoms, unspecified morphology N40.1 ; Bilateral carpal tunnel syndrome G56.03 and Cervicalgia M54.2 [address] [id number] Sep, Osteoarthritis of both knees, unspecified osteoarthritis type M17.0 ; Screening for heart disease Z13.6 and Benign prostatic hyperplasia with lower urinary tract symptoms, unspecified morphology N40.1 [address] [address] Sep, [address] [place] [address] [id number] Aug, Osteoarthritis of both knees, unspecified osteoarthritis type M17.0 and 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 [address] [place] [address] [id number] May, Benign prostatic hyperplasia with lower urinary tract symptoms, unspecified morphology N40.1 ; Osteoarthritis of both knees, unspecified osteoarthritis type M17.0 and 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 [address] [place] [address] [id number] March, Acute nasopharyngitis J00 [address] [id number] Feb, Osteoarthritis of both knees, unspecified osteoarthritis type M17.0 ; 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 and Benign prostatic hyperplasia with lower urinary tract symptoms, unspecified morphology N40.1 [id number] [place] [address] [id number] Nov, Hematuria R31.9 [facility] [id number] [place] [address] Oct, [id number] [place] [address] [id number] Oct, Hematuria, unspecified 599.70 and Unspecified inflammatory polyarthropathy 714.[address] [id number] Sep, Screening for lipoid disorders Z13.220 ; Hematuria R31.9 ; 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 and Encounter for immunization Z23 [address] [place] [address] [id number] Aug, Effusion, unspecified ankle M25.473 ; Dysuria R30.0 and Flu vaccine need Z23 [id number] [place] [address] [id number] Jul, Hematuria, unspecified 599.70 ; Osteoarthritis (arthritis due to wear and tear of joints) 715.90 and BPH (benign prostatic hyperplasia) 600.[address] [place] [address] [id number] Jun, Osteoarthritis (arthritis due to wear and tear of joints) 715.90 ; BPH (benign prostatic hyperplasia) 600.00 and UTI (urinary tract infection) 599.0 [facility] [id number], [place] [id number] May, Sinusitis 473.9 [facility] [id number] [place] [address] [id number] March, Ingrowing left great toenail 703.0 [facility] [id number] [place] [address] [id number] March, Unspecified inflammatory polyarthropathy 714.9 ; Ankle swelling 719.07 and Ingrowing left great toenail 703.0 [facility] [id number] [place] [address] [id number] March, [facility] [id number] [place] [address] Feb, [facility] [id number] [place] [address] Feb, [facility] [id number] [place] [address] [id number] Aug, [facility] [id number] [place] [address] Aug, [facility] [id number] [place] [address] Aug, [facility] [id number], [place] [id number] Aug, [facility] [id number] [place] [address] Aug, [facility] [address] [place] [address] Jul, [facility] [id number] [place] [address] [id number] Jul, [facility] [id number], [place] [id number] Apr, [facility] [id number] [place] [address] Apr, [facility] [address] [facility] [id number][place] [address] March, [facility] [address] [facility] [id number] [place] [id number] March, [facility] [address] [facility] [id number], [place] [address] Dec, [facility] [address] [facility] [id number] [place] [id number] Dec, [facility] [address] [facility] [id number], [place] [phone] Oct, [facility] [address]00565100[place], [place] [address] Oct, [facility] [address]00565100[place], [place] [address] Oct, [facility] [id number], [place] [id number] Sep, [facility] [address]00565100[place] [address] Sep, [facility] [id number], [place] [address] Aug, [facility] [address]00565100[place], [place] [address] Aug, [facility] [address] [id number], [place] [id number] Aug, [facility] [address] [facility] [id number], [place] [address] Aug, [facility] [address] [facility] [id number], [place] [id number] May, [facility] [address]00565100[place], [place] [address] Apr, [facility] [address] [facility] [id number], [place] [id number] Apr, [facility] [address]00565100[place], [place] [address] Apr, [facility] [address] [id number] [place] [id number] Apr, [facility] [address] [id number] [place] [id number] Apr, [facility] [address] [id number] [place] [id number] Jan, [facility] [address] [id number] [place] [id number] Dec, [facility] [address] [id number] [place] [id number] Dec, [facility] [address] [facility] [id number], [place] [address] Dec, [facility] [address] [facility] [id number], [place] [address] Dec, [facility] [address] [id number] [place] [id number] Dec, [facility] [address] [id number] [place] [id number] Nov, [facility] [address] [id number] [place] [id number] Nov, [facility] [address] [id number] [place] [id number] Nov, [facility] [address]005[address]100[place], [place] [address] Oct, [facility] [address] [id number], [place] [id number] Oct, [facility] [address] [id number], [place] [id number] Sep, [facility] [address] [facility] [id number], [place] [address] Sep, [facility] [address] [id number], [place] [id number] Apr, [facility] [address]00565100[place], [place] [address] Feb, [facility] [address] [id number] [place] [id number] Feb, [facility] [address] [id number], [place] [id number] Feb, [facility] [address] [id number], [place] [id number] Dec, [facility] [address] [id number], [place] [id number] Dec, [facility] [address]00565100[place], [place] [address] Dec, [facility] [address] [id number], [place] [id number] Dec, [facility] [id number] [place] [address] Nov, [facility] [address] [id number], [place] [phone] Nov, [facility] [address]00565100[place] [address] Oct, [facility] [address]00565100[place], [place] [address] Oct, [facility] [address]00565100[place], [place] [address] Sep, IMMUNIZATIONS No Known Immunizations SOCIAL HISTORY Never Assessed REASON FOR VISIT Started PT PLAN OF CARE VITAL SIGNS MEDICATIONS No [...] Dr. Crespo 12/25/[address] Ortega [id number] Cervical decompression 12/2017 Hospitalization History surgeries Hospitalization History [facility]- Severe Cervical Spinal Stenosis and Abd Pain. Discharged 11/27/17 11/26/17
--- OUTSIDE RECORDS SUMMARY | 2019-05-21 03:50 | XMS REPORT ---
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 933769073 Problem Pedal edema R60.0 Active 284017044 Problem 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 5466175 Problem Cervicalgia M54.2 Active 23233845 Problem Bilateral carpal tunnel syndrome G56.03 Active 77482508 Problem Cervical stenosis of spinal canal M48.02 Active 37686312 Problem Cervical disc disease M50.90 Active 985925891 ALLERGIES No Known Allergies ENCOUNTERS Encounter Location Date Diagnosis [address] [place] [address] [id number] March, Osteoarthritis of both knees, unspecified osteoarthritis type M17.0 ; Benign prostatic hyperplasia with lower urinary tract symptoms, unspecified morphology N40.1 ; 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 and Pedal edema R60.[id number] [place] [address] [id number] Jan, Cervical stenosis of spinal canal M48.[address] [id number] 17[address] Dec, [id number] [place] [address] [id number] Dec, Cervical stenosis of spinal canal M48.02 and Impaired mobility and ADLs Z74.09 [address] [place] [address] [id number] Nov, [address] [id number] Nov, Osteoarthritis of both knees, unspecified osteoarthritis type M17.0 ; 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 ; 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 and Benign prostatic hyperplasia with lower urinary tract symptoms, unspecified morphology N40.[address] [place] [address] [id number] Sep, Cervical stenosis of spinal canal M48.02 ; Benign prostatic hyperplasia with lower urinary tract symptoms, unspecified morphology N40.1 ; Osteoarthritis of both knees, unspecified osteoarthritis type M17.0 ; 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 ; Acute cystitis with hematuria N30.01 and Encounter for immunization Z23 [address] [id number] Apr, Osteoarthritis of both knees, unspecified osteoarthritis type M17.0 ; Cervical stenosis of spinal canal M48.02 and Benign prostatic hyperplasia with lower urinary tract symptoms, unspecified morphology N40.1 [address] [place] [address] [id number] March, Osteoarthritis of both knees, unspecified osteoarthritis type M17.0 and Cervical disc disease M50.90 [address] [place] [address] [id number] Feb, Osteoarthritis of both knees, unspecified osteoarthritis type M17.0 ; Benign prostatic hyperplasia with lower urinary tract symptoms, unspecified morphology N40.1 ; Bilateral carpal tunnel syndrome G56.03 and Cervicalgia M54.2 [address] [id number] Sep, Osteoarthritis of both knees, unspecified osteoarthritis type M17.0 ; Screening for heart disease Z13.6 and Benign prostatic hyperplasia with lower urinary tract symptoms, unspecified morphology N40.1 [address]005[address]100[place] [id number] Sep, [address] [place] [address] [id number] Aug, Osteoarthritis of both knees, unspecified osteoarthritis type M17.0 and 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 [address] [place] [address] [id number] May, Benign prostatic hyperplasia with lower urinary tract symptoms, unspecified morphology N40.1 ; Osteoarthritis of both knees, unspecified osteoarthritis type M17.0 and 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 [address] [place] [address] [id number] March, Acute nasopharyngitis J00 [address] [id number] Feb, Osteoarthritis of both knees, unspecified osteoarthritis type M17.0 ; 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 and Benign prostatic hyperplasia with lower urinary tract symptoms, unspecified morphology N40.1 [id number] [place] [address] [id number] Nov, Hematuria R31.9 [facility] [id number] [place] [address] Oct, [id number] [place] [address] [id number] Oct, Hematuria, unspecified 599.70 and Unspecified inflammatory polyarthropathy 714.[address] [id number] Sep, Screening for lipoid disorders Z13.220 ; Hematuria R31.9 ; 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 and Encounter for immunization Z23 [id number] [place] [address] [id number] Aug, Effusion, unspecified ankle M25.473 ; Dysuria R30.0 and Flu vaccine need Z23 [id number] [place] [address] [id number] Jul, Hematuria, unspecified 599.70 ; Osteoarthritis (arthritis due to wear and tear of joints) 715.90 and BPH (benign prostatic hyperplasia) 600.[address] [place] [address] [id number] Jun, Osteoarthritis (arthritis due to wear and tear of joints) 715.90 ; BPH (benign prostatic hyperplasia) 600.00 and UTI (urinary tract infection) 599.0 [facility] [id number] [place]REEK[place] [address]81[address]807 May, Sinusitis 473.9 [facility] [id number] [place] [address] [id number] March, Ingrowing left great toenail 703.0 [facility] [id number] [place] [address] [id number] March, Unspecified inflammatory polyarthropathy 714.9 ; Ankle swelling 719.07 and Ingrowing left great toenail 703.0 [facility] [id number] [place]REEK[place] [id number] March, [facility] [id number] [place] [address] Feb, [facility] [id number] [place] [address] Feb, [facility] [id number] [place] [address] [id number] Aug, [facility] [id number] [place] [address] Aug, [facility] [id number] [place] [address] Aug, [facility] [id number] [place]REEK, [place] [id number] Aug, [facility] [id number] [place] [address] Aug, [facility] [address] [place] [address] Jul, [facility] [id number] [place] [address] [id number] Jul, [facility] [id number] [place] [address] [id number] Apr, [facility] [id number] [place] [address] Apr, [facility] [address] [facility] [id number] [place] [address] March, [facility] [address] [facility] [id number] [place] [id number] March, [facility] [address]00565100[place] [address] Dec, [facility] [id number] [place]REEK, [place] 079678070 Dec, [facility] [address] [id number] [place]REEK[place] 032475093 Oct, [facility] [address]00565100[place] [address] Oct, [facility] [address]00565100[place] [address] Oct, [facility] [id number] [place]REEK, [place] [id number] Sep, [facility] [address]00565100[place] [address] Sep, [facility] [address]00565100[place] [address] Aug, [facility] [address]00565100[place] [address] Aug, [facility] [address] [id number] [place]REEK[place] [id number] Aug, [facility] [address]00565100[place] [address] Aug, [facility] [address] [facility] [id number] CREEK[place] [id number] May, [facility] [address]00565100[place] [address] Apr, [facility] [address] [id number] [place], [place] 191215744 Apr, [facility] [address]00565100[place] [address] Apr, [facility] [address] [id number] [place] [id number] Apr, [facility] [address] [id number] [place] [id number] Apr, [facility] [address] [id number] [place] [id number] Jan, [facility] [address] [id number] [place] [id number] Dec, [facility] [address] [id number] [place] [id number] Dec, [facility] [address] [facility] [id number] [place] [address] Dec, [facility] [address] [facility] [id number] [place] [address] Dec, [facility] [address] [id number] [place] [id number] Dec, [facility] [address] [id number] [place] [id number] Nov, [facility] [address] [id number] [place] [id number] Nov, [facility] [address] [id number] [place] [id number] Nov, [facility] [address] [facility] [id number] [place] [address] Oct, [facility] [address] [id number] [place]REEK[place] [id number] Oct, [facility] [address] [id number] [place]REEK[place] 823872432 Sep, [facility] [address] [facility] [id number] [place] [address] Sep, [facility] [address] [id number] CREEK, [place] [id number] Apr, [facility] [address] [id number] [address] Feb, [facility] [address] [id number] [place]REEK[place] [id number] Feb, [facility] [address] [id number] [place] [id number] Feb, [facility] [address] [id number] [place] [id number] Dec, [facility] [address] [id number] [place]REEK, [place] [id number] Dec, [facility] [address]00565100[place], [place] [address] Dec, [facility] [id number] [place] [id number] Dec, [facility] [id number] [place] [address] Nov, [facility] [id number] [place]REEK, [place] 488785722 Nov, [facility] [id number] [place] [address] Oct, [facility] [address]00565100[place] [address] Oct, [facility] [id number] [address] Sep, IMMUNIZATIONS No Known Immunizations SOCIAL HISTORY Never Assessed REASON FOR VISIT Via [facility] f/u for rehab aftger cervical decompression [facility] PLAN OF CARE Activity Details Follow Up 4 Weeks Reason:mobility VITAL SIGNS Height 69 in 2017-12-31 Weight 248 lbs 2017-12-31 Temperature 98 degrees Fahrenheit 2017-12-31 Heart Rate 70 bpm 2017-12-31 Respiratory Rate 16 2017-12-31 BMI 36.62 kg/m2 2017-12-31 Blood pressure systolic 128 mmHg 2017-12-31 Blood pressure diastolic 70 mmHg 2017-12-31 MEDICATIONS Medication Instructions Dosage Frequency Start Date End Date Duration Status Terazosin HCl 1MG TAKE ONE CAPSULE BY MOUTH ONCE DAILY Active Celebrex 200 mg Orally Once a day 1 capsule 24h Active Gabapentin 300 MG Orally Three times a day take 1 capsule 8h Aug, Active Oxybutynin Chloride 5 mg Orally Twice a day 1 tablet 12h 09 Sep, 2017 Active RESULTS No Results PROCEDURES No Known [...] Dr. Crespo 12/25/[address] Ortega [id number] Cervical decompression 12/2017 Hospitalization History surgeries Hospitalization History [facility], [place]- Severe Cervical Spinal Stenosis and Abd Pain. Discharged 11/27/17 11/26/17
--- OUTSIDE RECORDS SUMMARY | 2019-05-21 03:51 | XMS REPORT ---
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 677199894 Problem Pedal edema R60.0 Active 822252501 Problem 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 1689990 Problem Cervicalgia M54.2 Active 27906867 Problem Bilateral carpal tunnel syndrome G56.03 Active 07781288 Problem Cervical stenosis of spinal canal M48.02 Active 83065541 Problem Cervical disc disease M50.90 Active 260748620 ALLERGIES No Information ENCOUNTERS Encounter Location Date Diagnosis [id number] [place] [address] [id number] March, Osteoarthritis of both knees, unspecified osteoarthritis type M17.0 ; Benign prostatic hyperplasia with lower urinary tract symptoms, unspecified morphology N40.1 ; 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 and Pedal edema R60.[id number] [place] [address] [id number] Jan, Cervical stenosis of spinal canal M48.[address] [id number] [address] Dec, [id number] [place] [address] [id number] Dec, Cervical stenosis of spinal canal M48.02 and Impaired mobility and ADLs Z74.[id number] [place] [address] [id number] Nov, [id number] [id number] Nov, Osteoarthritis of both knees, unspecified osteoarthritis type M17.0 ; 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 ; 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 and Benign prostatic hyperplasia with lower urinary tract symptoms, unspecified morphology N40.1 [address] [id number] Sep, Cervical stenosis of spinal canal M48.02 ; Benign prostatic hyperplasia with lower urinary tract symptoms, unspecified morphology N40.1 ; Osteoarthritis of both knees, unspecified osteoarthritis type M17.0 ; 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 ; Acute cystitis with hematuria N30.01 and Encounter for immunization Z23 [address] [id number] Apr, Osteoarthritis of both knees, unspecified osteoarthritis type M17.0 ; Cervical stenosis of spinal canal M48.02 and Benign prostatic hyperplasia with lower urinary tract symptoms, unspecified morphology N40.1 [address] [id number] March, Osteoarthritis of both knees, unspecified osteoarthritis type M17.0 and Cervical disc disease M50.90 [address] [place] [address] [id number] Feb, Osteoarthritis of both knees, unspecified osteoarthritis type M17.0 ; Benign prostatic hyperplasia with lower urinary tract symptoms, unspecified morphology N40.1 ; Bilateral carpal tunnel syndrome G56.03 and Cervicalgia M54.2 [address] [id number] Sep, Osteoarthritis of both knees, unspecified osteoarthritis type M17.0 ; Screening for heart disease Z13.6 and Benign prostatic hyperplasia with lower urinary tract symptoms, unspecified morphology N40.1 [address] [id number] Sep, [address] [place] [address] [id number] Aug, Osteoarthritis of both knees, unspecified osteoarthritis type M17.0 and 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 [place] [address] [id number] May, Benign prostatic hyperplasia with lower urinary tract symptoms, unspecified morphology N40.1 ; Osteoarthritis of both knees, unspecified osteoarthritis type M17.0 and 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 [place] [address] [id number] March, Acute nasopharyngitis J00 [address] [id number] Feb, Osteoarthritis of both knees, unspecified osteoarthritis type M17.0 ; 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 and Benign prostatic hyperplasia with lower urinary tract symptoms, unspecified morphology N40.1 [id number] [place] [address] [id number] Nov, Hematuria R31.9 [facility] [id number] [place] [address] Oct, [id number] [place] [address] [id number] Oct, Hematuria, unspecified 599.70 and Unspecified inflammatory polyarthropathy 714.[address] [id number] Sep, Screening for lipoid disorders Z13.220 ; Hematuria R31.9 ; 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 and Encounter for immunization Z23 [address] [place] [address] [id number] Aug, Effusion, unspecified ankle M25.473 ; Dysuria R30.0 and Flu vaccine need Z23 [id number] [place] [address] [id number] Jul, Hematuria, unspecified 599.70 ; Osteoarthritis (arthritis due to wear and tear of joints) 715.90 and BPH (benign prostatic hyperplasia) 600.[address] [place] [address] [id number] Jun, Osteoarthritis (arthritis due to wear and tear of joints) 715.90 ; BPH (benign prostatic hyperplasia) 600.00 and UTI (urinary tract infection) 599.0 [facility] [place] [id number] [id number] May, Sinusitis 473.9 [facility] [place] [id number] [place] [address] [id number] March, Ingrowing left great toenail 703.0 [facility] [place] [id number] [place] [address] [id number] March, Unspecified inflammatory polyarthropathy 714.9 ; Ankle swelling 719.07 and Ingrowing left great toenail 703.0 [facility] [place] [id number] [place] [address] [id number] March, [facility] [id number] [place] [address] Feb, [facility] [id number] [place] [address] Feb, [facility] [place] [id number] [place] [address] [id number] Aug, [facility] [id number] [place] [address] Aug, [facility] [id number] [place] [address] Aug, [facility] [id number], [place] [id number] Aug, [facility] [id number] [place] [address] Aug, [facility] [address] [place] [phone] Jul, [facility] [place] [id number] [place] [address] [id number] Jul, [facility] [id number], [place] [id number] Apr, [facility] [id number] [place] [address] Apr, [facility] [address] [facility] [id number], [place] [address] March, [facility] [address] [facility] [id number] [place] [id number] March, [facility] [address] [facility] [id number], [place] [address] Dec, [facility] [address] [facility] [id number] [place] [id number] Dec, [facility] [address] [facility] [id number], [place] [id number] Oct, [facility] [address]00565[address], [place] [address] Oct, [facility] [address]00565100[place], [place] [address] Oct, [facility] [id number], [place] [id number] Sep, [facility] [address]00565100[place], [place] [address] Sep, [facility] [address]00565100[place], [place] [address] Aug, [facility] [address]00565[address], [place] [address] Aug, [facility] [address] [id number], [place] [id number] Aug, [facility] [address] [facility] [id number], [place] [address] Aug, [facility] [address] [facility] [id number], [place] [phone] May, [facility] [address]00565[address], [place] [address] Apr, [facility] [address] [facility] [id number], [place] [id number] Apr, [facility] [address]00565100[place], [place] [address] Apr, [facility] [address] [id number] [place] [id number] Apr, [facility] [address] [id number] [place] [id number] Apr, [facility] [address] [id number] [place] [id number] Jan, [facility] [address] [id number] [place] [id number] Dec, [facility] [address] [id number] [place] [id number] Dec, [facility] [address] [facility] [id number], [place] [address] Dec, [facility] [address] [facility] [id number], [place] [address] Dec, [facility] [address] [id number] [place] [id number] Dec, [facility] [address] [id number] [place] [id number] Nov, [facility] [address] [id number] [place] [id number] Nov, [facility] [address] [id number] [place] [id number] Nov, [facility] [address]00565[address], [place] [address] Oct, [facility] [address] [id number], [place] [id number] Oct, [facility] [address] [id number], [place] [id number] Sep, [facility] [address] [facility] [id number], [place] [address] Sep, [facility] [address] [id number], [place] [id number] Apr, [facility] [address]00565100[place], [place] [address] Feb, [facility] [address] [id number] [place] [id number] Feb, [facility] [address] [id number], [place] [id number] Feb, [facility] [address] [id number], [place] [id number] Dec, [facility] [address] [id number], [place] [id number] Dec, [facility] [address]00565100[place], [place] [address] Dec, [facility] [address] [id number], [place] [id number] Dec, [facility] [id number] [place] [address] Nov, [facility] [address] [id number], [place] [id number] Nov, [facility] [address]00565100[place], [place] [address] Oct, [facility] [address]00565100[place], [place] [address] Oct, [facility] [address]00565100[place], [place] [address] Sep, IMMUNIZATIONS No Known Immunizations SOCIAL HISTORY Never Assessed REASON FOR VISIT FYI PLAN OF CARE VITAL SIGNS MEDICATIONS No [...] Dr. Crespo 12/25/[address] Ortega [id number] Cervical decompression 12/2017 Hospitalization History surgeries Hospitalization History [facility]- Severe Cervical Spinal Stenosis and Abd Pain. Discharged 11/27/17 11/26/17
--- OUTSIDE RECORDS SUMMARY | 2019-05-21 03:51 | XMS REPORT ---
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 673544344 Problem Pedal edema R60.0 Active 479689256 Problem 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 3813037 Problem Cervicalgia M54.2 Active 88289595 Problem Bilateral carpal tunnel syndrome G56.03 Active 68111564 Problem Cervical stenosis of spinal canal M48.02 Active 56795102 Problem Cervical disc disease M50.90 Active 435755866 ALLERGIES No Known Allergies ENCOUNTERS Encounter Location Date Diagnosis [address] [place] [address] [id number] March, Osteoarthritis of both knees, unspecified osteoarthritis type M17.0 ; Benign prostatic hyperplasia with lower urinary tract symptoms, unspecified morphology N40.1 ; 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 and Pedal edema R60.[id number] [place] [address] [id number] Jan, Cervical stenosis of spinal canal M48.[address] [id number] [id number] Dec, [address] [id number] [place] [address] [id number] Dec, Cervical stenosis of spinal canal M48.02 and Impaired mobility and ADLs Z74.09 [address] [place] [address] [id number] Nov, [address] [id number] Nov, Osteoarthritis of both knees, unspecified osteoarthritis type M17.0 ; 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 ; 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 and Benign prostatic hyperplasia with lower urinary tract symptoms, unspecified morphology N40.[address] [place] [address] [id number] Sep, Cervical stenosis of spinal canal M48.02 ; Benign prostatic hyperplasia with lower urinary tract symptoms, unspecified morphology N40.1 ; Osteoarthritis of both knees, unspecified osteoarthritis type M17.0 ; 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 ; Acute cystitis with hematuria N30.01 and Encounter for immunization Z23 [address] [id number] Apr, Osteoarthritis of both knees, unspecified osteoarthritis type M17.0 ; Cervical stenosis of spinal canal M48.02 and Benign prostatic hyperplasia with lower urinary tract symptoms, unspecified morphology N40.[address] [place] [address] [id number] March, Osteoarthritis of both knees, unspecified osteoarthritis type M17.0 and Cervical disc disease M50.90 [address] [place] [address] [id number] Feb, Osteoarthritis of both knees, unspecified osteoarthritis type M17.0 ; Benign prostatic hyperplasia with lower urinary tract symptoms, unspecified morphology N40.1 ; Bilateral carpal tunnel syndrome G56.03 and Cervicalgia M54.2 [address], [place] [id number] Sep, Osteoarthritis of both knees, unspecified osteoarthritis type M17.0 ; Screening for heart disease Z13.6 and Benign prostatic hyperplasia with lower urinary tract symptoms, unspecified morphology N40.1 [address]00565100[place], [place] [id number] Sep, [address] [place] [address] [id number] Aug, Osteoarthritis of both knees, unspecified osteoarthritis type M17.0 and 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 [place] [address] [id number] May, Benign prostatic hyperplasia with lower urinary tract symptoms, unspecified morphology N40.1 ; Osteoarthritis of both knees, unspecified osteoarthritis type M17.0 and 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 [place] [address] [id number] March, Acute nasopharyngitis J00 [address] [id number] Feb, Osteoarthritis of both knees, unspecified osteoarthritis type M17.0 ; 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 and Benign prostatic hyperplasia with lower urinary tract symptoms, unspecified morphology N40.1 [id number] [place] [address] [id number] Nov, Hematuria R31.9 [facility] [id number] [place] [address] Oct, [id number] [place] [address] [id number] Oct, Hematuria, unspecified 599.70 and Unspecified inflammatory polyarthropathy 714.[address] [id number] Sep, Screening for lipoid disorders Z13.220 ; Hematuria R31.9 ; 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 and Encounter for immunization Z23 [place] [id number] [place] [address] [id number] Aug, Effusion, unspecified ankle M25.473 ; Dysuria R30.0 and Flu vaccine need Z23 [place] [id number] [place] [address] [id number] Jul, Hematuria, unspecified 599.70 ; Osteoarthritis (arthritis due to wear and tear of joints) 715.90 and BPH (benign prostatic hyperplasia) 600.[address] [place] [address] [id number] Jun, Osteoarthritis (arthritis due to wear and tear of joints) 715.90 ; BPH (benign prostatic hyperplasia) 600.00 and UTI (urinary tract infection) 599.0 [facility] [place] [id number], [place] [id number] May, Sinusitis 473.9 [facility] [id number] [place] [address] [id number] March, Ingrowing left great toenail 703.0 [facility] [id number] [place] [address] [id number] March, Unspecified inflammatory polyarthropathy 714.9 ; Ankle swelling 719.07 and Ingrowing left great toenail 703.0 [facility] [id number], [place] [id number] March, [facility] [id number] [place] [address] Feb, [facility] [id number] [place] [address] Feb, [facility] [id number] [place] [address] [id number] Aug, [facility] [id number] [place] [address] Aug, [facility] [id number] [place] [address] Aug, [facility] [id number], [place] [id number] Aug, [facility] [id number] [place] [address] Aug, [facility] [address] [place] [address] Jul, [facility] [id number] [place] [address] [id number] Jul, [facility] [id number] [place] [address] [id number] Apr, [facility] [id number] [place] [address] Apr, [facility] [address] [facility] [id number], [place] [address] March, [facility] [address] [facility] [id number], [place] [id number] March, [facility] [address]00565100[place], [place] [address] Dec, [facility] [id number], [place] [id number] Dec, [facility] [address] [id number], [place] [id number] Oct, [facility] [address]00565100[place], [place] [address] Oct, [facility] [address]00565100[place], [place] [address] Oct, [facility] [id number], [place] [id number] Sep, [facility] [address]00565100[place], [place] [address] Sep, [facility] [address]00565100[place], [place] [address] Aug, [facility] [address]00565100[place], [place] [address] Aug, [facility] [address] [id number], [place] [id number] Aug, [facility] [address]00565100[place], [place] [address] Aug, [facility] [address] [facility] [id number], [place] [id number] May, [facility] [address]00565100[place], [place] [address] Apr, [facility] [address] [id number], [place] [id number] Apr, [facility] [address]00565100[place], [place] [address] Apr, [facility] [address] [id number] [place] [id number] Apr, [facility] [address] [id number] [place] [id number] Apr, [facility] [address] [id number] [place] [id number] Jan, [facility] [address] [id number] [place] [id number] Dec, [facility] [address] [id number] [place] [id number] Dec, [facility] [address] [facility] [id number], [place] [address] Dec, [facility] [address] [facility] [id number], [place] [address] Dec, [facility] [address] [id number] [place] [id number] Dec, [facility] [address] [id number] [place] [id number] Nov, [facility] [address] [id number] [place] [id number] Nov, [facility] [address] [id number] [place] [id number] Nov, [facility] [address] [facility] [id number], [place] [address] Oct, [facility] [address] [id number], [place] [id number] Oct, [facility] [address] [id number], [place] [id number] Sep, [facility] [address] [facility] [id number], [place] [address] Sep, [facility] [address] [id number], [place] [id number] Apr, [facility] [address] [id number], [place] [address] Feb, [facility] [address] [id number], [place] [id number] Feb, [facility] [address] [id number], [place] [address]251175[address] Feb, [facility] [address] [id number], [place] [id number] Dec, [facility] [address] [id number], [place] [id number] Dec, [facility] [address]00565100[place], [place] [address] Dec, [facility] [address] [id number], [place] [id number] Dec, [facility] [id number] [place] [address] Nov, [facility] [address] [id number], [place] [id number] Nov, [facility] [address]00565100[place], [place] [address] Oct, [facility] [address]00565100[place], [place] [address] Oct, [facility] [address]00565100[place], [place] [address] Sep, IMMUNIZATIONS No Known Immunizations SOCIAL HISTORY Never Assessed REASON FOR VISIT 3 month follow up on blood pressure, doing well. glenroy Flores PLAN OF CARE Activity Details Follow Up 3 Months Reason:arthriis VITAL SIGNS Height 69 in 2017-11-18 Weight 256 lbs 2017-11-18 Temperature 97.5 degrees Fahrenheit 2017-11-18 Heart Rate 68 bpm 2017-11-18 Respiratory Rate 16 2017-11-18 BMI 37.80 kg/m2 2017-11-18 Blood pressure systolic 130 mmHg 2017-11-18 Blood pressure diastolic 70 mmHg 2017-11-18 MEDICATIONS Medication Instructions Dosage Frequency Start Date End Date Duration Status Celebrex 200 mg Orally Once a day 1 capsule 24h Active Oxybutynin Chloride 5 mg Orally Twice a day 1 tablet 12h Sep, Active Gabapentin 300 MG Orally Three times a day take 1 capsule 8h Aug, Active Terazosin HCl 1MG TAKE ONE CAPSULE [...] Dr. Crespo 12/25/[address] Ortega [id number] Cervical decompression 12/2017 Hospitalization History surgeries Hospitalization History [facility]- Severe Cervical Spinal Stenosis and Abd Pain. Discharged 11/27/17 11/26/17
--- OUTSIDE RECORDS SUMMARY | 2019-05-21 03:51 | XMS REPORT ---
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 8895661 Problem Cervical stenosis of spinal canal M48.02 Active 86447161 Problem Cervicalgia M54.2 Active 81900068 Problem Osteoarthritis of both knees, unspecified osteoarthritis type M17.0 Active 978389456 Problem Cervical disc disease M50.90 Active 010969831 Problem Bilateral carpal tunnel syndrome G56.03 Active 74565303 ALLERGIES No Known Allergies ENCOUNTERS Encounter Location Date Diagnosis [id number] [place] [id number] March, [id number] [place] [address] [id number] Jan, Cervical stenosis of spinal canal M48.[address] [id number] [id number] Dec, [address] [id number][place] [id number] Dec, Cervical stenosis of spinal canal M48.02 and Impaired mobility and ADLs Z74.[address] [place] [id number] Nov, [address] [id number][place] [id number] Nov, Osteoarthritis of both knees, unspecified osteoarthritis type M17.0 ; 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 ; 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 and Benign prostatic hyperplasia with lower urinary tract symptoms, unspecified morphology N40.1 [place] [id number] [place] [address] [id number] Sep, Cervical stenosis of spinal canal M48.02 ; Benign prostatic hyperplasia with lower urinary tract symptoms, unspecified morphology N40.1 ; Osteoarthritis of both knees, unspecified osteoarthritis type M17.0 ; 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 ; Acute cystitis with hematuria N30.01 and Encounter for immunization Z23 [place] [id number] [place] [address] [id number] Apr, Osteoarthritis of both knees, unspecified osteoarthritis type M17.0 ; Cervical stenosis of spinal canal M48.02 and Benign prostatic hyperplasia with lower urinary tract symptoms, unspecified morphology N40.[address] [id number] March, Osteoarthritis of both knees, unspecified osteoarthritis type M17.0 and Cervical disc disease M50.90 [place] [id number] [place] [address] [id number] Feb, Osteoarthritis of both knees, unspecified osteoarthritis type M17.0 ; Benign prostatic hyperplasia with lower urinary tract symptoms, unspecified morphology N40.1 ; Bilateral carpal tunnel syndrome G56.03 and Cervicalgia M54.2 [place] [id number] [place] [address] [id number] Sep, Osteoarthritis of both knees, unspecified osteoarthritis type M17.0 ; Screening for heart disease Z13.6 and Benign prostatic hyperplasia with lower urinary tract symptoms, unspecified morphology N40.[address] [place] [address] [id number] Sep, [place] [id number] [place] [address] [id number] Aug, Osteoarthritis of both knees, unspecified osteoarthritis type M17.0 and 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 [place] [id number] [place] [address] [id number] May, Benign prostatic hyperplasia with lower urinary tract symptoms, unspecified morphology N40.1 ; Osteoarthritis of both knees, unspecified osteoarthritis type M17.0 and 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 [place] [address] [id number] March, Acute nasopharyngitis J00 [place] [id number] [place] [address] [id number] Feb, Osteoarthritis of both knees, unspecified osteoarthritis type M17.0 ; 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 and Encounter for immunization Z23 [address] [id number] Aug, Effusion, unspecified ankle M25.473 ; Dysuria R30.0 and Flu vaccine need Z23 [address] [id number] Jul, Hematuria, unspecified 599.70 ; Osteoarthritis (arthritis due to wear and tear of joints) 715.90 and BPH (benign prostatic hyperplasia) 600.00 [place] [id number] [place] [address] [id number] Jun, Osteoarthritis (arthritis due to wear and tear of joints) 715.90 ; BPH (benign prostatic hyperplasia) 600.00 and UTI (urinary tract infection) 599.0 [place] [id number] [place] [address] [id number] May, Sinusitis 473.[address] [id number] March, Ingrowing left great toenail 703.0 [facility] [address] [id number] [id number] March, Unspecified inflammatory polyarthropathy 714.9 ; Ankle swelling 719.07 and Ingrowing left great toenail 703.0 [facility] [id number][place] [id number] March, [facility] [address] [place] [id number] Feb, [facility] [address] [place] [address] Feb, [facility] [id number] [place] [address] [id number] Aug, [facility] [place] [id number] [place] [id number] Aug, [facility] [place] [id number] [place] [address] Aug, [facility] [id number], [place] [id number] Aug, [facility] [place] [address], [place] [address] Aug, [facility] [address], [place] [address] Jul, [facility] [id number], [place] [id number] Jul, [facility] [address] [id number], [place] [id number] Apr, [facility] [place] [id number] [place] [address] Apr, [facility] [address], [place] [address] March, [facility] [address] [id number][place] [id number] March, [facility] [address] [facility] [id number], [place] [address] Dec, [facility] [address] [id number] [place] [id number] Dec, [facility] [address] [facility] [id number][place] [id number] Oct, [facility] [address] [facility] [id number], [place] [address] Oct, [facility] [address] [facility] [id number], [place] [address] Oct, [facility] [address] [facility] [id number][place] [id number] Sep, [facility] [address] [facility] [id number], [place] [address] Sep, [facility] [address], [place] [address] Aug, [facility] [address] [facility] [id number], [place] [address] Aug, [facility] [address] [facility] [id number], [place] [id number] Aug, [facility] [address] [facility] [id number], [place] [address] Aug, [facility] [address] [id number], [place] [id number] May, [facility] [address] [facility] [id number], [place] [address] Apr, [facility] [address] [id number], [place] [id number] Apr, [facility] [address] [facility] [id number], [place] [address] Apr, [facility] [address] [id number], [place] [id number] 14 Apr, 2013 [facility] [address] [facility] [id number], [place] [id number] Apr, [facility] [address] [id number] [place] [id number] Jan, [facility] [address] [id number] [place] [id number] Dec, [facility] [address] [id number] [place] [id number] Dec, [facility] [address] [facility] [id number], [place] [address] Dec, [facility] [address] [facility] [id number], [place] [address] 14 Dec, 2012 [facility] [address] [id number] [place] [id number] Dec, [facility] [address] [id number], [place] [id number] Nov, [facility] [address] [id number], [place] [id number] Nov, [facility] [address] [id number], [place] [id number] Nov, [facility] [address] [facility] [id number], [place] [address] Oct, [facility] [address] [id number], [place] [id number] Oct, [facility] [address] [id number], [place] [id number] Sep, [facility] [address] [facility] [id number], [place] [address] Sep, [facility] [address] [id number], [place] [id number] Apr, [facility] [address] [facility] [id number], [place] [address] Feb, [facility] [address] [id number], [place] [id number] Feb, [facility] [address] [id number], [place] [id number] Feb, [facility] [address] [id number], [place] [id number] Dec, [facility] [address] [facility] [id number][place] [id number] Dec, [facility] [address], [place] [address] Dec, [facility] [address] [facility] [id number], [place] [id number] Dec, [facility] [address]65[address], [place] [address] Nov, [facility] [address] [facility] [id number], [place] [id number] Nov, [facility] [address] [address] Oct, [facility] [address]65100[place], [place] [address] Oct, [facility] [address], [place] [address] Sep, IMMUNIZATIONS No Known Immunizations SOCIAL HISTORY Never Assessed REASON FOR VISIT Blood Pressure Marisa RUFFIN PLAN OF CARE Activity Details Follow Up 3 Months Reason:neck pain VITAL SIGNS Height 69 in 2017-05-13 Weight 257.8 lbs 2017-05-13 Temperature 98.3 degrees Fahrenheit 2017-05-13 Heart Rate 76 bpm 2017-05-13 Respiratory Rate 16 2017-05-13 BMI 38.07 kg/m2 2017-05-13 Blood pressure systolic 118 mmHg 2017-05-13 Blood pressure diastolic 70 mmHg 2017-05-13 MEDICATIONS Medication Instructions Dosage Frequency Start Date End Date Duration Status Celebrex 200 mg Orally Once a day 1 capsule 24h Active Hytrin 1 MG Orally Once a day 1 capsule 24h Jun, Active Gabapentin 300 MG Orally Three times a day take 1 capsule 8h Aug, Active RESULTS No Results PROCEDURES Procedure Date Ordered Result Body Site [facility] VISIT ESTABLISHED PATIENT May 13, 2017 INSTRUCTIONS MEDICATIONS ADMINISTERED No Known Medications MEDICAL [...] Dr. Crespo 12/25/[address] Ortega [id number] Cervical decompression 12/2017 Hospitalization History surgeries Hospitalization History [facility]- Severe Cervical Spinal Stenosis and Abd Pain. Discharged 11/27/17 11/26/17
--- OUTSIDE RECORDS SUMMARY | 2019-05-21 03:53 | XMS REPORT | Continuity of Care Document ---
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.9 UNSPECIFIED INFLAMMATORY POLYARTHROPATHY 05/10/2012 NEDA PAINTER APRN 714.9 UNSPECIFIED INFLAMMATORY POLYARTHROPATHY 05/10/2012 DAVID PAVON DO K 714.9 UNSPECIFIED INFLAMMATORY POLYARTHROPATHY 05/10/2012 BENNIE PAVON DOA K 714.9 UNSPECIFIED INFLAMMATORY POLYARTHROPATHY 05/10/2012 BENNIE PAVON DOA K 714.9 UNSPECIFIED INFLAMMATORY POLYARTHROPATHY 11/05/2012 604.90 [...] 601.0 ACUTE PROSTATITIS 04/29/2013 NEDA PAINTER APRN 601.0 ACUTE PROSTATITIS 04/29/2013 PAVON DO, DAVID [...] K 788.1 DYSURIA 05/25/2013 NEDA PAINTER APRN 788.1 DYSURIA 05/25/2013 PAVON DO, DAVID K [...] DO, DAVID K V04.81 FLU SHOT 09/06/2013 PAINTER PURCHASING CONTRACTING CLERK, NEDA R 786.05 SHORTNESS OF BREATH 09/06/2013 MADINA BRARNEDA R V04.81 FLU SHOT 09/06/2013 PAVON DO, DAVID [...] DAVID K 599.70 HEMATURIA 09/28/2014 JOHNNY VENTURA, MARIS Gustafson Ot 599.70 10/11/2014 JOHNNY VENTURA, MARIS A Ot 593.2 10/11/2014 JOHNNY VENTURA, MARSI A Ot 598.9 12/27/2015 Ot 608.86 12/27/2015 Ot 715.96 12/27/2015 JOHNNY VENTURA, MARIS Gustafson Ot 599.70 12/27/2015 JOHNNY VENTURA, MARIS Gustafson Ot 593.2 12/27/2015 JOHNNY VENTURA, MARIS Gustafson Ot 598.9 01/01/2016 Ot 608.86 01/01/2016 Ot 715.96 01/01/2016 JOHNNY VENTURA, MARIS A Ot 599.70 01/01/2016 JOHNNY VENTURA, MARIS Gustafson Ot 593.2 01/01/2016 JOHNNY VENTURA, MARIS Gustafson Ot 598.9 01/03/2016 VILMA VENTURA, JAIRO [...] Ot N35.9 URETHRAL STRICTURE, UNSPECIFIED 01/09/2016 VILMA VENTURA, JAIRO E Ot N40.1 ENLARGED PROSTATE WITH LOWER URINARY TRA 01/09/2016 VILMA VENTURA, JAIRO E Ot R33.8 OTHER RETENTION OF URINE 01/09/2016 VILMA VENTURA, JAIRO E Ot 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 01/09/2016 VILMA VENTURA, JAIRO E Ot Z96.652 PRESENCE OF LEFT ARTIFICIAL KNEE JOINT 02/22/2016 REJI KAMALJIT E PURCHASING CONTRACTING CLERK Ot Z47.1 02/22/2016 REJI KAMALJIT E PURCHASING CONTRACTING CLERK Ot Z96.652 03/07/2016 REJI KAMALJIT E PURCHASING CONTRACTING CLERK Ot 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 03/07/2016 REJI KAMALJIT E PURCHASING CONTRACTING CLERK Ot Z96.652 PRESENCE OF LEFT ARTIFICIAL KNEE JOINT 04/04/2016 REJI KAMALJIT E PURCHASING CONTRACTING CLERK Ot 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 04/04/2016 REJI KAMALJIT E PURCHASING CONTRACTING CLERK Ot Z96.652 PRESENCE OF LEFT ARTIFICIAL KNEE JOINT 10/18/2016 Ot 608.86 EDEMA, MALE GENITAL ORGN 10/18/2016 Ot 715.96 OSTEOARTHROS NOS-L/LEG 10/18/2016 JOHNNY VENTURA, MARIS Gustafson Ot 599.70 HEMATURIA, UNSPECIFIED 10/18/2016 JOHNNY VENTURA, MARIS Gustafson Ot 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, ACQUIRED 10/18/2016 JOHNNY VENTURA, MARIS Gustafson Ot 598.9 URETHRAL STRICTURE NOS 10/18/2016 KIKE [...] STRIKE 10/18/2016 KIKE PERKINS APRN Ot Y92.[address] [facility] PL[address] IN [facility] NON-INSTITUT (PRIVATE 10/18/2016 KIKE PERKINS APRN Ot Y93.89 ACTIVITY, OTHER SPECIFIED 10/18/2016 KIKE PERKINS APRN Ot Y99.8 OTHER EXTERNAL CAUSE STATUS 10/18/2016 KIKE PERKINS APRN Ot Z79.82 HVAC SHEET METAL INSTALLER (CURRENT) USE OF ASPIRIN 10/18/2016 KIKE PERKINS APRN Ot Z79.899 OTHER HVAC SHEET METAL INSTALLER (CURRENT) DRUG THERAPY 11/07/2016 KIZZY HERNÁNDEZ MD Ot R06.00 DYSPNEA, UNSPECIFIED 11/07/2016 KIZZY HERNÁNDEZ MD Ot R06.02 SHORTNESS OF BREATH 11/07/2016 KIZZY HERNÁNDEZ MD Ot R20.2 PARESTHESIA OF SKIN 11/07/2016 KIZZY HERNÁNDEZ MD Ot R61 GENERALIZED HYPERHIDROSIS 11/07/2016 Ot 608.86 EDEMA, MALE GENITAL ORGN 11/07/2016 Ot 715.96 OSTEOARTHROS NOS-L/LEG 11/07/2016 MARIS TURNER MD Ot 599.70 HEMATURIA, UNSPECIFIED 11/07/2016 MARIS TURNER MD Ot 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, ACQUIRED 11/07/2016 MARIS TURNER MD Ot 598.9 URETHRAL STRICTURE NOS [...] W/O MYELOPATHY OR RADICULOPA 05/21/2017 NEDA PAINTER CFISADORA Ot M50.921 UNSPECIFIED CERVICAL DISC DISORDER AT C4 05/21/2017 NEDA PAINTER CFISADORA Ot M50.922 UNSPECIFIED CERVICAL DISC DISORDER AT C5 11/27/2017 Ot 608.86 EDEMA, MALE GENITAL ORGN 11/27/2017 Ot 715.96 OSTEOARTHROS NOS-L/LEG 11/27/2017 MARIS TURNER MD Ot 599.70 HEMATURIA, UNSPECIFIED 11/27/2017 JOHNNY VENTURA, MARIS Gustafson Ot 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, ACQUIRED 11/27/2017 MARIS TURNER MD Ot 598.9 URETHRAL STRICTURE NOS 11/27/2017 NEDA PAINTER Ot M47.812 SPONDYLOSIS W/O MYELOPATHY OR RADICULOPA 11/27/2017 NEDA PAINTER CFNP Ot M50.921 UNSPECIFIED CERVICAL DISC DISORDER AT C4 11/27/2017 NEDA PAINTER CFISADORA Ot M50.922 UNSPECIFIED CERVICAL DISC DISORDER AT C5 11/27/2017 BHUPINDER SANCHEZ MD Ot G47.61 PERIODIC LIMB MOVEMENT DISORDER 11/27/2017 BHUPINDER SANCHEZ MD Ot G62.9 POLYNEUROPATHY, UNSPECIFIED 11/27/2017 BHUPINDER SANCHEZ MD Ot M47.12 OTHER SPONDYLOSIS WITH MYELOPATHY, CERVI 11/27/2017 BHUPINDER SANCHEZ MD Ot M48.02 SPINAL STENOSIS, CERVICAL REGION 11/27/2017 BHUPINDER SANCHEZ MD Ot N40.0 BENIGN PROSTATIC HYPERPLASIA WITHOUT LOW 11/27/2017 BHUPINDER SANCHEZ MD Ot Z79.899 OTHER HVAC SHEET METAL INSTALLER (CURRENT) DRUG THERAPY 11/27/2017 BHUPINDER SANCHEZ MD Ot Z87.891 PERSONAL HISTORY OF NICOTINE DEPENDENCE 11/27/2017 BHUPINDER SANCHEZ MD Ot Z96.652 PRESENCE OF LEFT ARTIFICIAL KNEE JOINT 12/17/2017 JAIRO ESPARZA MD Ot G25.81 RESTLESS LEGS SYNDROME 12/17/2017 JAIRO ESPARZA MD Ot G62.9 POLYNEUROPATHY, UNSPECIFIED 12/17/2017 JAIRO ESPARZA MD Ot M17.11 UNILATERAL PRIMARY OSTEOARTHRITIS, RIGHT 12/17/2017 JAIRO ESPARZA MD Ot M54.9 DORSALGIA, UNSPECIFIED 12/17/2017 JAIRO ESPARZA MD Ot N40.0 BENIGN PROSTATIC HYPERPLASIA WITHOUT LOW 12/17/2017 JAIRO ESPARZA MD Ot Z47.89 ENCOUNTER FOR OTHER ORTHOPEDIC AFTERCARE 12/17/2017 JAIRO ESPARZA MD Ot Z87.891 PERSONAL HISTORY OF NICOTINE DEPENDENCE 12/17/2017 JAIRO ESPARZA MD Ot Z98.1 ARTHRODESIS STATUS 12/19/2017 JAIRO ESPARZA MD Ot G25.81 RESTLESS LEGS SYNDROME 12/19/2017 JAIRO ESPARZA MD Ot G62.9 POLYNEUROPATHY, UNSPECIFIED 12/19/2017 JAIRO ESPARZA MD Ot M17.11 UNILATERAL PRIMARY OSTEOARTHRITIS, RIGHT 12/19/2017 JAIRO ESPARZA MD Ot M54.9 DORSALGIA, UNSPECIFIED 12/19/2017 JAIRO ESPARZA MD Ot N40.0 BENIGN PROSTATIC HYPERPLASIA WITHOUT LOW 12/19/2017 JAIRO ESPARZA MD Ot Z47.89 ENCOUNTER FOR OTHER ORTHOPEDIC AFTERCARE 12/19/2017 JAIRO ESPARZA MD Ot Z87.891 PERSONAL HISTORY OF NICOTINE DEPENDENCE 12/19/2017 JAIRO ESPARZA MD Ot Z98.1 ARTHRODESIS STATUS 10/13/2018 KIKE PERKINS APRN Ot G25.81 RESTLESS LEGS SYNDROME 10/13/2018 KIKE PERKINS APRN Ot M54.16 RADICULOPATHY, LUMBAR REGION 10/13/2018 KIKE PERKINS APRN Ot M54.5 LOW BACK PAIN 10/13/2018 KIKE PERKINS APRN Ot N39.0 URINARY TRACT INFECTION, SITE NOT SPECIF 10/13/2018 KIKE PERKINS APRN Ot Z82.49 FAMILY HX OF ISCHEM HEART DIS AND OTH DI 10/13/2018 KIKE PERKINS APRN Ot Z87.448 PERSONAL HISTORY OF OTHER DISEASES OF UR 10/13/2018 KIKE PERKINS APRN Ot Z87.891 PERSONAL HISTORY OF NICOTINE DEPENDENCE 10/13/2018 KIKE PERKINS APRN Ot Z90.49 ACQUIRED ABSENCE OF OTHER SPECIFIED PART 10/13/2018 KIKE PERKINS APRN Ot Z96.641 PRESENCE OF RIGHT ARTIFICIAL HIP JOINT 10/13/2018 KIKE PERKINS APRN Ot Z96.652 PRESENCE OF LEFT ARTIFICIAL KNEE JOINT 10/13/2018 KIKE PERKINS APRN Ot Z98.1 ARTHRODESIS STATUS 10/13/2018 MARIS TURNER MD Ot 599.70 HEMATURIA, UNSPECIFIED 10/13/2018 MARIS TURNER MD Ot 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, ACQUIRED 10/13/2018 MARIS TURNER MD Ot 598.9 URETHRAL STRICTURE NOS 10/13/2018 NEDA PAINTER CFISADORA Ot M47.812 SPONDYLOSIS W/O MYELOPATHY OR RADICULOPA 10/13/2018 NEDA PAINTER Ot M50.921 UNSPECIFIED CERVICAL DISC DISORDER AT C4 10/13/2018 NEDA PAINTER Ot M50.922 UNSPECIFIED CERVICAL DISC DISORDER AT C5 10/15/2018 KIKE PERKINS APRN Ot G25.81 RESTLESS LEGS SYNDROME 10/15/2018 KIKE PERKINS APRN Ot M54.16 RADICULOPATHY, LUMBAR REGION 10/15/2018 KIKE PERKINS APRN Ot M54.5 LOW BACK PAIN 10/15/2018 KIKE PERKINS APRN Ot N39.0 URINARY TRACT INFECTION, SITE NOT SPECIF 10/15/2018 KIKE PERKINS APRN Ot Z82.49 FAMILY HX OF ISCHEM HEART DIS AND OTH DI 10/15/2018 KIKE PERKINS APRN Ot Z87.448 PERSONAL HISTORY OF OTHER DISEASES OF UR 10/15/2018 KIKE PERKINS APRN Ot Z87.891 PERSONAL HISTORY OF NICOTINE DEPENDENCE 10/15/2018 KIKE PERKINS APRN Ot Z90.49 ACQUIRED ABSENCE OF OTHER SPECIFIED PART 10/15/2018 KIKE PERKINS APRN Ot Z96.641 PRESENCE OF RIGHT ARTIFICIAL HIP JOINT 10/15/2018 KIKE PERKINS APRN Ot Z96.652 PRESENCE OF LEFT ARTIFICIAL KNEE JOINT 10/15/2018 KIKE PERKINS APRN Ot Z98.1 ARTHRODESIS STATUS Procedures Code [place] [address] UA LONG DIP 11/05/2012 09582 XRAY KNEE RIGHT 1 OR 2 VIEWS 11/05/2012 21969 US SCROTUM ULTRASOUND 11/05/2012 31017 UA W/MICROSCOPY 11/06/2012 67994 INFLUENZA A & B (IN-HOUSE) 11/24/2012 41438 STREP A (IN-HOUSE) 11/24/2012 09299 HEMOCCULT 11/24/2012 58206 ROUTINE VENIPUNCTURE 12/29/2012 Urology Maris Turner 12/29/2012 27788 UA LONG DIP 12/29/2012 97747 PSA TOTAL 12/29/2012 68383 CULTURE URINE 12/31/2012 87576 UA LONG DIP 01/19/2013 22969 UA W/MICROSCOPY 01/19/2013 45467 UA LONG DIP 04/20/2013 13176 ROUTINE VENIPUNCTURE 04/29/2013 70466 UA LONG DIP 04/29/2013 30565 PSA FREE AND TOTAL 05/02/2013 53228 UA LONG DIP 05/11/2013 46724 UA W/MICROSCOPY 05/12/2013 27363 UA LONG DIP 08/03/2014 G0008 FLU ADMINISTRATION (MEDICARE ONLY) 08/17/2014 87052 UA LONG DIP 08/17/2014 93730 UA W/MICROSCOPY 08/17/2014 33120 CULTURE URINE 08/18/2014 82536 UA LONG DIP 08/29/2014 Results Test Result [...] Automated erythrocyte mean corpuscular hemoglobin concentration measurement (mass/volume) 33 g/dL 32-36 Automated erythrocyte distribution width ratio 14.7 % 10.0- 14.5 Automated blood platelet count (count/volume) 135 10*3/uL [...] Blood monocytes automated count (number/volume) 0.7 10*3 0.0- 1.0 Automated eosinophil count 0.1 10*3/uL 0.0-0.3 Automated [...] Serum or plasma aspartate aminotransferase measurement (enzymatic activity/volume) 19 U/L 5-34 Serum or plasma alanine aminotransferase measurement (enzymatic activity/volume) 13 U/L 0-55 Serum or plasma protein measurement (mass/volume) 6.3 g/dL 6.4-8.2 Serum or plasma albumin measurement (mass/volume) 3.5 g/dL 3.2-4.5 Magnesium - 11/07/16 03:10 Magnesium 2.5 mg/dL 1.8-2.4 Serum or plasma troponin i.cardiac measurement (mass/volume) - 11/07/16 03:10 Serum or plasma troponin i.cardiac measurement (mass/volume) < ng/mL <0.30 Serum or plasma lithium measurement (moles/volume) - 11/07/16 03:10 BNP level 96.7 pg/mL <100.0 Myoglobin, serum - 11/07/16 03:10 Myoglobin, serum 43.5 ng/mL 10.0-92.0 Lipase - 11/07/16 03:10 Lipase 42 U/L 8-78 Fibrin D-dimer FEU measurement in platelet poor plasma (mass/volume) - 11/07/16 03:10 Fibrin D-dimer FEU measurement in platelet poor plasma (mass/volume) 0.64 ug/mL 0.00-0.49 Serum or plasma troponin i.cardiac measurement (mass/volume) - 11/07/16 06:23 Serum or plasma troponin i.cardiac measurement (mass/volume) < ng/mL <0.30 PSA - 09/24/17 10:07 PSA, TOTAL 0.4 ng/mL < OR=4.0 CULTURE, URINE - 09/24/17 10:07 CULTURE, URINE, ROUTINE SEE NOTE NRG Complete blood count (CBC) with automated white [...] Automated erythrocyte mean corpuscular hemoglobin concentration measurement (mass/volume) 34 g/dL 32-36 Automated erythrocyte distribution width ratio 14.3 % 10.0- 14.5 Automated blood platelet count (count/volume) 125 10*3/uL [...] Blood monocytes automated count (number/volume) 0.7 10*3 0.0- 1.0 Automated eosinophil count 0.2 10*3/uL 0.0-0.3 Automated [...] Serum or plasma aspartate aminotransferase measurement (enzymatic activity/volume) 22 U/L 5-34 Serum or plasma alanine aminotransferase measurement (enzymatic activity/volume) 17 U/L 0-55 Serum or plasma protein measurement (mass/volume) 7.1 g/dL 6.4-8.2 Serum or plasma albumin measurement (mass/volume) 3.8 g/dL 3.2-4.5 Magnesium - 11/26/17 19:00 Magnesium 2.3 mg/dL 1.8-2.4 Lipase - 11/26/17 19:00 Lipase 54 U/L 8-78 Serum or plasma troponin i.cardiac measurement (mass/volume) - 11/26/17 19:00 Serum or plasma troponin i.cardiac measurement (mass/volume) < ng/mL <0.30 Serum or plasma thyrotropin measurement by detection limit <=0.05 miu/l (units/volume) - 11/26/17 19:00 Serum or plasma thyrotropin measurement by detection limit <=0.05 miu/l (units/volume) 1.99 u[iU]/mL 0.35-4.94 Lipase - 11/26/17 19:00 Lipase 54 U/L 8-78 Serum or plasma thyrotropin measurement by detection limit <=0.05 miu/l (units/volume) - 11/26/17 19:00 Serum or plasma thyrotropin measurement by detection limit <=0.05 miu/l (units/volume) 1.99 u[iU]/mL 0.35-4.94 Complete urinalysis with reflex to culture - 11/26/17 19:07 Urine color determination YELLOW NRG Urine clarity determination CLEAR NRG Urine pH measurement by test strip 6.5 5-9 Specific gravity of urine by test strip 1.015 1.016-1.022 Urine protein assay by test strip, semi-quantitative [...] sediment leukocyte count by microscopy (number/high power field) RARE NRG Bacteria detection in urine sediment [...] A AND B ANTIGENS BY IA NRG Streptococcus pyogenes antigen detection - 12/17/17 11:22 Streptococcus pyogenes antigen detection NEGATIVE NEGATIVE Influenza virus A and B antigen detection - 12/17/17 11:22 FLU RESULT NEGATIVE FOR INFLUENZA A AND B ANTIGENS BY IA NR Bacterial throat culture - 12/17/17 11:22 Bacterial throat culture [facility] Complete blood count (CBC) with automated white blood cell (WBC) differential - 10/13/18 19:40 Blood leukocytes automated count (number/volume) 5.6 10*3/uL 4.3-11.0 Blood erythrocytes automated count (number/volume) 4.25 10*6/uL 4.35-5.85 Venous blood hemoglobin measurement (mass/volume) 12.8 g/dL 13.3-17.7 Blood hematocrit (volume fraction) 39 % 40-54 Automated erythrocyte mean corpuscular volume 93 [foz_us] 80-99 Automated erythrocyte mean corpuscular hemoglobin (mass per erythrocyte) 30 pg 25-34 Automated erythrocyte mean corpuscular hemoglobin concentration measurement (mass/volume) 33 g/dL 32-36 Automated erythrocyte distribution width ratio 14.4 % 10.0- 14.5 Automated blood platelet count (count/volume) 136 10*3/uL 130-400 Automated blood platelet mean volume measurement 10.7 [foz_us] 7.4-10.4 Automated blood neutrophils/100 leukocytes 54 % 42-75 Automated blood lymphocytes/100 leukocytes 35 % 12-44 Blood monocytes/100 leukocytes 9 % 0-12 Automated blood eosinophils/100 leukocytes 2 % 0-10 Automated blood basophils/100 leukocytes 0 % 0-10 Blood neutrophils automated count (number/volume) 3.0 10*3 1.8-7.8 Blood lymphocytes automated count (number/volume) 2.0 10*3 1.0-4.0 Blood monocytes automated count (number/volume) 0.5 10*3 0.0- 1.0 Automated eosinophil count 0.1 10*3/uL 0.0-0.3 Automated blood basophil count (count/volume) 0.0 10*3/uL 0.0-0.1 Comprehensive metabolic panel - 10/13/18 19:40 Serum or plasma sodium measurement (moles/volume) 137 mmol/L 135-145 Serum or plasma potassium measurement (moles/volume) 4.1 mmol/L 3.6-5.0 Serum or plasma chloride measurement (moles/volume) 105 mmol/L 98-107 Carbon dioxide 23 mmol/L 21-32 Serum or plasma anion gap determination (moles/volume) 9 mmol/L 5-14 Serum or plasma urea nitrogen measurement (mass/volume) 20 mg/dL 7-18 Serum or plasma creatinine measurement (mass/volume) 1.20 mg/dL 0.60-1.30 Serum or plasma urea nitrogen/creatinine mass ratio 17 NRG Serum or plasma creatinine measurement with calculation of estimated glomerular filtration rate 59 NRG Serum or plasma glucose measurement (mass/volume) 112 mg/dL 70-105 Serum or plasma calcium measurement (mass/volume) 8.7 mg/dL 8.5-10.1 Serum or plasma total bilirubin measurement (mass/volume) 0.8 mg/dL 0.1-1.0 Serum or plasma alkaline phosphatase measurement (enzymatic activity/volume) 61 U/L 40-136 Serum or plasma aspartate aminotransferase measurement (enzymatic activity/volume) 16 U/L 5-34 Serum or plasma alanine aminotransferase measurement (enzymatic activity/volume) 11 U/L 0-55 Serum or plasma protein measurement (mass/volume) 7.0 g/dL 6.4-8.2 Serum or plasma albumin measurement (mass/volume) 3.7 g/dL 3.2-4.5 CALCIUM CORRECTED 8.9 mg/dL 8.5-10.1 Complete urinalysis with reflex to culture - 10/13/18 20:25 Urine color determination YELLOW NRG Urine clarity determination VERY CLOUDY NRG Urine pH measurement by test strip 6.5 5-9 Specific gravity of urine by test strip 1.015 1.016-1.022 Urine protein assay by test strip, semi-quantitative NEGATIVE NEGATIVE Urine glucose detection by automated test strip NEGATIVE NEGATIVE Erythrocytes detection in urine sediment by light microscopy 2+ NEGATIVE Urine ketones detection by automated test strip NEGATIVE NEGATIVE Urine nitrite detection by test strip POSITIVE NEGATIVE Urine total bilirubin detection by test strip NEGATIVE NEGATIVE Urine urobilinogen measurement by automated test strip (mass/volume) NORMAL NORMAL Urine leukocyte esterase detection by dipstick 3+ NEGATIVE Automated urine sediment erythrocyte count by microscopy (number/high power field) [HPF] NRG Automated urine sediment leukocyte count by microscopy (number/high power field) [HPF] NRG Bacteria detection in urine sediment by light microscopy MODERATE NRG Squamous epithelial cells detection in urine sediment by light microscopy 2-5 NRG Crystals detection in urine sediment by light microscopy NONE NRG Casts detection in urine sediment by light microscopy NONE NRG Mucus detection in urine sediment by light microscopy NEGATIVE NRG Complete urinalysis with reflex to culture YES NRG Bacterial urine culture - 10/13/18 20:25 Bacterial urine culture [id number] NRG COLONY COUNT >100,000/ML NRG FTX;REPORTABLE SUSCEPTIBILITY REPORTED 10-16-2018, 1305. NRG RML Sensitivity Panel - 10/13/18 20:25 Oxacillin susceptibility test by minimum inhibitory concentration <= NRG Vancomycin susceptibility test by minimum inhibitory concentration 1 NRG Levofloxacin susceptibility test by minimum inhibitory concentration > NRG Rifampin susceptibility test by minimum inhibitory concentration <= NRG Tetracycline susceptibility test by minimum inhibitory concentration 2 NRG Cefazolin susceptibility test by minimum inhibitory concentration <= NRG Nitrofurantoin susceptibility test by minimum inhibitory concentration <= NRG Encounters ACCT No. Visit Date/Time Discharge Status Pt. Type Provider Facility Loc./Unit Complaint [id number] 08/29/2014 09:02:00 08/29/2014 23:59:59 CLS Outpatient DAVID PAVON DO [id number] 08/17/2014 09:28:00 08/17/2014 23:59:59 CLS Outpatient DAVID PAVON DO [id number] 04/27/2014 09:22:00 04/27/2014 23:59:59 CLS Outpatient DAVID PAVON DO [id number] 04/13/2014 08:50:00 04/13/2014 23:59:59 CLS Outpatient NEDA PAINTER APRN [id number] 01/10/2014 08:18:00 01/10/2014 23:59:59 CLS Outpatient DAVID PAVON DO [id number] 10/10/2013 10:06:00 10/10/2013 23:59:59 CLS Outpatient DAVID PAVON DO [id number] 09/06/2013 09:53:00 09/06/2013 23:59:59 CLS Outpatient DAVID PAVON DO [id number] 01/19/2013 09:16:00 01/19/2013 23:59:59 CLS Outpatient [id number] 12/29/2012 11:35:00 12/29/2012 23:59:59 CLS Outpatient [id number] 12/29/2012 11:35:00 12/29/2012 23:59:59 CLS Outpatient NEDA PAINTER APRN [id number] 12/01/2012 09:09:00 12/01/2012 23:59:59 CLS Outpatient MADINA MATAMOROSNEDA Wynne [id number] 11/05/2012 08:50:00 11/05/2012 23:59:59 CLS Outpatient [id number] 05/10/2012 09:24:00 05/10/2012 23:59:59 CLS Outpatient [id number] 04/29/2013 08:10:00 Document Registration [id number] 04/29/2013 08:10:00 Document Registration [id number] 10/13/2018 19:24:00 10/13/2018 21:23:00 DIS Emergency KIKE PERKINS PURCHASING CONTRACTING CLERK [facility] [address] ER BACK PAIN [id number] 12/10/2017 17:40:00 12/19/2017 09:45:00 DIS Inpatient JAIRO ESPARZA MD [facility] [address] IRF SPONDYLOSIS WITH MYOPATHY [id number] 11/26/2017 22:45:00 11/27/2017 12:23:00 DIS Inpatient DANIEL VENTURA, BHUPINDER Gustafson [facility] [address] 4TH SEVERE CERVICAL SPINAL STENOSIS,ABD PAIN [id number] 04/27/2017 11:11:00 04/27/2017 23:59:59 CLS Outpatient NEDA PAINTER CFISADORA [facility] [address] RAD M50.90 CERVICAL DISC DISEASE [id number] 03/17/2017 11:16:00 03/17/2017 23:59:59 CLS Outpatient NEDA PAINTER CFISADORA [facility] [address] RAD M54.2 [id number] 11/07/2016 02:55:00 11/07/2016 07:08:00 DIS Emergency KIZZY HERNÁNDEZ MD [facility] [address] ER SOB,SEATING,ISAAC HANDS [id number] 10/18/2016 17:44:00 10/18/2016 18:34:00 DIS Emergency KIKE PERKINS PURCHASING CONTRACTING CLERK [facility] [address] ER FALL/R ARM PAIN [id number] 03/19/2016 08:24:00 04/04/2016 11:50:00 DIS Outpatient KAMALJIT MENDOZA PURCHASING CONTRACTING CLERK [facility] [address] REHAB S/P L TKA [id number] 12/27/2015 14:45:00 01/09/2016 13:00:00 DIS Inpatient VILMA VENTURA, JAIRO Bean [facility] [address] IRF LEFT TOTAL KNEE REPLACEMENT [id number] 09/11/2014 08:45:00 09/11/2014 23:59:59 CLS Outpatient MARIS TURNER MD [facility] [address] RAD STRICTURE,RENAL MASSES [id number] 09/04/2014 07:54:00 09/04/2014 23:59:59 CLS Outpatient MARIS TURNER MD [facility] [address] RAD HEMATURIA [id number] 11/15/2012 11:39:00 Document Registration [id number] 03/11/2012 16:06:00 Document Registration [id number] 02/13/2011 15:37:00 Document Registration [id number] 10/29/2010 23:49:00 Document Registration [id number] 03/03/2019 09:20:00 03/03/2019 23:59:59 CLS Outpatient [facility]INTER [facility] [place] [id number] 09/24/2017 08:20:00 Document Registration
--- NOTE | 2019-05-21 03:56 | ED Chest Pain ---
General Stated Complaint: CP Source: patient, spouse Exam Limitations: no limitations History of Present Illness Date Seen by Provider: May 21, 2019 Time Seen by Provider: 03:40 Initial Comments Patient presents to ER by private conveyance with his significant other and chief complaint that sometime last night he began to experience left-sided chest pain radiating to his left shoulder and left neck. He denies having history of stents, heart disease or heart attacks. Does not have diabetes nor does smoke but he does have high blood pressure and cholesterol. He denies any trauma to the chest off fevers chills shortness of breath or fever. He sees a practitioner at [facility]. When the pain began he says he took 3 baby aspirin and that improved his pain mildly. It's now back up to an 8 out of 10. Woke him up from sleep. He does not take any nitroglycerin or other medicines. Allergies and Home Medications Allergies Coded Allergies: NKANo Known Allergies (Verified Allergy, Unknown, 10/18/16) Home Medications Cefdinir 300 Mg Capsule, 300 MG PO BID Prescribed by: KIKE PERKINS on 10/13/182100 Oxybutynin Chloride 5 Mg Tablet, 5 MG PO BID, (Reported) Terazosin HCl 1 Mg Capsule, 1 MG PO HS, (Reported) Patient Home Medication List Home Medication List Reviewed: Yes Review of Systems Review of Systems Constitutional: No chills, No fever, No malaise EENTM: No Blurred Vision, No Double Vision Respiratory: Denies Cough, Denies Shortness of Air Cardiovascular: See HPI, Chest Pain, Edema; Denies Irregular Heart Rate; Lightheadedness Gastrointestinal: Denies Abdomen Distended, Denies Abdominal Pain Genitourinary: Denies Burning, Denies Discharge Musculoskeletal: No back pain, No joint pain Psychiatric/Neurological: Denies Anxiety, Denies Depressed Past Vcdosxf-Gukero-Gwhnnf Hx Patient Social History Alcohol Use: Denies Use Recreational Drug Use: No Smoking Status: Former Smoker Type Used: Cigarettes 2nd Hand Smoke Exposure: No Recent Foreign Travel: No Contact w/Someone Who Travel: No Recent Hopitalizations: No Immunizations Up To Date Tetanus Booster (TDap): Unknown PED Vaccines UTD: Yes Date of Pneumonia Vaccine: Oct 09, 2017 Date of Influenza Vaccine: Oct 09, 2017 Seasonal Allergies Seasonal Allergies: No Past Medical History Surgeries: Yes (Left knee replacement, right hip steel plates placed, back ) Appendectomy, Orthopedic Respiratory: No Currently Using CPAP: No Currently Using BIPAP: No Cardiac: No Neurological: Yes (restless leg syndrome, cervical spinal stenosis) Neuropathy Reproductive Disorders: No Sexually Transmitted Disease: No HIV/AIDS: No Genitourinary: Yes Benign Prostatic Hyperpl Gastrointestinal: No Musculoskeletal: Yes (FREQ.BACK PAIN, cervical spinal stenosis) Chronic Back Pain Endocrine: No HEENT: No Loss of Vision: Denies Hearing Impairment: Denies Cancer: No Psychosocial: No Integumentary: No Blood Disorders: No Adverse Reaction/Blood Tranf: No Family Medical History Cardiovascular disease 19 FATHER FHx: cancer 19 MOTHER (unknown what kind of cancer) Respiratory disorder 19 MOTHER (EMPHYZEMA) Physical Exam Vital Signs Vital Signs - First Documented 05/21/19 03:42 Temp 96.7 Pulse 63 Resp 18 B/P (MAP) 131/67 (88) O2 Delivery Room Air Capillary Refill : Height, Weight, BMI Height: 6'0.00" Weight: 234lbs. 0.0oz. 106.694274pk; 34.6 BMI Method:Stated General Appearance: No Apparent Distress, WD/WN HEENT: PERRL/EOMI, Pharynx Normal, Moist Mucous Membranes Neck: Full Range of Motion, Normal Inspection Respiratory: Lungs Clear, Normal Breath Sounds, No Accessory Muscle Use, No Respiratory Distress, Decreased Breath Sounds Cardiovascular: Regular Rate, Rhythm, No Edema, Normal Peripheral Pulses Gastrointestinal: Normal Bowel Sounds, Non Tender, Soft Extremity: Normal Capillary Refill, Normal Range of Motion, Non Tender, No Calf Tenderness, Pedal Edema (mild bilateral) Neurologic/Psychiatric: Alert, Oriented x3, No Motor/Sensory Deficits, Normal Mood/Affect Skin: Normal Color, Warm/Dry Progress/Results/Core Measures Results/Orders Lab Results Laboratory Tests Test 05/21/19 03:48 05/21/19 03:50 Range/Units White Blood Count 5.6 4.3-11.0 10^3/uL Red Blood Count 4.02 L 4.35-5.85 10^6/uL Hemoglobin 12.2 L 13.3-17.7 G/DL Hematocrit 37 L 40-54 % Mean Corpuscular Volume 93 80-99 FL Mean Corpuscular Hemoglobin 30 25-34 PG Mean Corpuscular Hemoglobin Concent 33 32-36 G/DL Red Cell Distribution Width 14.9 H 10.0-14.5 % Platelet Count 133 130-400 10^3/uL Mean Platelet Volume 11.8 H 7.4-10.4 FL Neutrophils (%) (Auto) 52 42-75 % Lymphocytes (%) (Auto) 33 12-44 % Monocytes (%) (Auto) 12 0-12 % Eosinophils (%) (Auto) 3 0-10 % Basophils (%) (Auto) 1 0-10 % Neutrophils # (Auto) 2.9 1.8-7.8 X 10^3 Lymphocytes # (Auto) 1.8 1.0-4.0 X 10^3 Monocytes # (Auto) 0.6 0.0-1.0 X 10^3 Eosinophils # (Auto) 0.2 0.0-0.3 10^3/uL Basophils # (Auto) 0.0 0.0-0.1 10^3/uL Prothrombin Time 13.6 12.2-14.7 SEC INR Comment 1.0 0.8-1.4 Activated Partial Thromboplast Time 30 24-35 SEC Sodium Level 138 135-145 MMOL/L Potassium Level 4.3 3.6-5.0 MMOL/L Chloride Level 109 H 98-107 MMOL/L Carbon Dioxide Level 21 21-32 MMOL/L Anion Gap 8 5-14 MMOL/L Blood Urea Nitrogen 28 H 7-18 MG/DL Creatinine 1.17 0.60-1.30 MG/DL Estimat Glomerular Filtration Rate 60 BUN/Creatinine Ratio 24 Glucose Level 106 H 70-105 MG/DL Calcium Level 8.2 L 8.5-10.1 MG/DL Corrected Calcium 8.6 8.5-10.1 MG/DL Magnesium Level 2.3 1.8-2.4 MG/DL Total Bilirubin 0.3 0.1-1.0 MG/DL Aspartate Amino Transf (AST/SGOT) 15 5-34 U/L Alanine Aminotransferase (ALT/SGPT) 11 0-55 U/L Alkaline Phosphatase 55 40-136 U/L Myoglobin 57.1 10.0-92.0 NG/ML Troponin I < 0.028 <0.028 NG/ML Total Protein 6.2 L 6.4-8.2 GM/DL Albumin 3.5 3.2-4.5 GM/DL B-Type Natriuretic Peptide 108.9 H <100.0 PG/ML My Orders Orders - SHARI SAN Continuous Ekg Monitoring (05/21/19 03:43) Ekg Tracing (05/21/19 03:43) Cbc With Automated Diff (05/21/19 03:50) Magnesium (05/21/19 03:50) Chest 1 View, Ap/Pa Only (05/21/19 03:50) Cardiac Profile 1 (05/21/19 03:50) Comprehensive Metabolic Panel (05/21/19 03:50) Myoglobin Serum (05/21/19 03:50) Protime With Inr (05/21/19 03:50) Partial Thromboplastin Time (05/21/19 03:50) O2 (05/21/19 03:50) Lipid Panel (05/22/19 06:00) Ed Iv/Invasive Line Start (05/21/19 03:50) BNP (05/21/19 03:50) Nitroglycerin 0.4 Mg Btl 25's (Nitrostat (05/21/19 04:00) Aspirin Chewable Tablet (Baby Aspirin Ch (05/21/19 04:00) Aspirin Chewable Tablet (Baby Aspirin Ch (05/21/19 03:44) Nitroglycerin 0.4 Mg Btl 25's (Nitrostat (05/21/19 03:45) Ed Iv/Invasive Line Start (05/21/19 04:25) Ns Iv 1000 Ml (Sodium Chloride 0.9%) (05/21/19 04:25) Medications Given in ED Current Medications Medications Dose Ordered Sig/Sussy Route Start Time Stop Time Status Last Admin Dose Admin Aspirin 162 mg ONCE ONCE PO 05/21/19 04:00 05/21/19 04:02 DC 05/21/19 03:49 162 MG Nitroglycerin 0.4 mg UD PRN SL 05/21/19 04:00 05/21/19 03:50 0.4 MG Vital Signs/I&O 05/21/19 05/21/19 03:42 03:42 Temp 96.7 Pulse 63 Resp 18 B/P (MAP) 131/67 (88) O2 Delivery Room Air Room Air Progress Progress Note #1: Time: 03:55 Progress Note We'll give him 2 more tablets of 81 mg aspirin to chew and swallow and trial a dose of nitroglycerin. Chest x-ray, EKG labs. Echocardiogram [address] Marte showing normal systolic function with an EF of 60%. Moderate aortic valve sclerosis without significant aortic stenosis. ED ACS 27 points. Not low risk. This patient is not a candidate for early discharge and should receive a standard chest pain evaluation with delayed troponin testing. Progress Note #2: Time: 04:29 Progress Note Single dose of nitroglycerin did improve his pain however his blood pressure then went down from 120 systolic to 74 systolic. He was laid flat and a liter fluids was started. BNP is 108 and BUNs was 28 indicating he could use IV fluids. He was still talking throughout the whole ordeal. Mentation was same as when he came in. Initial ECG Impression Date: May 21, 2019 Initial ECG Impression Time: 03:49 Initial ECG Rate: 67 Initial ECG Rhythm: Normal Sinus Initial ECG Intervals: Normal Initial ECG Impression: Normal, Nonspecific Changes Initial ECG Comparisson: Unchanged Comment No significant ST elevation or depression. Diagnostic Imaging Diagonstic Imaging: Xray Plain Films/CT/US/NM/MRI: chest (1v) Comments No acute cardiopulmonary process. Reviewed: Reviewed by Me Departure Communication (Admissions) Time/Spoke to Admitting Phy: 04:50 Discussed case lab EKG imaging with Dr. English and she accepts the patient for observation. Time/Spoke to Consulting Phy: 04:40 Discussed the case lab EKG imaging Dr. Munoz and he agrees with observation stay would prefer cardiac stepdown. If the heart rate and blood pressure improved Toprol 25 mg XL, aspirin, 300 mg Plavix and morphine for pain. Impression Primary Impression: Chest pain Qualified Codes: R07.9 - Chest pain, unspecified Disposition: ADMITTED INPATIENT Condition: Stable Admissions Decision to Admit Reason: Admit from ER (General) Decision to Admit/Date: May 21, 2019 Time/Decision to Admit Time: 04:35 Departure-Patient Inst. Referrals: DAVID PAVON DO (PCP) Primary Care Physician NEDA PAINTER (Family) Primary Care Physician SHARI SAN May 21, 2019 03:56
[2019-05-21] MEDS ORDERED: NITROGLYCERIN 0.4 MG SL TABS BTL 25'S SL PRN (04:00)
[2019-05-21] MEDS ORDERED: ASPIRIN 81 MG CHEW (CHILDREN'S ASA) PO ONE (04:00)
[2019-05-21 04:02] LABS: BASOPHILS % (AUTO) 1 % (0-10); EOSINOPHILS # (AUTO) 0.2 10^3/uL (0.0-0.3); EOSINOPHILS % (AUTO) 3 % (0-10); HEMATOCRIT 37 % (40-54); HEMOGLOBIN 12.2 G/DL (13.3-17.7); LYMPHOCYTES # (AUTO) 1.8 X 10^3 (1.0-4.0); LYMPHOCYTES % (AUTO) 33 % (12-44); MEAN CORPUSCULAR HEMOGLOBIN 30 PG (25-34); MEAN CORPUSCULAR HGB CONC 33 G/DL (32-36); MEAN CORPUSCULAR VOLUME 93 FL (80-99); MEAN PLATELET VOLUME 11.8 FL (7.4-10.4); MONOCYTES # (AUTO) 0.6 X 10^3 (0.0-1.0); MONOCYTES % (AUTO) 12 % (0-12); NEUTROPHILS # (AUTO) 2.9 X 10^3 (1.8-7.8); NEUTROPHILS % (AUTO) 52 % (42-75); PLATELET COUNT 133 10^3/uL (130-400); RED CELL DISTRIBUTION WIDTH 14.9 % (10.0-14.5); WHITE BLOOD COUNT 5.6 10^3/uL (4.3-11.0)
[2019-05-21 04:12] LABS: PROTHROMBIN TIME PATIENT 13.6 SEC (12.2-14.7)
[2019-05-21 04:21] LABS: ALANINE AMINOTRANSFERASE 11 U/L (0-55); ALBUMIN 3.5 GM/DL (3.2-4.5); ALKALINE PHOSPHATASE 55 U/L (40-136); BILIRUBIN,TOTAL 0.3 MG/DL (0.1-1.0); BUN/CREATININE RATIO 24; CALCIUM 8.2 MG/DL (8.5-10.1); CARBON DIOXIDE 21 MMOL/L (21-32); CHLORIDE 109 MMOL/L (98-107); CREATININE SERUM 1.17 MG/DL (0.60-1.30); GFR ESTIMATED 60; GLUCOSE 106 MG/DL (70-105); MAGNESIUM 2.3 MG/DL (1.8-2.4); POTASSIUM 4.3 MMOL/L (3.6-5.0); SODIUM 138 MMOL/L (135-145); TOTAL PROTEIN 6.2 GM/DL (6.4-8.2)
[2019-05-21] MEDS ORDERED: NS IV 1000 ML 1,000 ML IV SCH (04:25)
[2019-05-21] MEDS ORDERED: CLOPIDOGREL 300 MG (PLAVIX) TABLET PO ONE (05:00)
--- NOTE | 2019-05-21 06:56 | Pulmonary Consultation ---
History of Present Illness History of Present Illness Date of Consultation 05/21/19 06:51 Date of Admission Allergies and Home Medications Allergies Coded Allergies: NKANo Known Allergies (Verified Allergy, Unknown, 10/18/16) Home Medications Cefdinir 300 Mg Capsule, 300 MG PO BID Prescribed by: KIKE PERKINS on 10/13/182100 Oxybutynin Chloride 5 Mg Tablet, 5 MG PO BID, (Reported) Terazosin HCl 1 Mg Capsule, 1 MG PO HS, (Reported) Past Iawwsik-Nohcod-Xjqigr Hx Patient Social History Alcohol Use: Denies Use Recreational Drug Use: No Smoking Status: Former Smoker Type Used: Cigarettes 2nd Hand Smoke Exposure: No Recent Foreign Travel: No Contact w/Someone Who Travel: No Recent Infectious Disease Expo: No Recent Hopitalizations: No Immunizations Up To Date Tetanus Booster (TDap): Unknown PED Vaccines UTD: Yes Date of Pneumonia Vaccine: May 21, 2017 Date of Influenza Vaccine: Oct 09, 2017 Seasonal Allergies Seasonal Allergies: No Past Medical History Surgeries: Yes (Left knee replacement, right hip steel plates placed, back ) Appendectomy, Orthopedic Respiratory: No Currently Using CPAP: No Currently Using BIPAP: No Cardiac: No Neurological: Yes (restless leg syndrome, cervical spinal stenosis) Neuropathy Reproductive Disorders: No Sexually Transmitted Disease: No HIV/AIDS: No Genitourinary: Yes Benign Prostatic Hyperpl Gastrointestinal: No Musculoskeletal: Yes (FREQ.BACK PAIN, cervical spinal stenosis) Chronic Back Pain Endocrine: No HEENT: No Loss of Vision: Denies Hearing Impairment: Denies Cancer: No Psychosocial: No Integumentary: No Blood Disorders: No Adverse Reaction/Blood Tranf: No Family Medical History Cardiovascular disease 19 FATHER FHx: cancer 19 MOTHER (unknown what kind of cancer) Respiratory disorder 19 MOTHER (EMPHYZEMA) Sepsis Event Evaluation Height, Weight, BMI Height: 6'0.00" Weight: 229lbs. 1.0oz. 103.691254yh; 31.1 BMI Method:Stated Exam Exam Vital Signs Date Time Temp Pulse Resp B/P (MAP) Pulse Ox O2 Delivery O2 Flow Rate FiO2 05/21/19 06:45 51 14 139/76 (97) Room Air 05/21/19 06:30 130/75 (93) Room Air 05/21/19 06:15 61 19 131/76 (94) Room Air 05/21/19 06:15 Room Air 05/21/19 06:00 65 12 137/84 (101) 100 Room Air 05/21/19 05:54 66 05/21/19 05:43 97.2 57 13 137/84 99 05/21/19 05:41 96.7 53 18 127/61 (83) 98 Room Air 05/21/19 03:42 96.7 63 18 131/67 (88) Room Air 05/21/19 03:42 Room Air I & O 05/21/19 07:00 Intake Total 1000 ml Output Total 75 ml Balance 925 ml Height & Weight Height: 6'0.00" Weight: 229lbs. 1.0oz. 103.955715mh; 31.1 BMI Method:Stated General Appearance: No Apparent Distress, WD/WN HEENT: PERRL/EOMI, Pharynx Normal, Moist Mucous Membranes Neck: Full Range of Motion, Normal Inspection Respiratory: Lungs Clear, Normal Breath Sounds, No Accessory Muscle Use, No Respiratory Distress, Decreased Breath Sounds Cardiovascular: Regular Rate, Rhythm, No Edema, Normal Peripheral Pulses Capillary Refill: Less Than 3 Seconds Extremity: Normal Capillary Refill, Normal Range of Motion, Non Tender, No Calf Tenderness, Pedal Edema (mild bilateral) Neurologic/Psychiatric: Alert, Oriented x3, No Motor/Sensory Deficits, Normal Mood/Affect Skin: Normal Color, Warm/Dry Results Lab Laboratory Tests 05/21/19 03:48 Assessment/Plan Assessment/Plan Unstable angina/CP - now resolved -ASA -Cardiology is following -Nitro was given SHERWIN MCCULLOUGH DO May 21, 2019 06:56
[2019-05-21] MEDS ORDERED: morphine INJ 4 MG/ML 1 ML (VIAL/SYRINGE) IV PRN (07:00)
[2019-05-21] MEDS ORDERED: ACETAMINOPHEN 500 MG TAB (TYLENOL) PO PRN (07:00)
[2019-05-21] MEDS ORDERED: CATHETER FLUSH 10 ML SYR IV PRN (07:00)
[2019-05-21] MEDS ORDERED: ONDANSETRON 4 MG/2 ML (SDV) Z0FRAN IV PRN (07:00)
--- NOTE | 2019-05-21 07:36 | Diagnostic Imaging Report ---
Indication: Chest pain. Comparison: 11/26/2017. Discussion: Single portable upright view of the chest was obtained. Borderline cardiomegaly is stable. Mild interstitial thickening appears chronic. No focal consolidation, pleural fluid, or pneumothorax. Postoperative changes are present within the cervical spine, new. Impression: 1. Borderline cardiomegaly without fernando failure. Dictated by: Dictated on workstation # [id number]
[2019-05-21] MEDS: lisINopril 5 MG (PRINIVIL) TABLET PO SCH (08:12)
[2019-05-21] MEDS: ASPIRIN E.C. 81 MG (ECOTRIN) TAB PO SCH (08:12)
[2019-05-21] MEDS: NS IV 1000 ML 1,000 ML IV SCH ×2 (08:13→16:22)
[2019-05-21] MEDS: CATHETER FLUSH 10 ML SYR IV SCH ×2 (11:43→22:32)
--- NOTE | 2019-05-21 12:47 | Short Stay Summary-Hospitalist ---
History of Present Illness HPI/Chief Complaint Chief complaint: Chest pain History of present illness: This is a 79-year-old white male clinic patient of [facility] who presents with chest pain to the ER subsequently admitted for observation cardiology consultation is requested. Currently he denies any chest pain no shortness of breath and overall feels much better than he did when he was admitted. We will await cardiology decision regarding the next step in his care to rule out acute coronary syndrome. Source: patient Exam Limitations: no limitations Date Seen 05/21/19 Time Seen by a Provider: 11:15 Attending Physician Myra Morrison DO PCP Darcie Alcala DO Referring Physician Date of Admission May 21, 2019 at 04:45 Home Medications & Allergies Home Medications Reviewed patient Home Medication Reconciliation performed by pharmacy medication reconciliations sound technician supervisor and/or nursing. Patients Allergies have been reviewed. Allergies Allergies Coded Allergies NKANo Known Allergies (Verified Allergy, Unknown, 10/18/16) Past Kjaiojw-Kisjgy-Ecdefq Hx Past Med/Social Hx: Reviewed Nursing Past Med/Soc Hx, Reviewed and Corrections made Patient Social History Marrital Status: single Alcohol Use: Denies Use Recreational Drug Use: No Smoking Status: Former Smoker Type Used: Cigarettes 2nd Hand Smoke Exposure: No Recent Foreign Travel: No Contact w/other who traveled: No Recent Hopitalizations: No Recent Infectious Disease Expo: No Immunizations Up To Date Tetanus Booster (TDap): Unknown Pediatric: Yes Date of Pneumonia Vaccine: May 21, 2017 Date of Influenza Vaccine: Oct 09, 2017 Seasonal Allergies Seasonal Allergies: No Past Medical History Surgeries: Appendectomy, Orthopedic Currently Using CPAP: No Currently Using BIPAP: No Neurological: Neuropathy Reproductive: No Sexually Transmitted Disease: No HIV/AIDS: No Genitourinary: Benign Prostatic Hyperpl Musculoskeletal: Chronic Back Pain Loss of Vision: Denies Hearing Impairment: Denies History of Blood Disorders: No Adverse Reaction to Blood Tam: No Family History Cardiovascular disease 19 FATHER FHx: cancer 19 MOTHER (unknown what kind of cancer) Respiratory disorder 19 MOTHER (EMPHYZEMA) Review of Systems Constitutional: see HPI, weakness EENTM: no symptoms reported Respiratory: dyspnea on exertion Cardiovascular: chest pain Gastrointestinal: no symptoms reported Genitourinary: no symptoms reported Musculoskeletal: no symptoms reported Skin: no symptoms reported Psychiatric/Neurological: No Symptoms Reported All Other Systems Reviewed Negative Unless Noted: Yes Physical Exam Physical Exam Vital Signs Vital Signs - First Documented 05/21/19 05/21/19 03:42 05:41 Temp 96.7 Pulse 63 Resp 18 B/P (MAP) 131/67 (88) Pulse Ox 98 O2 Delivery Room Air Capillary Refill : Less Than 3 Seconds Height, Weight, BMI Height: 6'0.00" Weight: 229lbs. 1.0oz. 103.379539zy; 31.1 BMI Method:Stated General Appearance: No Apparent Distress, WD/WN, Chronically ill HEENT: PERRL/EOMI, Pharynx Normal, Moist Mucous Membranes Neck: Full Range of Motion, Normal Inspection Respiratory: Lungs Clear, Normal Breath Sounds, No Accessory Muscle Use, No Res piratory Distress, Decreased Breath Sounds Cardiovascular: Regular Rate, Rhythm, No Edema, No Gallop, No JVD, No Murmur, Normal Peripheral Pulses Gastrointestinal: Normal Bowel Sounds, Non Tender, Soft Extremity: Normal Capillary Refill, Normal Range of Motion, Non Tender, No Calf Tenderness, Pedal Edema (mild bilateral) Neurologic/Psychiatric: Alert, Oriented x3, No Motor/Sensory Deficits, Normal Mood/Affect Skin: Normal Color, Warm/Dry Results Results/Procedures Labs Laboratory Tests 05/21/19 03:48 Patient resulted labs reviewed. Short Stay Diagnosis Discharge Diagnosis-Short Stay Admission Diagnosis Assessment: Chest pain rule out acute coronary syndrome cardiology consultation is appreciat ed Restless leg syndrome Spinal stenosis history Former smoker Final Discharge Diagnosis Assessment: Chest pain rule out acute coronary syndrome cardiology consultation is appreciated Restless leg syndrome Spinal stenosis history Former smoker Conclusion Plan Await Cardiology expertise. 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
--- NOTE | 2019-05-21 13:07 | Consultation-Cardiology ---
HPI-Cardiology Cardiology Consultation: Date of Consultation 05/21/19 Time Seen by a Provider: 12:20 Date of Admission Attending Physician Myra Morrison DO Admitting Physician Darcie Alcala DO Consulting Physician CATALINO MANZANO MD, MA, FACP, FACC, FSCAI, CCDS Physician requesting consult: Dr Morrison HPI: Chief Complaint: CC: Chest discomfort HPI 79 yo man with chest discomfort (see details below). Chronic mild exertional shortness of breath. No palp or syncope or leg swelling. Chest discomfort Onset: 05/19/19 Frequency: daily Duration: minutes to hours Location: mid chest Quality: pressure Radiation: none Associated symptoms: mild shortness of breath Aggravating factors: none Relieving factors: sublingual nitroglycerin (partial relief) Review of Systems-Cardiology Review of Systems Constitutional: No malaise, No tiredness, No weight loss, No weight gain Eyes: No vision change Ears/Nose/Throat: No ear discharge, No nasal drainage, No recent hearing loss Respiratory: As described under HPI Cardiovascular: As described under HPI Gastrointestinal: No diarrhea, No nausea, No vomiting Genitourinary: No dysuria, No hematuria, No urine frequency changes Musculoskeletal: back pain (chronic, mild) Skin: No rash, No ulcerations Psychiatric/Neurological: No seizure, No focal weakness, No syncope Hematologic: No bleeding abnormalities ECX-Eyekps-Tqepht Hx Patient Social History Alcohol Use: Denies Use Recreational Drug Use: No Smoking Status: Former Smoker Type Used: Cigarettes 2nd Hand Smoke Exposure: No Recent Foreign Travel: No Recent Infectious Disease Expo: No Hospitalization with Isolation: Denies Immunizations Up To Date Tetanus Booster (TDap): Unknown Date of Pneumonia Vaccine: May 21, 2017 Date of Influenza Vaccine: Oct 09, 2017 Past Medical History PMH As described under Assessment. Family Medical History Family History: Cardiovascular disease 19 FATHER FHx: cancer 19 MOTHER (unknown what kind of cancer) Respiratory disorder 19 MOTHER (EMPHYZEMA) Allergies and Home Medications Allergies Coded Allergies: NKANo Known Allergies (Verified Allergy, Unknown, 10/18/16) Home Medications Cefdinir 300 Mg Capsule, 300 MG PO BID Prescribed by: KIKE PERKNIS on 10/13/18 2101 Oxybutynin Chloride 5 Mg Tablet, 5 MG PO BID, (Reported) Terazosin HCl 1 Mg Capsule, 1 MG PO HS, (Reported) Patient Home Medication List Home Medication List Reviewed: Yes Physical Exam-Cardiology Physical Exam Vital Signs/I&O 05/21/19 05/21/19 05/21/19 05/21/19 03:42 03:42 05:41 05:43 Temp 96.7 96.7 97.2 Pulse 63 53 57 Resp 18 18 13 B/P (MAP) 131/67 (88) 127/61 (83) 137/84 Pulse Ox 98 99 O2 Delivery Room Air Room Air Room Air 05/21/19 05/21/19 05/21/19 05/21/19 05:54 06:00 06:15 06:15 Pulse 66 65 61 Resp 12 19 B/P (MAP) 137/84 (101) 131/76 (94) Pulse Ox 100 O2 Delivery Room Air Room Air Room Air 05/21/19 05/21/19 05/21/19 05/21/19 06:30 06:45 07:00 08:00 Pulse 51 61 56 Resp 14 15 B/P (MAP) 130/75 (93) 139/76 (97) 152/71 (98) Pulse Ox 98 O2 Delivery Room Air Room Air Room Air 05/21/19 05/21/19 05/21/19 05/21/19 08:00 08:00 09:00 11:30 Temp 96.7 98.3 Pulse 71 Resp 20 B/P (MAP) 129/68 (88) Pulse Ox 99 O2 Delivery Room Air Room Air Room Air Capillary Refill : Less Than 3 Seconds Constitutional: AAO x 3, well-developed, well-nourished HEENT: PERRL, EOMI, hearing is well preserved; No xanthelasmas are seen Neck: carotid pulses are 2 + bilaterally, with good upstrokes Respiratory: No accessory muscle use; lungs clear to percussion, lungs clear to auscultation Cardiovascular: regular rate-rhythm, S1 and S2, systolic murmur (soft REJI at card base) Gastrointestinal: No tender, No guarding, No rebound; audible bowel sounds Extremities: No clubbing, No cyanosis, No significant edema Neurologic/Psychiatric: oriented x 3, grossly intact, power is 5/5 both on sides Skin: No rash on exposed areas, No ulcerations on exposed areas Data Review Labs Laboratory Tests 05/21/19 03:48: White Blood Count 5.6, Red Blood Count 4.02L, Hemoglobin 12.2L, Hematocrit 37L, Mean Corpuscular Volume 93, Mean Corpuscular Hemoglobin 30, Mean Corpuscular Hemoglobin Concent 33, Red Cell Distribution Width 14.9H, Platelet Count 133, Mean Platelet Volume 11.8H, Neutrophils (%) (Auto) 52, Lymphocytes (%) (Auto) 33, Monocytes (%) (Auto) 12, Eosinophils (%) (Auto) 3, Basophils (%) (Auto) 1, Neutrophils # (Auto) 2.9, Lymphocytes # (Auto) 1.8, Monocytes # (Auto) 0.6, Eosinophils # (Auto) 0.2, Basophils # (Auto) 0.0, Prothrombin Time 13.6, INR Comment 1.0, Activated Partial Thromboplast Time 30, Sodium Level 138, Potassium Level 4.3, Chloride Level 109H, Carbon Dioxide Level 21, Anion Gap 8, Blood Urea Nitrogen 28H, Creatinine 1.17, Estimat Glomerular Filtration Rate 60, BUN/Cr eatinine Ratio 24, Glucose Level 106H, Calcium Level 8.2L, Corrected Calcium 8.6, Magnesium Level 2.3, Total Bilirubin 0.3, Aspartate Amino Transf (AST/SGOT) 15, Alanine Aminotransferase (ALT/SGPT) 11, Alkaline Phosphatase 55, Myoglobin 57.1, Troponin I < 0.028, Total Protein 6.2L, Albumin 3.5 05/21/19 03:50: B-Type Natriuretic Peptide 108.9H 05/21/19 09:55: Troponin I < 0.028 Laboratory Tests 05/21/19 03:48 ECG Impression ECG Comment ECG on 05/21/19: NSR, LAFB A/P-Cardiology Assessment/Admission Diagnosis Chest discomfort suggestive of new-onset angina Hypertension Discussion and Recomendations * Treat with ASA, bb, statin, GEE-inhib * Cath recommended and we discussed the rationale, procedure, risks, benefits, potential complications, and alternatives of card cath and possible ad hoc PCI. He understands and provides informed consent * Cath scheduled for tomorrow * Risk factor mod reviewed with him Clinical Quality Measures AMI/AHF: ASA po Prior to arrival: Yes (3 BABY ASA ) DVT/VTE Risk/Contraindication: Risk Factor Score Per Nursin RFS Level Per Nursing on Admit: 3=High CATALINO MANZANO MD FACP FAC CCDS May 21, 2019 13:07
[2019-05-21] MEDS ORDERED: ATORVASTATIN 40 MG (LIPITOR) TABLET PO SCH (21:00)
[2019-05-22] VITALS (13 sets, daily range): BP systolic 143–169; BP diastolic 78–121
[2019-05-22] MEDS: NS IV 1000 ML 1,000 ML IV SCH ×2 (01:15→09:34)
[2019-05-22 03:09] LABS: BASOPHILS % (AUTO) 0 % (0-10); EOSINOPHILS # (AUTO) 0.2 10^3/uL (0.0-0.3); EOSINOPHILS % (AUTO) 3 % (0-10); HEMATOCRIT 35 % (40-54); HEMOGLOBIN 11.6 G/DL (13.3-17.7); LYMPHOCYTES # (AUTO) 1.8 X 10^3 (1.0-4.0); LYMPHOCYTES % (AUTO) 28 % (12-44); MEAN CORPUSCULAR HEMOGLOBIN 31 PG (25-34); MEAN CORPUSCULAR HGB CONC 33 G/DL (32-36); MEAN CORPUSCULAR VOLUME 93 FL (80-99); MEAN PLATELET VOLUME 12.1 FL (7.4-10.4); MONOCYTES # (AUTO) 0.6 X 10^3 (0.0-1.0); MONOCYTES % (AUTO) 9 % (0-12); NEUTROPHILS # (AUTO) 3.9 X 10^3 (1.8-7.8); NEUTROPHILS % (AUTO) 60 % (42-75); PLATELET COUNT 117 10^3/uL (130-400); RED CELL DISTRIBUTION WIDTH 14.9 % (10.0-14.5); WHITE BLOOD COUNT 6.5 10^3/uL (4.3-11.0)
[2019-05-22 03:29] LABS: BUN/CREATININE RATIO 16; CARBON DIOXIDE 22 MMOL/L (21-32); CHLORIDE 108 MMOL/L (98-107); CREATININE SERUM 1.03 MG/DL (0.60-1.30); SODIUM 138 MMOL/L (135-145)
[2019-05-22 03:30] LABS: ALANINE AMINOTRANSFERASE 13 U/L (0-55); ALBUMIN 3.3 GM/DL (3.2-4.5); ALKALINE PHOSPHATASE 50 U/L (40-136); BILIRUBIN,TOTAL 0.6 MG/DL (0.1-1.0); CALCIUM 7.9 MG/DL (8.5-10.1); CHOLESTEROL 98 MG/DL (< 200); GFR ESTIMATED > 60; GLUCOSE 99 MG/DL (70-105); HDL CHOLESTEROL 31 MG/DL (40-60); TOTAL PROTEIN 5.7 GM/DL (6.4-8.2); TRIGLYCERIDES 71 MG/DL (<150); VLDL CHOLESTEROL 14 MG/DL (5-40)
[2019-05-22] MEDS: CATHETER FLUSH 10 ML SYR IV SCH ×2 (05:55→09:34)
--- NOTE | 2019-05-22 06:16 | Pulmonary Progress Note ---
Sepsis Event Evaluation Height, Weight, BMI Height: 6'0.00" Weight: 229lbs. 1.0oz. 103.715561kf; 31.1 BMI Method:Stated Exam Exam Vital Signs Date Time Temp Pulse Resp B/P (MAP) Pulse Ox O2 Delivery O2 Flow Rate FiO2 05/22/19 05:51 97.8 68 14 150/82 95 05/22/19 04:00 97.8 68 14 150/82 (104) 95 Room Air 05/22/19 04:00 Room Air 05/22/19 01:00 51 05/22/19 00:00 Room Air 05/21/19 23:45 98.3 05/21/19 23:45 68 16 114/77 (89) 96 Room Air 05/21/19 21:00 Room Air 05/21/19 20:00 Room Air 05/21/19 19:45 97.9 69 12 158/87 (110) 98 Room Air 05/21/19 19:00 74 05/21/19 16:00 Room Air 05/21/19 15:45 98.5 64 16 142/84 (103) 99 Room Air 05/21/19 13:00 68 05/21/19 12:00 Room Air 05/21/19 11:30 98.3 71 20 129/68 (88) 99 Room Air 05/21/19 09:00 Room Air 05/21/19 08:00 96.7 05/21/19 08:00 Room Air 05/21/19 08:00 56 15 152/71 (98) 98 Room Air 05/21/19 07:00 61 05/21/19 06:45 51 14 139/76 (97) Room Air 05/21/19 06:30 130/75 (93) Room Air 05/21/19 06:15 61 19 131/76 (94) Room Air 05/21/19 06:15 Room Air I & O 05/22/19 07:00 Intake Total 2300 ml Output Total 2450 ml Balance -150 ml Height & Weight Height: 6'0.00" Weight: 229lbs. 1.0oz. 103.967716ei; 31.1 BMI Method:Stated General Appearance: No Apparent Distress, WD/WN, Chronically ill HEENT: PERRL/EOMI, Pharynx Normal, Moist Mucous Membranes Neck: Full Range of Motion, Normal Inspection Respiratory: Lungs Clear, Normal Breath Sounds, No Accessory Muscle Use, No Respiratory Distress, Decreased Breath Sounds Cardiovascular: Regular Rate, Rhythm, No Edema, No Gallop, No JVD, No Murmur, Normal Peripheral Pulses Capillary Refill: Less Than 3 Seconds Extremity: Normal Capillary Refill, Normal Range of Motion, Non Tender, No Calf Tenderness, Pedal Edema (mild bilateral) Neurologic/Psychiatric: Alert, Oriented x3, No Motor/Sensory Deficits, Normal Mood/Affect Skin: Normal Color, Warm/Dry Results Lab Laboratory Tests 05/21/19 03:48 05/22/19 02:47 Assessment/Plan Assessment/Plan Unstable angina/CP - now resolved -ASA -Cardiology is following -Nitro was given -Heart cath planned for today SHERWIN MCCULLOUGH DO May 22, 2019 06:16
[2019-05-22] MEDS: lisINopril 5 MG (PRINIVIL) TABLET PO SCH (09:33)
[2019-05-22] MEDS: ASPIRIN E.C. 81 MG (ECOTRIN) TAB PO SCH (09:34)
[2019-05-22] MEDS ORDERED: HEParin (CATH LAB) 2,000 ML IV ONE (09:51)
[2019-05-22] MEDS ORDERED: LIDOCAINE 1% INJ 20 ML 20 ML VIAL ONE (09:51)
[2019-05-22] MEDS ORDERED: MIDAZOLAM 5 MG/5 ML (VERSED) VIAL ONE (09:51)
[2019-05-22] MEDS ORDERED: fentaNYL INJECTION 100 MCG/2 ML AMP ONE (09:51)
[2019-05-22] MEDS ORDERED: PATIENT MAY USE OWN MEDS, ALL PO SCH (11:45)
[2019-05-22] MEDS ORDERED: NS IV 1000 ML 1,000 ML IV SCH (11:45)
--- NOTE | 2019-05-22 11:45 | Cardiac Procedure Note-CS/ASA ---
Pre-Procedure Note Pre-Op Procedure Note H&P Reviewed The H&P was reviewed, patient examined and no changes noted. Date H&P Reviewed: May 22, 2019 Time H&P Reviewed: 10:50 Conscious Sedation Pre-Proced Time 10:50 ASA Score 3 For ASA 3 and 4: Consider anesthesia and medical clearance. Also, for patients with a history of failed moderate sedation consider anesthesia. Airway Lungs Heart ASA score ASA 1: a normal healthy patient ASA 2: a patient with a mild systemic disease (mid diabetes, controlled hypertension, obesity ASA 3: a patient with a severe systemic disease that limits activity (angina, COPD, prior Myocardial infarction) ASA 4: a patient with an incapacitating disease that is a constant threat to life (CHF, renal failure) ASA 5: a moribund patient not expected to survive 24 hrs. (ruptured aneurysm) ASA 6: a declared brain- patient whose organs are being harvested. For emergent operations, add the letter E after the classification Mallampati Classification Grade 2 Sedation Plan Analgesia, Amnesia, Plan communicated to team members, Discussed options with patient/fam, Discussed risks with patient/fam The patient is an appropriate candidate to undergo the planned procedure, sedation, and anesthesia. The patient immediately re-assessed prior to indication. CATALINO MANZANO MD FACP FAC CCDS May 22, 2019 11:45
--- NOTE | 2019-05-22 11:57 | Progress Note-Cardiology ---
Cardiology SOAP Progress Note Subjective: Some twinges of chest discomfort since admission No shortness of breath at rest No palp or syncope Objective: I&O/Vital Signs 05/22/19 05/22/19 05/22/19 05/22/19 00:00 01:00 04:00 04:00 Temp 97.8 Pulse 51 68 Resp 14 B/P (MAP) 150/82 (104) Pulse Ox 95 O2 Delivery Room Air Room Air Room Air 05/22/19 05/22/19 05/22/19 05/22/19 05:51 08:00 08:00 08:00 Temp 97.8 97.9 Pulse 68 68 Resp 14 B/P (MAP) 150/82 Pulse Ox 95 O2 Delivery Room Air 05/22/19 09:00 O2 Delivery Room Air 05/22/19 00:00 Intake Total 1100 ml Output Total 2000 ml Balance -900 ml Weight (Pounds): 226 Weight (Ounces): 1.0 Weight (Calculated Kilograms): 102.572637 Constitutional: AAO x 3, well-developed, well-nourished Respiratory: No accessory muscle use; lungs clear to percussion, lungs clear to auscultation Cardiovascular: regular rate-rhythm, S1 and S2, systolic murmur (soft REJI at card base) Gastrointestional: No tender, No guarding, No rebound; audible bowel sounds Extremities: No clubbing, No cyanosis, No significant edema Neurologic/Psychiatric: oriented x 3, grossly intact, power is 5/5 both on sides Skin: No rash on exposed areas, No ulcerations on exposed areas Results/Procedures: Labs Laboratory Tests 05/21/19 15:31: Troponin I < 0.028 05/22/19 02:47: White Blood Count 6.5, Red Blood Count 3.77L, Hemoglobin 11.6L, Hematocrit 35L, Mean Corpuscular Volume 93, Mean Corpuscular Hemoglobin 31, Mean Corpuscular Hemoglobin Concent 33, Red Cell Distribution Width 14.9H, Platelet Count 117L, Mean Platelet Volume 12.1H, Neutrophils (%) (Auto) 60, Lymphocytes (%) (Auto) 28, Monocytes (%) (Auto) 9, Eosinophils (%) (Auto) 3, Basophils (%) (Auto) 0, Neutrophils # (Auto) 3.9, Lymphocytes # (Auto) 1.8, Monocytes # (Auto) 0.6, Eosinophils # (Auto) 0.2, Basophils # (Auto) 0.0, Sodium Level 138, Potassium Level 4.0, Chloride Level 108H, Carbon Dioxide Level 22, Anion Gap 8, Blood Urea Nitrogen 16, Creatinine 1.03, Estimat Glomerular Filtration Rate > 60, BUN/Creatinine Ratio 16, Glucose Level 99, Calcium Level 7.9L, Corrected Calcium 8.5, Total Bilirubin 0.6, Aspartate Amino Transf (AST/SGOT) 16, Alanine Aminotransferase (ALT/SGPT) 13, Alkaline Phosphatase 50, Total Protein 5.7L, Albumin 3.3, Triglycerides Level 71, Cholesterol Level 98, LDL Cholesterol D irect 56, VLDL Cholesterol 14, HDL Cholesterol 31L Laboratory Tests 05/21/19 03:48 05/22/19 02:47 A/P: Assessment: Chest discomfort of undetermined etiology Card cath of 05/22/19: moderate diffuse CAD (nonobstructive), LVEF 60%, LVEDP 13 mmHg, tortuosity of thoraco-abdominal aorta w/o evidence of aneurysm or dis section Hypertension Lipid profile on 05/22/19: Total Chol 98; LDL-C 56. Statin therapy does not ap pear needed (because TC and LDL-C are already below goal) Plan: * We reviewed the results of card cath with him and his * Focus of CV management is on risk factor mod * Risk factor mod reviewed with him * Recommended card meds: aspirin 81 mg daily, Toprol XL 25 mg daily, lisinopril 5 mg daily * Card f/u in 3-4 weeks Clinical Quality Measures AMI/AHF: ASA po Prior to arrival: Yes (3 BABY ASA ) CATALINO MANZANO MD FACP FAC CCDS May 22, 2019 11:57
[2019-05-22] MEDS ORDERED: METO-387 PO (13:37)
[2019-05-22] MEDS ORDERED: ASPI-983 PO (13:37)
[2019-05-22] MEDS ORDERED: LISI-556 PO (13:37)
--- NOTE | 2019-05-22 13:38 | Discharge Summary-Hospitalist ---
Diagnosis/Chief Complaint Date of Admission May 21, 2019 at 04:45 Date of Discharge Discharge Date: May 22, 2019 Admission Diagnosis Assessment: Chest pain rule out acute coronary syndrome cardiology consultation is appreciated Restless leg syndrome Spinal stenosis history Former smoker Discharge Diagnosis (1) Chest pain Status: Acute (2) Spondylosis with myelopathy Status: Chronic (3) Osteoarthritis of both lower legs Status: Chronic Discharge Summary Discharge Physical Exam Allergies: Coded Allergies: NKANo Known Allergies (Verified Allergy, Unknown, 10/18/16) Vitals & I&Os Vital Signs Date Time Temp Pulse Resp B/P (MAP) Pulse Ox O2 Delivery O2 Flow Rate FiO2 05/22/19 16:00 Room Air 05/22/19 16:00 97.8 05/22/19 14:45 64 28 169/121 (137) 05/22/19 14:00 98 General Appearance: No Apparent Distress, WD/WN, Chronically ill Respiratory: Chest Non Tender, Lungs Clear, Normal Breath Sounds, No Accessory Muscle Use, No Respiratory Distress Cardiovascular: Regular Rate, Rhythm, No Edema, No Gallop, No JVD, No Murmur, Normal Peripheral Pulses Neurologic/Psychiatric: Alert, Oriented x3, No Motor/Sensory Deficits, Normal Mood/Affect Hospital Course Was the Problem List Reviewed?: Yes Hospital course: Patient had an uneventful hospital course after he was admitted for vague chest pain and underwent serial troponins to rule out a acute coronary syndrome. Cardiology was consulted and underwent cardiac catheterization due to significant risk factors which revealed nonstenotic heart disease in need of metoprolol, GEE inhibitor and aspirin along with statin therapy. Patient was deemed stable for discharge and he was agreeable with the plan. Labs (last 24 hrs) Laboratory Tests 05/22/19 02:47: White Blood Count 6.5, Red Blood Count 3.77L, Hemoglobin 11.6L, Hematocrit 35L, Mean Corpuscular Volume 93, Mean Corpuscular Hemoglobin 31, Mean Corpuscular Hemoglobin Concent 33, Red Cell Distribution Width 14.9H, Platelet Count 117L, Mean Platelet Volume 12.1H, Neutrophils (%) (Auto) 60, Lymphocytes (%) (Auto) 28, Monocytes (%) (Auto) 9, Eosinophils (%) (Auto) 3, Basophils (%) (Auto) 0, Neutrophils # (Auto) 3.9, Lymphocytes # (Auto) 1.8, Monocytes # (Auto) 0.6, Eosinophils # (Auto) 0.2, Basophils # (Auto) 0.0, Sodium Level 138, Potassium Level 4.0, Chloride Level 108H, Carbon Dioxide Level 22, Anion Gap 8, Blood Urea Nitrogen 16, Creatinine 1.03, Estimat Glomerular Filtration Rate > 60, BUN/Creatinine Ratio 16, Glucose Level 99, Calcium Level 7.9L, Corrected Calcium 8.5, Total Bilirubin 0.6, Aspartate Amino Transf (AST/SGOT) 16, Alanine Amino transferase (ALT/SGPT) 13, Alkaline Phosphatase 50, Total Protein 5.7L, Albumin 3.3, Triglycerides Level 71, Cholesterol Level 98, LDL Cholesterol Direct 56, VLDL Cholesterol 14, HDL Cholesterol 31L Patient resulted labs reviewed. Discussion & Recommendations Discharge Planning: <30 minutes discharge planning Discharge Home Medications: Active Scripts Active Aspirin EC (Aspirin) 81 Mg Tablet.dr 81 Mg PO DAILY Lisinopril 5 Mg Tablet 5 Mg PO DAILY@0900 Metoprolol Succinate 25 Mg Tab.er.24h 25 Mg PO DAILY Reported Celecoxib 200 Mg Capsule Furosemide 20 Mg Tablet Terazosin HCl 1 Mg Capsule 1 Mg PO HS Oxybutynin Chloride 5 Mg Tablet 5 Mg PO BID Instructions to patient/family Please see electronic discharge instructions given to patient. Clinical Quality Measures AMI/AHF: ASA po Prior to arrival: Yes (3 BABY ASA ) DVT/VTE Risk/Contraindication: Risk Factor Score Per Nursin RFS Level Per Nursing on Admit: 3=High Problem Qualifiers (1) Chest pain: Chest pain type: unspecified Qualified Codes: R07.9 - Chest pain, unspecified BRYAN POLK DO May 22, 2019 13:38
--- NOTE | 2019-05-22 14:14 | CARDIAC CATHETERIZATION ---
DATE OF SERVICE: 05/22/2019 CARDIAC CATHETERIZATION REPORT The patient is a 79-year-old man who was admitted with chest discomfort suggestive of unstable angina. He has multiple coronary artery disease risk factors. Cardiac catheterization was carried out today after having obtained an informed consent. PROCEDURE: He was brought to the cardiac catheterization laboratory in a fasting state. Right groin was prepared and draped in the usual sterile fashion. Lidocaine 1% was used for local anesthesia. Modified Seldinger technique was used to advance a 5-Luxembourger sheath in the right femoral artery. We are not able to engage the left coronary system with a 5-Luxembourger JL4 catheter. There was considerable tortuosity of the aorta. We decided to exchange the 5-Luxembourger sheath over an exchange wire for a 45 cm 6-Luxembourger sheath. We used a 6-Luxembourger JL4.5 catheter to carry out left coronary angiography and 6-Luxembourger JR4 catheter to carry right coronary angiography. We used a 5-Luxembourger pigtail catheter for left heart catheterization, left ventricular angiography. The pigtail catheter was pulled back to the aortic arch and aortic arch angiography was performed. The sheath was removed. The long sheath was exchanged over a wire for a 6-Luxembourger short sheath. Angiography of the right femoral artery was carried out through the sheath. Mynx was used to achieve hemostasis. He tolerated the procedure well. HEMODYNAMICS: Left ventricular end-diastolic pressure following coronary angiography was 13 mmHg. There was no significant pressure gradient on pullback across the aortic valve. Ascending aortic pressure was 136/77 with a mean of 106 mmHg. LEFT VENTRICULAR ANGIOGRAPHY: Left ventricular angiography was carried out in the right anterior oblique projection. Global left ventricular systolic function appears well preserved and ejection fraction is estimated at approximately 60%. AORTIC ARCH ANGIOGRAPHY: Aortic arch angiography shows significant tortuosity of the thoracoabdominal aorta. There is unravelling of the aortic arch. The neck arteries are identified, do not exhibit significant disease. There is no evidence of aortic dissection or aneurysm, to the extent visualized. CORONARY ANGIOGRAPHY: Diffuse coronary calcification is present. Left main coronary artery does not exhibit significant obstructive disease. The left anterior descending and left circumflex arteries have diffuse moderate disease with stenoses of up to approximately 40%. Right coronary artery is dominant, tortuous, and without significant disease. CONCLUSIONS: 1. Moderate coronary artery disease, diffuse. 2. Well-preserved global left ventricular systolic function with ejection fraction of 60%. 3. Left ventricular end-diastolic pressure at the top limit of normal to mildly elevated. 4. Significant tortuosity of the thoracoabdominal aorta without evidence of dissection or aneurysm, to the extent visualized. DISCUSSION AND RECOMMENDATIONS: Based on the results of the study, chest discomfort does not appear to be of coronary origin. Continuing risk factor modification is advised. Outpatient followup is advised. Job ID: [id number] DocumentID: [id number] Dictated Date: 05/22/2019 11:42:28 Washer Assembler Date: 05/22/2019 14:14:08 Dictated By: CATALINO MANZANO MD, MA, FACP, FACC, MTDD
[2019-05-23 03:29] LABS: BASOPHILS % (AUTO) 0 % (0-10); EOSINOPHILS # (AUTO) 0.1 10^3/uL (0.0-0.3); EOSINOPHILS % (AUTO) 1 % (0-10); HEMATOCRIT 35 % (40-54); HEMOGLOBIN 11.4 G/DL (13.3-17.7); LYMPHOCYTES # (AUTO) 3.8 X 10^3 (1.0-4.0); LYMPHOCYTES % (AUTO) 23 % (12-44); MEAN CORPUSCULAR HEMOGLOBIN 25 PG (25-34); MEAN CORPUSCULAR HGB CONC 33 G/DL (32-36); MEAN CORPUSCULAR VOLUME 76 FL (80-99); MEAN PLATELET VOLUME 9.5 FL (7.4-10.4); MONOCYTES # (AUTO) 1.2 X 10^3 (0.0-1.0); MONOCYTES % (AUTO) 7 % (0-12); NEUTROPHILS # (AUTO) 11.4 X 10^3 (1.8-7.8); NEUTROPHILS % (AUTO) 69 % (42-75); PLATELET COUNT 349 10^3/uL (130-400); RED CELL DISTRIBUTION WIDTH 15.1 % (10.0-14.5); WHITE BLOOD COUNT 16.5 10^3/uL (4.3-11.0)
[2019-05-23 03:54] LABS: ALBUMIN 3.6 GM/DL (3.2-4.5); BILIRUBIN,TOTAL 0.5 MG/DL (0.1-1.0); CALCIUM 9.3 MG/DL (8.5-10.1); CREATININE SERUM 1.53 MG/DL (0.60-1.30); POTASSIUM 3.3 MMOL/L (3.6-5.0); TOTAL PROTEIN 6.4 GM/DL (6.4-8.2)
[2019-05-23 05:22] LABS: LYMPHOCYTES % (MANUAL) 22 %; MONOCYTES % (MANUAL) 7 %; NEUTROPHILS % (MANUAL) 71 %
== END 2019-05-22 17:40 | disposition home or self-care (01) ==
LOC: EDUNIT# 03:42 → ER 03:43 → ICU 04:45
PROVIDERS: ADMIT Internal Medicine; ATTEND Internal Medicine
DX: R07.89 Other chest pain (principal); I25.10 Atherosclerotic heart disease of native coronary artery without angina pectoris; I10 Essential (primary) hypertension; G25.81 Restless legs syndrome; M48.02 Spinal stenosis, cervical region; M47.12 Other spondylosis with myelopathy, cervical region; N40.0 Benign prostatic hyperplasia without lower urinary tract symptoms; M17.0 Bilateral primary osteoarthritis of knee; Z87.891 Personal history of nicotine dependence
CPT/HCPCS: 36221; 36415; 71045; 80053; 80061; 83735; 83874; 83880; 84484; 85007; 85025; 85027; 85610; 85730; 93005; 93306; 93458; 96360

== ENCOUNTER → 2019-10-24 | Outpatient (CLI) | payer MEDICARE ==
[~2019-10-24] MED LIST changes: -ALFU10TA11 PO; +ALFU10TA12 PO; +ASPI-983 PO; +LISI-556 PO; +MTP25TSR PO; +OXYB5TAB13 PO; -OXYB5TAB9 PO; -TRAM50TA2 PO; +TRM50T PO
--- NOTE | 2019-10-24 13:44 | Diagnostic Imaging Report ---
INDICATION: Shortness of breath. COMPARISON: 05/21/2019. FINDINGS: There is bibasilar atelectasis and/or pneumonitis. There is cardiomegaly. There is some venous congestion. There is no pneumothorax. The mediastinum is unremarkable. IMPRESSION: Cardiomegaly and mild venous congestion. Bibasilar atelectasis and/or pneumonitis, left greater than right. Dictated by: Dictated on workstation # [id number]
== END ==
LOC: RAD 11:19
PROVIDERS: ATTEND Nurse Practitioner Family
DX: I51.7 Cardiomegaly (principal); I87.8 Other specified disorders of veins; G47.10 Hypersomnia, unspecified; J44.9 Chronic obstructive pulmonary disease, unspecified; Z87.891 Personal history of nicotine dependence
CPT/HCPCS: 71046

== ENCOUNTER → 2019-11-21 | Outpatient (CLI) | payer MEDICARE, OTHER ==
[~2019-11-21] MED LIST changes: +ALFU10TA11 PO; -ALFU10TA12 PO; +METO-387 PO; -MTP25TSR PO; -OXYB5TAB13 PO; +OXYB5TAB9 PO; +RT-ALBUTEROL SULF 2.5 MG/3 ML PRE-MIX VIAL INH ONE; +RT-ALBUTEROL SULF 2.5 MG/3 ML PRE-MIX VIAL ONE
== END ==
LOC: RT 14:25
PROVIDERS: ATTEND Nurse Practitioner Family
DX: J44.9 Chronic obstructive pulmonary disease, unspecified (principal); G47.10 Hypersomnia, unspecified; Z87.891 Personal history of nicotine dependence
CPT/HCPCS: 94060; 94729

== ENCOUNTER 2019-11-28 18:58 | Outpatient (CLI) | payer MEDICARE, OTHER ==
[~2019-11-28 18:58] MED LIST changes: -ALFU10TA11 PO; +ALFU10TA12 PO; -METO-387 PO; +MTP25TSR PO; +OXYB5TAB13 PO; -OXYB5TAB9 PO; -RT-ALBUTEROL SULF 2.5 MG/3 ML PRE-MIX VIAL INH ONE; -RT-ALBUTEROL SULF 2.5 MG/3 ML PRE-MIX VIAL ONE
== END 2019-11-29 06:50 | disposition home or self-care (01) ==
LOC: SLEEP 18:58
PROVIDERS: ATTEND Nurse Practitioner Family
DX: G47.9 Sleep disorder, unspecified (principal); J44.9 Chronic obstructive pulmonary disease, unspecified; Z87.891 Personal history of nicotine dependence
CPT/HCPCS: 95810

== ENCOUNTER → 2019-12-13 | Outpatient (CLI) | payer MEDICARE, OTHER ==
[~2019-12-13] MED LIST changes: +HOLD METFORMIN - RECEIVED CONTRAST 20 ML VIAL IV SCH; +IOHEXOL 350 MG/ML 100 ML (OMNIPAQUE 350) VIAL IV ONE; +NS 100 ML (IVPB) BAG IV ONE
[2019-12-13 08:31] LABS: CREATININE SERUM 1.24 MG/DL (0.60-1.30)
--- NOTE | 2019-12-13 10:28 | Diagnostic Imaging Report ---
PROCEDURE: CT chest with contrast only. TECHNIQUE: Multiple contiguous axial images were obtained through the chest after administration of intravenous contrast. Auto Exposure Controls were utilized during the CT exam to meet ALARA standards for radiation dose reduction. INDICATION: Shortness of breath. History of tobacco use. COMPARISON: 11/07/2016 FINDINGS: No definitive pathologically enlarged thoracic lymphadenopathy. Calcified granulomas in the right infrahilar region. A few small shotty subcentimeter mediastinal lymph nodes. Visualized portions of the thyroid gland appearing unremarkable. Heart is enlarged with scattered at least moderate severity coronary artery calcification. Thoracic aortic contour unremarkable but is mildly tortuous in the descending portion. Prominent, fibrotic-type changes noted throughout both lung jeff. There is no focal consolidating infiltrate. Multiple bilateral calcified granulomas are noted within the lung jeff. Rather pronounced chronic atrophic changes about the right kidney. 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 Advanced multilevel degenerative changes noted about the thoracic spine. IMPRESSION: 1. No acute abnormality about the chest. 2. Rather prominent, likely chronic interstitial changes throughout the lung parenchyma with scattered areas of bronchiectatic changes. No focal consolidating infiltrate. Dictated by: Dictated on workstation # [id number]
== END ==
LOC: RAD 08:05
PROVIDERS: ATTEND Nurse Practitioner Family
DX: J44.9 Chronic obstructive pulmonary disease, unspecified (principal); G47.33 Obstructive sleep apnea (adult) (pediatric); Z87.891 Personal history of nicotine dependence
CPT/HCPCS: 36415; 71260; 82565; 84520

== ENCOUNTER → 2020-02-09 | Outpatient (CLI) | payer MEDICARE ==
[~2020-02-09] MED LIST changes: +ACHYD1T PO; -HOLD METFORMIN - RECEIVED CONTRAST 20 ML VIAL IV SCH; -HYDR-3820 PO; -IOHEXOL 350 MG/ML 100 ML (OMNIPAQUE 350) VIAL IV ONE; -NS 100 ML (IVPB) BAG IV ONE
--- NOTE | 2020-02-09 11:53 | Diagnostic Imaging Report ---
INDICATION: Chronic knee pain. TIME OF EXAM: 11:33 AM Multiple views bilateral knees were obtained. FINDINGS: The right knee demonstrates tricompartmental degenerative change with joint space narrowing and marginal spurring. No significant effusion is seen. Left knee does demonstrate postoperative changes of total knee arthroplasty. The prosthetic elements appear to be in good position, without evidence of fracture or loosening. No joint effusion on the left is identified. IMPRESSION: Postoperative changes on the left and tricompartmental degenerative changes on the right. No acute bony abnormality is detected. Dictated by: Dictated on workstation # [id number]
== END ==
LOC: RAD 11:16
PROVIDERS: ATTEND Nurse Practitioner Family
DX: M17.11 Unilateral primary osteoarthritis, right knee (principal); Z96.652 Presence of left artificial knee joint

== ENCOUNTER 2020-04-19 18:41 | Emergency (ER) | payer MEDICARE ==
[~2020-04-19] VITALS: Ht 182 cm; Wt 101.0 kg
--- NOTE | 2020-04-19 18:56 | ED General ---
General Chief Complaint: Chest Pain Stated Complaint: FALL Source of Information: Patient, EMS Exam Limitations: No Limitations History of Present Illness Date Seen by Provider: Apr 19, 2020 Time Seen by Provider: 18:54 Initial Comments To ER per [facility] with reports of fall at home. He was going up steps when his right knee gave out on him causing him to fall backwards striking the back of his head on the concrete. No loss of consciousness. Does complain of neck pain. EMS applied a rigid cervical collar but the patient told them to remove it once he got to the emergency room. He also has some low back pain worsened by movement of the legs. No abdominal pain no extremity pain. He rates the pain a 10 out of 10 in the aforementioned locations Timing/Duration: 1-3 Hours Severity: Moderate Allergies and Home Medications Allergies Coded Allergies: NKANo Known Allergies (Verified Allergy, Unknown, 10/18/16) Home Medications Aspirin 81 Mg Tablet.dr, 81 MG PO DAILY Prescribed by: BRYAN POLK on 05/22/19 1337 Lisinopril 5 Mg Tablet, 5 MG PO DAILY@0900 Prescribed by: BRYAN POLK on 05/22/19 1337 Metoprolol Succinate 25 Mg Tab.er.24h, 25 MG PO DAILY Prescribed by: BRYAN POLK on 05/22/19 1337 Oxybutynin Chloride 5 Mg Tablet, 5 MG PO BID, (Reported) Terazosin HCl 1 Mg Capsule, 1 MG PO HS, (Reported) Patient Home Medication List Home Medication List Reviewed: Yes Review of Systems Review of Systems Constitutional: see HPI EENTM: see HPI Respiratory: no symptoms reported Cardiovascular: no symptoms reported Genitourinary: no symptoms reported Musculoskeletal: no symptoms reported Skin: no symptoms reported Psychiatric/Neurological: No Symptoms Reported Hematologic/Lymphatic: No Symptoms Reported Immunological/Allergic: no symptoms reported Past Thlrbal-Agpjds-Vxvfxm Hx Patient Social History Alcohol Use: Denies Use Recreational Drug Use: No Type Used: Cigarettes 2nd Hand Smoke Exposure: No Recent Hopitalizations: No Physical Abuse: No Sexual Abuse: No Mistreated: No Fear: No Immunizations Up To Date Tetanus Booster (TDap): Unknown PED Vaccines UTD: Yes Date of Pneumonia Vaccine: May 21, 2017 Date of Influenza Vaccine: Oct 09, 2017 Seasonal Allergies Seasonal Allergies: No Past Medical History Surgeries: Yes (Left knee replacement, right hip steel plates placed, back ) Appendectomy, Orthopedic Respiratory: No Currently Using CPAP: No Currently Using BIPAP: No Cardiac: No Neurological: Yes (restless leg syndrome, cervical spinal stenosis) Neuropathy Reproductive Disorders: No Sexually Transmitted Disease: No HIV/AIDS: No Genitourinary: Yes Benign Prostatic Hyperpl Gastrointestinal: No Musculoskeletal: Yes (FREQ.BACK PAIN, cervical spinal stenosis) Chronic Back Pain Endocrine: No HEENT: No Loss of Vision: Denies Hearing Impairment: Denies Cancer: No Psychosocial: No Integumentary: No Blood Disorders: No Adverse Reaction/Blood Tranf: No Family Medical History Cardiovascular disease 19 FATHER FHx: cancer 19 MOTHER (unknown what kind of cancer) Respiratory disorder 19 MOTHER (EMPHYZEMA) Physical Exam Vital Signs Vital Signs - First Documented Capillary Refill : Height, Weight, BMI Height: 6'0.00" Weight: 226lbs. 1.0oz. 102.574489ue; 31.1 BMI Method:Stated General Appearance: No Apparent Distress, WD/WN Eyes: Bilateral Eye Normal Inspection, Bilateral Eye PERRL, Bilateral Eye EOMI Neck: Full Range of Motion, Normal Inspection Respiratory: Lungs Clear, Normal Breath Sounds, No Accessory Muscle Use, No Respiratory Distress Cardiovascular: Regular Rate, Rhythm, Normal Peripheral Pulses Gastrointestinal: Normal Bowel Sounds, Non Tender, Soft Extremity: Normal Capillary Refill, Normal Inspection Neurologic/Psychiatric: Oriented x3 Skin: Normal Color, Warm/Dry Progress/Results/Core Measures Suspected Sepsis SIRS Temperature: Pulse: Respiratory Rate: Laboratory Tests 04/19/20 18:50: White Blood Count 4.8 Blood Pressure / Mean: Laboratory Tests 04/19/20 18:50: Creatinine 1.38H, Platelet Count 125L, Total Bilirubin 0.5 Results/Orders Lab Results Laboratory Tests Test 04/19/20 18:50 Range/Units White Blood Count 4.8 4.3-11.0 10^3/uL Red Blood Count 3.59 L 4.35-5.85 10^6/uL Hemoglobin 11.2 L 13.3-17.7 G/DL Hematocrit 34 L 40-54 % Mean Corpuscular Volume 94 80-99 FL Mean Corpuscular Hemoglobin 31 25-34 PG Mean Corpuscular Hemoglobin Concent 33 32-36 G/DL Red Cell Distribution Width 15.3 H 10.0-14.5 % Platelet Count 125 L 130-400 10^3/uL Mean Platelet Volume 11.7 H 7.4-10.4 FL Neutrophils (%) (Auto) 61 42-75 % Lymphocytes (%) (Auto) 27 12-44 % Monocytes (%) (Auto) 10 0-12 % Eosinophils (%) (Auto) 2 0-10 % Basophils (%) (Auto) 0 0-10 % Neutrophils # (Auto) 2.9 1.8-7.8 X 10^3 Lymphocytes # (Auto) 1.3 1.0-4.0 X 10^3 Monocytes # (Auto) 0.5 0.0-1.0 X 10^3 Eosinophils # (Auto) 0.1 0.0-0.3 10^3/uL Basophils # (Auto) 0.0 0.0-0.1 10^3/uL Sodium Level 137 135-145 MMOL/L Potassium Level 3.9 3.6-5.0 MMOL/L Chloride Level 105 98-107 MMOL/L Carbon Dioxide Level 21 21-32 MMOL/L Anion Gap 11 5-14 MMOL/L Blood Urea Nitrogen 22 H 7-18 MG/DL Creatinine 1.38 H 0.60-1.30 MG/DL Estimat Glomerular Filtration Rate 50 BUN/Creatinine Ratio 16 Glucose Level 135 H 70-105 MG/DL Calcium Level 7.9 L 8.5-10.1 MG/DL Corrected Calcium 8.4 L 8.5-10.1 MG/DL Total Bilirubin 0.5 0.1-1.0 MG/DL Aspartate Amino Transf (AST/SGOT) 18 5-34 U/L Alanine Aminotransferase (ALT/SGPT) 11 0-55 U/L Alkaline Phosphatase 50 40-136 U/L Total Protein 6.1 L 6.4-8.2 GM/DL Albumin 3.4 3.2-4.5 GM/DL My Orders Orders - KIKE PERKINS APRN Cbc With Automated Diff (04/19/20 18:52) Comprehensive Metabolic Panel (04/19/20 18:52) Ed Iv/Invasive Line Start (04/19/20 18:52) Chest 1 View, Ap/Pa Only (04/19/20 18:52) Pelvis (04/19/20 18:52) Ct Head/Cervical Spine Wo (04/19/20 18:52) Ct Lumbar Spine Wo (04/19/20 18:52) Ns Iv 500 Ml (Sodium Chloride 0.9%) (04/19/20 19:00) Fentanyl Injection (Sublimaze Injection (04/19/20 19:00) Medications Given in ED Current Medications Medications Dose Ordered Sig/Sussy Route Start Time Stop Time Status Last Admin Dose Admin Fentanyl Citrate 50 mcg ONCE ONCE IVP 04/19/20 19:00 04/19/20 19:01 DC 04/19/20 19:04 50 MCG Vital Signs/I&O 04/19/20 04/19/20 18:50 18:50 Temp 37.8 37.8 Pulse 76 75 Resp 16 16 B/P (MAP) 103/61 (75) 103/61 (75) Pulse Ox 95 96 O2 Delivery Room Air Room Air Capillary Refill : Diagnostic Imaging Diagonstic Imaging: Xray Comments NAME: LAUREL HOLLEY MED REC#: [id number] PT STATUS: REG ER : 1940 PHYSICIAN: KIKE PERKINS APRN ADMIT DATE: 04/19/20/ER Draft Date of Exam:04/19/20 CT HEAD/CERVICAL SPINE WO PROCEDURE: CT head and CT cervical spine without contrast. TECHNIQUE: Multiple contiguous axial images were obtained through the brain and cervical spine without the use of intravenous contrast. Sagittal and coronal reformations through the cervical spine were then performed. Auto Exposure Controls were utilized during the CT exam to meet ALARA standards for radiation dose reduction. INDICATION: Fell backwards and hit head CT HEAD: The ventricles are normal in size, shape and position. There are no masses or hemorrhages. There are no extra-axial fluid collections. There are no skull fractures seen. IMPRESSION: Negative CT head CT cervical spine: There are postoperative changes from laminectomies C3-C7 with dorsal fusion from C3 through T2. Vertebral alignment appears normal. The internal fixation hardware is intact. There appears to be some loosening of the facet screws on the right and left at C3 and C4. No acute fracture seen. IMPRESSION: The fixation screws on the right and left at C3-C4 did not appear to be anchored in the bone. This does not appear to be an acute problem. Vertebral body alignment is normal. There are no acute fractures seen. Dictated on workstation # [id number] Dict: 04/19/201921 Trans: 04/19/201928 CHARBEL [id number] Interpreted by: KIZZY PITT MD Electronically signed by: NAME: LAUREL HOLLEY [facility] REC#: [id number] PT STATUS: REG ER : 1940 PHYSICIAN: KIKE PERKINS APRN ADMIT DATE: 04/19/20/ER Draft Date of Exam:04/19/20 CT LUMBAR SPINE WO PROCEDURE: CT lumbar spine without contrast. TECHNIQUE: Multiple contiguous axial images were obtained through the lumbar spine without the use of intravenous contrast. Sagittal and coronal reformations were then performed. Auto Exposure Controls were utilized during the CT exam to meet ALARA standards for radiation dose reduction. INDICATION: Injury from a fall There is scoliosis of the lumbar spine convex to the left. Vertebral alignment appears normal. There are no compression fractures. There is spondylosis with osteophytes forming at the vertebral body margins at each level of the lumbar spine. There are no pars defects. IMPRESSION: Scoliosis with diffuse degenerative changes of the discs and facets. There is no acute abnormality seen. Dictated on workstation # [id number] Dict: 04/19/201925 Trans: 04/19/201930 CHARBEL [id number] Interpreted by: KIZZY PITT MD Electronically signed by: Departure Impression Primary Impression: Fall at home Qualified Codes: W19.XXXA - Unspecified fall, initial encounter; Y92.009 - Unspecified place in unspecified non-institutional (private) residence as the place of occurrence of the external cause Disposition: 01 HOME, SELF-CARE Condition: Stable Departure-Patient Inst. Decision time for Depature: 20:02 Referrals: DAVID PAVON DO (PCP) Primary Care Physician NEDA PAINTER (Family) Primary Care Physician Patient Instructions: NO INSTRUCTIONS GIVEN, Preventing Falls in the Older Adult Add. Discharge Instructions: 1. Follow-up with your spine surgeon as the screws in the top part of your laminectomy and hardware appeared to be loosened from the bone but this does not appear to be a new issue from today, the appearance of this is that it has been like this for quite some time. All discharge instructions reviewed with patient and/or family. Voiced understanding. KIKE PERKINS APRN Apr 19, 2020 18:56
[2020-04-19 19:00] LABS: BASOPHILS % (AUTO) 0 % (0-10); EOSINOPHILS # (AUTO) 0.1 10^3/uL (0.0-0.3); EOSINOPHILS % (AUTO) 2 % (0-10); HEMATOCRIT 34 % (40-54); HEMOGLOBIN 11.2 G/DL (13.3-17.7); LYMPHOCYTES # (AUTO) 1.3 X 10^3 (1.0-4.0); LYMPHOCYTES % (AUTO) 27 % (12-44); MEAN CORPUSCULAR HEMOGLOBIN 31 PG (25-34); MEAN CORPUSCULAR HGB CONC 33 G/DL (32-36); MEAN CORPUSCULAR VOLUME 94 FL (80-99); MEAN PLATELET VOLUME 11.7 FL (7.4-10.4); MONOCYTES # (AUTO) 0.5 X 10^3 (0.0-1.0); MONOCYTES % (AUTO) 10 % (0-12); NEUTROPHILS # (AUTO) 2.9 X 10^3 (1.8-7.8); NEUTROPHILS % (AUTO) 61 % (42-75); PLATELET COUNT 125 10^3/uL (130-400); RED CELL DISTRIBUTION WIDTH 15.3 % (10.0-14.5); WHITE BLOOD COUNT 4.8 10^3/uL (4.3-11.0)
[2020-04-19] MEDS ORDERED: NS IV 500 ML 500 ML IV SCH (19:00)
[2020-04-19] MEDS ORDERED: fentaNYL INJECTION 100 MCG/2 ML AMP IVP ONE (19:00)
[2020-04-19 19:08] LABS: ALBUMIN 3.4 GM/DL (3.2-4.5)
[2020-04-19 19:09] LABS: POTASSIUM 3.9 MMOL/L (3.6-5.0)
[2020-04-19 19:10] LABS: CALCIUM 7.9 MG/DL (8.5-10.1)
[2020-04-19 19:11] LABS: TOTAL PROTEIN 6.1 GM/DL (6.4-8.2)
[2020-04-19 19:13] LABS: BILIRUBIN,TOTAL 0.5 MG/DL (0.1-1.0)
--- NOTE | 2020-04-19 19:29 | Diagnostic Imaging Report ---
PROCEDURE: CT head and CT cervical spine without contrast. TECHNIQUE: Multiple contiguous axial images were obtained through the brain and cervical spine without the use of intravenous contrast. Sagittal and coronal reformations through the cervical spine were then performed. Auto Exposure Controls were utilized during the CT exam to meet ALARA standards for radiation dose reduction. INDICATION: Fell backwards and hit head CT HEAD: The ventricles are normal in size, shape and position. There are no masses or hemorrhages. There are no extra-axial fluid collections. There are no skull fractures seen. IMPRESSION: Negative CT head CT cervical spine: There are postoperative changes from laminectomies C3-C7 with dorsal fusion from C3 through T2. Vertebral alignment appears normal. The internal fixation hardware is intact. There appears to be some loosening of the facet screws on the right and left at C3 and C4. No acute fracture seen. IMPRESSION: The fixation screws on the right and left at C3-C4 did not appear to be anchored in the bone. This does not appear to be an acute problem. Vertebral body alignment is normal. There are no acute fractures seen. Dictated by: Dictated on workstation # [id number]
--- NOTE | 2020-04-19 19:32 | Diagnostic Imaging Report ---
PROCEDURE: CT lumbar spine without contrast. TECHNIQUE: Multiple contiguous axial images were obtained through the lumbar spine without the use of intravenous contrast. Sagittal and coronal reformations were then performed. Auto Exposure Controls were utilized during the CT exam to meet ALARA standards for radiation dose reduction. INDICATION: Injury from a fall There is scoliosis of the lumbar spine convex to the left. Vertebral alignment appears normal. There are no compression fractures. There is spondylosis with osteophytes forming at the vertebral body margins at each level of the lumbar spine. There are no pars defects. IMPRESSION: Scoliosis with diffuse degenerative changes of the discs and facets. There is no acute abnormality seen. Dictated by: Dictated on workstation # [id number]
[2020-04-19 19:37] LABS: CREATININE SERUM 1.38 MG/DL (0.60-1.30)
--- NOTE | 2020-04-19 19:40 | Diagnostic Imaging Report ---
INDICATION: Injury from a fall AP view pelvis shows postoperative changes from right hip arthroplasty. There is no acute fracture or dislocation. IMPRESSION: No acute abnormalities in the pelvis Dictated by: Dictated on workstation # [id number]
--- NOTE | 2020-04-19 19:40 | Diagnostic Imaging Report ---
INDICATION: Back injury from a fall Portable chest 7:37 PM Heart and mediastinum are normal. Lungs are clear. There are no effusions or pneumothoraces. IMPRESSION: Negative chest Dictated by: Dictated on workstation # [id number]
[2020-04-19 20:11] VITALS: BP 113/61
== END 2020-04-19 20:26 | disposition home or self-care (01) ==
LOC: EDUNIT# 18:41 → ER 18:42
DX: M54.2 Cervicalgia (principal); M54.5 Low back pain; Z79.82 Long term (current) use of aspirin; Z96.652 Presence of left artificial knee joint; Z82.49 Family history of ischemic heart disease and other diseases of the circulatory system; W10.9XXA Fall (on) (from) unspecified stairs and steps, initial encounter; Y92.009 Unspecified place in unspecified non-institutional (private) residence as the place of occurrence of the external cause
CPT/HCPCS: 36415; 70450; 71045; 72125; 72131; 72170; 80053; 85025

== ENCOUNTER 2020-09-03 08:54 | Outpatient (RCR) | payer MEDICARE ==
[~2020-09-03 08:54] MED LIST changes: +ASPI-1238 PO; -ASPI-983 PO
== END 2020-09-12 15:04 | disposition home or self-care (01) ==
PROVIDERS: ATTEND Nurse Practitioner Family
DX: M17.11 Unilateral primary osteoarthritis, right knee (principal); I10 Essential (primary) hypertension

== ENCOUNTER 2020-10-27 18:33 | Emergency (ER) | payer MEDICARE ==
[~2020-10-27] VITALS: Ht 182.9 cm; Wt 94.5 kg
--- NOTE | 2020-10-27 18:56 | ED Chest Pain ---
General Chief Complaint: Chest Pain Stated Complaint: CP/SOB/NUMBNESS/TINGLING Nursing Triage Note: ASSISTED PT VIA ED W/C FROM POV WITH C/O MEDIAL CHEST DISCOMFORT, SOA, ET TINGLING TO BILAT UPPER ET LOWER EXTREMITIES. PT REPORTS CHEST DISCOMFORT BEGAN ON THIS DAY AT APPROX 1200 FOLLOWED BY SOA ET FEELINGS OF ANXIETY. PT REPORTS CHRONIC HX NUMBNESS ET TINGLING TO EXTREMITIES. PT RATES CHEST DISCOMFORT 8/10 DURING TRIAGE. PT DENIES FEVER, CHILLS, COUGH, OR CONGESTION. A&OX4. Nursing Sepsis Screen: No Definite Risk Source: patient Exam Limitations: no limitations History of Present Illness Date Seen by Provider: Oct 27, 2020 Time Seen by Provider: 18:54 Initial Comments To ER with reports of central chest pressure since noon today. He had some shortness of breath with it and fatigue. He had tingling in both arms and both legs as well as anxiety. He has no history of heart disease that he is aware of nor does he have any coronary stenting. Severity/Quality: moderate Location: central Radiation: no radiation Prior CP/Workup: no prior chest pain ASA po CAD OPERATOR: No NTG SL CAD OPERATOR: No Associated Symptoms: shortness of breath Allergies and Home Medications Allergies Coded Allergies: NKANo Known Allergies (Verified Allergy, Unknown, 10/18/16) Home Medications Aspirin 81 Mg Tablet.dr, 81 MG PO DAILY Prescribed by: BRYAN POLK on 05/22/19 1337 Lisinopril 5 Mg Tablet, 5 MG PO DAILY@0900 Prescribed by: BRYAN POLK on 05/22/19 1337 Metoprolol Succinate 25 Mg Tab.er.24h, 25 MG PO DAILY Prescribed by: BRYAN POLK on 05/22/19 1337 Oxybutynin Chloride 5 Mg Tablet, 5 MG PO BID, (Reported) Terazosin HCl 1 Mg Capsule, 1 MG PO HS, (Reported) Patient Home Medication List Home Medication List Reviewed: Yes Review of Systems Review of Systems Constitutional: see HPI EENTM: No Symptoms Reported Respiratory: No Symptoms Reported Cardiovascular: See HPI, Chest Pain Gastrointestinal: No Symptoms Reported Genitourinary: No Symptoms Reported Musculoskeletal: no symptoms reported Skin: no symptoms reported Psychiatric/Neurological: No Symptoms Reported Hematologic/Lymphatic: No Symptoms Reported Past Ltwelhs-Cifaqf-Xszxfq Hx Patient Social History Type Used: Cigarettes 2nd Hand Smoke Exposure: No Recent Foreign Travel: No Contact w/Someone Who Travel: No Recent Infectious Disease Expo: No Recent Hopitalizations: No Immunizations Up To Date Tetanus Booster (TDap): Unknown PED Vaccines UTD: Yes Date of Pneumonia Vaccine: May 21, 2017 Date of Influenza Vaccine: Oct 09, 2017 Seasonal Allergies Seasonal Allergies: No Past Medical History Surgeries: Yes (Left knee replacement, right hip steel plates placed, back ) Appendectomy, Orthopedic Respiratory: No Currently Using CPAP: No Currently Using BIPAP: No Cardiac: No Neurological: Yes (restless leg syndrome, cervical spinal stenosis) Neuropathy Reproductive Disorders: No Sexually Transmitted Disease: No HIV/AIDS: No Genitourinary: Yes Benign Prostatic Hyperpl Gastrointestinal: No Musculoskeletal: Yes (FREQ.BACK PAIN, cervical spinal stenosis) Chronic Back Pain Endocrine: No HEENT: No Loss of Vision: Denies Hearing Impairment: Denies Cancer: No Psychosocial: No Integumentary: No Blood Disorders: No Adverse Reaction/Blood Tranf: No Family Medical History Cardiovascular disease 19 FATHER FHx: cancer 19 MOTHER (unknown what kind of cancer) Respiratory disorder 19 MOTHER (EMPHYZEMA) Physical Exam Vital Signs Vital Signs - First Documented Capillary Refill : Less Than 3 Seconds Height, Weight, BMI Height: 6'0.00" Weight: 226lbs. 1.0oz. 102.666976nf; 28.00 BMI Method:Stated General Appearance: No Apparent Distress, WD/WN Neck: Full Range of Motion, Normal Inspection Respiratory: No Accessory Muscle Use, No Respiratory Distress Cardiovascular: Regular Rate, Rhythm, Normal Peripheral Pulses Gastrointestinal: Normal Bowel Sounds, Non Tender, Soft Extremity: Normal Capillary Refill, Normal Inspection Neurologic/Psychiatric: Alert, Oriented x3 Skin: Normal Color, Warm/Dry Progress/Results/Core Measures Results/Orders Lab Results Laboratory Tests Test 10/27/20 18:50 10/27/20 18:51 10/27/20 20:40 Range/Units White Blood Count 6.2 4.3-11.0 10^3/uL Red Blood Count 3.74 L 4.30-5.52 10^6/uL Hemoglobin 11.8 L 13.3-17.7 g/dL Hematocrit 37 L 40-54 % Mean Corpuscular Volume 98 80-99 fL Mean Corpuscular Hemoglobin 32 25-34 pg Mean Corpuscular Hemoglobin Concent 32 32-36 g/dL Red Cell Distribution Width 15.2 H 10.0-14.5 % Platelet Count 150 130-400 10^3/uL Mean Platelet Volume 12.0 9.0-12.2 fL Immature Granulocyte % (Auto) 0 % Neutrophils (%) (Auto) 58 42-75 % Lymphocytes (%) (Auto) 31 12-44 % Monocytes (%) (Auto) 8 0-12 % Eosinophils (%) (Auto) 2 0-10 % Basophils (%) (Auto) 1 0-10 % Neutrophils # (Auto) 3.6 1.8-7.8 10^3/uL Lymphocytes # (Auto) 1.9 1.0-4.0 10^3/uL Monocytes # (Auto) 0.5 0.0-1.0 10^3/uL Eosinophils # (Auto) 0.1 0.0-0.3 10^3/uL Basophils # (Auto) 0.0 0.0-0.1 10^3/uL Immature Granulocyte # (Auto) 0.0 0.0-0.1 10^3/uL Prothrombin Time 14.0 12.2-14.7 SEC INR Comment 1.0 0.8-1.4 Activated Partial Thromboplast Time 30 24-35 SEC Sodium Level 137 135-145 MMOL/L Potassium Level 4.0 3.6-5.0 MMOL/L Chloride Level 104 98-107 MMOL/L Carbon Dioxide Level 23 21-32 MMOL/L Anion Gap 10 5-14 MMOL/L Blood Urea Nitrogen 30 H 7-18 MG/DL Creatinine 1.41 H 0.60-1.30 MG/DL Estimat Glomerular Filtration Rate 49 BUN/Creatinine Ratio 21 Glucose Level 105 70-105 MG/DL Calcium Level 8.0 L 8.5-10.1 MG/DL Corrected Calcium 8.2 L 8.5-10.1 MG/DL Magnesium Level 2.3 1.6-2.4 MG/DL Total Bilirubin 0.4 0.1-1.0 MG/DL Aspartate Amino Transf (AST/SGOT) 12 5-34 U/L Alanine Aminotransferase (ALT/SGPT) 12 0-55 U/L Alkaline Phosphatase 63 40-136 U/L Myoglobin 56.8 10.0-92.0 NG/ML Troponin I < 0.028 < 0.028 <0.028 NG/ML Total Protein 7.1 6.4-8.2 GM/DL Albumin 3.8 3.2-4.5 GM/DL Coronavirus 2019 ([place]) Negative Negative My Orders Orders - KIKE PERKINS APRN Cbc With Automated Diff (10/27/20 18:51) Magnesium (10/27/20 18:51) Chest 1 View, Ap/Pa Only (10/27/20 18:51) Ekg Tracing (10/27/20 18:51) Comprehensive Metabolic Panel (10/27/20 18:51) Myoglobin Serum (10/27/20 18:51) Protime With Inr (10/27/20 18:51) Partial Thromboplastin Time (10/27/20 18:51) O2 (10/27/20 18:51) Monitor-Rhythm Ecg Trace Only (10/27/20 18:51) Lipid Panel (10/28/20 06:00) Ed Iv/Invasive Line Start (10/27/20 18:51) Troponin I (10/27/20 18:51) Nitroglycerin 0.4 Mg Btl 25's (Nitrostat (10/27/20 19:00) Aspirin Chewable Tablet (Baby Aspirin Ch (10/27/20 19:00) Alprazolam Tablet (Xanax Tablet) (10/27/20 19:00) Covid 19 Inhouse Test (10/27/20 19:30) Troponin I (10/27/20 20:50) Medications Given in ED Current Medications Medications Dose Ordered Sig/Sussy Route Start Time Stop Time Status Last Admin Dose Admin Alprazolam 0.25 mg ONCE ONCE PO 10/27/20 19:00 10/27/20 19:01 DC 10/27/20 18:58 0.25 MG Aspirin 324 mg ONCE ONCE PO 10/27/20 19:00 10/27/20 19:01 DC 10/27/20 18:57 324 MG Nitroglycerin 0.4 mg UD PRN SL 10/27/20 19:00 10/27/20 18:59 0.4 MG Vital Signs/I&O 10/27/20 10/27/20 18:46 18:46 Temp 35.8 Pulse 71 Resp 18 B/P (MAP) 141/80 (100) Pulse Ox 100 O2 Delivery Room Air Room Air Blood Pressure Mean: 100 Departure Communication (Admissions) 1947-is symptom-free at this time, we will plan to observe until 1 hour from now at which point we will redraw a troponin. If still negative discharged home. Impression Primary Impression: Chest pain Qualified Codes: R07.9 - Chest pain, unspecified Disposition: HOME, SELF-CARE Condition: Stable Departure-Patient Inst. Decision time for Depature: 21:11 Referrals: DAVID TAVERA DO (PCP) Primary Care Physician Patient Instructions: Chest Pain Add. Discharge Instructions: 1. Return to ER for any concerns 2. Follow-up with your doctor next week 3. All discharge instructions reviewed with patient and/or family. Voiced understanding. KIKE PERKINS [employer]ILITY [employer] Oct 27, 2020 18:56
[2020-10-27 19:00] LABS: BASOPHILS % (AUTO) 1 % (0-10); EOSINOPHILS # (AUTO) 0.1 10^3/uL (0.0-0.3); EOSINOPHILS % (AUTO) 2 % (0-10); HEMATOCRIT 37 % (40-54); HEMOGLOBIN 11.8 g/dL (13.3-17.7); LYMPHOCYTES # (AUTO) 1.9 10^3/uL (1.0-4.0); LYMPHOCYTES % (AUTO) 31 % (12-44); MEAN CORPUSCULAR HEMOGLOBIN 32 pg (25-34); MEAN CORPUSCULAR HGB CONC 32 g/dL (32-36); MEAN CORPUSCULAR VOLUME 98 fL (80-99); MONOCYTES # (AUTO) 0.5 10^3/uL (0.0-1.0); MONOCYTES % (AUTO) 8 % (0-12); NEUTROPHILS # (AUTO) 3.6 10^3/uL (1.8-7.8); NEUTROPHILS % (AUTO) 58 % (42-75); PLATELET COUNT 150 10^3/uL (130-400); WHITE BLOOD COUNT 6.2 10^3/uL (4.3-11.0)
[2020-10-27] MEDS ORDERED: ASPIRIN 81 MG CHEW (CHILDREN'S ASA) PO ONE (19:00)
[2020-10-27] MEDS ORDERED: NITROGLYCERIN 0.4 MG SL TABS BTL 25'S SL PRN (19:00)
[2020-10-27] MEDS ORDERED: ALPRAZolam 0.25 MG (XANAX) TAB PO ONE (19:00)
[2020-10-27 19:09] LABS: ALBUMIN 3.8 GM/DL (3.2-4.5)
[2020-10-27 19:12] LABS: TOTAL PROTEIN 7.1 GM/DL (6.4-8.2)
[2020-10-27 19:13] LABS: BILIRUBIN,TOTAL 0.4 MG/DL (0.1-1.0)
[2020-10-27 19:15] LABS: CREATININE SERUM 1.41 MG/DL (0.60-1.30)
[2020-10-27 19:18] LABS: MAGNESIUM 2.3 MG/DL (1.6-2.4)
--- NOTE | 2020-10-27 19:34 | Diagnostic Imaging Report ---
INDICATION: Chest pain COMPARISON: 04/19/2020 FINDINGS: Single frontal view of the chest demonstrates normal heart size and pulmonary vascularity. The lungs are well aerated and clear. No large pleural effusion or pneumothorax is seen. The visualized osseous structures show no acute abnormalities. IMPRESSION: 1. No acute cardiopulmonary process. Dictated by: Dictated on workstation # [id number]
--- NOTE | 2020-10-27 20:21 | NUR ---
CONTACTED , KEILY, REGARDING PT UPDATE. KEILY EXPRESSES GRATITUDE FOR CARE ET VOICES NO FURTHER QUESTIONS OR CONCERNS.
[2020-10-27 21:27] VITALS: BP 106/68
== END 2020-10-27 21:27 | disposition home or self-care (01) ==
LOC: EDUNIT# 18:33 → ER 18:35
DX: R07.9 Chest pain, unspecified (principal); N40.0 Benign prostatic hyperplasia without lower urinary tract symptoms; F41.9 Anxiety disorder, unspecified; Z20.828 Contact with and (suspected) exposure to other viral communicable diseases; Z82.49 Family history of ischemic heart disease and other diseases of the circulatory system; Z80.9 Family history of malignant neoplasm, unspecified; Z79.82 Long term (current) use of aspirin
CPT/HCPCS: 71045; 80053; 83735; 83874; 84484; 85025; 85610; 85730; 93005; 93041; 99284; U0002; 36415; 87635

== ENCOUNTER → 2021-03-18 | Outpatient (CLI) | payer MEDICARE ==
[~2021-03-18] MED LIST changes: -CELE-63; +DOCU100T2 PO; -FURO20TA4; +FURO20TA4 PO; -LISI-556 PO; +LISI-729 PO
[2021-03-18 10:53] LABS: BASOPHILS % (AUTO) 1 % (0-10); EOSINOPHILS # (AUTO) 0.1 10^3/uL (0.0-0.3); EOSINOPHILS % (AUTO) 2 % (0-10); HEMATOCRIT 36 % (40-54); HEMOGLOBIN 11.5 g/dL (13.3-17.7); LYMPHOCYTES # (AUTO) 1.8 10^3/uL (1.0-4.0); LYMPHOCYTES % (AUTO) 32 % (12-44); MEAN CORPUSCULAR HEMOGLOBIN 31 pg (25-34); MEAN CORPUSCULAR HGB CONC 32 g/dL (32-36); MEAN CORPUSCULAR VOLUME 97 fL (80-99); MONOCYTES # (AUTO) 0.5 10^3/uL (0.0-1.0); MONOCYTES % (AUTO) 9 % (0-12); NEUTROPHILS # (AUTO) 3.3 10^3/uL (1.8-7.8); NEUTROPHILS % (AUTO) 57 % (42-75); PLATELET COUNT 142 10^3/uL (130-400); WHITE BLOOD COUNT 5.7 10^3/uL (4.3-11.0)
[2021-03-18 11:12] LABS: ERYTHROCYTE SEDIMENTATION RATE 18 MM/HR (0-30)
[2021-03-18 11:15] LABS: ALBUMIN 3.7 GM/DL (3.2-4.5); BILIRUBIN,TOTAL 0.8 MG/DL (0.1-1.0); CALCIUM 7.8 MG/DL (8.5-10.1); CREATININE SERUM 1.45 MG/DL (0.60-1.30); POTASSIUM 4.3 MMOL/L (3.6-5.0); TOTAL PROTEIN 6.7 GM/DL (6.4-8.2)
== END ==
LOC: CARD 11:30
PROVIDERS: ATTEND Internal Medicine Cardiovascular Disease
DX: I48.0 Paroxysmal atrial fibrillation (principal)
CPT/HCPCS: 36415; 80053; 84443; 85025; 85652; 93225; 93226

== ENCOUNTER 2021-11-28 12:03 | Emergency (ER) | payer MEDICARE ==
[~2021-11-28] VITALS: Ht 182.8 cm; Wt 101.9 kg
[~2021-11-28 12:03] MED LIST changes: -LISI-729 PO; +LISI5TAB20 PO
--- NOTE | 2021-11-28 12:22 | ED Chest Pain ---
General Chief Complaint: COVID19 Suspect/Confirmed Stated Complaint: SOB Source: patient, EMS Exam Limitations: no limitations History of Present Illness Date Seen by Provider: Nov 28, 2021 Time Seen by Provider: 12:00 Initial Comments Patient is a 81-year-old male who presents to the emergency room today with a chief complaint of shortness of breath that started last evening, persisted all night long. Patient states it was worse as he was laying flat in the bed and seem to be better when he would sit up. He states that he had some "rough" pain in the left side of his chest at about 9:00 this morning. He states mild nausea, sweating and radiation of the pain this morning. He cannot clarify or quantify how long the pain lasted. He states that he has had a little swelling in his lower extremities. He does not do daily weights. He cannot recall if he is on a diuretic. He does have a history of congestive heart failure cannot recall his pediatrician managing partner. Does not recall the last time he saw him. Has not taken any medications this morning last time he took them was last evening. No recent fevers, chills, sore throat, runny nose or congestion. No productive cough. No known sick contacts. He is COVID vaccinated All other review of systems reviewed and negative except as stated Timing/Duration: 1 day Severity/Quality: moderate Location: other (left chest (gone now)) Radiation: arms, other (legs) Modifying Factors: worse with lying down (lying down makes SOB worse) ASA po ON AWAKE COUNSELOR: No NTG SL ON AWAKE COUNSELOR: No Associated Symptoms: diaphoresis, nausea/vomiting, shortness of breath, weakness Allergies and Home Medications Allergies Coded Allergies: NKANo Known Allergies (Verified Allergy, Unknown, 12/16/20) Patient Home Medication List Home Medication List Reviewed: Yes Aspirin (Aspirin EC) 81 Mg Tablet., 81 MG PO DAILY, (Reported) Entered as Reported by: TAZ LAWRENCE on 12/17/20 1007 Cefdinir (Cefdinir) 300 Mg Capsule, 300 MG PO BID Prescribed by: KAE BALLARD on 12/18/20 0855 Celecoxib (Celecoxib) 200 Mg Capsule, 200 MG PO HS, (Reported) Entered as Reported by: ROCAEL PAREDES on 10/13/18 193 Docusate Sodium (Docusate Sodium) 100 Mg Tablet, 100 MG PO DAILY, (Reported) Entered as Reported by: TAZ LAWRENCE on 12/17/201006 Furosemide (Furosemide) 20 Mg Tablet, 20 MG PO DAILY, (Reported) Entered as Reported by: ROCAEL PAREDES on 10/13/181934 Lisinopril (Lisinopril) 5 Mg Tablet, 5 MG PO DAILY, (Reported) Entered as Reported by: TAZ LAWRENCE on 12/17/201006 Metoprolol Succinate (Metoprolol Succinate) 25 Mg Tab.er.24h, 25 MG PO DAILY, (Reported) Entered as Reported by: TAZ LAWRENCE on 12/17/201006 Oxybutynin Chloride (Oxybutynin Chloride) 5 Mg Tablet, 5 MG PO BID, (Reported) Entered as Reported by: ARI HERNANDEZ on 11/27/17826 Terazosin HCl (Terazosin HCl) 1 Mg Capsule, 1 MG PO HS, (Reported) Entered as Reported by: ARI HERNANDEZ on 11/27/17826 Review of Systems Review of Systems Constitutional: see HPI EENTM: No Symptoms Reported Respiratory: Orthopnea, Shortness of Air Cardiovascular: Chest Pain Gastrointestinal: Nausea Genitourinary: No Symptoms Reported Musculoskeletal: other (leg swelling) Psychiatric/Neurological: No Symptoms Reported All Other Systems Reviewed Negative Unless Noted: Yes Past Ghvxjzk-Edkyny-Ropbya Hx Immunizations Up To Date Tetanus Booster (TDap): Unknown PED Vaccines UTD: Yes Seasonal Allergies Seasonal Allergies: No Past Medical History Surgeries: Yes (Left knee replacement, right hip steel plates placed, back ) Appendectomy, Orthopedic Respiratory: No Currently Using CPAP: No Currently Using BIPAP: No Cardiac: No Neurological: Yes (restless leg syndrome, cervical spinal stenosis) Neuropathy Reproductive Disorders: No Sexually Transmitted Disease: No HIV/AIDS: No Genitourinary: Yes Benign Prostatic Hyperpl Gastrointestinal: No Musculoskeletal: Yes (FREQ.BACK PAIN, cervical spinal stenosis) Chronic Back Pain Endocrine: No HEENT: No Loss of Vision: Denies Hearing Impairment: Denies Cancer: No Psychosocial: No Integumentary: No Blood Disorders: No Adverse Reaction/Blood Tranf: No Family Medical History Cardiovascular disease 19 FATHER FHx: cancer 19 MOTHER (unknown what kind of cancer) Respiratory disorder 19 MOTHER (EMPHYZEMA) Physical Exam Vital Signs Vital Signs - First Documented 11/28/21 12:05 Temp 36.1 Pulse 73 Resp 20 B/P (MAP) 139/65 (89) Pulse Ox 98 O2 Delivery Room Air Capillary Refill : Height, Weight, BMI Height: 6'0.00" Weight: 226lbs. 1.0oz. 102.360347hb; 29.08 BMI Method:Stated General Appearance: No Apparent Distress, WD/WN HEENT: PERRL/EOMI Neck: Normal Inspection Respiratory: Lungs Clear, Normal Breath Sounds, No Accessory Muscle Use, No Respiratory Distress Cardiovascular: Regular Rate, Rhythm, Normal Peripheral Pulses Gastrointestinal: Normal Bowel Sounds, Non Tender, Soft Extremity: Normal Capillary Refill, Normal Range of Motion, Non Tender, Pedal Edema (mild, non pitting) Neurologic/Psychiatric: Alert, Oriented x3, No Motor/Sensory Deficits, Normal Mood/Affect Skin: Normal Color, Warm/Dry Progress/Results/Core Measures Results/Orders Lab Results Laboratory Tests Test 11/28/21 12:23 Range/Units White Blood Count 5.9 4.3-11.0 10^3/uL Red Blood Count 3.53 L 4.30-5.52 10^6/uL Hemoglobin 11.1 L 13.3-17.7 g/dL Hematocrit 34 L 40-54 % Mean Corpuscular Volume 96 80-99 fL Mean Corpuscular Hemoglobin 31 25-34 pg Mean Corpuscular Hemoglobin Concent 33 32-36 g/dL Red Cell Distribution Width 15.1 H 10.0-14.5 % Platelet Count 141 130-400 10^3/uL Mean Platelet Volume 12.6 H 9.0-12.2 fL Immature Granulocyte % (Auto) 0 % Neutrophils (%) (Auto) 53 42-75 % Lymphocytes (%) (Auto) 33 12-44 % Monocytes (%) (Auto) 11 0-12 % Eosinophils (%) (Auto) 2 0-10 % Basophils (%) (Auto) 0 0-10 % Neutrophils # (Auto) 3.1 1.8-7.8 10^3/uL Lymphocytes # (Auto) 2.0 1.0-4.0 10^3/uL Monocytes # (Auto) 0.7 0.0-1.0 10^3/uL Eosinophils # (Auto) 0.1 0.0-0.3 10^3/uL Basophils # (Auto) 0.0 0.0-0.1 10^3/uL Immature Granulocyte # (Auto) 0.0 0.0-0.1 10^3/uL Sodium Level 139 135-145 MMOL/L Potassium Level 4.3 3.6-5.0 MMOL/L Chloride Level 107 98-107 MMOL/L Carbon Dioxide Level 22 21-32 MMOL/L Anion Gap 10 5-14 MMOL/L Blood Urea Nitrogen 43 H 7-18 MG/DL Creatinine 1.65 H 0.60-1.30 MG/DL Estimat Glomerular Filtration Rate 42 BUN/Creatinine Ratio 26 Glucose Level 97 70-105 MG/DL Calcium Level 8.1 L 8.5-10.1 MG/DL Total Creatine Kinase 63 30-200 U/L Creatine Kinase MB 0.9 <6.6 NG/ML Troponin I < 0.028 <0.028 NG/ML B-Type Natriuretic Peptide 52.8 <100.0 PG/ML My Orders Orders - SUZY FAITH MD Ed Iv/Invasive Line Start (11/28/21 12:16) Ekg Tracing (11/28/21 12:16) Cbc With Automated Diff (11/28/21 12:16) Basic Metabolic Panel (11/28/21 12:16) Creatine Kinase (11/28/21 12:16) Creatine Kinase Mb (11/28/21 12:16) Troponin I Fox (11/28/21 12:16) Bnp [place] (11/28/21 12:16) Chest 1 View, Ap/Pa Only (11/28/21 12:16) Aspirin Chewable Tablet (Baby Aspirin Ch (11/28/21 12:30) Medications Given in ED Current Medications Medications Dose Ordered Sig/Sussy Route Start Time Stop Time Status Last Admin Dose Admin Aspirin 324 mg ONCE ONCE PO 11/28/21 12:30 11/28/21 12:31 DC 11/28/21 12:28 324 MG Vital Signs/I&O 11/28/21 12:05 Temp 36.1 Pulse 73 Resp 20 B/P (MAP) 139/65 (89) Pulse Ox 98 O2 Delivery Room Air Progress Progress Note : Time: 13:54 Progress Note Patient reassessed, actually states that he is feeling much better. No longer short of breath, did not have any return of chest pain. EKG was unremarkable except for borderline first-degree AV block and occasional PVC. Cardiac enzymes are negative. 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 No evidence of acute pathology on chest x-ray, basic laboratory studies. He was able to ambulate 20 feet, without symptoms satting 96%. We will send him back home to continue his home medications and follow-up with his primary care physician as well as his pediatrician managing partner. Vital signs have remained stable. All questions are sought and answered. Initial ECG Impression Date: Nov 28, 2021 Initial ECG Impression Time: 12:21 Initial ECG Rate: 70 Initial ECG Rhythm: Normal Sinus Initial ECG Intervals: Normal Initial ECG Intervals IL 199 QRS 199 QTc 449 Comment PVC's No significant ST segments Departure Impression Primary Impression: Chest pain Qualified Codes: R07.9 - Chest pain, unspecified Additional Impression: Shortness of breath Disposition: 01 HOME, SELF-CARE Condition: Stable Departure-Patient Inst. Decision time for Depature: 13:55 Referrals: CATALINO MANZANO MD [facility] NO,LOCAL PHYSICIAN (PCP) Primary Care Physician Patient Instructions: Chest Pain (DC) Add. Discharge Instructions: Continue all your routine medications as prescribed. Be sure and call Dr Manzano's office for a follow up appointment about the chest pain you had this morning. If you have any return of chest pain, with concerning other symptoms, you need to come back to the ER for re-evaluation. See your primary care doctor as well for a follow up appointment. Copy Copies To 1: CATALINO MANZANO MD [facility] SUZY FAITH MD Nov 28, 2021 12:22
[2021-11-28] MEDS ORDERED: ASPIRIN 81 MG CHEW (CHILDREN'S ASA) PO ONE (12:30)
[2021-11-28 12:40] LABS: BASOPHILS % (AUTO) 0 % (0-10); EOSINOPHILS # (AUTO) 0.1 10^3/uL (0.0-0.3); EOSINOPHILS % (AUTO) 2 % (0-10); HEMATOCRIT 34 % (40-54); HEMOGLOBIN 11.1 g/dL (13.3-17.7); LYMPHOCYTES % (AUTO) 33 % (12-44); MEAN CORPUSCULAR HEMOGLOBIN 31 pg (25-34); MEAN CORPUSCULAR HGB CONC 33 g/dL (32-36); MEAN CORPUSCULAR VOLUME 96 fL (80-99); MEAN PLATELET VOLUME 12.6 fL (9.0-12.2); MONOCYTES # (AUTO) 0.7 10^3/uL (0.0-1.0); MONOCYTES % (AUTO) 11 % (0-12); NEUTROPHILS # (AUTO) 3.1 10^3/uL (1.8-7.8); NEUTROPHILS % (AUTO) 53 % (42-75); PLATELET COUNT 141 10^3/uL (130-400); WHITE BLOOD COUNT 5.9 10^3/uL (4.3-11.0)
[2021-11-28 12:55] LABS: CHLORIDE 107 MMOL/L (98-107); POTASSIUM 4.3 MMOL/L (3.6-5.0); SODIUM 139 MMOL/L (135-145)
[2021-11-28 12:56] LABS: CALCIUM 8.1 MG/DL (8.5-10.1)
--- NOTE | 2021-11-28 12:56 | Diagnostic Imaging Report ---
INDICATION: Shortness of breath. EXAMINATION: Portable chest at 12:45 p.m. FINDINGS: Heart size and pulmonary vascularity are normal. Lungs are clear. There are no effusions or pneumothoraces. IMPRESSION: Negative chest. Dictated by: Dictated on workstation # [id number]
[2021-11-28 12:57] LABS: GLUCOSE 97 MG/DL (70-105)
[2021-11-28 12:58] LABS: CARBON DIOXIDE 22 MMOL/L (21-32)
[2021-11-28 13:01] LABS: CREATININE SERUM 1.65 MG/DL (0.60-1.30); GFR ESTIMATED 42
[2021-11-28 13:02] LABS: BUN/CREATININE RATIO 26
[2021-11-28 13:03] LABS: CREATINE KINASE 63 U/L (30-200)
[2021-11-28 13:09] LABS: CREATINE KINASE MB 0.9 NG/ML (<6.6)
[2021-11-28 14:20] VITALS: BP 128/79
== END 2021-11-28 14:20 | disposition home or self-care (01) ==
LOC: ER 12:03
DX: R07.9 Chest pain, unspecified (principal); R06.02 Shortness of breath; N40.0 Benign prostatic hyperplasia without lower urinary tract symptoms; Z79.899 Other long term (current) drug therapy; Z79.82 Long term (current) use of aspirin
CPT/HCPCS: 36415; 71045; 80048; 82550; 82553; 83880; 84484; 85025; 93005